=== PATIENT | male | born 1990 | race Caucasian/White ===

== ENCOUNTER 2018-12-29 15:56 | Emergency (ER) | payer SELFPAY ==
[2018-12-29] MEDS ORDERED: ACETAMINOPHEN 500 MG TAB ONE (16:22)
--- NOTE | 2018-12-29 16:44 | RAD REPORT ---
EXAM DESCRIPTION: Jake Amezquita (2 Views)12/29/2018 4:38 pm CLINICAL HISTORY: Cough COMPARISON: 2016 FINDINGS: The lungs appear clear of acute infiltrate. The heart is mildly enlarged. Post surgical c hanges involve the chest IMPRESSION: No acute abnormalities displayed
[2018-12-29 16:48] LABS: Absolute Lymphocytes (CBC) 0.5 K/uL (0.7-4.9); Absolute Monocytes 0.5 K/uL (0.1-1.3); Absolute Neutrophil 2.7 K/uL (1.8-8.0); Basophils % 0.6 % (0-1.3); Eosinophils % 1.4 % (0-4.4); Hematocrit 48.8 % (39.6-49.0); MPV 8.5 fL (7.6-11.3); RBC Red Blood Cell Count 5.39 M/uL (4.33-5.43)
[2018-12-29 17:04] LABS: BUN Blood Urea Nitrogen 9 mg/dL (7-18); Bicarbonate 28 mmol/L (21-32); Glucose Level 104 mg/dL (74-106); Sodium Level 138 mmol/L (136-145)
[2018-12-29] MEDS ORDERED: KETOROLAC 30 MG/ML INJ ONE (17:28)
--- NOTE | 2018-12-29 18:09 | EDPHYS ---
Physician Documentation [facility] Name: Jeremy Hernandez Age: 28 yrs Sex: Male : 1990 Arrival Date: 12/29/2018 Time: 15:58 Bed 13 Private MD: ED Physician Derrick Maddox HPI: 12/29 17:34 This 28 yrs old Male presents to ER via Ambulatory with complaints of Chest kb Pain. Historical: - Allergies: 16:03 No Known Drug Allergies; hj - PMHx: 16:03 heart stenosis; Seizures; hj - PSHx: 16:03 balloon heart procedure; Ross procedure; hj - Immunization history:: Adult Immunizations unknown. - Ebola Screening: : No symptoms or risks identified at this time. - Social history:: Smoking status: Patient/guardian denies using tobacco. ROS: 17:35 Constitutional: Negative for fever, chills, and weight loss, ENT: Negative for injury, kb pain, and discharge, Neck: Negative for injury, pain, and swelling, Abdomen/GI: Negative for abdominal pain, nausea, vomiting, diarrhea, and constipation, Back: Negative for injury and pain, : Negative for injury, bleeding, discharge, and swelling, MS/Extremity: Negative for injury and deformity, Skin: Negative for injury, rash, and discoloration, Neuro: Negative for headache, weakness, numbness, tingling, and seizure. 17:35 Cardiovascular: Positive for chest pain, Negative for edema, orthopnea, palpitations, paroxysmal nocturnal dyspnea. 17:35 Respiratory: Positive for pleurisy, Negative for cough, dyspnea on exertion, hemoptysis, orthopnea, shortness of breath, sputum production, wheezing. Exam: 17:35 Constitutional: This is a well developed, well nourished patient who is awake, alert, kb and in no acute distress. Head/Face: Normocephalic, atraumatic. ENT: Nares patent. No nasal discharge, no septal abnormalities noted. Tympanic membranes are normal and external auditory canals are clear. Oropharynx with no redness, swelling, or masses, exudates, or evidence of obstruction, uvula midline. Mucous membranes moist. Neck: Trachea midline, no thyromegaly or masses palpated, and no cervical lymphadenopathy. Supple, full range of motion without nuchal rigidity, or vertebral point tenderness. No Meningismus. Chest/axilla: Normal chest wall appearance and motion. Nontender with no deformity. No lesions are appreciated. Respiratory: Lungs have equal breath sounds bilaterally, clear to auscultation and percussion. No rales, rhonchi or wheezes noted. No increased work of breathing, no retractions or nasal flaring. Abdomen/GI: Soft, non-tender, with normal bowel sounds. No distension or tympany. No guarding or rebound. No evidence of tenderness throughout. Skin: Warm, dry with normal turgor. Normal color with no rashes, no lesions, and no evidence of cellulitis. MS/ Extremity: Pulses equal, no cyanosis. Neurovascular intact. Full, normal range of motion. Neuro: Awake and alert, GCS 15, oriented to person, place, time, and situation. Cranial nerves II-XII grossly intact. Motor strength 5/5 in all extremities. Sensory grossly intact. Cerebellar exam normal. Normal gait. 17:35 Cardiovascular: Heart sounds: murmur. Vital Signs: 16:03 BP 139 / 82; Pulse 86; Resp 18; Temp 101(O); Pulse Ox 99% on R/A; Weight 61.23 kg; hj Height 5 ft. 8 in. (172.72 cm); Pain 8/10; 17:00 BP 121 / 78; Pulse 67; Resp 18; Pulse Ox 98% on R/A; ph 17:46 BP 110 / 67; Pulse 58; Resp 18; Temp 99.3; Pulse Ox 97% on R/A; ph 18:15 BP 101 / 76 LA (auto/reg); Pulse 64; Pulse Ox 98% on R/A; Pain 4/10; jp3 16:03 Body Mass Index 20.52 (61.23 kg, 172.72 cm) MDM: 16:13 Patient medically screened. kb 17:34 Data reviewed: vital signs, nurses notes. Data interpreted: Pulse oximetry: on room air kb is 99 %. Interpretation: normal. 18:08 The patient's pulmonary embolism risk score was calculated as follows: No Risks (0 kb Pts). Counseling: I had a detailed discussion with the patient and/or guardian regarding: the historical points, exam findings, and any diagnostic results supporting the discharge/admit diagnosis, lab results, radiology results, the need for outpatient follow up, a family practitioner, to return to the emergency department if symptoms worsen or persist or if there are any questions or concerns that arise at home. ED course: Dr Maddox evaluated pt as well. Agrees with outpatient follow up. Pt will return for worsening symptoms or other concerns. 12/29 16:10 Order name: Flu; Complete Time: 17:06 kb 12/29 16:17 Order name: CBC with Diff; Complete Time: 16:52 kb 12/29 16:10 Order name: Chest Pa And Lat (2 Views) XRAY; Complete Time: 16:45 kb 12/29 16:17 Order name: Basic Metabolic Panel; Complete Time: 17:06 kb 12/29 16:17 Order name: Blood Culture Adult (2) kb 12/29 16:22 Order name: Troponin (emerg Dept Use Only); Complete Time: 17:11 kb 12/29 16:05 Order name: EKG - Nurse/Tech; Complete Time: 16:05 hj 12/29 16:17 Order name: IV Start; Complete Time: 16:36 kb 12/29 16:34 Order name: EKG Electrocardiogram; Complete Time: 16:33 EDMS 12/29 17:34 Order name: Vital Signs; Complete Time: 17:48 kb Administered Medications: 16:05 Drug: Tylenol 1000 mg Route: PO; hj 17:35 Follow up: Response: No adverse reaction ph 17:20 Drug: TORadol 30 mg Route: IVP; Site: right antecubital; ph 18:41 Follow up: Response: No adverse reaction ph Disposition: 18:44 Co-signature as Attending Physician, Derrick Maddox MD. rn Disposition: 12/29/18 18:07 Discharged to Home. Impression: Chest pain on breathing, Fever, unspecified. - Condition is Stable. - Discharge Instructions: Costochondritis, [id number], Nonspecific Chest Pain, [id number], Pleurisy, [id number]-[id number]. - Prescriptions for Diclofenac Sodium 75 mg Oral Tablet, Delayed Release (E.C.) - take 1 tablet by ORAL route 2 times per day As needed; 30 tablet. - Medication Reconciliation Form, Thank You Letter, Antibiotic Education, Prescription Opioid Use form. - Follow up: Emergency Department; When: As needed; Reason: Worsening of condition. Follow up: Private Physician; When: 2 - 3 days; Reason: Recheck today's complaints, Continuance of care, Re-evaluation by your physician. Signatures: Dispatcher [employer] EDMS Gilma Sandhu, CONCRETE MIXER-C CONCRETE MIXER-Ckb Derrick Maddox MD MD rn Hall, Patricia, RN RN José Miguel Garcia RN RN Corrections: (The following items were deleted from the chart) 18:43 18:07 12/29/2018 18:07 Discharged to Home. Impression: Chest pain on breathing; Fever, ph unspecified. Condition is Stable. Forms are Medication Reconciliation Form, Thank You Letter, Antibiotic Education, Prescription Opioid Use. Follow up: Emergency Department; When: As needed; Reason: Worsening of condition. Follow up: Private Physician; When: 2 - 3 days; Reason: Recheck today's complaints, Continuance of care, Re-evaluation by your physician. kb
--- NOTE | 2018-12-29 18:09 | ER ---
Nurse's Notes [facility] Name: Jeremy Hernandez Age: 28 yrs Sex: Male : 1990 Arrival Date: 12/29/2018 Time: 15:58 Bed 13 Private MD: Diagnosis: Chest pain on breathing;Fever, unspecified Presentation: 12/29 16:00 Presenting complaint: Patient states: when i deep breath, i am having pain on my chest hj area; my temp is 101.1 at home; denies cough;. Transition of care: patient was not received from another setting of care. Onset of symptoms was December 29, 2018. Risk Assessment: Do you want to hurt yourself or someone else? Patient reports no desire to harm self or others. Initial Sepsis Screen: Does the patient meet any 2 criteria? No. Patient's initial sepsis screen is negative. Does the patient have a suspected source of infection? No. Patient's initial sepsis screen is negative. Care prior to arrival: None. 16:00 Method Of Arrival: Ambulatory 16:00 Acuity: ARACELY 3 hj Historical: - Allergies: 16:03 No Known Drug Allergies; hj - PMHx: 16:03 heart stenosis; Seizures; hj - PSHx: 16:03 balloon heart procedure; Ross procedure; hj - Immunization history:: Adult Immunizations unknown. - Ebola Screening: : No symptoms or risks identified at this time. - Social history:: Smoking status: Patient/guardian denies using tobacco. Screenin:52 Abuse screen: Denies threats or abuse. Denies injuries from another. Nutritional ph screening: No deficits noted. Tuberculosis screening: No symptoms or risk factors identified. Fall Risk None identified. Assessment: 16:51 General: Appears in no apparent distress. comfortable, slender, Behavior is calm, ph cooperative, appropriate for age, Reports chills for fever for 1-2 days. Pain: Complains of pain in chest Pain does not radiate. Pain began 1 day ago. Neuro: Level of Consciousness is awake, alert, obeys commands, Oriented to person, place, time, situation. Cardiovascular: Reports chest pain, Denies nausea, vomiting, Capillary refill < 3 seconds in bilateral fingers Patient's skin is warm and dry. Respiratory: Reports pain with respiration Airway is patent Respiratory effort is even, unlabored, Respiratory pattern is regular, symmetrical, Denies cough. Derm: Skin is healthy with good turgor, Skin is pink, warm \T\ dry. 17:30 Reassessment: Patient appears in no apparent distress at this time. Patient and/or ph family updated on plan of care and expected duration. Pain level reassessed. Patient is alert, oriented x 3, equal unlabored respirations, skin warm/dry/pink. 18:42 Reassessment: Patient appears in no apparent distress at this time. Patient and/or ph family updated on plan of care and expected duration. Pain level reassessed. Patient is alert, oriented x 3, equal unlabored respirations, skin warm/dry/pink. Pt d/c home w/ pain medication. Vital Signs: 16:03 BP 139 / 82; Pulse 86; Resp 18; Temp 101(O); Pulse Ox 99% on R/A; Weight 61.23 kg; hj Height 5 ft. 8 in. (172.72 cm); Pain 8/10; 17:00 BP 121 / 78; Pulse 67; Resp 18; Pulse Ox 98% on R/A; ph 17:46 BP 110 / 67; Pulse 58; Resp 18; Temp 99.3; Pulse Ox 97% on R/A; ph 18:15 BP 101 / 76 LA (auto/reg); Pulse 64; Pulse Ox 98% on R/A; Pain 4/10; jp3 16:03 Body Mass Index 20.52 (61.23 kg, 172.72 cm) ED Course: 15:58 Patient arrived in ED. mr 16:02 Triage completed. hj 16:04 Arm band placed on right wrist. hj 16:10 EKG done, by camera technician. reviewed by Derrick Maddox MD. sm3 16:13 Gilma Sandhu FNP-C [facility]. kb 16:13 Derrick Maddox MD is Attending Physician. kb 16:22 Flu and/or RSV swab sent to lab. jp3 16:30 Initial lab(s) drawn, by mn, sent to lab. First set of blood cultures drawn. Inserted jp3 saline lock: 18 gauge in right forearm, using aseptic technique. Blood collected. 16:36 Troponin (emerg Dept Use Only) Sent. jp3 16:36 Basic Metabolic Panel Sent. jp3 16:36 CBC with Diff Sent. jp3 16:36 Flu Sent. jp3 16:40 Chest Pa And Lat (2 Views) XRAY In Process Unspecified. EDMS 16:50 Mirian Fontana, RN is Primary Nurse. ph 16:52 Patient has correct armband on for positive identification. Placed in gown. Bed in low ph position. Call light in reach. Side rails up X 1. Pulse ox on. NIBP on. 16:53 No provider procedures requiring assistance completed. Patient maintains SpO2 ph saturation greater than 95% on room air. 17:14 Second set of blood cultures drawn via 21-gauge butterfly-syringe in Left A/C. jp3 17:16 Blood Culture Adult (2) Sent. jp3 18:42 IV discontinued, intact, bleeding controlled, No redness/swelling at site. Pressure ph dressing applied. Administered Medications: 16:05 Drug: Tylenol 1000 mg Route: PO; hj 17:35 Follow up: Response: No adverse reaction ph 17:20 Drug: TORadol 30 mg Route: IVP; Site: right antecubital; ph 18:41 Follow up: Response: No adverse reaction ph Outcome: 18:07 Discharge ordered by . kb 18:42 Discharged to home ambulatory. ph 18:42 Condition: good 18:42 Discharge instructions given to patient, Instructed on discharge instructions, follow up and referral plans. medication usage, Demonstrated understanding of instructions, follow-up care, medications, Prescriptions given X 1. 18:43 Patient left the ED. ph Signatures: Dispatcher [employer] EDMN Gilma Sandhu, JUSTICE GARGP-Elías Justina Sousa Mirian Fontana, RN RN José Miguel Mahajan RN RN Batsheva Daniels 3 Hayder Rose jp3 Corrections: (The following items were deleted from the chart) 16:05 16:03 Pulse 86bpm; Resp 18bpm; Pulse Ox 99% RA; Temp 101F Oral; 61.23 kg; Height 5 ft. hj 8 in.; BMI: 20.5; Pain 8/10; hj
[2018-12-29 18:58] VITALS: TEMP 99.3
[2018-12-29 18:59] VITALS: BP 101/76; O2SAT 98
--- NOTE | 2018-12-30 11:12 | EKG ---
Test Date: 2018-12-29 Test Time: 16:09:01 Water Maintenance Supervisor: AMY MEASUREMENT RESULTS: Intervals: Rate: 91 CA: 132 QRSD: 80 QT: 338 QTc: 415 [place]: P: 45 CA: 132 QRS: 87 T: -60 INTERPRETIVE STATEMENTS: Normal sinus rhythm ST & Marked T wave abnormality, consider lateral ischemia Abnormal ECG Compared to ECG 03/20/2016 07:30:22 T-wave abnormality now present Possible ischemia now present Left ventricular hypertrophy no longer present Early repolarization no longer present Myocardial infarct finding no longer present Electronically Signed On 12-30-18 11:09:50 CDT by Douglas Hand
== END 2018-12-29 18:43 | disposition home or self-care (01) ==
LOC: ER 15:56
DX: R50.9 Fever, unspecified (principal)
CPT/HCPCS: 36415; 71046; 80048; 84484; 85025; 87040; 87804; 93005; 96374; 99285

== ENCOUNTER 2023-06-18 11:03 | Emergency (ER) | payer OTHER, SELFPAY ==
[2023-06-18] MEDS ORDERED: EPINEPHrine 1 MG/10 ML SYR IV ONE (11:04)
[2023-06-18] MEDS ORDERED: NALOXONE 0.4 MG/ML VIAL IV ONE (11:04)
--- OUTSIDE RECORDS SUMMARY | 2023-06-18 11:07 | XMS REPORT | Continuity of Care Document ---
:1990 Author Organization Formerly [facility] t Address [address] [place] [address] Care Team Providers Name Role Phone Marie Gomez Attending Clinician Unavailable Keegan Attending Clinician Unavailable SALLY Attending Clinician Unavailable Polo Ledesma Attending Clinician Unavailable Marie Gomez Admitting Clinician Unavailable Keegan Admitting Clinician Unavailable SALLY Admitting Clinician Unavailable Physician, No Primary or Family Admitting Clinician Unavaila ble Payers Payer Name Policy Type Policy Number Effective Date Expiration Date S ource Problems Condition Condition Condition Status Onset Resolution Last Treating Co mments Source Name Details Category Date Date Treatment Clinician Date Arthritis Arthritis Problem Active [place] 7-[facility] 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 7-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 00:00: [facility] Systolic Systolic Problem Active [place] murmur Murmur 7-31 da 00:00: [facility] Bilateral Bilateral Problem Active [place] arthritis Arthritis 7-31 da of knees of Knees 00:00: [facility] Generalize Generalize Problem Active [place] d anxiety d Anxiety 02-23 da disorder Disorder 00:00: [facility] Hypertensi Hypertensi Problem Active [place] ve ve 02-23 da disorder Disorder 00:00: [facility] Allergies, Adverse Reactions, Alerts Allergy Allergy Status Severity Reaction(s) Onset Inactive Treating Comm ents Source Name Type Date Date Clinician No Known DA Active [facility] Allergie 04-19 [facility] 00:[facility]: [facility] Social History Smoking Status Start Date Stop Date Source Never Smoker [place] [facility] Medications Ordered Filled Start Stop Current Ordering Indication Dosage Frequency Signature Comments Components Source Medication Medication Date Date Medication? Clinician (SIG) Name Name gabapentin gabapentin No 1capsul TID gabapentin [place] 300 mg 300 mg e(s) 300 mg da capsule capsule capsule [facility] Take 1 Take 1 Take 1 al capsule 3 capsule 3 capsule 3 Health times a day times a day times a Outreac by oral by oral day by h route. route. oral Program route. lorazepam 1 lorazepam 1 No lorazepam [place] mg tablet mg tablet 1 mg da TAKE 1 TAKE 1 tablet [facility] TABLET BY TABLET BY TAKE 1 al MOUTH THREE MOUTH THREE TABLET BY Health TIMES A DAY TIMES A DAY MOUTH Outreac NEEDED NEEDED THREE h TIMES A Program DAY NEEDED Vital Signs Vital Name Observation Time Observation Value Comments Source BP Diastolic 2023-02-23 00:00:00 97 mm[Hg] [facility] Height 2023-02-23 00:00:00 67 [in_i] [facility] BMI (Body Mass 2023-02-23 00:00:00 23.3 kg/m2 [facility]) Health Outreach Program BP Systolic 2023-02-23 00:00:00 154 mm[Hg] [facility] Body Weight 2023-02-23 00:00:00 2385 [oz_av] [facility] Procedures Procedure Date / Time Performing Clinician Source Performed [id number] 2020-11-13 00:00:00 RIOMA.03 [facility] Appendectomy 2015-07-27 00:00:00 [place] [facility] Replacement of Aortic 2014-07-27 00:00:00 [place]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 [facility] Using Pulmonary Health Outr each Valve Autograft and Program Replacement of Pulmonary Valve Angioplasty 1988-07-27 00:00:00 [place] [facility] Plan of Care Planned Activity Planned Date Details Comments Source Diagnostic Test 2023-02-23 vitamin D, [place] Pending 00:00:00 25-hydroxy, total, [facility] serum [code = Outreach Progr am vitamin D, 25-hydroxy, total, serum] Diagnostic Test 2023-02-23 HbA1c (hemoglobin [place] Pending 00:00:00 A1c), blood [code = [facility] HbA1c (hemoglobin [facility]reach P rogram A1c), blood] Diagnostic Test 2023-02-23 TSH, [place] Pending 00:00:00 ultra-sensitive, [facility] serum [code = TSH, Outreach Program ultra-sensitive, serum] Diagnostic Test 2023-02-23 urinalysis complete, [place] linda Pending 00:00:00 reflex culture [code [facility] = urinalysis Outreach Progra m complete, reflex culture] Diagnostic Test 2023-02-23 lipid panel, serum [place]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 Pending 00:00:00 [code = lipid panel, [facility] serum] [facility]reach [facility] m Diagnostic Test 2023-02-23 CBC w/ auto diff [place] Pending 00:00:00 [code = CBC w/ auto [facility] diff] [facility] Diagnostic Test 2023-02-23 CMP, serum or plasma [place] linda Pending 00:00:00 [code = CMP, serum [facility] or plasma] Outreach Pro[facility] m Future Appointment 2023-07-14 Troy Domínguez 13:30:00 [place] [address] Outreach Program Encounters Start End Encounter Admission Attending Care Care Encounter Source Date/Time Date/Time Type Type Clinicians Facility Department ID 2022-01-08 Outpatient [facility] [id number] Common 13:18:02 [facility] 2021-10-07 Outpatient [facility] [id number] Common 13:06:02 [facility] 2021-09-19 Outpatient [facility] [id number] Common 14:59:03 [facility] 2021-09-10 Outpatient [facility] [id number] Common 14:50:03 [facility] 2020-11-14 Inpatient EM Patricia, HCAKW HCAKW [id number] [facility] 09:14:21 [facility] 2023 2023 Outpatient Ritter_Kath MEHOP MEHOP 125 [id number] [place] 00:00:00 00:00:00 erine [id number] da [facility] 2023 2023 Outpatient Ritter_Kath MEHOP MEHOP 125 [id number] [place] 00:00:00 00:00:00 erine 84531 da [facility] 2023-05-25 2023-05-25 Outpatient Ritter_Kath MEHOP MEHOP 125 [id number] [place] 00:00:00 00:00:00 erine 86584 [facility] 2023-05-25 2023-05-25 Outpatient Ritter_Kath MEHOP MEHOP 125 [id number] [place] 00:00:00 00:00:00 erine [id number] [facility] 2023-03-22 2023-03-22 Outpatient Ritter_Kath MEHOP MEHOP 125 [id number] [place] 00:00:00 00:00:00 erine [id number] [facility] 2023-03-22 2023-03-22 Outpatient Ritter_Kath MEHOP MEHOP 125 [id number] [place] 00:00:00 00:00:00 erine [id number] [facility] 2023-02-23 2023-02-23 Outpatient Ritter_Kath MEHOP MEHOP 125 [id number] [place] 00:00:00 00:00:00 michael [id number] da [facility] 2023-02-23 2023-02-23 Citlaly [facility] [place] - [id number] [place] 00:00:00 00:00:00 Fercho Murali fernandez Earlter, [facility] [employer] LE[employer]ER: [address], [facility] [address] Progr , Ph. 2023-02-12 2023-02-12 Outpatient AMBREEN_FAR MEHOP GAHOP [id number] [place] 00:00:00 00:00:00 HANA 84413 da [facility] 2023-02-12 2023-02-12 Outpatient AMBREEN_FAR GAHOP [facility] [phone] [place] 00:00:00 00:00:00 HANA 75831 da [facility] 2023-02-12 2023-02-12 Outpatient AM[facility]EN[facility] [phone] [place] 00:00:00 00:00:00 HANA [id number] da [facility] 2022-10-25 2022-10-25 Emergency EM MARY Ledesma ER [id number] [facility] 15:07:00 18:45:[address] 2016-11-04 2016-12-09 Outpatient [facility] [id number] [place] 00:00:00 00:00:00 [facility] Office Results Test Description Test Time Test Comments Results Result [facility] e Comments - CT NECK 2022-10-25 W/CONTRAST 18:23:00 [facility] [place] : 1990 Sex: M [place]: [address]: REG Name: JULISA FERNANDEZ [facility] : 1990 Age/S: 32/M [address] Yusuf Henriquez [facility] Unit #: [id number] Loc: [place], [place] [address] Phys: Polo Ledesma MD Acct: [id number] Dis Date: Status: REG ER PHONE #: [phone] Exam Date: 10/25/2022 1755 FAX #: [phone] Reason: throat pain/swallowing;cut throat while brshngtCTDI: DLP: Automated exposure control, iterative reconstruction technique, and/oradjustment of mA and/or kV according to patient's size was utilized fooptimum radiation dose reduction. EXAMS: CPT CODE: [id number] CT NECK W/CONTRAST 89865 EXAM: - CT NECK W/CONTRAST LOCATION: H101 CLINICAL HISTORY/INDICATION: throat pain/swallowing;cut throat while brushing teeth 1wk COMPARISON: None TECHNIQUE: Helical CT acquisition of the neck was acquired with IV contrast administration. Axial, coronal and sagittal images were reconstructed. This examination was performed according to our departmental dose optimization program, which includes automated exposure control, adjustment of the mA and/or kV according to patient size, and/or use of iterative reconstruction technique. FINDINGS: PARTIALLY IMAGED INTRACRANIAL STRUCTURES: No acute abnormality. TEMPORAL BONE/MASTOID: Mastoid air cells are clear. ORBITS: Unremarkable. PARANASAL SINUSES: Clear. AERODIGESTIVE TRACT: The nasal cavity, nasopharynx, oral cavity, oropharynx and hypopharynx are patent without mass or fluid collection or inflammatory changes. LARYNX:Epiglottis is normal. The glottic and subglottic airway are patent. The vocal cords are unremarkable. LYMPH NODES: No pathologic features or enlargement by CT criteria . VESSELS: No occlusion or significant narrowing of the bilateral carotid or vertebral arteries. Jugular veins are patent. SUBMANDIBULAR GLANDS: Symmetric in appearance without mass. PAGE 1 Signed Report (CONTINUED) [place]: [address]: REG Name: JULISA FERNANDEZ [facility] : 1990 Age/S: 32/M [address] Yusuf Henriquez [facility] Unit #: [id number] Loc: [place], [place] [address] Phys: Polo Ledesma MD Acct: [id number] Dis Date: Status: REG ER PHONE #: [phone] Exam Date: 10/25/2022 9878 FAX #: [phone] Reason: throat pain/swallowing;cut throat while brshngtCTDI: DLP: Automated exposure control, iterative reconstruction technique, and/oradjustment of mA and/or kV according to patient's size was utilized fooptimum radiation dose reduction. EXAMS: CPT CODE: [id number] CT NECK W/CONTRAST 49448 (Continued) PAROTID GLANDS: Symmetric in appearance without mass. THYROID GLAND: No abnormalities. UPPER CHEST: Lung apices are clear. BONES: Regional osseous structures are intact. IMPRESSION: 1. Unremarkable contrast-enhanced neck CT. at 1823 Reported and signed by: VANDANA MCKAY M.D. Facility ACR Accreditation for CT - February 2012 CC: Polo Ledesma MD Technologist: LORENE LINDO(R)(CT) Transcribed Date/Time/By: 10/25/2022 (1822) : By: [email or web address] Orig Print D/T: S: 10/25/2022 (1825) PAGE 2 Signed Report BASIC METABOLIC PANEL 2022-10-25 16:28:00 Test Item Value Reference Range Interpretation Comme nts SODIUM (test code = NA) 139 mmol/L 136-145 N POTASSIUM (test code = K) 3.4 mmol/L 3.5-5.1 L CHLORIDE (test code = CL) 106 mmol/L 98-113 N CARBON DIOXIDE (test code = 30 mmol/L 21-32 N CO2) GLUCOSE (test code = GLU) 88 mg/dL 65-99 N BLOOD UREA NITROGEN (test code 9 mg/dL 7-18 N = BUN) GLOMERULAR FILTRATION RATE 120 T he Glomerular Filtration Rate is (test code = GFR) a calculat ed parameterbased on serum Creatinin e, patient age and sex. GFR values less than 60 mL/min/1.73 squ are meters are indicative ofCh ronic Kidney Disease. Values less than 15 mL/min/1.73squa re meters indicate Kidney failure. The calculation forGFR is based on the CKD-EPI (2020) calculat ion. This formulais race indifferent and is the recommended formula for GFRby the National [facility] for Adults.The GFR will not calculate if th e sex is unknown or if thepatien t's age is <18 years. CREATININE (test code = CREAT) 0.8 mg/dL 0.6-1.0 N CALCIUM (test code = CA) 8.8 mg/dL 7.8-10.9 N HEPATIC FUNCTION [id number] 16:28:00 Test Item Value Reference Range Interpretation Comments TOTAL PROTEIN (test 7.5 g/dL 6.4-8.2 N code = PROT) ALBUMIN (test code = 3.3 g/dL 3.4-5.0 L ALB) GLOBULIN (test code = 4.2 gm/dL 2.3-3.5 H GLOB) ALBUMIN/GLOBULIN 0.8 1.5-2.2 L RATIO (test code = A/G) BILIRUBIN TOTAL (test 0.8 mg/dL 0.0-1.1 N code = BILT) BILIRUBIN DIRECT 0.2 mg/dL 0.05-0.3 N (test code = BILD) BILIRUBIN INDIRECT 0.6 mg/dL 0.0-0.6 N (test code = BILIND) SGOT/AST (test code = 18 U/L 15-37 N Report ing units: AST) International U nits/L SGPT/ALT (test code = 29 U/L 10-30 N Report ing units: ALT) International U nits/L ALKALINE PHOSPHATASE 96 U/L 45-117 N TOTAL (test code = ALKP) [id number] 16:28:00 Test Item Value Reference Range Interpretation Comments LIPASE (test code = 96 U/L 73-393 N Reportin g units: LIP) International U nits/L COVID 19 Asymptomatic IH [id number] 16:04:00 Test Item Value Reference Interpretation Comments Range COVID 19 Presumptive Presump.Neg Results are for the Asymptomatic IH Negative identificati on of AG (test code = [id number] cleocapsid COVNONPUIAG) protein antigen . Antigen is generallydetect able in upper respirato ry specimens durin g the acutephase of infection. Posi tive results indicat e the presenceof leodan l antigens, but c linical correlation wit h patienthistory and other diagnosti c information is necessary todet ermine infection statu s. Positive result s do not rule outbacteri al infection or co-infection wi th other viruses. Theage nt detected may no t be the definite cause of disease.Laborat ories within the Unit [facility] and its territoriesare required to report all p ositive results to themerged with [facility] public health authorit ies. Negative result s should be treated as presumptive andconfirmed wi th molecular assay , if necessary for patientmanageme nt. Negative result s do not rule out COVID- 19 andshould not b e used as the sole bas is for treatment orpat ient management deci sions, including infec tion controldecision s. Negative result s should be considered i n thecontext of a patient's recen t exposures, hist ory andpresence of clinical signs and sympt oms consistent withCOVID-19. T he Lauren SARS Antigen FI A is intended for us e by trainedclinical personnel and individuals tra ined in point of carese ttings. The Lauren SARS Antigen ZABRINA is only for use underthe Food a nd Drug Administration' s Emergency UseAuthorizatio n. LOT # [id number].DATE 02/11/23PROCEDURAL CONTROL ACCEPTABLE Y/N YCBC W/AUTO DIFF 2022-10-25 15:49:00 Test Item Value Reference Range Interpretation Comments WHITE BLOOD CELL (test code = 9.9 K/mm3 4.8-10.8 N WBC) RED BLOOD CELL (test code = RBC) 4.66 M/mm3 4.2-5.4 N HEMOGLOBIN (test code = HGB) 12.9 gm/DL 13.5-17.5 L HEMATOCRIT (test code = HCT) 40.5 % 37.1-51.5 N MEAN CELL VOLUME (test code = 86.9 fL 81-99 N MCV) MEAN CELL HGB (test code = MCH) 27.7 pg 27-31 N MEAN CELL HGB CONCETRATION (test 31.9 gm/dL 33-37 L code = MCHC) RED CELL DISTRIBUTION WIDTH (test 12.6 % 11.5-14.5 N code = RDW) PLATELET COUNT (test code = PLT) 367 X10(3) 130-400 N MEAN PLATELET VOLUME (test code = 8.6 fL 9.4-12.4 L MPV) NEUTROPHIL % (test code = NT%) 72.4 % 51.5-79.7 N IMMATURE GRANULOCYTE % (test code 0.300 % 0.108-0.322 N = IG%) LYMPHOCYTE % (test code = LY%) 15.0 % 14-40 N MONOCYTE % (test code = MO%) 7.5 % 4.0-10.2 N EOSINOPHIL % (test code = EO%) 4.4 % 0-4.1 H BASOPHIL % (test code = BA%) 0.4 % 0.1-0.7 N NUCLEATED RBC % (test code = 0.0 % 0-0 N NRBC%) NEUTROPHIL # (test code = NT#) 7.1 K/mm3 2.5-8.6 N IMMATURE GRANULOCYTE # (test code 0.030 K/mm3 0.0052-0.0224 H = IG#) LYMPHOCYTE # (test code = LY#) 1.5 K/mm3 1.1-3.6 N MONOCYTE # (test code = MO#) 0.7 K/mm3 0.3-0.9 N EOSINOPHIL # (test code = EO#) 0.43 # 0.0-0.4 H BASOPHIL # (test code = BA#) 0.04 K/mm3 0.0-0.2 N NUCLEATED RBC # (test code = 0.00 K/mm3 0.00-0.20 N NRBC#) - XR CHEST 1 [id number] 06:28:00 [facility] : 1990 Sex: M FAX: Aletha Toscano PA-C [phone] [place]: St: ADM FAX: Marie Gomez [phone] Name: JEREMY FERNANDEZ [facility] : 1990 Age/S: 30/M [address] Unit #: [id number] Loc: [address] [address] Phys: Aletha Toscano PA-C Acct: [id number] Dis Date: Status: ADM IN PHONE #: [phone] Exam Date: 626 FAX #: [phone] Reason: s/p chest tube removal EXAMS: CPT CODE: [id number] XR CHEST1 V 48295 EXAMINATION: - XR CHEST 1 V LOCATION: 1 INDICATION/CLINICAL HISTORY: s/p chest tube removal COMPARISON: Chest x-ray 11/17/2020. TECHNIQUE: AP view of the chest. FINDINGS: Cardiac silhouetteis normal in size. Pulmonary vasculature are not congested. There is no pneumothorax, consolidation or infiltrates. Trace right pleural effusion appears slightly increased. Regional osseous structures are stable. IMPRESSION: 1. Slight increase in size of a trace right pleural effusion. 2. No pneumothorax. at 0628 Reported and signed by: Vandana Radford MD CC: Aletha Toscano; Marie Gomez MD Technologist: [facility]XX HOW[facility]LL [facility] Date/Time/By: 11/18/2020 (627) : By: [email or web address] PAGE 1 Signed Report FAX: Aletha Toscano PA-C [phone]: St: ADM FAX: Marie Gomez [phone] Name: JEREMY FERNANDEZ [place] [facility] : 1990 Age/S: 30/[address] Unit #: [id number] Loc: [address] [address] Phys: Aletha Toscano PA-C Acct: [id number] Dis Date: Status: ADM IN PHONE #: [phone] Exam Date: 11/18/2020626 FAX #: [phone] Reason: s/p chest tube removal EXAMS: CPT CODE: [id number] XR CHEST 1 V 12323 (Continued) Orig Print D/T: S: 11/18/2020 (630) PAGE 2 Signed ReportBASIC METABOLIC [id number] 03:56:00 Test Item Value Reference Range Interpretation Comments SODIUM (test code = 138 mmol/L 137-145 N NA) POTASSIUM (test code 3.9 mmol/L 3.4-5.0 N = K) CHLORIDE (test code = 102 mmol/L 98-107 N CL) CARBON DIOXIDE (test 28 mmol/L 22-30 N code = CO2) GLUCOSE (test code = 105 mg/dL 74-106 N GLU) BLOOD UREA NITROGEN 17 mg/dL 9-20 N (test code = BUN) GLOMERULAR FILTRATION 167 >60 The es timated RATE (test code = glomerular filtration GFR) rate is compute d usingpatient ra ce, age (>18), sex, and serum creatinine. If anyof the needed data elements are mi ssing the Laboratory cannot compute an cipriano mation of the glomerul ar filtration rate . CREATININE (test code 0.6 mg/dL 0.7-1.3 L = CREAT) CALCIUM (test code = 9.0 mg/dL 8.4-10.2 N CA) [id number] 03:56:00 Test Item Value Reference Range Interpretation Comments PHOSPHOROUS (test code = PHOS) 3.4 mg/dL 2.5-4.5 N [id number] 03:56:00 Test Item Value Reference Range Interpretation Comments MAGNESIUM (test code = MAG) 2.0 mg/dL 1.6-2.3 N CBC W/AUTO [id number] 03:42:00 Test Item Value Reference Range Interpretation Comments WHITE BLOOD CELL (test code = 6.4 x10 3/uL 5.0-12.0 N WBC) RED BLOOD CELL (test code = 4.82 x10 6/uL 4.70-6.10 N RBC) HEMOGLOBIN (test code = HGB) 14.1 g/dL 14.0-18.0 N HEMATOCRIT (test code = HCT) 43.4 % 37.0-49.0 N MEAN CELL VOLUME (test code = 90 fL 80-94 N MCV) MEAN CELL HGB (test code = MCH) 29.3 pg 27-31 N MEAN CELL HGB CONCENTRATION 32.5 g/dL 33-37 L (test code = MCHC) RED CELL DISTRIBUTION WIDTH 13.2 % 11.5-15.5 N (test code = RDW) PLATELET COUNT (test code = 170 x10 3/uL 130-400 N PLT) MEAN PLATELET VOLUME (test code 9.6 fL 9.4-16.4 N = MPV) NEUTROPHIL % (test code = NT%) 92.2 % 43-65 H IMMATURE GRANULOCYTE % (test 0.3 % 0.0-2.0 N code = IG%) LYMPHOCYTE % (test code = LY%) 4.2 % 20.5-45.5 L MONOCYTE % (test code = MO%) 1.6 % 5.5-11.7 L EOSINOPHIL % (test code = EO%) 1.4 % 0.9-2.9 N BASOPHIL % (test code = BA%) 0.3 % 0.2-1.0 N NUCLEATED RBC % (test code = 0.0 % 0-1.0 N NRBC%) NEUTROPHIL # (test code = NT#) 5.90 x10 3/uL 2.2-4.8 H IMMATURE GRANULOCYTE # (test 0.02 x10 3/uL 0-0.03 N code = IG#) LYMPHOCYTE # (test code = LY#) 0.27 x10 3/uL 1.3-2.9 L MONOCYTE # (test code = MO#) 0.10 x10 3/uL 0.3-0.8 L EOSINOPHIL # (test code = EO#) 0.09 x10 3/uL 0.0-0.2 N BASOPHIL # (test code = BA#) 0.02 x10 3/uL 0.0-0.1 N - XR CHEST 1 [id number] 20:28:00 [facility] : 1990 Sex: M FAX: Aletha Toscano PA-C [phone] [place]: St: [facility] FAX: Marie Gomez [phone] Name: FERNANDEZJEREMY GOOD [place] [facility] : 1990 Age/S: 30/M [address] Unit #: [id number] Loc: [address] [address] Phys: Aletha Toscano PA-C Acct: [id number] Dis Date: Status: ADM IN PHONE #: [phone] Exam Date: 0 11/17/20202014 FAX #: [phone] Reason: s/p chest tube removal EXAMS: CPT CODE: [id number] XR CHEST 1 V 97074 HISTORY: Chest tube removal Location: C3 COMPARISON:11/17/2020 FINDINGS: 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 Heart size is mildly prominent. No pneumothorax. The lungs are clear of focal consolidation. No effusion, pneumothorax, or acute osseous abnormality. IMPRESSION: 1. No focal consolidation. No other acute abnormalities. at 2027 Reported and signed by: Polo Herrera MD CC: Aletha Toscano; Marie Gomez MD Tech nologist: Sondra MartinezRT (R) Trnscrd Date/Time/By: 11/17/2020 (2027) : By: [email or web address] PAGE 1 Signed Report FAX: Aletha Toscano PA-C [phone] [place]: St: [facility] FAX: Marie Gomez [phone] Name: JEREMY FERNANDEZ [facility] : 1990 Age/S: 30/M [address] Unit #: [id number] Loc: C[address] [place] [address] Phys: Aletha Toscano PA-C Acct: [id number] Dis Date: Status: ADM IN PHONE #: [phone] Exam Date: 11/17/20202014 FAX #: [phone] Reason: s/p chest tube removal EXAMS: CPT CODE: [id number] XR CHEST 1 V 67712 () Orig Print D/T: S: 11/17/2020 (2030) PAGE 2 Signed Report- XR CHEST 1 [id number] 17:00:00 [facility] : 1990 Sex: M FAX: Aletha Toscano PA-C [phone] [place]: St: ADM FAX: Marie Gomez [phone] Name: JEREMY FERNANDEZ [facility] : 1990 Age/S: 30/M [address] Unit #: [id number] Loc: C[address] [place] [address] Phys: Aletha Toscano PA-C Acct: [id number] Dis Date: Status: ADM IN PHONE #: [phone] Exam Date: 11/17/20201652 FAX #: [phone] Reason: CHEST TUBE REMOVED EXAMS: CPT CODE: [id number] XR CHEST 1 V 45958 Location Code: C3 CHEST AP HISTORY: Chest tube removal COMPARISON: Chest radiograph from earlier same day FINDINGS: Right chest tube has been discontinued. No evidence of pneumothorax. The ca rdiomediastinal silhouette is stable. Sternal wires are redemonstrated. IMPRESSION: Right chest tube has been discontinued. No evidence of pneumothorax. The cardiomediastinal silhouette is stable. Sternal wires are redemonstrated. at 1700 Reported and signed by: Mary Baron MD CC: Aletha Toscano; Marie Gomez MD Technologist: Yeni Londono [facility] Date/Time/By: 11/17/2020 (1700) : By: [email or web address] PAGE1 Signed Report FAX: Aletha Toscano PA-C [phone] [place]: St: [facility] FAX: Marie Gomez Name: REBECCAJEREMY [place] [facility] : 1990 Age/S: 30/M [address] Unit #: [id number] Loc: [address] [address] Phys: Aletha Toscano PA-C Acct: [id number] Dis Date: Status: ADM IN PHONE #: [phone] Exam Date: 11/17/20201652 FAX #: [phone] Reason: CHEST TUBE REMOVED EXAMS: CPT CODE: [id number] XR CHEST 1 V 72414 (Continued) Orig Print D/T: S: 11/17/2020 (1703) PAGE 2 Signed Report- XR CHEST 1 [id number] 07:29:00 [facility] : 1990 Sex: M FAX: Aletha Toscano PA-C [phone] [place]: St: ADM FAX: Marie Gomez [phone] Name: JEREMY FERNANDEZ [facility] : 1990 Age/S: 30/M [address] Unit #: [id number] Loc: C.[address] [place] [place] [address] Phys: Aletha Toscano PA-C Acct: [id number] Dis Date: Status: ADM IN PHONE #: [phone] Exam Date: 11/17/2020715 FAX #: [phone] Reason: R PTX with chest tube EXAMS: CPT CODE: [id number] XR CHEST1 V 48898 EXAM: Portable chest x-ray, one view INDICATION: R PTX with chest tube ADMITTING DIAGNOSIS: Right pneumothorax LOCATION CODE: C3 COMPARISON: 11/16/2020 TECHNIQUE: Single Portable AP upright v iew of the chest DISCUSSION: Large bore chest tube is again seen, unchanged in its position. No pneumothorax seen. Heart and mediastinal contour are unremarkable. Multiple sternotomy wires are seen. Osseous structure demonstrate presence of a right posterior lateral 10th rib fracture seen. IMPRESSION:1. Status post sternotomy. 2. No pneumothorax. 3. Right chest tube, unchanged at 0729 Reported and signed by: Rocael Valdes M.D. CC: Aletha Toscano; Marie Gomez MD Technologist: DELMY ROMAN Trnnmrd Date/Time/By: 11/17/2020 (6430) : By: Freddy PAGE 1 Signed Report FAX: Aletha Toscano PA-C [phone] [place]: St: ADM FAX: Marie Gomez [phone] Name: FERNANDEZJEREMY J [facility] : 1990 Age/S: 30/M [address] Unit #: [id number] Loc: [address] [address] Phys: Aletha Toscano PA-C Acct: [id number] Dis Date: Status: ADM IN PHONE #: [phone] Exam Date: 11/17/2020715 FAX #: [phone] Reason: R PTX with chest tube EXAMS: CPT CODE: [id number] XR CHEST 1 V 45800 (Continued) Orig Print D/T: S: 11/17/2020 (0733) PAGE 2 Signed ReportBASIC METABOLIC [id number] 05:24:00 Test Item Value Reference Range Interpretation Comments SODIUM (test code = 137 mmol/L 137-145 N NA) POTASSIUM (test code 4.8 mmol/L 3.4-5.0 N = K) CHLORIDE (test code = 105 mmol/L 98-107 N CL) CARBON DIOXIDE (test 27 mmol/L 22-30 N code = CO2) GLUCOSE (test code = 103 mg/dL 74-106 N GLU) BLOOD UREA NITROGEN 15 mg/dL 9-20 N (test code = BUN) GLOMERULAR FILTRATION 167 >60 The es timated RATE (test code = glomerular filtration GFR) rate is compute d usingpatient ra ce, age (>18), sex, and serum creatinine. If anyof the needed data elements are mi ssing the Laboratory cannot compute an cipriano mation of the glomerul ar filtration rate . CREATININE (test code 0.6 mg/dL 0.7-1.3 L = CREAT) CALCIUM (test code = 9.0 mg/dL 8.4-10.2 N CA) [id number] 05:24:00 Test Item Value Reference Range Interpretation Comments PHOSPHOROUS (test code = PHOS) 3.5 mg/dL 2.5-4.5 N [id number] 05:24:00 Test Item Value Reference Range Interpretation Comments MAGNESIUM (test code = MAG) 2.1 mg/dL 1.6-2.3 N CBC W/AUTO [id number] 05:07:00 Test Item Value Reference Range Interpretation Comments WHITE BLOOD CELL (test code = 7.2 x10 3/uL 5.0-12.0 N WBC) RED BLOOD CELL (test code = 4.83 x10 6/uL 4.70-6.10 N RBC) HEMOGLOBIN (test code = HGB) 14.2 g/dL 14.0-18.0 N HEMATOCRIT (test code = HCT) 43.6 % 37.0-49.0 N MEAN CELL VOLUME (test code = 90 fL 80-94 N MCV) MEAN CELL HGB (test code = MCH) 29.4 pg 27-31 N MEAN CELL HGB CONCENTRATION 32.6 g/dL 33-37 L (test code = MCHC) RED CELL DISTRIBUTION WIDTH 13.2 % 11.5-15.5 N (test code = RDW) PLATELET COUNT (test code = 213 x10 3/uL 130-400 N PLT) MEAN PLATELET VOLUME (test code 10.0 fL 9.4-16.4 N = MPV) NEUTROPHIL % (test code = NT%) 70.1 % 43-65 H IMMATURE GRANULOCYTE % (test 0.3 % 0.0-2.0 N code = IG%) LYMPHOCYTE % (test code = LY%) 13.1 % 20.5-45.5 L MONOCYTE % (test code = MO%) 9.0 % 5.5-11.7 N EOSINOPHIL % (test code = EO%) 6.8 % 0.9-2.9 H BASOPHIL % (test code = BA%) 0.7 % 0.2-1.0 N NUCLEATED RBC % (test code = 0.0 % 0-1.0 N NRBC%) NEUTROPHIL # (test code = NT#) 5.08 x10 3/uL 2.2-4.8 H IMMATURE GRANULOCYTE # (test 0.02 x10 3/uL 0-0.03 N code = IG#) LYMPHOCYTE # (test code = LY#) 0.95 x10 3/uL 1.3-2.9 L MONOCYTE # (test code = MO#) 0.65 x10 3/uL 0.3-0.8 N EOSINOPHIL # (test code = EO#) 0.49 x10 3/uL 0.0-0.2 H BASOPHIL # (test code = BA#) 0.05 x10 3/uL 0.0-0.1 N - CT CHEST W/O [id number] 16:20:00 [facility] 1990 Sex: M FAX: Aletha Toscano PA-C [phone] [place]: St: [facility] FAX: Marie Gomez [phone] Name: JEREMY FERNANDEZ [facility] : 1990 Age/S: 30/M [address] Unit: [id number] Loc: [address] [place] [address] Phys: Aletha Toscano PA-C Acct: [id number] Dis Date: Status: ADM IN PHONE #: [phone] Exam Date: 1620 FAX #: [phone] Reason: chest tube, recurrent PTX EXAMS: CPT CODE: [id number] CT CHEST W/O CONTRAST 81896 Examination: CT scan chest without contrast. Location code: 60. TECHNIQUE: Multiple axial images of the chest were obtained without intravenous administration of contrast with sagittal and coronal reconstructions. CT examination was performed using automated dose reduction. Discussion: Clinical history significant for shortness of breath. Pneumothorax. A right-sided chest tube is identified and is within the major fissure. A very tiny pneumothorax is noted. It measures less than 5%. Lungs are clear of consolidating infiltrates. No masses, nodules or effusions identified. Given the lack of intravenous contrast and limitations of the study secondary to lack of intravenous contrast no enlarged mediastinal, hilar or axillary lymphadenopathy is noted. Incidental note is made of an enlarged descending thoracic aorta. It measures 5.1 cm x 5.0 cm in greatest dimension. A calcified annulus of the mitral valve is also identified. IMPRESSION: 1. Right-sided chest tube identified within the major fissure. 2. Tiny right-sided pneumothorax. 3. 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 4. Calcified anulus of the mitral valve. 5. Cardiothoracic surgery consultation is recommended for evaluation of the descending thoracic aorta and the mitral valve. at 1620 Reported and signed by: Krzysztof Frausto MD CC: Aletha Toscano; Marie Gomez MD Technologist: DINESH WISEMAN RT (R,CT); BOSTON CALERO Trnscrd Dt/Tm: 11/16/2020 (0860) [email or web address] Orig Print D/T: S: 11/16/2020 (8643 PAGE 1 Signed Report- XR CHEST 2 [id number] 08:59:00 [facility] : 1990 Sex: M FAX: Aletha Toscano PA-C [phone] [place]: [facility]: ADM FAX: Marie Gomez [phone] Name: JEREMY FERNANDEZ [facility] : 1990 Age/S: 30/M [address] Unit #: [id number] Loc: [address] [address] Phys: Aletha Toscano PA-C Acct: [id number] Dis Date: Status: ADM IN PHONE #: [phone] Exam Date: 11/16/2020 0851 FAX #: [phone] Reason: chest tube on water seal EXAMS: CPT CODE: [id number] XR CHEST 2 V 59016 Location of dictation: S17 Portable chest one view. HISTORY: chest tube on water seal COMMENT: Compared to earlier study the prior day a right-sided chest tube remains in place. The lungsare clear. There is trace, less than 2% pneumothorax seen predominantly laterally and basilarly withno significant interval change in minor overlying right lateral chest wall subcutaneous emphysema. The heart and mediastinum are normal and stable. Poststernotomy changes again seen. IMPRESSION: Trace,less than 2%, right pneumothorax seen predominantly laterally and at the right lung base with large-bore chest tube present. Minor right subcutaneous chest wall emphysema at 0859 Reported and signed by: Emelina Chavarria MD CC: Aletha Toscano; Marie Gomez MD Technologist: Lidia Hogue; STUDENT 2ND YEAR Trnnmrd Date/Time/By: 11/16/2020 (0859) : By: [email or web address] PAGE 1 Signed Report FAX: Aletha Toscano PA-C [phone] [place]: [facility]: ADM FAX: Marie Gomez [phone] Name: JEREMY FERNANDEZ [facility] : 1990 Age/S: 30/M [address] Unit #: [id number] Loc: [address] [address] Phys: Aletha Toscano PA-C Acct: [id number] Dis Date: Status: ADM IN PHONE #: [phone] Exam Date: 11/16/2020 0851 FAX #: [phone] Reason: chest tube on water seal EXAMS: CPT CODE: [id number] XR CHEST 2 V 19231 (Continued)Orig Print D/T: S: 11/16/2020 (0902) PAGE 2 Signed ReportBASIC METABOLIC [id number] 05:25:00 Test Item Value Reference Range Interpretation Comments SODIUM (test code = 138 mmol/L 137-145 N NA) POTASSIUM (test code 4.2 mmol/L 3.4-5.0 N = K) CHLORIDE (test code = 104 mmol/L 98-107 N CL) CARBON DIOXIDE (test 23 mmol/L 22-30 N code = CO2) GLUCOSE (test code = 99 mg/dL 74-106 N GLU) BLOOD UREA NITROGEN 15 mg/dL 9-20 N (test code = BUN) GLOMERULAR FILTRATION 167 >60 The es timated RATE (test code = glomerular filtration GFR) rate is compute d usingpatient ra ce, age (>18), sex, and serum creatinine. If anyof the needed data elements are mi ssing the Laboratory cannot compute an cipriano mation of the glomerul ar filtration rate . CREATININE (test code 0.6 mg/dL 0.7-1.3 L = CREAT) CALCIUM (test code = 9.1 mg/dL 8.4-10.2 N CA) CBC W/AUTO [id number] 05:21:00 Test Item Value Reference Range Interpretation Comments WHITE BLOOD CELL (test code = 8.1 x10 3/uL 5.0-12.0 N WBC) RED BLOOD CELL (test code = 5.11 x10 6/uL 4.70-6.10 N RBC) HEMOGLOBIN (test code = HGB) 15.1 g/dL 14.0-18.0 N HEMATOCRIT (test code = HCT) 46.2 % 37.0-49.0 N MEAN CELL VOLUME (test code = 90 fL 80-94 N MCV) MEAN CELL HGB (test code = MCH) 29.5 pg 27-31 N MEAN CELL HGB CONCENTRATION 32.7 g/dL 33-37 L (test code = MCHC) RED CELL DISTRIBUTION WIDTH 13.3 % 11.5-15.5 N (test code = RDW) PLATELET COUNT (test code = 225 x10 3/uL 130-400 N PLT) MEAN PLATELET VOLUME (test code 9.9 fL 9.4-16.4 N = MPV) NEUTROPHIL % (test code = NT%) 73.5 % 43-65 H IMMATURE GRANULOCYTE % (test 0.2 % 0.0-2.0 N code = IG%) LYMPHOCYTE % (test code = LY%) 13.7 % 20.5-45.5 L MONOCYTE % (test code = MO%) 7.8 % 5.5-11.7 N EOSINOPHIL % (test code = EO%) 4.2 % 0.9-2.9 H BASOPHIL % (test code = BA%) 0.6 % 0.2-1.0 N NUCLEATED RBC % (test code = 0.0 % 0-1.0 N NRBC%) NEUTROPHIL # (test code = NT#) 5.94 x10 3/uL 2.2-4.8 H IMMATURE GRANULOCYTE # (test 0.02 x10 3/uL 0-0.03 N code = IG#) LYMPHOCYTE # (test code = LY#) 1.11 x10 3/uL 1.3-2.9 L MONOCYTE # (test code = MO#) 0.63 x10 3/uL 0.3-0.8 N EOSINOPHIL # (test code = EO#) 0.34 x10 3/uL 0.0-0.2 H BASOPHIL # (test code = BA#) 0.05 x10 3/uL 0.0-0.1 N - XR CHEST 1 [id number] 18:06:00 [facility] : 1990 Sex: M FAX: Aletha Toscano PA-C [phone] [place]: St: [facility] FAX: Marie Gomez [phone] Name: FERNANDEZJEREMY ROACH [facility] : 1990 Age/S: 30/M [address] Unit #: [id number] Loc: [address] [address] Phys: Aletha Toscano PA-C Acct: [id number] Dis Date: Status: ADM IN PHONE #: [phone] Exam Date: 0 11/15/2020 1746 FAX #: [phone] Reason: chest tube on water seal EXAMS: CPT CODE: [id number] XR CHEST 1 V 13409 Location of dictation: B2 Portable chest one view. HISTORY: chest tube on water seal COMMENT: Compared to earlier study the same day. A right-sided chest tube remains in place. The lungs are clear. There is no evidence for pneumothorax. The heart and mediastinum are normal and stable. Poststernotomy changes again seen. IMPRESSION: No active disease or changes in the chest. at 1806 Reported and signed by: Aleica Rodriguez MD CC: Aletha Toscano; Marie Gomez MD Technologist: WANDA GIL Trnscrd Date/Time/By: 11/15/2020 (7860) : By: LouPX PAGE 1 Signed Report FAX: Aletha Toscano PA-C [phone] [place]: St: [facility] FAX: Marie Gomez [phone] Name: JEREMY FERNANDEZ [facility] : 1990 Age/S: 30/M [address] Unit#: [id number] Loc: [address] [place] [address] Phys: Aletha Toscano PA-C Acct: [id number] Dis Date: Status: ADM IN PHONE #: [phone] Exam Date: 11/15/2020 1746 FAX #: [phone] Reason: chest tube on water seal EXAMS: CPT CODE: [id number] XR CHEST 1 V 12709 (Continued) Orig Print D/T: S: 11/15/2020 (1809) PAGE 2 Signed Report- XR CHEST 2 [id number] 11:43:00 [facility] : 1990 Sex: M FAX: Aletha Toscano PA-C [phone] [place]: St: ADM FAX: Marie Gomez [phone] Name: JEREMY FERNANDEZ [facility] : 1990 Age/S: 30/M [address] Unit #: [id number] Loc: [address] [place] [address] Phys: Aletha Toscano PA-C Acct: [id number] Dis Date: Status: ADM IN PHONE #: [phone] Exam Date: 11/15/2020 1131 FAX #: [phone] Reason: PTX w/ chest tube EXAMS: CPT CODE: [id number] XR CHEST 2V 34428 - XR CHEST 2 V LOCATION: T18 INDICATION:Pneumothorax, chest tube Comparison 11/14/2020 Rightupper lobe thoracotomy tube in place. The lungs are well expanded and free of infiltrates. No pneumothorax. Heart size normal, status post midline sternotomy. Bony thorax unremarkable. IMPRESSION: No active disease. No pneumothorax. at 1143 Reported and signed by: Romeo Casiano DO CC: Aletha Toscano; Marie Gomez MD Technologist: Mely Farias; LORENE MITCHELL Trnscrd Date/Time/By: 11/15/2020 (0350) : By: Shantell PAGE 1 Signed Report FAX: Aletha Toscano PA-C [phone] [place]: [facility]: ADM FAX: Marie Gomez [phone] Name: JEREMY FERNANDEZ [facility] : 1990 Age/S: 30/M [address] Unit #: [id number] Loc: [address] [address] Phys: Aletha Toscano PA-C Acct: [id number] Dis Date: Status: ADM IN PHONE #: [phone] Exam Date: 11/15/2020 113 FAX #: [phone] Reason: PTX w/ chest tube EXAMS: CPT CODE: [id number] XR CHEST 2 V 24560 (Continued) Orig Print D/T: S: 11/15/2020 (1977) PAGE 2 Signed ReportBASIC METABOLIC [id number] 07:49:00 Test Item Value Reference Range Interpretation Comments SODIUM (test code = 139 mmol/L 137-145 N NA) POTASSIUM (test code 3.8 mmol/L 3.4-5.0 N = K) CHLORIDE (test code = 105 mmol/L 98-107 N CL) CARBON DIOXIDE (test 27 mmol/L 22-30 N code = CO2) GLUCOSE (test code = 103 mg/dL 74-106 N GLU) BLOOD UREA NITROGEN 15 mg/dL 9-20 N (test code = BUN) GLOMERULAR FILTRATION 167 >60 The es timated RATE (test code = glomerular filtration GFR) rate is compute d usingpatient ra ce, age (>18), sex, and serum creatinine. If anyof the needed data elements are mi ssing the Laboratory cannot compute an cipriano mation of the glomerul ar filtration rate . CREATININE (test code 0.6 mg/dL 0.7-1.3 L = CREAT) CALCIUM (test code = 9.1 mg/dL 8.4-10.2 N CA) LIPID PROFILE (CORONARY RISK)2020-11-15 07:49:00 Test Item Value Reference Range Interpretation Comments TRIGLYCERIDES (test 120 mg/dL TRIGLYCE RIDES code = TRIG) REFERENCE RANGE:Normal: < 150 mg/dLBorderline High: 150-199 mg/dLHi gh: 200-499 mg/dLVe ry High: >=500 mg/ dL CHOLESTEROL (test 173 mg/dL CHOLESTERO L REFERENCE code = CHOL) RANGE:DESIRABLE : < 200 mg/dLBORDER LINE: 200-239 mg/dLHI GH: >=240 mg/dL HDL CHOLESTEROL (test 82 mg/dL 40-59 H code = HDL) LIPOPROTEIN LDL (test 61.54 mg/dL 32-99 N code = LDLC) CORONARY RISK FACTOR 2.11 CHOL/H DL RISK MALE: (test code = RISK) 1/2 AVG 3 .43 FEMALE: 1/2 AVG 3.27 AV G 4.97 AVG 4.44 2X AVG 9.55 2X AVG 7.05 3X AVG 23.39 3X AVG 11.04~~~~~~~~~~ ~~~~~~ ~~~~~~~~~~~~~~~ ~~~~~~ ~~~~~~~~~~~~~~~ ~~~~~~ ~~National Cholesterol Edu cation (NCEP) Guidelines:~~~~ ~~~~~~ ~~~~~~~~~~~~~~~ ~~~~~~ ~~~~~~~~~~~~~~~ ~~~~~~ ~~~~~~~~ HDL Cholesterol<4 0mg/dL : HDL Cholester ol (Major risk fac tor for CHD)>60mg/d L: HDL Cholesterol (Ne gative risk factor for CHD)40-59mg/dL: Borderline Risk LDL Cholesterol<1 00mg/d L: Desirable LD L-C [id number] 0-159m g/dL: Borderlin e High Risk LDL-C evpmzkjjobbsx45 0-189m g/dL: High risk LDL-C concentration H DL-LDL Cholesterol is affected by a n umber of factors such as smoking, age an d sex.~~~~~~~~~~~ ~~~~~~ ~~~~~~~~~~~~~~~ ~~~~~~ ~~~~~~~~~~~~~~~ ~~~~~~ ~ LIVER FUNCTION [id number] 07:49:00 Test Item Value Reference Range Interpretation Comments TOTAL PROTEIN (test 8.0 g/dL 6.3-8.2 N code = PROT) "A positive bias may occur for patients taking Eltrombopag(a b one marrow stimulan t used to treat thrombocy topenia andaplastic anemia)." ALBUMIN (test code = 4.6 g/dL 3.5-5.0 N ALB) BILIRUBIN TOTAL 1.3 mg/dL 0.2-1.3 N "A positive bias may (test code = BILT) occur for patients taking Eltrombo pag(a bone marrow sti mulant used to treat thrombocytopeni a andaplastic ane emy)." BILIRUBIN CONJUGATED 0 mg/dL 0-0.3 N "A posi tive bias may (test code = BILCON) occur f or patients taking Eltrombo pag(a bone marrow sti mulant used to treat thrombocytopeni a andaplastic ane emy)." CON JUGATED BILIRUBIN IS TH E REPLACEMENT ASS AY FOR DIRECTBILIRUBIN . BILIRUBIN 1.2 mg/dL 0-1.1 H UNCONJUGATED (test code = BILUNC) SGOT/AST (test code 78 U/L 15-46 H = AST) SGPT/ALT (test code 25 U/L 0-34 N = ALT) ALKALINE PHOSPHATASE 87 U/L 38-126 N (test code = ALKP) [id number] 07:49:00 Test Item Value Reference Range Interpretation Comments PHOSPHOROUS (test code = PHOS) 2.6 mg/dL 2.5-4.5 N [id number] 07:49:00 Test Item Value Reference Range Interpretation Comments MAGNESIUM (test code = MAG) 2.3 mg/dL 1.6-2.3 N CBC W/AUTO [id number] 07:13:00 Test Item Value Reference Range Interpretation Comments WHITE BLOOD CELL (test code = 5.8 x10 3/uL 5.0-12.0 N WBC) RED BLOOD CELL (test code = 5.55 x10 6/uL 4.70-6.10 N RBC) HEMOGLOBIN (test code = HGB) 16.1 g/dL 14.0-18.0 N HEMATOCRIT (test code = HCT) 49.5 % 37.0-49.0 H MEAN CELL VOLUME (test code = 89 fL 80-94 N MCV) MEAN CELL HGB (test code = MCH) 29.0 pg 27-31 N MEAN CELL HGB CONCENTRATION 32.5 g/dL 33-37 L (test code = MCHC) RED CELL DISTRIBUTION WIDTH 13.2 % 11.5-15.5 N (test code = RDW) PLATELET COUNT (test code = 229 x10 3/uL 130-400 N PLT) MEAN PLATELET VOLUME (test code 9.9 fL 9.4-16.4 N = MPV) NEUTROPHIL % (test code = NT%) 73.4 % 43-65 H IMMATURE GRANULOCYTE % (test 0.3 % 0.0-2.0 N code = IG%) LYMPHOCYTE % (test code = LY%) 16.1 % 20.5-45.5 L MONOCYTE % (test code = MO%) 8.5 % 5.5-11.7 N EOSINOPHIL % (test code = EO%) 1.4 % 0.9-2.9 N BASOPHIL % (test code = BA%) 0.3 % 0.2-1.0 N NUCLEATED RBC % (test code = 0.0 % 0-1.0 N NRBC%) NEUTROPHIL # (test code = NT#) 4.24 x10 3/uL 2.2-4.8 N IMMATURE GRANULOCYTE # (test 0.02 x10 3/uL 0-0.03 N code = IG#) LYMPHOCYTE # (test code = LY#) 0.93 x10 3/uL 1.3-2.9 L MONOCYTE # (test code = MO#) 0.49 x10 3/uL 0.3-0.8 N EOSINOPHIL # (test code = EO#) 0.08 x10 3/uL 0.0-0.2 N BASOPHIL # (test code = BA#) 0.02 x10 3/uL 0.0-0.1 N TSH REFLEX TO [id number] 17:22:00 Test Item Value Reference Range Interpretation Comments TSH REFLEX TO FT4 1.050 MIU/L 0.465-4.68 N (test code = TSHREFLEX) *A positive bias m ay occur for patie nts taking BIOTINsupplemen ts. BASIC METABOLIC [id number] 16:57:00 Test Item Value Reference Range Interpretation Comments SODIUM (test code = 139 mmol/L 137-145 N NA) POTASSIUM (test code 3.9 mmol/L 3.4-5.0 N = K) CHLORIDE (test code = 102 mmol/L 98-107 N CL) CARBON DIOXIDE (test 29 mmol/L 22-30 N code = CO2) GLUCOSE (test code = 117 mg/dL 74-106 H GLU) BLOOD UREA NITROGEN 15 mg/dL 9-20 N (test code = BUN) GLOMERULAR FILTRATION 120 >60 The es timated RATE (test code = glomerular filtration GFR) rate is compute d usingpatient ra ce, age (>18), sex, and serum creatinine. If anyof the needed data elements are mi ssing the Laboratory cannot compute an cipriano mation of the glomerul ar filtration rate . CREATININE (test code 0.8 mg/dL 0.7-1.3 N = CREAT) CALCIUM (test code = 9.1 mg/dL 8.4-10.2 N CA) [id number] 16:57:00 Test Item Value Reference Range Interpretation Comments MAGNESIUM (test code = MAG) 2.2 mg/dL 1.6-2.3 N CBC W/AUTO [id number] 16:35:00 Test Item Value Reference Range Interpretation Comments WHITE BLOOD CELL (test code = 8.2 x10 3/uL 5.0-12.0 N WBC) RED BLOOD CELL (test code = 5.06 x10 6/uL 4.70-6.10 N RBC) HEMOGLOBIN (test code = HGB) 14.7 g/dL 14.0-18.0 N HEMATOCRIT (test code = HCT) 45.0 % 37.0-49.0 N MEAN CELL VOLUME (test code = 89 fL 80-94 N MCV) MEAN CELL HGB (test code = MCH) 29.1 pg 27-31 N MEAN CELL HGB CONCENTRATION 32.7 g/dL 33-37 L (test code = MCHC) RED CELL DISTRIBUTION WIDTH 13.5 % 11.5-15.5 N (test code = RDW) PLATELET COUNT (test code = 217 x10 3/uL 130-400 N PLT) MEAN PLATELET VOLUME (test code 9.9 fL 9.4-16.4 N = MPV) NEUTROPHIL % (test code = NT%) 82.1 % 43-65 H IMMATURE GRANULOCYTE % (test 0.1 % 0.0-2.0 N code = IG%) LYMPHOCYTE % (test code = LY%) 9.8 % 20.5-45.5 L MONOCYTE % (test code = MO%) 7.6 % 5.5-11.7 N EOSINOPHIL % (test code = EO%) 0.2 % 0.9-2.9 L BASOPHIL % (test code = BA%) 0.2 % 0.2-1.0 N NUCLEATED RBC % (test code = 0.0 % 0-1.0 N NRBC%) NEUTROPHIL # (test code = NT#) 6.73 x10 3/uL 2.2-4.8 H IMMATURE GRANULOCYTE # (test 0.01 x10 3/uL 0-0.03 N code = IG#) LYMPHOCYTE # (test code = LY#) 0.80 x10 3/uL 1.3-2.9 L MONOCYTE # (test code = MO#) 0.62 x10 3/uL 0.3-0.8 N EOSINOPHIL # (test code = EO#) 0.02 x10 3/uL 0.0-0.2 N BASOPHIL # (test code = BA#) 0.02 x10 3/uL 0.0-0.1 N - XR CHEST 1 [id number] 09:41:00 [facility] : 1990 Sex: M FAX: Aletha Toscano PA-C [phone] [place]: [facility]: [facility] FAX: Marie Gomez [phone] Name: JEREMY FERNANDEZ [facility] : 1990 Age/S: 30/M [address] Unit #: [id number] Loc: [address] [address] Phys: Aletha Toscano PA-C Acct: [id number] Dis Date: Status: ADM IN PHONE #: [phone] Exam Date: 936 FAX #: [phone] Reason: PTX w/ chest tube EXAMS: CPT CODE: [id number] XR CHEST 1 [id number] LOCATION: T18 EXAM: CHEST 1 VIEW INDICATION: , PTX w/ chest tube COMPARISON: Chest x-ray 2020 TECHNIQUE: AP chest radiograph. FINDINGS: Right-sided chest tube is unchanged. No pneumothorax is seen. Left lung is clear. No pleural effusion. The heart is normal in size. Aorta is tortuous.Patient status post median sternotomy. Bones and peripheral soft tissues are unchanged. IMPRESSION: Right-sided chest tube is unchanged. No pneumothorax. Lungs are clear. at 0941 Reported and signed by: De Deleon MD CC: Aletha Toscano; Marie Gomez MD Technologist: MARILYNN CASTILLO Trnscrd Date/Time/By: 11/14/2020 (0941) : By: [email or web address] PAGE 1 Signed Report FAX: Aletha Toscano PA-C [phone] [place]: [facility]: ADM FAX: Marie Gomez [phone] Name: JEREMY FERNANDEZ [facility] [place] : 1990 Age/S: 30/M [address] Unit #: [id number] Loc: [address] [address] Phys: Aletha Toscano PA-C Acct: [id number] Dis Date: Status: ADM IN PHONE #: [phone] Exam Date: 11/14/2020 0937 FAX #: [phone] Reason: PTX w/ chest tube EXAMS:CPT CODE: [id number] XR CHEST 1 V 49057 (Continued) Orig Print D/T: S: 11/14/2020 (0944) PAGE 2 Signed Report- XR CHEST 1 [id number] 04:13:00 [facility] : 1990 Sex: M FAX: Byron Garay [place]: [facility]: [facility] FAX: PatriciaDarlinraghav [phone] Name: JEREMY FERNANDEZ [facility] [place] : 1990 Age/S: 30/M [address] Unit #: [id number] Loc: [address] [address] Phys: Byron Garay MD R1 Acct: [id number] Dis Date: Status: ADM IN PHONE #: [phone] Exam Date: 11/14/2020354 FAX #: [phone] Reason: R ptx EXAMS: CPT CODE: [id number] XR CHEST 1 V [id number] EXAMINATION: - XR CHEST 1 V LOCATION: H61 INDICATION/CLINICAL HISTORY: Right pneumothorax. COMPARISON: Chest x-ray 11/13/2020 TECHNIQUE: AP view of the chest. FINDINGS: Right-sided chest tube is stable. The cardiac silhouette is normal in size. Lungs are clear of consolidation. There is no appreciable pneumothorax or pleural effusion. Postsurgical changes of median sternotomy noted. IMPRESSION: Stable chest radiograph without appreciable pneumothorax. [id number] Reported and signed by: Vandana Radford MD CC: Byron Raulito Alvarenga MD; Marie Gomez MDTechnologist: MAXX HOWELL Trnscrd Date/Time/By: 11/14/2020 (0413) : By: [email or web address] PAGE 1 SignedReport FAX: Byron Garay [place]: [facility]: ADM FAX: Marie Gomez [phone] [facility] 1990 Age[facility]S: 30[facility]M [address] Unit #: [id number] Loc: [address] [address] Phys: Byron Garay MD R1 Acct: [id number] Dis Date: Status: ADM IN PHONE #: [phone] Exam Date: 11/14/20205 FAX #: [phone] Reason: R ptx EXAMS: CPT CODE: [id number] XR CHEST 1 V 68795(Continued) Orig Print D/T: S: 11/14/2020 (0416) PAGE 2 Signed [id number] 03:07:00 Test Item Value Reference Range Interpretation Comments GLUBED (test code = GLUBED) 140 MG/DL 74-106 H - XR CHEST 1 [id number] 20:27:00 [facility] : 1990 Sex: M FAX: Marie Marinelli [phone] [place]: St: ADM Name: JEREMY FERNANDEZ [facility] : 1990 Age/S: 30/M [address] Unit #: [id number] Loc: [place] [address] Phys: Marie Gomez MD Acct: [id number] Dis Date: Status: ADM IN PHONE #: [phone] Exam Date: 11/13/20202004 FAX #: [phone] Reason: s/p right chest tube EXAMS: CPT CODE: [id number] XR CHEST 1 V 86483 Examination: One view chest x-ray Location code: H60 Comparison: 11/13/2020 Discussion: Clinical history is remarkable for chest tube placement. Right-sided chest tube has been placed. The pneumothorax seen on the prior study is no longer seen. Left lung is clear. Heart is prominent. Patient is status post sternotomy. Impression: 1. Placement of right-sided chest tube with resolution of right- sided pneumothorax. at 2026 Reported and signed by: Krzysztof Frausto MD CC: Marie Gomez MD Technologist: DARLYN EWING Trnnmrd Date/Time/By: 11/13/2020 (2026) : By: [email or web address] PAGE 1 Signed Report FAX: Marie Gomez [phone] [place]: St: ADM Name: JEREMY FERNANDEZ [facility] : 1990 Age/S: 30/M [address] Unit #: [id number] Loc: [place] [address] Phys: Marie Gomez MD Acct: [id number] Dis Date: Status: ADM IN PHONE #: [phone] Exam Date: 11/13/20202004 FAX #: [phone] Reason: s/p right chest tube EXAMS: CPT CODE: [id number] XR CHEST 1 V 84878 () Orig Print D/T: S: 11/13/2020 (2029) PAGE 2 Signed Report- XR CHEST 1 [id number] 18:48:00 [facility] : 1990 Sex: M FAX: Marie Marinelli [phone] [place]: St: [facility] FAX: Johana Mcwilliams MD R1 Name: JEREMY FERNANDEZ [facility] : 1990 Age/S: 30/M [address] Unit #: [id number] Loc: [facility] [place] [address] Phys: Dewey Mcwilliams R1 Acct: [id number] Dis Date: Status: ADM IN PHONE #: [phone] Exam Date: 11/13/20201829 FAX #: [phone] Reason: monitor pneumothorax EXAMS: CPT CODE: [id number] XR CHEST 1 V 38523 EXAM: CHEST ONE VIEW INDICATION: MONITOR PNEUMOTHORAX LOCATION: B2 COMPARISON: November 13, 2020 TECHNIQUE: APview of the chest FINDINGS: The heart size is normal. Large right pneumothorax which has significantly increased since the prior examination. There is minimal shift of the mediastinum to the left. The left lung is clear. The osseous structures are normal. IMPRESSION: Large right pneumothorax which issignificantly enlarged compared to the prior examination. There is minimal leftward shift of the medi astinum concerning for tension component. The above findings were discussed with Dr. Landeros with the trauma team at 6:47 PM via telephone. at 1848 Reported and signed by: Jenna Botello MD CC: Marie Goemz MD; Johana Mcwilliams MD Technologist: Allen May; STUDENT 1ST YEAR Trnscrd Date/Time/By: 11/13/2020 (1847) : By: [email or web address] PAGE 1 Signed Report FAX: Marie Gomez [phone] [place]: St: ADM FAX: Johana Mcwilliams MD R1 --------- Name: JEREMY FERNANDEZ [facility] : 1990 Age/S: 30/M [address] Unit #: [id number] Loc: [address] [address] Phys: Johana Mcwilliams MD R1 Acct: [id number] Dis Date: Status: ADM IN PHONE #: [phone] Exam Date: 1830 FAX #: [phone] Reason: monitor pneumothorax EXAMS: CPT CODE: [id number] XR CHEST 1 V 33868 (Continued) Orig Print D/T: S: 11/13/2020 (185) PAGE 2 Signed Report- XR CHEST 1 [id number] 11:51:00 [facility] : 1990 Sex: M FAX: Marie Marinelli [phone] [place]: St: [facility] FAX: Johana Mcwilliams MD R1 Name: FERNANDEZJEREMY ROACH [facility] : 1990 Age/S: 30/M [address] Unit #: [id number] Loc: [address] [address] Phys: Dewey Mcwilliams R1 Acct: [id number] Dis Date: Status: ADM IN PHONE #: [phone] Exam Date: 11/13/2020 1143 FAX #: [phone] Reason: monitor pneumothorax EXAMS: CPT CODE: [id number] XR CHEST 1 V 65490 INDICATION: monitor pneumothorax LOCATION: T18 COMPARISON STUDY: Chest radiograph dated November 13, 2020 at 0635. FINDINGS: Single view of the chest. No focal consolidation. No significant pleural fluid. Stablesmall right apical pneumothorax. The heart size and pulmonary vasculature are unchanged. Postoperative changes of median sternotomy. Osseous structures are stable including 10th right rib fracture.. IMPRESSION: Stable small right apical pneumothorax. at 1151 Reported and signed by: Natan Parrish MD CC: Marie Gomez MD; Johana Mcwilliams MD Technologist: MARILYNN CASTILLO [facility] Date/Time/By: 11/13/2020 (115) : By: [email or web address] PAGE 1 Signed Report FAX: Marie Marinelli [phone] [place]: St: ADM FAX: Johana Mcwilliams MD R1 --- Name: JEREMY FERNANDEZ [facility] : 1990 Age/S: 30/M [address] Unit #: [id number] Loc: [address] [address] Phys: Johana Mcwilliams MD R1 Acct: [id number] Dis Date: Status: ADM IN PHONE #: [phone] Exam Date: 11/13/2020 1143 FAX #: [phone] Reason: monitor pneumothorax EXAMS: CPT CODE: [id number] XR CHEST 1 V 97191 (Continued) Orig Print D/T: S: 11/13/2020 (0942) PAGE 2 Signed ReportURINALYSIS [id number] 06:51:00 Test Item Value Reference Range Interpretation Comments UA COLOR (test code [place] Yellow A = COLU) UA APPEARANCE (test Clear Clear code = APPU) UA GLUCOSE DIPSTICK Negative Negative (test code = DGLUU) UA BILIRUBIN Negative Negative DIPSTICK (test code = BILU) UA KETONE DIPSTICK 40 (2+) mg/dL Negative A (test code = KETU) UA SPECIFIC GRAVITY 1.044 <1.030 A (test code = SGU) UA BLOOD DIPSTICK Negative Negative (test code = MONROE) UA PH DIPSTICK (test 5.0 5.0-8.0 code = DUANE) UA PROTEIN DIPSTICK 100 (2+) mg/dL Negative A (test code = PROU) UA UROBILINOGEN 2.0 mg/dL Negative A DIPSTICK (test code = URO) UA NITRITE DIPSTICK Negative Negative (test code = MARIAJOSE) UA LEUKOCYTE NEGATIVE Negative ESTERASE DIPSTICK (test code = LEUU) UA WBC (test code = 0-3 /HPF See_Comment [Automa eric WBCU) message] The system which generated this result transmit eric reference range : <4-5. The reference range was not used to interpret this result as normal/abnormal . UA RBC (test code = 6-10 /HPF See_Comment A [Automa eric RBCU) message] The system which generated this result transmit eric reference range : <4-5. The reference range was not used to interpret this result as normal/abnormal . UA BACTERIA (test None /HPF None-Rare code = BACU) UA SQUAMOUS CELLS 0-5 (RARE) /HPF See_Comment [Autom ated (test code = SQU) message] T he system which generated this result transmit eric reference range : 0-5 (RARE). The reference range was not used to interpret this result as normal/abnormal . UA MUCUS (test code 4+ /LPF See_Comment A [Automa eric = MUCU) message] The system which generated this result transmit eric reference range : <Rare. The reference range was not used to interpret this result as normal/abnormal . - XR CHEST 2 [id number] 06:50:00 [facility] : 1990 Sex: M FAX: Marie Marinelli [phone] [place]: St: ADM FAX: Johana Mcwilliams MD R1 Name: JEREMY FERNANDEZ [facility] : 1990 Age/S: 30/M [address] Unit #: [id number] Loc: [address] [address] Phys: Johana Mcwilliams MD R1 Acct: [id number] Dis Date: Status: ADM IN PHONE #: [phone] Exam Date: 11/13/2020 0647 FAX #: [phone] Reason: MONITOR PNEUMOTHORAX EXAMS: CPT CODE: [id number] XR CHEST 2 V 73025 EXAM: - XR CHEST 2 V LOCATION: C3 HISTORY: MONITOR PNEUMOTHORAX COMPARISON: 11/12/2020 FINDINGS: 2 views of the chest. No indwelling lines or tubes. Unchanged small right pneumothorax. The lungs are clear without significant effusions. The mediastinal contours are unremarkable/unchanged. The mediastinal contours are unremarkable. Lower right rib fracture again noted. IMPRESSION: Unchanged small right pneumothorax. at 0650 Reported and signed by: Trevor Laguna MD CC: Marie Gomez MD; Johana Mcwilliams MD Technologist: CHRISSY LINDO (R) Trnscrd Date/Time/By: 11/13/2020 (0650) : By: [email or web address] PAGE 1 Signed Report FAX: Marie Gomez [phone] [place]: St: [facility] FAX: Johana Mcwilliams MD R1 Name: FERNANDEZJEREMY Butt [facility] : 1990 Age/S: 30/M [address] Unit #: [id number] Loc: [address] [address] Phys: Johana Mcwilliams MD R1 Acct: [id number] Dis Date: Status: ADM IN PHONE #: [phone] Exam Date: 11/13/2020 0647 FAX #: [phone] Reason:MONITOR PNEUMOTHORAX EXAMS: CPT CODE: [id number] XR CHEST 2 V 10846 (Continued) Orig Print D/T: S: 11/13/2020 (0654) PAGE 2 Signed ReportBASIC METABOLIC [id number] 05:41:00 Test Item Value Reference Range Interpretation Comments SODIUM (test code = 138 mmol/L 137-145 N NA) POTASSIUM (test code 5.1 mmol/L 3.4-5.0 H IS THE SAMPLE = K) HEMOLYZED?:NO HEMOLYSIS GRADE :NO CHLORIDE (test code = 103 mmol/L 98-107 N CL) CARBON DIOXIDE (test 27 mmol/L 22-30 N code = CO2) GLUCOSE (test code = 117 mg/dL 74-106 H GLU) BLOOD UREA NITROGEN 19 mg/dL 9-20 N (test code = BUN) GLOMERULAR FILTRATION 120 >60 The es timated RATE (test code = glomerular filtration GFR) rate is compute d usingpatient ra ce, age (>18), sex, and serum creatinine. If anyof the needed data elements are mi ssing the Laboratory cannot compute an cipriano mation of the glomerul ar filtration rate . CREATININE (test code 0.8 mg/dL 0.7-1.3 N = CREAT) CALCIUM (test code = 8.9 mg/dL 8.4-10.2 N CA) [id number] 05:41:00 Test Item Value Reference Range Interpretation Comments PHOSPHOROUS (test code = PHOS) 2.9 mg/dL 2.5-4.5 N [id number] 05:41:00 Test Item Value Reference Range Interpretation Comments MAGNESIUM (test code = MAG) 2.4 mg/dL 1.6-2.3 H CBC W/AUTO [id number] 05:27:00 Test Item Value Reference Range Interpretation Comments WHITE BLOOD CELL (test code = 6.3 x10 3/uL 5.0-12.0 N WBC) RED BLOOD CELL (test code = 5.18 x10 6/uL 4.70-6.10 N RBC) HEMOGLOBIN (test code = HGB) 15.3 g/dL 14.0-18.0 HEMATOCRIT (test code = HCT) 46.5 % 37.0-49.0 N MEAN CELL VOLUME (test code = 90 fL 80-94 N MCV) MEAN CELL HGB (test code = MCH) 29.5 pg 27-31 N MEAN CELL HGB CONCENTRATION 32.9 g/dL 33-37 L (test code = MCHC) RED CELL DISTRIBUTION WIDTH 13.6 % 11.5-15.5 N (test code = RDW) PLATELET COUNT (test code = 225 x10 3/uL 130-400 N PLT) MEAN PLATELET VOLUME (test code 10.2 fL 9.4-16.4 N = MPV) NEUTROPHIL % (test code = NT%) 79.6 % 43-65 H IMMATURE GRANULOCYTE % (test 0.3 % 0.0-2.0 N code = IG%) LYMPHOCYTE % (test code = LY%) 13.3 % 20.5-45.5 L MONOCYTE % (test code = MO%) 6.3 % 5.5-11.7 N EOSINOPHIL % (test code = EO%) 0.2 % 0.9-2.9 L BASOPHIL % (test code = BA%) 0.3 % 0.2-1.0 N NUCLEATED RBC % (test code = 0.0 % 0-1.0 N NRBC%) NEUTROPHIL # (test code = NT#) 5.02 x10 3/uL 2.2-4.8 H IMMATURE GRANULOCYTE # (test 0.02 x10 3/uL 0-0.03 N code = IG#) LYMPHOCYTE # (test code = LY#) 0.84 x10 3/uL 1.3-2.9 L MONOCYTE # (test code = MO#) 0.40 x10 3/uL 0.3-0.8 N EOSINOPHIL # (test code = EO#) 0.01 x10 3/uL 0.0-0.2 N BASOPHIL # (test code = BA#) 0.02 x10 3/uL 0.0-0.1 N - XR CHEST 2 [id number] 20:28:00 [facility] : 1990 Sex: M FAX: Marie Marinleli [phone] [place]: St: ADM Name: JEREMY FERNANDEZ [facility] : 1990 Age/S: 30/M [address] Unit #: [id number] Loc: [place] [address] Phys: Marie Gomez MD Acct: [id number] Dis Date: Status: ADM IN PHONE #: [phone] Exam Date: 11/12/20202004 FAX #: [phone]: FOLLOW UP PNEUMO EXAMS: CPT CODE: [id number] XR CHEST 2 V 25024 Location code:C3 EXAM: - XR CHEST 2 V 11/12/2020 7:56 PM HISTORY: 30 years-old Male with FOLLOW UP PNEUMO TECHNIQUE: Frontal and lateral chest radiographs COMPARISON: Chest x- ray performed on 11/12/2020 FINDINGS: Lines and tubes: None. Cardiomediastinal: The cardiomediastinal silhouette is unchanged. Lungs and pleura: There is a r ight apical pneumothorax (approximately 15 percent in size) that does not appear significantly changed compared to prior imaging. Musculoskeletal: Right] fracture. Lateral rib fracture, unchanged. IMPRESSION: Right apical pneumothorax, unchanged. Right rib fracture. at 2027 Reported and signed by: Jose Mclain M.D. CC: Marie Gomez MD Technologist: CHRISSY PENA RT (R); BOSTON CONLEY RT (R) Trnscrd Date/Time/By: 11/12/2020 (2027) : By: [email or web address] PAGE 1 Signed Report FAX: Marie Gomez [phone] [place]: St: A DM - Name: JEREMY FERNANDEZ [facility] : 1990 Age/S: 30/M [address] Unit #: [id number] Loc: [place] [address] Phys: Marie Gomez MD Acct: [id number] Dis Date: Status: ADM IN PHONE #: [phone] Exam Date: 11/12/20202004 FAX #: [phone] Reason: FOLLOW UP PNEUMO EXAMS: CPT CODE: [id number] XR CHEST 2 V 47932 (Continued) Orig Print D/T: S: 11/12/2020 (2030) PAGE 2 Signed Report- CT CHEST W/[id number] 16:58:00 [facility] : 1990 Sex: M [place]: St: REG -- Name:JEREMY FERNANDEZ [facility] : 1990 Age/S: 30/M [address] Unit: [id number] Loc: [place] [address] Phys: Maciel Ellis MD Acct: [id number] Dis Date: Status: REG ER PHONE #:[phone] Exam Date: 11/12/2020 1611 FAX #: [phone] Reason: ptx , rib fx, ro splenic injury E XAMS: CPT CODE: [id number] CT CHEST W/CONTRAST 00296 LOCATION: T18 EXAM: CT CHEST WITH CONTRAST INDICATION: ptx , rib fx, ro splenic injury COMPARISON: Chest x-ray performed November 12, 2020 at 1540 hours. Pelvic x-ray November 12, 2020 at 1540 hours. TECHNIQUE: Helically acquired axial CT images of the chest, abdomen, and pelvis were obtained. 100 ml of Isovue 370 was given intravenously. Up-to-date CT equipment and radiation dose reduction techniques were utilized. Automatic exposure control was utilized. FINDINGS: Limited views of the inferior neck soft tissues are normal. Fusiform aneurysmal dilation of the ascending thoracic aorta present measuring 5 cm. No aortic dissection is seen. The heart isnormal in size. No pericardial effusion is identified. No mediastinal or hilar adenopathy is seen. The trachea and main bronchi are patent. Small right pneumothorax present measuring about 5%. Tiny areas of lung contusion along the posterior sulcus of the right lower lobe. Left lung is clear. Liver and spleen are intact. No splenic injury is identified. Kidneys enhance symmetrically. No renal laceration or contusion. Gallbladder is normal. Urinary bladder is intact. Prostate is normal in size. No free air or free fluid is present. Bowel gas pattern is normal. No bowel abnormality seen to suggest injury. Abdominal aorta is normal in caliber. IVC is normal. Right lateral 10th rib fracture present. No additional fracture is identified. Patient status post median sternotomy. IMPRESSION: 1. Right lateral 10th rib fracture with associated right-sided pneumothorax measuring about 5%. 2. No traumatic injury of the abdomen or pelvis. Spleen is intact. PAGE 1 Signed Report (CONTINUED) [place]: St: REG- Name: JEREMY FERNANDEZ [facility] : 1990 Age/S: 30/M [address] Unit: [id number] Loc: [place] [address] Phys: Maciel Ellis MD Acct: [id number] Dis Date: Status: REG ER PHONE #: [phone] Exam Date: 11/12/2020 1611 FAX #: [phone] Reason: ptx , rib fx, ro splenic injury EXAMS: CPT CODE:[id number] CT CHEST W/CONTRAST 58592 (Continued) at 2399 Reported and signed by: De Deleon MD CC: Technologist: Delfina Rosario Trnscrd Dt/Tm: 11/12/2020 (9688) [email or web address] Orig Print D/T: S: 11/12/2020 (4092 PAGE 2 Signed Report- CT ABD PELVIS [id number] 16:58:00 [facility] : 1990 Sex: M [place]: St: REG -- Name: JEREMY FERNANDEZ [facility] [place] : 1990 Age/S: 30/M [address] Unit: [id number] Loc: [place] [address] Phys: Maciel Ellis MD Acct: [id number] Dis Date: Status: REG ER PHONE #: [phone] Exam Date: 11/12/2020 1611 FAX #: [phone] Reason: ptx , rib fx, ro splenic injury EXAM S: CPT CODE: [id number] CT ABD PELVIS W/CONT 92487 LOCATION: T18 EXAM: CT CHEST WITH CONTRAST INDICATION: ptx , rib fx, ro splenic injury COMPARISON: Chest x- ray performed November 12, 2020 at 1540 hours.Pelvic x-ray November 12, 2020 at 1540 hours. TECHNIQUE: Helically acquired axial CT images of the chest, abdomen, and pelvis were obtained. 100 ml of Isovue 370 was given intravenously. Up-to-date CT equipment and radiation dose reduction techniques were utilized. Automatic exposure control was utilized. FINDINGS: Limited views of the inferior neck soft tissues are normal. Fusiform aneurysmal dilation of the ascending thoracic aorta present measuring 5 cm. No aortic dissection is seen. The heart is normal in size. No pericardial effusion is identified. No mediastinal or hilar adenopathy is seen. The trachea and main bronchi are patent. Small right pneumothorax present measuring about 5%. Tiny areasof lung contusion along the posterior sulcus of the right lower lobe. Left lung is clear. Liver and spleen are intact. No splenic injury is identified. Kidneys enhance symmetrically. No renal laceration or contusion. Gallbladder is normal. Urinary bladder is intact. Prostate is normal in size. No freeair or free fluid is present. Bowel gas pattern is normal. No bowel abnormality seen to suggest injury. Abdominal aorta is normal in caliber. IVC is normal. Right lateral 10th rib fracture present. Noadditional fracture is identified. Patient status post median sternotomy. IMPRESSION: 1. Right lateral 10th rib fracture with associated right-sided pneumothorax measuring about 5%. 2. No traumatic injury of the abdomen or pelvis. Spleen is intact. PAGE 1 Signed Report (CONTINUED) [place]: St: REG--- Name: JEREMY FERNANDEZ [facility] : 1990 Age/S: 30/M [address] Unit: [id number] Loc: [place] [address] Phys: Maciel Ellis MD Acct: [id number] Dis Date: Status: REG ER PHONE #: [phone] Exam Date: 11/12/2020 1611 FAX #: [phone] Reason: ptx , rib fx, ro splenic injury EXAMS: CPT CODE: [id number] CT ABD PELVIS W/CONT 16030 (Continued) at 1658 Reported and signed by: De Deleon MD CC: Technologist: Delfina Rosario Trnscrd Dt/Tm: 11/12/2020 (5171) [email or web address] Orig Print D/T: S: 11/12/2020 (9732 PAGE 2 Signed Report- XR PELVIS 07/28 [id number] 16:34:00 [facility] : 1990 Sex: M FAX: Johana Mcwilliams MD R1 [place]: St: REG Name: JEREMY FERNANDEZ [facility] : 1990 Age/S: 30/M [address] Unit #: [id number] Loc: [place] [address] Phys: Johana Mcwilliams MD R1 Acct: [id number] Dis Date: Status: REG ER PHONE #: [phone] Exam Date: 11/12/2020 [facility] FAX #: [phone] Reason: trauma, rightsided pain Report Has Been Amended EXAMS: CPT CODE: [id number] XR PELVIS 1/2 VIEWS 92201 Addendum - 11/12/2020 SIGNED 11/12/2020 ADDENDUM: [id number] RAD/UPMSTV24T There is a fracture of the right 10th posterior rib. The pneumothorax seen on the CT scan performed the same day is not clearly identified on the chest x-ray. at 6174 Reported and signed by: Krzysztof Frausto MD Transcribed: 11/12/2020 (2227) [email or web address] Report Examination: One viewchest x-ray in one view pelvis Location code: H60 Comparison: None Discussion: Clinical history is remarkable for pain. Heart is normal in size. Lungs are clear of consolidating infiltrates. No masses, nodules or effusions are noted. Patient is status post sternotomy. There is no evidence for acute fracture or dislocation. No lytic or blastic lesions identified. Impression: 1. Normal one view chest x-ray. 2. Normal one view pelvis. at 1614 Reported and signed by: Krzysztof Frausto MD CC: Johana Mcwilliams MD Technologist: LYDIA JAMIL; STUDENT 2NDYEAR [facility] Date/Time/By: 11/12/2020 (1024) : By: [email or web address] PAGE 1 Signed Report FAX: Johana Mcwilliams MD R1 [place]: St: REG -- Name: JEREMY FERNANDEZ [facility] : 1990 Age/S: 30/M [address] Unit #: [id number]: [place] [address] Phys: Johana Mcwilliams MD R1 Acct: [id number] Dis Date: Status: REG ER PHONE #: [phone] Exam Date: 11/12/2020 1552 FAX #: [phone] Reason: trauma, right sided pain Report Has Been Amended EXAMS: CPT CODE: [id number] XR PELVIS 1/2 VIEWS 32034 (Continued) Orig Print D/T: S: 11/12/2020 (1617) PAGE 2 Signed Report- XR CHEST 1 [id number] 16:34:00 [facility] : 1990 Sex: M FAX: Parrish Stockton MD [place]: St: REG Name: JEREMY FERNANDEZ [facility] : 1990 Age/S: 30/M [address] Unit #: [id number] Loc: [place] [address] Phys: Parrish Stockton MD Acct: [id number] Dis Date:Status: REG ER PHONE #: [phone] Exam Date: 11/12/2020 1552 FAX #: [phone] Reason: transfer, PTX Report Has Been Amended EXAMS: CPT CODE: [id number] XR CHEST 1 V 00988 Addendum - 11/12/2020 SIGNED 11/12/2020 ADDENDUM: [id number] RAD/CXR1 There is a fracture of the right 10th posterior rib. The pneumothorax seen on the CT scan performed the same day is not clearly identified on the chestx-ray. at 1634 Reported and signed by: Krzysztof Frausto MD Transcribed: 11/12/2020 (2808) [email or web address] Report Examination: One view chest x-ray in oneview pelvis Location code: H60 Comparison: None Discussion: Clinical history is remarkable for pain.Heart is normal in size. Lungs are clear of consolidating infiltrates. No masses, nodules or effusions are noted. Patient is status post sternotomy. There is no evidence for acute fracture or dislocation. No lytic or blastic lesions identified. Impression: 1. Normal one view chest x-ray. 2. Normal oneview pelvis. at 1614 Reported and signed by: Krzysztof Frausto MD CC: Parrish Stockton MD Technologist: LYDIA JAMIL; STUDENT 2ND YEAR Trnnmrd Date/Time/By: 11/12/2020 (6575) : By: [email or web address] PAGE 1 Signed Report FAX: Parrish Stockton MD [place]: MCSt: REG -- Name: JEREMY FERNANDEZ [facility] : 1990 Age/S: 30/M [address] Unit #: [id number] Loc: [place] [address] Phys: Parrish Stockton MD Acct: [id number] Dis Date: Status: REG ER PHONE #: [phone] Exam Date: 11/12/2020 1552 FAX #: [phone] Reason: transfer, PTX Report Has Been Amended EXAMS: CPT CODE: [id number] XR CHEST 1 V 37951 (Continued) Orig Print D/T: S: 11/12/2020 (2510)PAGE 2 Signed Report- CT C-SPINE W/O [id number] 16:32:00[facility] : 1990 Sex: M [place]: St: REG -- Name: JEREMY FERNANDEZ [facility] [place] : 1990 Age/S: 30/M [address] Unit: [id number] Loc: [place] [address] Phys: Maciel Ellis MD Acct: [id number] Dis Date: Status: REG ER PHONE #: [phone] Exam Date: 11/12/2020 1611 FAX #: [phone] Reason: fall ro reaction EXAMS: CPT CODE: [id number] C-SPINE W/O CONT 51398 EXAM: - CT C-SPINE W/O CONT HISTORY: 30 years-old Male with fall ro reaction TECHNIQUE: Contiguous axial/helical images are acquired with a small focused field of view centered over the spine from the skull base through the cervical spine. Sagittal and coronal reconstruction images are generated from the axial data. No contrast is administered. This exam was performed according to our departmental dose-optimization program, which includes automated exposure control, adjustment of the mA and/or kV according to patient size and/or use of iterative reconstruction technique. COMPARISON: None FINDINGS: VERTEBRAL BODIES: No evidence of acute displaced fracture involving the cervical spine. ALIGNMENT: The cervical spine alignment is within normal limits. SPINAL CANAL:No CT evidence of significant spinal canal narrowing. However, the epidural space is not well assessed by CT scan. OTHER: There is a small right pneumothorax.. IMPRESSION: No CT evidence of acute displaced fracture involving the cervical spine. Small right apical pneumothorax. Findings discussed with Dr. Ellis of the emergency room on 11/12/2020 at 4:31 PM at 1632 Reported and signed by: Jose Parghi,M.D. PAGE 1 Signed Report(CONTINUED) [place]: St: REG --------- Name: JEREMY FERNANDEZ [facility] : 1990 Age/S: 30/M [address] Unit: [id number] Loc: [place] [address] Phys: Maciel Ellis MD Acct: [id number] Dis Date: Status:REG ER PHONE #: [phone] Exam Date: 11/12/2020 1611 FAX #: [phone] Reason: fall ro reaction EXAMS: CPT CODE: [id number] CT C-SPINE W/O CONT [id number] (Continued) CC: Technologist: Delfina Rosario Trnyawrd Dt/Tm: 11/12/2020 (1632) t.[email or web address] Orig Print D/T: S: 11/12/2020 (1635 PAGE 2 Signed Report- CT HEAD/BRAIN W/O CONT 2020-11-12 16:30:00 [facility] : 1990 Sex: M FAX: Johana Mcwilliams MD R1 [place]: St: REG Name: [facility] : 1990 Age/S: 30/M [address] Unit:[id number] Loc: [place] [address] Phys: Johana Mcwilliams MD Acct: [id number] Dis Date: Status:REG ER PHONE #: [phone] Exam Date: 11/12/2020 1611 FAX #: [phone] Reason: hit head on cement steps EXAMS: CPT CODE: [id number] CT HEAD/BRAIN W/O CONT 31858 EXAMINATION: Head CT without contrast INDICATION: Head trauma, headache COMPARISON: None LOCATION: C3 TECHNIQUE: Axial noncontrast head CT was performed. Sagittal and coronal reformatted images were created. CT radiation dose optimizationis achieved for this examination by the use of a CT protocol in accordance with ACR practice guidelines and adherence to journal entry audit clerk recommendations. DLP: 867 mGy-cm. FINDINGS: No mass effect, intracranial hemorrhage, or extra-axial fluid collection. No CT evidence of acute cortical infarct. Imaged portions of orbits are unremarkable. Imaged paranasal sinuses and mastoid air cells are clear. No acute osseous abnormality is identified. IMPRESSION: No acute intracranial abnormality identified. at 1630 Reported and signed by: Justino Berger M.D. CC: Johana Mcwilliams MD Technologist: Delfina Rosario Trnscrd Dt/Tm: 11/12/2020 (1630) [email or web address] Orig Print D/T: S: 11/12/2020 (1289 PAGE 1 Signed ReportPROTHROMBIN [id number] 16:24:00 Test Item Value Reference Range Interpretation Comments PROTHROMBIN TIME 12.2 SECONDS 9.2-12.1 H PATIENT (test code = PTP) INTERNATIONAL NORMAL 1.1 The INR is to be used RATIO (test code = only for monitoring INR) ORAL ANTICOAGULANTTH ERAPY. Indication INR Value1. Prophylaxis/pj atment of: Venous Thro mbosis, Pulmonary Embol ism 2.0 - 3.02. Prevent ion of systemic emboli sm from: Tissue he art valves 2.0 - 3. 0 Acute myocardial infa rction (to present sys temic embolism)* 2.0 - 3.0 Valvular heart disease 2.0 - 3.0 Atria l fibrillation 2 .0 - 3.03. Mechanica l prosthetic valv es (high risk) 2.5 - 3.5 * If oral anticoagulant t herapy is elected to preventrecurren t myocardial infa rction, an INR of 2.5-3 .5 isrecommended, consistent with Food and Drug Administrationr ecommen dations. THROMBOPLASTIN TIME [id number] 16:24:00 Test Item Value Reference Range Interpretation Comments THROMBOPLASTIN TIME 25.0 SECONDS 23.4-37.0 N Therape utic Range PARTIAL (test code = for Hep noemí PTT) EFFECTIVE Heparin IU/mL a PTT Seconds0.3 64.3 0.7 88.8 COMPREHENSIVE METABOLIC [id number] 16:23:00 Test Item Value Reference Range Interpretation Comments SODIUM (test code = 141 mmol/L 137-145 N NA) POTASSIUM (test code 3.2 mmol/L 3.4-5.0 L = K) CHLORIDE (test code 114 mmol/L 98-107 H = CL) CARBON DIOXIDE (test 23 mmol/L 22-30 N code = CO2) GLUCOSE (test code = 88 mg/dL 74-106 N GLU) BLOOD UREA NITROGEN 11 mg/dL 9-20 N (test code = BUN) GLOMERULAR 167 >60 The estimated FILTRATION RATE glomerular f iltration (test code = GFR) rate is co mputed usingpatient ra ce, age (>18), sex, and serum creatinine. If anyof the needed data elements are mi ssing the Laboratory cannot compute an cipriano mation of the glomerul ar filtration rate . CREATININE (test 0.6 mg/dL 0.7-1.3 L code = CREAT) TOTAL PROTEIN (test 5.8 g/dL 6.3-8.2 L code = PROT) " A positive bias m ay occur for patients ta miguel Eltrombopag(a b one marrow stimulan t used to treat thrombocytopeni a andaplastic anemia)." ALBUMIN (test code = 3.5 g/dL 3.5-5.0 N ALB) CALCIUM (test code = 6.7 mg/dL 8.4-10.2 L CA) BILIRUBIN TOTAL 0.8 mg/dL 0.2-1.3 N "A positive bias may (test code = BILT) occur for patients taking Eltrombo pag(a bone marrow sti mulant used to treat thrombocytopeni a andaplastic ane emy)." BILIRUBIN CONJUGATED 0 mg/dL 0-0.3 N "A posi tive bias may (test code = BILCON) occur f or patients taking Eltrombo pag(a bone marrow sti mulant used to treat thrombocytopeni a andaplastic ane emy)." C ONJUGATE D BILIRUBIN IS THE REPLACEMENT ASS AY FOR DIRECTBILIRUBIN . BILIRUBIN 0.7 mg/dL 0-1.1 N UNCONJUGATED (test code = BILUNC) SGOT/AST (test code 43 U/L 15-46 N = AST) SGPT/ALT (test code 14 U/L 0-34 N = ALT) ALKALINE PHOSPHATASE 66 U/L 38-126 N (test code = ALKP) COMPREHENSIVE METABOLIC [id number] 16:22:00 Test Item Value Reference Range Interpretation Comments SODIUM (test code = 141 mmol/L 137-145 N NA) POTASSIUM (test code 3.2 mmol/L 3.4-5.0 L = K) CHLORIDE (test code 114 mmol/L 98-107 H = CL) CARBON DIOXIDE (test 23 mmol/L 22-30 N code = CO2) GLUCOSE (test code = 88 mg/dL 74-106 N GLU) BLOOD UREA NITROGEN 11 mg/dL 9-20 N (test code = BUN) GLOMERULAR 167 >60 The estimated FILTRATION RATE glomerular f iltration (test code = GFR) rate is co mputed usingpatient ra ce, age (>18), sex, and serum creatinine. If anyof the needed data elements are mi ssing the Laboratory cannot compute an cipriano mation of the glomerul ar filtration rate . CREATININE (test 0.6 mg/dL 0.7-1.3 L code = CREAT) TOTAL PROTEIN (test 5.8 g/dL 6.3-8.2 L code = PROT) " A positive bias m ay occur for patients ta miguel Eltrombopag(a b one marrow stimulan t used to treat thrombocytopeni a andaplastic anemia)." ALBUMIN (test code = 3.5 g/dL 3.5-5.0 N ALB) CALCIUM (test code = 6.7 mg/dL 8.4-10.2 L CA) BILIRUBIN TOTAL 0.8 mg/dL 0.2-1.3 N "A positive bias may (test code = BILT) occur for patients taking Eltrombo pag(a bone marrow sti mulant used to treat thrombocytopeni a andaplastic ane emy)." BILIRUBIN CONJUGATED 0 mg/dL 0-0.3 N "A posi tive bias may (test code = BILCON) occur f or patients taking Eltrombo pag(a bone marrow sti mulant used to treat thrombocytopeni a andaplastic ane emy)." C ONJUGATE D BILIRUBIN IS THE REPLACEMENT ASS AY FOR DIRECTBILIRUBIN . BILIRUBIN 0.7 mg/dL 0-1.1 N UNCONJUGATED (test code = BILUNC) SGOT/AST (test code 43 U/L 15-46 N = AST) SGPT/ALT (test code U/L 0-34 = ALT) ALKALINE PHOSPHATASE 66 U/L 38-126 N (test code = ALKP) TROPONIN I [id number] 16:19:00 Test Item Value Reference Range Interpretation Comments TROPONIN I RAPID 0.00 ng/mL 0.00-0.079 N ISTAT TROP ONIN I (test code = CRITERIA0.00-0. 08 ng/mL - TROPIRAP) Negative>0.08 n g/mL - Positive The us e of serial sampling and te sting protocol is are commended practice.An alonzo vated troponin level alone is often not suffi cient fordiagnosis of myocardial infarction. Javy oscar results obtaine d by different assay s may vary.Evaluation of the extent of myoca rdial damage based on increase of troponin would be valid only if similar methodology is used. CBC W/AUTO [id number] 16:15:00 Test Item Value Reference Range Interpretation Comments WHITE BLOOD CELL (test code = 7.9 x10 3/uL 5.0-12.0 N WBC) RED BLOOD CELL (test code = 4.46 x10 6/uL 4.70-6.10 L RBC) HEMOGLOBIN (test code = HGB) 12.9 g/dL 14.0-18.0 L HEMATOCRIT (test code = HCT) 41.5 % 37.0-49.0 N MEAN CELL VOLUME (test code = 93 fL 80-94 N MCV) MEAN CELL HGB (test code = MCH) 28.9 pg 27-31 N MEAN CELL HGB CONCENTRATION 31.1 g/dL 33-37 L (test code = MCHC) RED CELL DISTRIBUTION WIDTH 13.6 % 11.5-15.5 N (test code = RDW) PLATELET COUNT (test code = 204 x10 3/uL 130-400 N PLT) MEAN PLATELET VOLUME (test code 10.0 fL 9.4-16.4 N = MPV) NEUTROPHIL % (test code = NT%) 82.0 % 43-65 H IMMATURE GRANULOCYTE % (test 0.3 % 0.0-2.0 N code = IG%) LYMPHOCYTE % (test code = LY%) 9.9 % 20.5-45.5 L MONOCYTE % (test code = MO%) 7.1 % 5.5-11.7 N EOSINOPHIL % (test code = EO%) 0.4 % 0.9-2.9 L BASOPHIL % (test code = BA%) 0.3 % 0.2-1.0 N NUCLEATED RBC % (test code = 0.0 % 0-1.0 N NRBC%) NEUTROPHIL # (test code = NT#) 6.52 x10 3/uL 2.2-4.8 H IMMATURE GRANULOCYTE # (test 0.02 x10 3/uL 0-0.03 N code = IG#) LYMPHOCYTE # (test code = LY#) 0.79 x10 3/uL 1.3-2.9 L MONOCYTE # (test code = MO#) 0.56 x10 3/uL 0.3-0.8 N EOSINOPHIL # (test code = EO#) 0.03 x10 3/uL 0.0-0.2 N BASOPHIL # (test code = BA#) 0.02 x10 3/uL 0.0-0.1 N BEDSIDE [id number] 16:14:00 Test Item Value Reference Range Interpretation Comments BEDSIDE CREATININE (test code = 0.90 mg/dL 0.51-1.19 N CREATBED) - XR PELVIS /2 [id number] 16:14:00 [facility] : 1990 Sex: M FAX: Johana Mcwilliams MD R1 [place]: St: REG Name: JEREMY FERNANDEZ [facility] : 1990 Age/S: 30/M [address] Unit#: [id number] Loc: [place] [address] Phys: Johana Mcwilliams MD R1 Acct: [id number] Dis Date: Status: REG ER PHONE #: [phone] Exam Date: 11/12/2020 1552 FAX #: [phone] Reason: trauma, right sided pain EXAMS: CPT CODE: [id number] XR PELVIS 1/2 VIEWS 31454 Examination: One view chest x-rayin one view pelvis Location code: H60 Comparison: None Discussion: Clinical history is remarkable for pain. Heart is normal in size. Lungs are clear of consolidating infiltrates. No masses, nodules or effusions are noted. Patient is status post sternotomy. There is no evidence for acute fracture or dislocation. No lytic or blastic lesions identified. Impression: 1. Normal one view chest x-ray. 2. Normal one view pelvis. at 1614 Reported andsigned by: Krzysztof Frausto MD CC: Johana Mcwilliams MD Technologist: LYDIA JAMIL; STUDENT 2ND YEAR [facility] Date/Time/By: 11/12/2020 (5104) : By: [email or web address] PAGE 1 Signed Report FAX: Johana Mcwilliams MD R1 [place]: St: REG -- Name: JEREMY FERNANDEZ [facility] : 1990 Age/S: 30/M [address] Unit #: [id number] Loc: [place] [address] Phys: Johana Mcwilliams MD R1 Acct: [id number] Dis Date: Status: REG ER PHONE #: [phone] Exam Date: 11/12/2020 1552 FAX #: [phone] Reason: trauma, right sided pain EXAMS: CPT CODE: [id number] XR PELVIS 1/2 VIEWS 47827 (Continued) Orig Print D/T: S: 11/12/2020 (1617) PAGE 2 Signed Report- XR CHEST 1 [id number] 16:14:00 [facility] : 1990 Sex: M FAX: Parrish Stockton MD [place]: St: REG Name: JEREMY FERNANDEZ [facility] : 1990 Age/S: 30/M [address] Unit #: [id number] Loc: [place] [address] Phys: Parrish Stockton MD Acct: [id number] Dis Date: Status: REG ER PHONE #: [phone] Exam Date: 11/12/2020 1552 FAX #: [phone] Reason: transfer, PTX EXAMS: CPT CODE: [id number] XR CHEST 1 V 13014 Examination: One view chest x- ray in one view pelvis Location code: H60 Comparison: None Discussion: Clinical history is remarkable for pain. Heart is normal in size. Lungs are clear of consolidating infiltrates. No masses, nodules or effusions are noted. Patient is status post sternotomy. There is no evidence for acute fracture or dislocation. No lytic or blastic lesions identified. Impression: 1. Normal one view chest x- ray. 2. Normal one view pelvis. at 1614 Reported and signed by: Krzysztof Frausto MD CC: Parrish Stockton MD Technologist: LYDIA JAMIL; STUDENT 2ND YEAR Trnnmrd Date/Time/By: 11/12/2020 (6527) : By: [email or web address] PAGE 1 Signed Report FAX: Parrish Stockton MD [place]: St: R EG - Name: JEREMY FERNANDEZ [facility] : 1990 Age/S: 30/M [address] Unit #: [id number] Loc: [place] [address] Phys: Parrish Stockton MD Acct: [id number] Dis Date: Status: REG ER PHONE #: [phone] Exam Date: 11/12/2020 1552 FAX #: [phone] Reason: transfer, PTX EXAMS: CPT CODE: [id number] XRCHEST 1 V 61060 (Continued) Orig Print D/T: S: 11/12/2020 (1617) PAGE 2 Signed Report Notes Date/Time Note Provider Source 2022-10-25 15:20:00 [id number]:20:00 [facility] ([facility])EMERGENCY PROVIDER REPORTREPORT#:[id number] REPORT STATUS: SignedDATE:10/25/22 TIME: 1520 PATIENT: JULISA FERNANDEZ JR UNIT #: [id number]#: [id number] ROOM/BED:AGE: 32 SEX: M PCP PHYS: N o Primary or Family PhysicianSERVICE AUTHOR: Polo Ledesma MD * ALL edits or amendments must be made on the electronic/computer document * HPI-Sore Throat GeneralInitial Greet Date/Time 10/25/22 1509 PresentationChief Complaint Sore throat Free David t HPI NotesFree Text HPI [id number] male who presents with sore throat x1 week; worse over th e last 1 to2 days. No fevers or chills. He is having difficulty swallowing. He states that about 1 week ago, he cut the back of his throat on the left side accidentally while brushing his teeth. Review of Systems ROS StatementsAll systems rev neg except as marked. Focused Review of SystemsConstitutionalDenies: Fever. Ears/Nose/ThroatReports: Sore throat. RespiratoryDenies: Cough, productive. GIDenies: Abdominal pain, Nausea, Vomiting. Past Medical History - AdultStated Complaint THROAT HURTSAllergiesCoded Allergies:No Known Allergies (04/19/16) Home MedicationsActive ScriptsACETAMINOPHEN (TYLENOL) 650 MG PO Q6HR OH N pain ACETAMINOPHEN (TYLENOL) 650 MG PO Q6HR PRN pain #60 TAB Prov: 11/18/20GABAPENTIN (NEURONTIN ) 300 MG PO BID PRN pain GABAPENTIN (NEURONTIN) 30 0 MG PO BID PRN pain #60 CAP Prov: 11/18/20traMADo l (ULTRAM) 50 MG PO Q6H PRN PRN MODERATE PAIN (SCORE 4-6) traMADol (ULTRAM) 50 MG PO Q6H PRN PRN MODERATE PAIN (SCORE 4-6) #30 TAB Prov: 11/18/20 Reported MedicationsMETOPROLOL TARTRATE (LOPRESSOR) 25 MG PO DAILY LORazepam (ATIVAN) 1 MG PO BID ASPIRIN 81 MG PO DAILY Past Medical History:Reports: Congenital anomalies. Denies: Alcoholism/subst abuse, Diabetes mellitus. Additional Medical HistoryCongenital aortic stenosisAdditional Surgical HistoryCongenital aortic stenosis s/p balloon valvuloplasty after followed by Ross procedure 14 years oldAdditional Family HistoryNo early onset CAD o r sudden cardiac . 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 Physical Exam Vital SignsVital SignsFirst Documented: Result Date Time Pulse Ox 98 10/25 1512 B/P 140/89 / 1512 B/P Mean 106 / 1512 Temp 37.1 10/25 1512 Pulse 90 04 1512 Resp 18 10/25 1512 Last Documented: Result Date Time Pulse Ox 98 04 1512 B/P 140/89 10/25 1512 B/P Mean 106 / 1512 Temp 37.1 10/25 151 2 Pulse 90 10/25 1512 Resp 18 10/25 1512 Review o f Vital Signs Reviewed Focused PEGeneral/Const General/Const Awake, Alert, No acute distressEars/Nose/Throat Ears/Nose/Throat moderate swelling/erythema oropharynx/tonsils; n o purulence;airway patentMS Neck Neck Atraumatic, Full range of motionResp/Chest Respiratory/Chest Atraumatic, Breath sounds NLCardiovascular Cardiovascular Heart rate NL, Regular rhythmAbdomen/GI Abdomen/GI Atraumatic, Soft, Non-tender, No distentionNeurologic Neurologic Oriented X3, Speech NL, No motor deficits Interpretation Diagnostics Lab Results InterpretationResultsLaboratory Tests 10/25/22 1535:[Embedded Image Not Available]Laboratory Tests: 10/25 1535 Chemistry Sodium (136 - 145 mmol/L) 139 Potassium (3.5 - 5.1 mmol/L) 3.4 L Chloride (98 - 113 mmol/L) 106 Carbon Dioxide (2 1 - 32 mmol/L) 30 BUN (7 - 18 mg/dL) 9 Creatinine (0.6 - 1.0 mg/dL) 0.8 Glomerular Filtr Rate 120 Glucose (65 - 99 mg/dL) 88 Calcium (7.8 - 10.9 mg/dL) 8.8 Total Bilirubin (0.0 - 1.1 mg/dL) 0.8 Direct Bilirubin (0.05 - 0.3 mg/dL) 0.2 Indirect Bilirubin (0.0 - 0.6 mg/dL) 0.6 AST (15 - 37 U/L) 18 ALT (10 - 30 U/L) 29 Total Alk Phosphatase (45 - 117 U/L) 96 Total Protein (6. 4 - 8.2 g/dL) 7.5 Albumin (3.4 - 5.0 g/dL) 3.3 L Globulin (2.3 - 3.5 gm/dL) 4.2 H Albumin/Globulin Ratio (1.5 - 2.2) 0.8 L Lipase (73 - 393 U/L) 96 Hematology WBC (4.8 - 10.8 K/mm3) 9.9 RBC (4.2 - 5.4 M/mm3) 4.66 Hgb (13.5 - 17.5 gm/DL) 12.9 L Hct (37.1 - 51.5 %) 40.5 MCV (81 - 99 fL) 86.9 MCH (27 - 31 pg) 27.7 MCHC (3 3 - 37 gm/dL) 31.9 L RDW (11.5 - 14.5 %) 12.6 Plt Count (130 - 400 X10(3)) 367 MPV (9.4 - 12.4 fL) 8.6 L Neut % (Auto) (51.5 - 79.7 %) 72.4 Lymph % (Auto) (14 - 40 %) 15.0 Otero % (Auto) (4.0 - 10. 2 %) 7.5 Eos % (Auto) (0 - 4.1 %) 4.4 H Baso % (Auto) (0.1 - 0.7 %) 0.4 Neut # (Auto) (2.5 - 8. 6 K/mm3) 7.1 Lymph # (Auto) (1.1 - 3.6 K/mm3) 1.5 Otero # (Auto) (0.3 - 0.9 K/mm3) 0.7 Eos # (Auto) (0.0 - 0.4 #) 0.43 H Baso # (Auto) (0.0 - 0.2 K/mm3) 0.04 Nucleated RBC % (0 - 0 %) 0.0 Nucleated RBCs # (Man) (0.00 - 0.20 K/mm3) 0.00 Serology SARS-CoV-2 Ag (Rapid) (Presump.Neg) Presumptive Negative Microbiology: Date/Time Procedure - Status Source Growth 10/25 1535 Grou p A Streptococcus DNA Detection - COMP THROAT 1 1535 Influenza Virus Type B Antigen - COMP NASOPHARG 10/25 1535 Influenza Virus Type A Antigen - COMP NASOPHARG Recent Impressions:CAT SCAN - CT NECK W/CONTRAST 10/25 1750 Report Impression - Status: SIGNED Entered: 10/25/2022 1826 IMPRESSION: 1. Unremarkable contrast-enhanced neck CT.Impression By: [email or web address] Yossi MCKAY M.D. Re-Evaluation MDM Free Text MDM NotesFree Text MDM NotesWe will obtain labs, EKG, CT neck with contrast; administer prednisone 60 mg p.o., Zofran 4 mg p.o., Motrin 800 mg p.o., Tylenol#3 x2 tabs Re-Evaluation/ProgressRe-Evaluation/Progress Text/Dict NoteGroup A strep positive; penicillin 1000 mg p.o. x1 ordered; labs, CT neck with contrast pending; if labs overall nonconcerning and if CT neck with contrast negative for peritonsillar abscess or other concerning pathology, then plan would be to discharge patient with penicillin 1000 mg p.o. twice daily x10 days,prednisone 50 mg p.o. daily x3 days, Motrin 800 mg p.o. every 8 hours as needed pain/swelling/fever Time of Re-Eval 1620 Re-Eval Status Improved ED CourseMedication(s) OrderedMedication(s) Ordered:Anti-Infective Agents Sig/Nguyễn Start time Last Medication Dose Route Stop Time Status Admin Penicillin V 1,000 MG X1ED STA 10/25 1615 DC 10/25 Potassium PO 10/25 1616 1719 Central Nervous System Agents Sig/Nguyễn Start time Last Medication Dose Route Stop Time Status Admin Acetaminophen/ 2 UDTAB ONCE ONE 10/25 1530 DC 10/25 Codeine Phosphate P O 10/25 1531 1542 Ibuprofen 800 MG X1ED STA 10/25 1520 DC 10/25 PO 10/25 1521 1542 Diagnostic Agents Sig/Nguyễn Start time Last Medication Dose Route Stop Time Status Admin Iopamidol 0 .STK-MED ONE 10/25 1536 DC 10/25 IV 1802 Gastrointestinal Drugs Sig/Nguyễn Start time Last Medication Dose Route Stop Time Status Admin Ondansetron Base 4 MG X1ED STA 10/25 1520 DC 10/25 SL 10/25 1521 1543 Hormones And Synthetic Substit Sig/Nguyễn Start time Last Medication Dose Route Stop Time Status Admin Prednisone 60 MG X1ED STA 10/25 1520 DC 10/25 PO 10/25 1521 1542 Patient Discharge Departure Vital Signs/ConditionVital SignsFirst Documented: Result Date Time Pulse Ox 98 04/ 1512 B/P 140/89 10/25 1512 B/P Mean 106 / 1512 Temp 37.1 10/25 1512 Pulse 90 04/ 1512 Resp 18 10/25 1512 Last Documented: Result Date Time Pulse Ox 98 04/ 1512 B/P 140/89 / 1512 B/ P Mean 106 / 1512 Temp 37.1 10/25 1512 Pulse 9 0 10/25 1512 Resp 18 10/25 1512 All vital signs available at the time of this entry have been reviewed. Clinical ImpressionClinical ImpressionPrimary Impression: Strep throat Disposition DecisionDischarge )( Discharged to Home Yes )( Time 1833 )( Date 10/25/22 Discharge/Care Plan(Auto) PrescriptionsCurrent Visit ScriptsPENICILLIN V-K (PEN V-K) 1,000 MG P O Q12H PENICILLIN V-K (PEN V-K) 1,000 MG PO Q12H #40 TABS IBUPROFEN (MOTRIN) 800 MG PO TID PRN OH N PAIN IBUPROFEN (MOTRIN) 800 MG PO TID PRN PRN PAIN #30 TABS predniSONE 50 MG PO DAILY predniSONE 50 MG PO DAILY #3 TABS Prescriptions Reviewed Risks, Benefits, Alternative treatmentPatient Instructions ED Pharyngitis, Strep (Confirmed)Additional InstructionsTake prescribed medication as directed; follow-up wit h your primary care doctor;return to the ED for an y new or worsening symptoms Discharge NoteI have spoken with the patient and/or caregivers. I hav e explained the patient'scondition, diagnoses and treatment plan based on the information availabl e to meat this time. I have answered the patient's and/or caregiver's questions and addressed any concerns. The patient and/or caregivers have as good an understanding of the patient's diagnosis , condition and treatment plan as can beexpected a t this point. The vital signs have been stable. Th e patient's condition is stable and appropriate fo r discharge from the emergency department. The patient will pursue further outpatient evaluatio n with the primary care physician or other designated or consulting physician as outlined i n the discharge instructions. The patient and/or caregivers are agreeable to this planof care and follow-up instructions have been explained in detail. The patient and/or caregivers have received these instructions in written format an d have expressed an understanding of the discharge instructions. The patient and/or caregivers are aware that any significant change in condition o r worsening of symptoms should prompt an immediate return to this or the closest emergency department or a call to 911. at 1833RPT #:[id number] OF REPORTEDEmernorth arkansas regional [facility] y department macynt1920-60-68V28:20:00VR.[id number] v ailable for patient [id number]:33:49 2020-11-18 11:33:00 [id number]:33:00 [facility] HCAKW [facility] CenterCardiology Progress NoteREPORT#:[id number] REPORT STATUS: SignedDATE:11/18/20 TIME: 1133 PATIENT: JEREMY FERNANDEZ UNIT #: [id number]#: [id number] [address]: [address] AGE: 30 SEX: M ATTEND: Marie Gomez [facility] AUTHOR: Chi Nieves MD * ALL edits o r amendments must be made on the electronic/computer document * SubjectiveChief Complaint:Feels ok, no chets pains or SOB 24-nikky r telemetry -Sinus kerry. HR 50-60s Objective GeneralVS/I O:24 hour I O ending at 0700: 11/18 0700 11/17 1900 Intake Total Output Total Balance Number Voids 2 Vital Signs: Date Time Temp Pulse Resp B/P B/P Pulse O2 O2 Flow FiO2 Mean Ox Delivery Rate 11/18 1119 100.0 85 18 117/70 86.0 97 11/18 0839 98.1 76 20 105/68 80. 6 99 11/18 0444 99.3 88 12 137/76 96.2 98 Room air 11/17 2351 99.0 64 14 112/71 84.4 97 Room air 11/17 2013 99.9 84 13 109/71 83.4 100 Room air 11/17 1720 98.8 86 20 115/76 88.7 98 11/17 1345 99.9 62 127/74 91.6 100 11/17 1212 98.4 53 20 120/76 90.6 99 PATIENT WEIGHT: Weight (lb): Weight (oz): Weight (kg): 75.000 Medications:Active Meds + DC'd Last 24 HrsMetoprolol Tartrate 25 MG Q24H PO Lisinopril 10 MG DAILY PO Amlodipine Besylate 5 MG BEDTIME PO Perflutren Lipid Microsphere DIRECTED ONCE PRN IV Sodium Chloride DIRECTED ONCE PRN IV Sodium Chloride 5 ML ONCE PRN IV Enoxaparin Sodium 30 MG Q12HR SUBQ Lorazepam 1 MG BID PO Ketorolac Tromethamine 30 MG Q6H PRN PRN IV Lidocaine 1 PATCH DAILY@1700 TOPICAL Ibuprofen 600 MG Q8HR PO Aspirin 81 MG DAILY PO Gabapentin 300 MG BID PO Polyethylene Glycol 1 PKT DAILY PO (CKD) Acetaminophen 650 MG Q6HR PO Oxycodone HCl 5 MG Q6H PRN PRN PO (DC) Ondansetron HCl 4 MG Q4 H PRN PRN IV Tramadol HCl 50 MG Q6H PRN PRN PO Physical ExamGeneral appearance: alert, awake, oriented, no acute distressHead/Eyes: atraumatic , EOMI, normocephalic, PERRLENT: moist mucosal membranes, normal noseNeck: supple/no meningismus, no bruit/NL carotids, no JVDCardiovascular: CV assessment: regular rate and rhythm, BP pulses = bilaterally Murmur assessment:III/ SABINA at LUSBRespiratory: clear to auscultation, no distressAbdomen: soft, non-tender, normal bowel sounds, no distentionUpper extremity: UE assessment: no edema, 2+ radial pulseLower extremity: LE assessment: no clubbing, no cyanosis, no edemaMusculoskeletal: normal inspectionNeuro/COSMETOLOGY PROFESSOR : alert, oriented X 3, CN II-XII intactSkin: dry, intactPsychiatry: normal affect, normal mood ResultsFindings/Data:Laboratory Tests 11/18 032 7 Chemistry Sodium (137 - 145 mmol/L) 138 Potassiu m (3.4 - 5.0 mmol/L) 3.9 Chloride (98 - 107 mmol/L) 102 Carbon Dioxide (22 - 30 mmol/L) 28 BUN (9 - 20 mg/dL) 17 Creatinine (0.7 - 1.3 mg/dL) 0.6 L Glomerular Filtr Rate (>60) 167 Glucose (74 - 106 mg/dL) 105 Calcium (8.4 - 10.2 mg/dL) 9.0 Phosphorus (2.5 - 4.5 mg/dL) 3.4 Magnesium (1.6 - 2.3 mg/dL) 2.0 Laboratory Tests 11/18 0327 Hematology WBC (5.0 - 12.0 x10 3/uL) 6.4 RBC (4.70 - 6.10 x10 6/uL) 4.82 Hgb (14.0 - 18.0 g/dL) 14.1 Hct (37.0 - 49.0 %) 43.4 MCV (80 - 94 fL) 90 MCH (27 - 31 pg) 29.3 MCHC (33 - 37 g/dL) 32.5 L RDW (11.5 - 15.5 %) 13.2 Plt Count (130 - 400 x10 3/uL) 170 MPV (9.4 - 16.4 fL) 9.6 Neut % (Auto) (43 - 65 %) 92.2 H Lymph % (Auto) (20.5 - 45.5 %) 4.2 L Otero % (Auto) (5.5 - 11.7 %) 1.6 L Eos % (Auto) (0.9 - 2.9 %) 1.4 Baso % (Auto) (0.2 - 1.0 %) 0.3 Neut # (Auto) (2.2 - 4. 8 x10 3/uL) 5.90 H Lymph # (Auto) (1.3 - 2.9 x10 3/uL) 0.27 L Otero # (Auto) (0.3 - 0.8 x10 3/uL) 0.10 L Eos # (Auto) (0.0 - 0.2 x10 3/uL) 0.09 Baso # (Auto) (0.0 - 0.1 x10 3/uL) 0.02 Immatur e Gran % (0.0 - 2.0 %) 0.3 Nucleated RBC % (0 - 1. 0 %) 0.0 Laboratory Tests 11/18 0327 Chemistry Magnesium (1.6 - 2.3 mg/dL) 2.0 Review of SystemsAll systems rev neg: except as marked Diagnosis, Assessment Plan Free Text DxA P NotesFree Text DxA P Notes:Impression: #S/p fall with right 10th rib fracture and right PTX -s/p right CT placement. CXR shows PTX resolved. CT removal soon per trauma team.#5 cm ascending aortic aneurysm -no dissection on CT. Likely old and related toprevious congenital heart disease. TTE with stable size#Congenital aortic stenosis s/p balloon valvuloplasty at followed by Ross procedure (pulmonic valve placed in the aortic position with pulmonary homograftreplacement) at 14 years old.-Has increased velocities across pulmonary valve likely due to combination of stenosis and smalle r RVOT. Moderate in severity at this time-[facility] d [facility] but not received yet. #Sinus bradycardia -benign . No pauses or high-grade AV block. Normal TSH. No further inpatient cardiac workup required. Can follow with Dr. Spear upon discharge. Chest tube management per primary. Will sign off Vital Hear t and Vein at 1134 RPT #:[id number] OF REPORTPRProgress [id number]:33:00C.[id number] aimee able for patient [id number]:35:12 2020-11-18 10:11:00 [id number]:11:00 [facility] ([facility])Discharge SummaryREPORT#:[id number] REPORT STATUS: SignedDATE:11/18/20 TIME: 1011 PATIENT: JEREMY FERNANDEZ UNIT #: [id number]#: [id number] [place] [id number]: 89 AGE: 30 SEX: M ATTEND: Marie Gomez AUTHOR: Aletha Toscano PA-C * ALL edits or amendments must be made on the electronic/computer document * PCP PCPDischarge to: home General InformationFree Text A P:ASSESSMENT:30 year old man presents with traum a related right sided pneumothorax Injuries/Acute Problems:- R PTX- R Lateral 10th and 11th Rib fx Chronic Medical Problems- Congenital Heart Disease- Aortic Aneurysm- Anxiety Consultants- Cardiology - Dr. Rodríguez LFLZOlmoqynxcsztQ85la/11th Rib fracture- CXR showed no residual or new PTX after removal- [facility] continue IS Aortic AneurysmCongenital Hear t Disease- Pt to f/u with outpatient energy economist Anxiety- continue home ativan and f/u with PCPDischarge date: 11/18/20Hospital course:30 y/ o M with PMHx of congenital heart disease presente d to the ED after GLF w/R sided 10% PTX and R 10th and 11th rib fxs. Pt was admitted for observatio n andPTX worsened, R sided chest tube was placed. After water seal trial CT was removed and CXR an d CT chest showed no new or residual PTX. Pt pain well controlled, PT/OT evaluated and he was able to be discharged home. Pt is advisedto f/u with his energy economist at [facility]'s hospital fo r indicental findings of aortic aneurysm, aortic root dilation and pulmonic stenosis. Pt was seen by cardiology during hostpital stay and was cleared for discharge Med Rec Med RecDischarge meds:Stop taking the following medications:HYDROcodone/APAP (NORCO 10/325) 10 MG-325 MG TAB 1 TABLET ORAL EVERY 12 HR NEEDED. as needed for BACK PAIN Continue taking these medications:METOPROLOL TARTRATE (LOPRESSOR ) 25 MG TAB 25 MILLIGRAM ORAL DAILY. LORazepam (ATIVAN) 1 MG TAB 1 MILLIGRAM ORAL TWICE DAILY. ASPIRIN (ASPIRIN) 81 MG TAB.CHEW 81 MILLIGRAM ORAL DAILY. Start taking the following new medications:ACETAMINOPHEN (TYLENOL) 325 MG TAB 650 MILLIGRAM ORAL EVERY 6 HOURS. as needed for pain Qty = 60 No Refills GABAPENTIN (NEURONTIN) 300 MG CAP 300 MILLIGRAM ORAL TWICE DAILY. as needed for pain Qty = 60 No Refills traMADol (ULTRAM) 50 MG TAB 50 MILLIGRAM ORAL EVERY 6 HOURS NEEDED. as needed for MODERATE PAIN (SCORE 4-6) Qty = 30 No Refills ObjectiveVS/I OLast Documented: Result Date Time Pulse Ox 97 11/18 1119 B/P 117/70 11/18 1119 B/P Mean 86.0 11/18 1119 Temp 100.0 11/18 1119 Pulse 85 11/18 1119 Resp 18 11/18 1119 O2 Delivery Room air 11/18 0444 FiO2 21 11/17 1022 O2 Flow Rate 1 11/14 1453 24 hour I O ending at 0700: 11/18 070 0 11/17 1900 Intake Total Output Total Balance Number Voids 2 PATIENT WEIGHT: Weight (lb): Weight (oz): Weight (kg): 75.000 ResultsFindings/Data:Laboratory Tests: 11/18 0327 Chemistry Sodium (137 - 145 mmol/L) 138 Potassium (3.4 - 5.0 mmol/L) 3.9 Chloride (98 - 107 mmol/L) 102 Carbon Dioxide (22 - 30 mmol/L) 28 BUN (9 - 20 mg/dL) 17 Creatinine (0.7 - 1.3 mg/dL) 0.6 L Glomerular Filtr Rate (>60) 167 Glucose (74 - 106 mg/dL) 105 Calcium (8.4 - 10.2 mg/dL) 9.0 Phosphorus (2.5 - 4.5 mg/dL) 3.4 Magnesium (1.6 - 2.3 mg/dL) 2.0 Hematology WBC (5.0 - 12.0 x10 3/uL) 6.4 RBC (4.70 - 6.10 x10 6/uL) 4.82 Hgb (14.0 - 18.0 g/dL) 14.1 Hct (37.0 - 49.0 %) 43.4 MCV (80 - 94 fL) 90 MCH (27 - 31 pg) 29.3 MCHC (33 - 37 g/dL) 32.5 L RDW (11.5 - 15.5 %) 13.2 Plt Count (130 - 400 x10 3/uL) 170 MPV (9.4 - 16.4 fL) 9.6 Neut % (Auto) (43 - 65 % ) 92.2 H Lymph % (Auto) (20.5 - 45.5 %) 4.2 L Otero % (Auto) (5.5 - 11.7 %) 1.6 L Eos % (Auto) (0.9 - 2.9 %) 1.4 Baso % (Auto) (0.2 - 1.0 %) 0.3 Neut # (Auto) (2.2 - 4.8 x10 3/uL) 5.90 H Lymph # (Auto) (1.3 - 2.9 x10 3/uL) 0.27 L Otero # (Auto) (0.3 - 0.8 x10 3/uL) 0.10 L Eos # (Auto) (0.0 - 0.2 x10 3/uL) 0.09 Baso # (Auto) (0.0 - 0.1 x10 3/uL) 0.02 Immature Gran % (0.0 - 2.0 %) 0.3 Nucleated RBC % (0 - 1.0 %) 0.0 Radiology data:Recent Impressions:RADIOLOGY - XR CHEST 1 V 11/17 1649 Report Impression - Status: SIGNED Entered: 11/17/2020 8596 IMPRESSION: Right chest tube has been discontinued. No evidence of pneumothorax. The cardiomediastinal silhouette i s stable. Sternal wires areredemonstrated.Impression By: LouEFMustapha - Mary Baron MDRADIOLOGY - XR CHEST 1 V 11/17 2009 Report Impression - Status: SIGNED Entered: 11/17/20202030 IMPRESSION: 1. No focal consolidation. No other acute abnormalities.Impression By: [email or web address] - Polo Herrera,MDRADIOLOGY - XR CHEST 1 V 11/18 0626 Report Impression - Status: SIGNED Entered: 11/18/2020 0631 IMPRESSION: 1. Slight increase i n size of a trace right pleural effusion.2. No pneumothorax.Impression By: [email or web address] - Vandana Radford MD Results: labs reviewed, vital signs stable, x-ray personally reviewed, current med profile rev'd Free Text Obj NotesFree Text Obj Notes:Constitutional: Patient appears comfortable, no acute distress, bradycardia has been consistent during stay. asymptomatic and chronicEyes: pupils equal, round, reactive to light, no icterusHENT: normal cephalic, 2 small abrassions to forehead, no facial tenderness or crepitus, normal external inspection of ears/nose, no septalhematomaNeck: trachea midline, no crepitus, thyroid without massCV: sinus bradycardia, bilateral radial pulses 2+, n o cyanosis, no edema, no pulsatile abdominal massRespiratory: R dressing clean and dry, suction on, 10ccs output. decreased breath sound s R lung improved from yesterday,clear brath sounds, ttp on right ribsAbdomen: soft, non-tender, no massesRectal: deferredGU: pelvis stableLymph nodes: no cervical or supraclavicula r masses notedMusculoskeletal:-ttp on right sided ribsSkin: no lacerations, abrasions to forehead, skin warm to palpationPsychiatric: normal mood and affect, memory intact.Neurologic: bilateral upper and lower extremity sensation intact, strength intact, GCS 15 (5M, 6V, 4E) Treatments ProceduresLab:Chemistry last 24 hrs: 11/18 0327 Chemistry Sodium (137 - 145 mmol/L) 138 Potassiu m (3.4 - 5.0 mmol/L) 3.9 Chloride (98 - 107 mmol/L) 102 BUN (9 - 20 mg/dL) 17 Creatinine (0. 7 - 1.3 mg/dL) 0.6 L Glucose (74 - 106 mg/dL) 105 Hematology last 24 hrs: 11/18 0327 Hematology WB C (5.0 - 12.0 x10 3/uL) 6.4 Hgb (14.0 - 18.0 g/dL) 14.1 Hct (37.0 - 49.0 %) 43.4 Plt Count (130 - 400 x10 3/uL) 170 Neut % (Auto) (43 - 65 %) 92.2 H Imaging:Recent Impressions:CAT SCAN - CT CHEST W/O CONTRAST 11/16 1610 Report Impression - Status: SIGNED Entered: 11/16/2020 1623 IMPRESSION:1. Right-sided chest tube identified within the major fissure.2. Tiny right-sided pneumothorax.3. Enlargement of the descending thoracic aorta with aneurysmmeasuring 5.1 x 5.0 cm.4. Calcified anulus of the mitral valve.5. Cardiothoracic surgery consultation is recommended for evaluationof the descending thoracic aorta and the mitral valve.Impression By: [email or web address] Yossi Frausto MDRADIOLOGY - XR CHES T 1 V 11/17 0712 Report Impression - Status: SIGNED Entered: 11/17/2020 0733 IMPRESSION: 1. Status post sternotomy.2. No pneumothorax.3. Right chest tube, unchangedImpression By: Freddy Valdes M.D.RADIOLOGY - XR CHEST 1 V 11/17 1650 Report Impression - Status: SIGNED Entered: 11/17/2020 1703 IMPRESSION: Right chest tube has been discontinued. No evidence of pneumothorax. The cardiomediastinal silhouette i s stable. Sternal wires areredemonstrated.Impression By: [email or web address] - Mary Baron MDRADIOLOGY - XR CHEST 1 V 11/17 2009 Report Impression - Status: SIGNED Entered: 11/17/20202030 IMPRESSION: 1. No focal consolidation. No other acute abnormalities.Impression By: [email or web address] - Polo Herrera,MDRADIOLOGY - XR CHEST 1 V 11/18 0626 Report Impression - Status: SIGNED Entered: 11/18/2020 0631 IMPRESSION: 1. Slight increase i n size of a trace right pleural effusion.2. No pneumothorax.Impression By: [email or web address] - Vandana Radford MD Discharge Instructions PCPPCP:PCP: No Primary or Family Physician )( Discharge to: Home/Self Care Discharge InstructionsAdditional Discharge Routines: Attending Follow-Up)( Diet: Regular)( Activity: As Tolerated Follow-up AppointmentsAttending Physician: Attending Physician: Marie Gomez MD Attending physician follow up timeframe: In 1-2 weeks Free Text DC NotesFree Text DC Notes:TRAUMA DISCHARGE INSTRUCTIONSHavin g surgery, multiple injuries, or severe injuries can take a lot of strengthand energy out of you. At first, you will get tired easily but this irineo l improveslowly and steadily over the next few weeks. For a smooth recovery and to help prevent further illness, follow these tips: ACTIVITIES/LIFESTYLE No heavy lifting (more than 20 pounds), for 4 weeks. No activity more strenuous than a brisk walk for 2 weeks. If anything you're doing feels like it is pullingor tugging at your wounds, please stop. Follow up with your surgeon for clearance to return to work. You should continue your incentive spirometry at home every hour while you are awake. You injuries and/or surgery puts you at a risk for developing pneumonia and exercising you r lungs will lower this risk. You should remain active and out of bed as much as possible, as this reduces risk of developing blood clots in your legs, pneumonia, and other possible complications. If you have any broken bones, you should try to keep them elevated above or at the level of your heart to help decrease swelling an d complications. If you have any wounds, avoid soaking in water (no pools, tubs, lakes, ocean), but showering is okay unless your surgeon tells you not too. Keepall wounds clean and dry and follow any wound care instructions given to you. MEDICATIONS Your new medications and any changes in your old medications are listed above. Take your pain medication as prescribed, do not drive while taking the narcotic medication, and do not take any additional Tylenol if your pain medicin e has Tylenol (acetaminophen) in it. You only need to take the pain medication as longas you have pain - you do not have to take it until it is al l gone. Even when taking the pain medication you will still feel some soreness - it is impossible to remove ALL pain, but you should be comfortabl e enough to walk without problemand to sleep. Narcotic pain medications (such as codeine, oxycodone, or hydrocodone) can causeconstipation , as can the stress of injuries or surgery. Ideally, your bowel movements should be well formed, soft, and easily passed. To facilitate this youshould take the colace and senokot as prescribed (or obtain a stool softener from your local pharmacy), drink plenty of liquids, and limit liquids that contain caffeine to one or tw o drinks per day. You may also add Metamucil or another fiber supplement two times a day, and/or eat high fiber foods such as prunes, prune juice , fiber bars, and high-fiber cereal. Following hospital discharge: - If you have not had a BM after 1 day, take 3-4 tablespoons of mineral oil 3 times a day until the first smooth bowel movement. You may then reduce the mineral oil to 1-2 tablespoons twice daily if still needed. - I f there is no BM after 3 days, add 1 oz. (30ml) of Milk of Magnesia. If thereare no results in six hours, repeat. - If after following these instructions you are still experiencing constipation,contact the [facility] office FOLLOW-UPThe trauma surgeons can be reached through the [facility] surgery clinic. Please call to arrange follow-up in 1-2 weeks. PROBLEMS Some examples o f other issues that may arise after surgery or trauma include: - Increased or continued drainag e from wounds or surgical incisions. - Bleeding that soaks through the dressings. - Pain that is not adequately relieved by your pain medication. - Increased shortness of breath or problems breathing. - Increasing swelling, redness, or warmth of a wound or surgical area. - Fever greater than 101-degrees Fahrenheit (38.3-degree s Celsius). If you experience any of the problems above at a low level, call the clinic. For life-threatening or severe problems (such as major bleeding), consider calling 911 or report to the nearest emergency room. Quality: Gen [facility] Current MedicationsCurrent medication review:I attest that the foregoing medication list in the medical record is true, accurate, an d complete to the best of my knowledge. at 1253 RPT #:[id number] OF REPORTDSDischarge [id number]:11:00C.[id number] v ailable for patient [id number]:53:55 2020-11-18 10:11:00 [id number]:11:00 [facility] ([facility])Discharge SummaryREPORT#:[id number] REPORT STATUS: SignedDATE:11/18/20 TIME: 1011 PATIENT: JEREMY FERNANDEZ UNIT #: [id number]#: [id number] ROOM/BED: [place] [id number]: 89 AGE: 30 SEX: M ATTEND: Marie Gomez [facility] AUTHOR: Aletha Toscano PA-C * ALL edits or amendments must be made on the electronic/computer document * Aletha Toscano 11/18/20 1011:PCP PCPDischarge to: home General InformationFree Text A P:ASSESSMENT:30 year old man presents with trauma related right sided pneumothorax Injuries/Acute Problems:- R PTX- R Lateral 10th and 11th Rib fx Chronic Medical Problems- Congenital Heart Disease- Aortic Aneurysm- Anxiety Consultants- Cardiology - Dr. Rodríguez HRQCAdetorsbbbslU88jn/11th Rib fracture- CX R showed no residual or new PTX after removal- PT/OT cleared for discharge- [facility]- Pt to continu e IS Aortic AneurysmCongenital Heart Disease- Pt t o f/u with outpatient energy economist Anxiety- continue home ativan and f/u with PCPDischarge date: 11/18/20Hospital course:30 y/o M with PMHx of congenital heart disease presented to the ED after GLF w/R sided 10% PTX and R 10th and 11th rib fxs. Pt was admitted for observation andPTX worsened, R sided chest tube was placed. After water seal trial CT was removed and CXR and CT chest showed no new or residual PTX. Pt pain wel l controlled, PT/OT evaluated and he was able to b e discharged home. Pt is advisedto [facility] energy economist [facility] for indic[facility] findings of aortic aneurysm, aortic root dilation and pulmonic stenosis. Pt was seen by cardiology during hostpital stay and was cleared for discharge Med Rec Med RecDischarge meds:Stop taking the following medications:HYDROcodone/APAP (NORCO 10/325) 10 MG-325 MG TAB 1 TABLET ORAL EVERY 12 HR NEEDED. as needed for BACK PAIN Continue taking these medications:METOPROLOL TARTRATE (LOPRESSOR ) 25 MG TAB 25 MILLIGRAM ORAL DAILY. LORazepam (ATIVAN) 1 MG TAB 1 MILLIGRAM ORAL TWICE DAILY. ASPIRIN (ASPIRIN) 81 MG TAB.CHEW 81 MILLIGRAM ORAL DAILY. Start taking the following new medications:ACETAMINOPHEN (TYLENOL) 325 MG TAB 650 MILLIGRAM ORAL EVERY 6 HOURS. as needed for pain Qty = 60 No Refills GABAPENTIN (NEURONTIN) 300 MG CAP 300 MILLIGRAM ORAL TWICE DAILY. as needed for pain Qty = 60 No Refills traMADol (ULTRAM) 50 MG TAB 50 MILLIGRAM ORAL EVERY 6 HOURS NEEDED. as needed for MODERATE PAIN (SCORE 4-6) Qty = 30 No Refills ObjectiveVS/I OLast Documented: Result Date Time Pulse Ox 97 11/18 1119 B/P 117/70 11/18 1119 B/P Mean 86.0 11/18 1119 Temp 100.0 11/18 1119 Pulse 85 11/18 1119 Resp 18 11/18 1119 O2 Delivery Room air 11/18 0444 FiO2 21 11/17 1022 O2 Flow Rate 1 11/14 1453 24 hour I O ending at 0700: 11/18 070 0 11/17 1900 Intake Total Output Total Balance Number Voids 2 PATIENT WEIGHT: Weight (lb): Weight (oz): Weight (kg): 75.000 ResultsFindings/Data:Laboratory Tests: 11/18 0327 Chemistry Sodium (137 - 145 mmol/L) 138 Potassium (3.4 - 5.0 mmol/L) 3.9 Chloride (98 - 107 mmol/L) 102 Carbon Dioxide (22 - 30 mmol/L) 28 BUN (9 - 20 mg/dL) 17 Creatinine (0.7 - 1.3 mg/dL) 0.6 L Glomerular Filtr Rate (>60) 167 Glucose (74 - 106 mg/dL) 105 Calcium (8.4 - 10.2 mg/dL) 9.0 Phosphorus (2.5 - 4.5 mg/dL) 3.4 Magnesium (1.6 - 2.3 mg/dL) 2.0 Hematology WBC (5.0 - 12.0 x10 3/uL) 6.4 RBC (4.70 - 6.10 x10 6/uL) 4.82 Hgb (14.0 - 18.0 g/dL) 14.1 Hct (37. 0 - 49.0 %) 43.4 MCV (80 - 94 fL) 90 MCH (27 - 31 pg) 29.3 MCHC (33 - 37 g/dL) 32.5 L RDW (11.5 - 15.5 %) 13.2 Plt Count (130 - 400 x10 3/uL) 170 MPV (9.4 - 16.4 fL) 9.6 Neut % (Auto) (43 - 65 % ) 92.2 H Lymph % (Auto) (20.5 - 45.5 %) 4.2 L Otero % (Auto) (5.5 - 11.7 %) 1.6 L Eos % (Auto) (0.9 - 2.9 %) 1.4 Baso % (Auto) (0.2 - 1.0 %) 0.3 Neut # (Auto) (2.2 - 4.8 x10 3/uL) 5.90 H Lymph # (Auto ) (1.3 - 2.9 x10 3/uL) 0.27 L Otero # (Auto) (0.3 - 0.8 x10 3/uL) 0.10 L Eos # (Auto) (0.0 - 0.2 x10 3/uL) 0.09 Baso # (Auto) (0.0 - 0.1 x10 3/uL) 0.02 Immature Gran % (0.0 - 2.0 %) 0.3 Nucleate d RBC % (0 - 1.0 %) 0.0 Radiology data:Recent Impressions:RADIOLOGY - XR CHEST 1 V 11/17 6150 Report Impression - Status: SIGNED Entered: 11/17/2020 1703 IMPRESSION: Right chest tube has been discontinued. No evidence of pneumothorax. The cardiomediastinal silhouette i s stable. Sternal wires areredemonstrated.Impression By: [email or web address] - Mary Baron MDRADIOLOGY - XR CHEST 1 V 11/17 2009 Report Impression - Status: SIGNED Entered: 11/17/20202030 IMPRESSION: 1. No focal consolidation. No other acute abnormalities.Impression By: [email or web address] - Polo Herrera,MDRADIOLOGY - XR CHEST 1 V 11/18 0626 Report Impression - Status: SIGNED Entered: 11/18/2020 0631 IMPRESSION: 1. Slight increase i n size of a trace right pleural effusion.2. No pneumothorax.Impression By: [email or web address] - Vandana Radford MD Results: labs reviewed, vital signs stable, x-ray personally reviewed, current med profile rev'd Free Text Obj NotesFree Text Obj Notes:Constitutional: Patient appears comfortable, no acute distress, bradycardia has been consistent during stay. asymptomatic and chronicEyes: pupils equal, round, reactive to light, no icterusHENT: normal cephalic, 2 small abrassions to forehead, no facial tenderness or crepitus, normal external inspection of ears/nose, no septalhematomaNeck: trachea midline, no crepitus, thyroid without massCV: sinus bradycardia, bilateral radial pulses 2+, n o cyanosis, no edema, no pulsatile abdominal massRespiratory: R dressing clean and dry, suction on, 10ccs output. decreased breath sound s R lung improved from yesterday,clear brath sounds, ttp on right ribsAbdomen: soft, non-tender, no massesRectal: deferredGU: pelvis stableLymph nodes: no cervical or supraclavicula r masses notedMusculoskeletal:-ttp on right sided ribsSkin: no lacerations, abrasions to forehead, skin warm to palpationPsychiatric: normal mood and affect, memory intact.Neurologic: bilateral upper and lower extremity sensation intact, strength intact, GCS 15 (5M, 6V, 4E) Treatments ProceduresLab:Chemistry last 24 hrs: 11/18 0327 Chemistry Sodium (137 - 145 mmol/L) 138 Potassiu m (3.4 - 5.0 mmol/L) 3.9 Chloride (98 - 107 mmol/L ) 102 BUN (9 - 20 mg/dL) 17 Creatinine (0.7 - 1.3 mg/dL) 0.6 L Glucose (74 - 106 mg/dL) 105 Hematology last 24 hrs: 11/18 0327 Hematology WB C (5.0 - 12.0 x10 3/uL) 6.4 Hgb (14.0 - 18.0 g/dL) 14.1 Hct (37.0 - 49.0 %) 43.4 Plt Count (130 - 400 x10 3/uL) 170 Neut % (Auto) (43 - 65 %) 92.2 H Imaging:Recent Impressions:CAT SCAN - CT CHEST W/O CONTRAST 11/16 161 Report Impression - Status: SIGNED Entered: 11/16/2020 1623 IMPRESSION:1. Right-sided chest tube identified within the major fissure.2. Tiny right-sided pneumothorax.3. Enlargement of the descending thoracic aorta with aneurysmmeasuring 5.1 x 5.0 cm.4. Calcified anulus of the mitral valve.5. Cardiothoracic surgery consultation is recommended for evaluationof the descending thoracic aorta and the mitral valve.Impression By: [email or web address] Yossi Frausto MDRADIOLOGY - XR CHES T 1 V 11/17 0712 Report Impression - Status: SIGNED Entered: 11/17/2020 0733 IMPRESSION: 1. Status post sternotomy.2. No pneumothorax.3. Right chest tube, unchangedImpression By: Freddy Valdes M.D.RADIOLOGY - XR CHEST 1 V 11/17 1650 Report Impression - Status: SIGNED Entered: 11/17/2020 1703 IMPRESSION: Right chest tube has been discontinued. No evidence of pneumothorax. The cardiomediastinal silhouette i s stable. Sternal wires areredemonstrated.Impression By: [email or web address] - Mary Baron MDRADIOLOGY - XR CHEST 1 V 11/17 2009 Report Impression - Status: SIGNED Entered: 11/17/20202030 IMPRESSION: 1. No focal consolidation. No other acute abnormalities.Impression By: [email or web address] - Polo Case,MDRADIOLOGY - XR CHEST 1 V 11/18 625 Report Impression - Status: SIGNED Entered: 11/18/2020 0631 IMPRESSION: 1. Slight increase i n size of a trace right pleural effusion.2. No pneumothorax.Impression By: [email or web address] - Vandana Radford MD Discharge Instructions PCPPCP:PCP: No Primary or Family Physician )( Discharge to: Home/Self Care Discharge InstructionsAdditional Discharge Routines: Attending Follow-Up)( Diet: Regular)( Activity: As Tolerated Follow-up AppointmentsAttending Physician: Attending Physician: Marie Gomez MD Attending physician follow up timeframe: In 1-2 weeks Free Text DC NotesFree Text DC Notes:TRAUMA DISCHARGE INSTRUCTIONSHavin g surgery, multiple injuries, or severe injuries can take a lot of strengthand energy out of you. At first, you will get tired easily but this irineo l improveslowly and steadily over the next few weeks. For a smooth recovery and to help prevent further illness, follow these tips: ACTIVITIES/LIFESTYLE No heavy lifting (more than 20 pounds), for 4 weeks. No activity more strenuous than a brisk walk for 2 weeks. If anything you're doing feels like it is pullingor tugging at your wounds, please stop. Follow up with your surgeon for clearance to return to work. You should continue your incentive spirometry at home every hour while you are awake. You injuries and/or surgery puts you at a risk for developing pneumonia and exercising you r lungs will lower this risk. You should remain active and out of bed as much as possible, as this reduces risk of developing blood clots in your legs, pneumonia, and other possible complications. If you have any broken bones, you should try to keep them elevated above or at the level of your heart to help decrease swelling an d complications. If you have any wounds, avoid soaking in water (no pools, tubs, lakes, ocean), but showering is okay unless your surgeon tells you not too. Keepall wounds clean and dry and follow any wound care instructions given to you. MEDICATIONS Your new medications and any changes in your old medications are listed above. Take your pain medication as prescribed, do not drive while taking the narcotic medication, and do not take any additional Tylenol if your pain medicin e has Tylenol (acetaminophen) in it. You only need to take the pain medication as longas you have pain - you do not have to take it until it is al l gone. Even when taking the pain medication you will still feel some soreness - it is impossible to remove ALL pain, but you should be comfortabl e enough to walk without problemand to sleep. Narcotic pain medications (such as codeine, oxycodone, or hydrocodone) can causeconstipation , as can the stress of injuries or surgery. Ideally, your bowel movements should be well formed, soft, and easily passed. To facilitate this youshould take the colace and senokot as prescribed (or obtain a stool softener from your local pharmacy), drink plenty of liquids, and limit liquids that contain caffeine to one or tw o drinks per day. You may also add Metamucil or another fiber supplement two times a day, and/or eat high fiber foods such as prunes, prune juice , fiber bars, and high-fiber cereal. Following hospital discharge: - If you have not had a BM after 1 day, take 3-4 tablespoons of mineral oil 3 times a day until the first smooth bowel movement. You may then reduce the mineral oil to 1-2 tablespoons twice daily if still needed. - I f there is no BM after 3 days, add 1 oz. (30ml) of Milk of Magnesia. If thereare no results in six hours, repeat. - If after following these instructions you are still experiencing constipation,contact the [facility] office FOLLOW-UPThe trauma surgeons can be reached through the [facility] surgery clinic. Please call to arrange follow-up in 1-2 weeks. PROBLEMS Some examples o f other issues that may arise after surgery or trauma include: - Increased or continued drainag e from wounds or surgical incisions. - Bleeding that soaks through the dressings. - Pain that is not adequately relieved by your pain medication. - Increased shortness of breath or problems breathing. - Increasing swelling, redness, or warmth of a wound or surgical area. - Fever greater than 101-degrees Fahrenheit (38.3-degree s Celsius). If you experience any of the problems above at a low level, call the clinic. For life-threatening or severe problems (such as major bleeding), consider calling 911 or report to the nearest emergency room. [facility] Current MedicationsCurrent medication review:I attest that the foregoing medication list in the medical record is true, accurate, an d complete to the best of my knowledge. Saqib Richmond 12/07/20 2252:Attestations Physician AttestationAgree w/findings plan:Agree with the findings and plan as documented by TRINO Toscano at 1253 RPT #:[id number] O F REPORTDSDischarge [id number]:11:00C.[id number] v ailable for patient [id number]:53:20 2020-11-18 10:11:00 [id number]:11:00 [facility] CenterDis[facility] SummaryREPORT#:[id number] REPORT STATUS: SignedDATE:11/18/20 TIME: 1011 PATIENT: JEREMY FERNANDEZ UNIT #: [id number]#: [id number] ROOM[place]BED: [place] [id number]: 89 AGE: 30 SEX: M ATTEND: Marie Gomez [facility] AUTHOR: Aletha Toscano PA-C * ALL edits or amendments must be made on the electronic/computer document * Aletha Toscano 11/18/20 1011:PCP PCPDischarge to: home General InformationFree Text A P:ASSESSMENT:30 year old man presents with trauma related right sided pneumothorax Injuries/Acute Problems:- R PTX- R Lateral 10th and 11th Rib fx Chronic Medical Problems- Congenital Heart Disease- Aortic Aneurysm- Anxiety Consultants- Cardiology - Dr. Marcos RODGERSZXBJCnfiovgtmsrbC37za/11th Rib fracture- CX R showed no residual or new PTX after removal- PT/OT cleared for discharge- [facility]- Pt to continu e IS Aortic AneurysmCongenital Heart Disease- Pt t o f/u with outpatient energy economist Anxiety- continue home ativan and f/u with PCPDischarge date: 11/18/20Hospital course:30 y/o M with PMHx of congenital heart disease presented to the ED after GLF w/R sided 10% PTX and R 10th and 11th rib fxs. Pt was admitted for observation andPTX worsened, R sided chest tube was placed. After water seal trial CT was removed and CXR and CT chest showed no new or residual PTX. Pt pain wel l controlled, PT/OT evaluated and he was able to b e discharged home. Pt is advisedto f/u with his energy economist at [facility] for indicental findings of aortic aneurysm, aortic root dilation and pulmonic stenosis. Pt was seen by cardiology during hostpital stay and was cleared for discharge Med Rec Med RecDischarge meds:Stop taking the following medications:HYDROcodone/APAP (NORCO 10/325) 10 MG-325 MG TAB 1 TABLET ORAL EVERY 12 HR NEEDED. as needed for BACK PAIN Continue taking these medications:METOPROLOL TARTRATE (LOPRESSOR ) 25 MG TAB 25 MILLIGRAM ORAL DAILY. LORazepam (ATIVAN) 1 MG TAB 1 MILLIGRAM ORAL TWICE DAILY. ASPIRIN (ASPIRIN) 81 MG TAB.CHEW 81 MILLIGRAM ORAL DAILY. Start taking the following new medications:ACETAMINOPHEN (TYLENOL) 325 MG TAB 650 MILLIGRAM ORAL EVERY 6 HOURS. as needed for pain Qty = 60 No Refills GABAPENTIN (NEURONTIN) 300 MG CAP 300 MILLIGRAM ORAL TWICE DAILY. as needed for pain Qty = 60 No Refills traMADol (ULTRAM) 50 MG TAB 50 MILLIGRAM ORAL EVERY 6 HOURS NEEDED. as needed for MODERATE PAIN (SCORE 4-6) Qty = 30 No Refills ObjectiveVS/I OLast Documented: Result Date Time Pulse Ox 97 11/18 111 B/P 117/70 11/18 1119 B/P Mean 86.0 11/18 1119 Temp 100.0 11/18 1119 Pulse 85 11/18 1119 Resp 18 11/18 1119 O2 Delivery Room air 11/18 0444 FiO2 21 11/17 1022 O2 Flow Rate 1 11/14 1453 24 hour I O ending at 0700: 11/18 070 0 11/17 1900 Intake Total Output Total Balance Number Voids 2 PATIENT WEIGHT: Weight (lb): Weight (oz): Weight (kg): 75.000 ResultsFindings/Data:Laboratory Tests: 11/18 0327 Chemistry Sodium (137 - 145 mmol/L) 138 Potassium (3.4 - 5.0 mmol/L) 3.9 Chloride (98 - 107 mmol/L) 102 Carbon Dioxide (22 - 30 mmol/L) 28 BUN (9 - 20 mg/dL) 17 Creatinine (0.7 - 1.3 mg/dL) 0.6 L Glomerular Filtr Rate (>60) 167 Glucose (74 - 106 mg/dL) 105 Calcium (8.4 - 10.2 mg/dL) 9.0 Phosphorus (2.5 - 4.5 mg/dL) 3.4 Magnesium (1.6 - 2.3 mg/dL) 2.0 Hematology WBC (5.0 - 12.0 x10 3/uL) 6.4 RBC (4.70 - 6.10 x10 6/uL) 4.82 Hgb (14.0 - 18.0 g/dL) 14.1 Hct (37. 0 - 49.0 %) 43.4 MCV (80 - 94 fL) 90 MCH (27 - 31 pg) 29.3 MCHC (33 - 37 g/dL) 32.5 L RDW (11.5 - 15.5 %) 13.2 Plt Count (130 - 400 x10 3/uL) 170 MPV (9.4 - 16.4 fL) 9.6 Neut % (Auto) (43 - 65 % ) 92.2 H Lymph % (Auto) (20.5 - 45.5 %) 4.2 L Otero % (Auto) (5.5 - 11.7 %) 1.6 L Eos % (Auto) (0.9 - 2.9 %) 1.4 Baso % (Auto) (0.2 - 1.0 %) 0.3 Neut # (Auto) (2.2 - 4.8 x10 3/uL) 5.90 H Lymph # (Auto) (1.3 - 2.9 x10 3/uL) 0.27 L Otero # (Auto) (0.3 - 0.8 x10 3/uL) 0.10 L Eos # (Auto) (0.0 - 0.2 x10 3/uL) 0.09 Baso # (Auto) (0.0 - 0.1 x10 3/uL) 0.02 Immature Gran % (0.0 - 2.0 %) 0.3 Nucleated RBC % (0 - 1.0 %) 0.0 Radiology data:Recent Impressions:RADIOLOGY - XR CHEST 1 V 11/17 1650 Report Impression - Status: SIGNED Entered: 11/17/2020 1703 IMPRESSION: Right chest tube has been discontinued. No evidence of pneumothorax. The cardiomediastinal silhouette i s stable. Sternal wires areredemonstrated.Impression By: [email or web address] - Mary Baron MDRADIOLOGY - XR CHEST 1 V 11/17 2009 Report Impression - Status: SIGNED Entered: 11/17/20202030 IMPRESSION: 1. No focal consolidation. No other acute abnormalities.Impression By: [email or web address] - Polo Herrera,MDRADIOLOGY - XR CHEST 1 V 11/18 06 Report Impression - Status: SIGNED Entered: 11/18/2020 0631 IMPRESSION: 1. Slight increase i n size of a trace right pleural effusion.2. No pneumothorax.Impression By: [email or web address] - Vandana Radford MD Results: labs reviewed, vital signs stable, x-ray personally reviewed, current med profile rev'd Free Text Obj NotesFree Text Obj Notes:Constitutional: Patient appears comfortable, no acute distress, bradycardia has been consistent during stay. asymptomatic and chronicEyes: pupils equal, round, reactive to light, no icterusHENT: normal cephalic, 2 small abrassions to forehead, no facial tenderness or crepitus, normal external inspection of ears/nose, no septalhematomaNeck: trachea midline, no crepitus, thyroid without massCV: sinus bradycardia, bilateral radial pulses 2+, n o cyanosis, no edema, no pulsatile abdominal massRespiratory: R dressing clean and dry, suction on, 10ccs output. decreased breath sound s R lung improved from yesterday,clear brath sounds, ttp on right ribsAbdomen: soft, non-tender, no massesRectal: deferredGU: pelvis stableLymph nodes: no cervical or supraclavicula r masses notedMusculoskeletal:-ttp on right sided ribsSkin: no lacerations, abrasions to forehead, skin warm to palpationPsychiatric: normal mood and affect, memory intact.Neurologic: bilateral upper and lower extremity sensation intact, strength intact, GCS 15 (5M, 6V, 4E) Treatments ProceduresLab:Chemistry last 24 hrs: 11/18 326 Chemistry Sodium (137 - 145 mmol/L) 138 Potassiu m (3.4 - 5.0 mmol/L) 3.9 Chloride (98 - 107 mmol/L ) 102 BUN (9 - 20 mg/dL) 17 Creatinine (0.7 - 1.3 mg/dL) 0.6 L Glucose (74 - 106 mg/dL) 105 Hematology last 24 hrs: 11/18 326 Hematology WBC (5.0 - 12.0 x10 3/uL) 6.4 Hgb (14.0 - 18.0 g/dL) 14.1 Hct (37.0 - 49.0 %) 43.4 Plt Count (130 - 400 x10 3/uL) 170 Neut % (Auto) (43 - 65 %) 92.2 H Imaging:Recent Impressions:CAT SCAN - CT CHEST W/O CONTRAST 11/16 1610 Report Impression - Status: SIGNED Entered: 11/16/2020 1623 IMPRESSION:1. Right-sided chest tube identified within the major fissure.2. Tiny right-sided pneumothorax.3. Enlargement of the descending thoracic aorta with aneurysmmeasuring 5.1 x 5.0 cm.4. Calcified anulus of the mitral valve.5. Cardiothoracic surgery consultation is recommended for evaluationof the descending thoracic aorta and the mitral valve.Impression By: [email or web address] - Krzysztof Frausto MDRADIOLOGY - XR CHES T 1 V 11/17 0712 Report Impression - Status: SIGNED Entered: 11/17/2020 0733 IMPRESSION: 1. Status post sternotomy.2. No pneumothorax.3. Right chest tube, unchangedImpression By: Freddy Valdes M.D.RADIOLOGY - XR CHEST 1 V 11/17 1650 Report Impression - Status: SIGNED Entered: 11/17/2020 1703 IMPRESSION: Right chest tube has been discontinued. No evidence of pneumothorax. The cardiomediastinal silhouette i s stable. Sternal wires areredemonstrated.Impression By: [email or web address] - Mary Baron MDRADIOLOGY - XR CHEST 1 V 11/17 2009 Report Impression - Status: SIGNED Entered: 11/17/20202030 IMPRESSION: 1. No focal consolidation. No other acute abnormalities.Impression By: [email or web address] - Polo Herrera,MDRADIOLOGY - XR CHEST 1 V 11/18 625 Report Impression - Status: SIGNED Entered: 11/18/2020 0631 IMPRESSION: 1. Slight increase i n size of a trace right pleural effusion.2. No pneumothorax.Impression By: [email or web address] - Vandana Radford MD Discharge Instructions PCPPCP:PCP: No Primary or Family Physician )( Discharge to: Home/Self Care Discharge InstructionsAdditional Discharge Routines: Attending Follow-Up)( Diet: Regular)( Activity: As Tolerated Follow-up AppointmentsAttending Physician: Attending Physician: Marie Gomez MD Attending physician follow up timeframe: In 1-2 weeks Free Text DC NotesFree Text DC Notes:TRAUMA DISCHARGE INSTRUCTIONSHavin g surgery, multiple injuries, or severe injuries can take a lot of strengthand energy out of you. At first, you will get tired easily but this irineo l improveslowly and steadily over the next few weeks. For a smooth recovery and to help prevent further illness, follow these tips: ACTIVITIES/LIFESTYLE No heavy lifting (more than 20 pounds), for 4 weeks. No activity more strenuous than a brisk walk for 2 weeks. If anything you're doing feels like it is pullingor tugging at your wounds, please stop. Follow up with your surgeon for clearance to return to work. You should continue your incentive spirometry at home every hour while you are awake. You injuries and/or surgery puts you at a risk for developing pneumonia and exercising you r lungs will lower this risk. You should remain active and out of bed as much as possible, as this reduces risk of developing blood clots in your legs, pneumonia, and other possible complications. If you have any broken bones, you should try to keep them elevated above or at the level of your heart to help decrease swelling an d complications. If you have any wounds, avoid soaking in water (no pools, tubs, lakes, ocean), but showering is okay unless your surgeon tells you not too. Keepall wounds clean and dry and follow any wound care instructions given to you. MEDICATIONS Your new medications and any changes in your old medications are listed above. Take your pain medication as prescribed, do not drive while taking the narcotic medication, and do not take any additional Tylenol if your pain medicin e has Tylenol (acetaminophen) in it. You only need to take the pain medication as longas you have pain - you do not have to take it until it is al l gone. Even when taking the pain medication you will still feel some soreness - it is impossible to remove ALL pain, but you should be comfortabl e enough to walk without problemand to sleep. Narcotic pain medications (such as codeine, oxycodone, or hydrocodone) can causeconstipation , as can the stress of injuries or surgery. Ideally, your bowel movements should be well formed, soft, and easily passed. To facilitate this youshould take the colace and senokot as prescribed (or obtain a stool softener from your local pharmacy), drink plenty of liquids, and limit liquids that contain caffeine to one or tw o drinks per day. You may also add Metamucil or another fiber supplement two times a day, and/or eat high fiber foods such as prunes, prune juice , fiber bars, and high-fiber cereal. Following hospital discharge: - If you have not had a BM after 1 day, take 3-4 tablespoons of mineral oil 3 times a day until the first smooth bowel movement. You may then reduce the mineral oil to 1-2 tablespoons twice daily if still needed. - I f there is no BM after 3 days, add 1 oz. (30ml) of Milk of Magnesia. If thereare no results in six hours, repeat. - If after following these instructions you are still experiencing constipation,contact the [facility] office FOLLOW-UPThe trauma surgeons can be reached through the [facility] surgery clinic. Please call to arrange follow-up in 1-2 weeks. PROBLEMS Some examples o f other issues that may arise after surgery or trauma include: - Increased or continued drainag e from wounds or surgical incisions. - Bleeding that soaks through the dressings. - Pain that is not adequately relieved by your pain medication. - Increased shortness of breath or problems breathing. - Increasing swelling, redness, or warmth of a wound or surgical area. - Fever greater than 101-degrees Fahrenheit (38.3-degree s Celsius). If you experience any of the problems above at a low level, call the clinic. For life-threatening or severe problems (such as major bleeding), consider calling 911 or report to the nearest emergency room. Quality: Gen [facility] Current MedicationsCurrent medication review:I attest that the foregoing medication list in the medical record is true, accurate, an d complete to the best of my knowledge. Saqib Richmond 12/07/20 2252:Attestations Physician AttestationAgree w/findings plan:Agree with the findings and plan as documented by TRINO Toscano at 1253 RPT #:[id number] O F REPORTDSDischarge [id number]:11:00C.[id number] v ailable for patient [id number]:53:20 2020-11-18 10:11:00 [id number]:11:00 [facility])Discharge SummaryREPORT#:[id number] REPORT STATUS: SignedDATE:11/18/20 TIME: 1011 PATIENT: JEREMY FERNANDEZ UNIT #: [id number]#: [id number] [id number]: [address] AGE: 30 SEX: M ATTEND: Marie Gomez AUTHOR: Aletha Toscano PA-C * ALL edits or amendments must be made on the electronic/computer document * Aletha Toscano 11/18/20 1011:PCP PCPDischarge to: home General InformationFree Text A P:ASSESSMENT:30 year old man presents with trauma related right sided pneumothorax Injuries/Acute Problems:- R PTX- R Lateral 10th and 11th Rib fx Chronic Medical Problems- Congenital Heart Disease- Aortic Aneurysm- Anxiety Consultants- Cardiology - Dr. Marcos SneedEPGSOxkxlkrlsdkzG61lk/11th Rib fracture- CX R showed no residual or new PTX after removal- PT/OT cleared for discharge- [facility]- Pt to continu e IS Aortic AneurysmCongenital Heart Disease- Pt t o f/u with outpatient energy economist Anxiety- continue home ativan and f/u with PCPDischarge date: 11/18/20Hospital course:30 y/o M with PMHx of congenital heart disease presented to the ED after GLF w/R sided 10% PTX and R 10th and 11th rib fxs. Pt was admitted for observation andPTX worsened, R sided chest tube was placed. After water seal trial CT was removed and CXR and CT chest showed no new or residual PTX. Pt pain wel l controlled, PT/OT evaluated and he was able to b e discharged home. Pt is advisedto f/u with his energy economist at [facility] for indicental findings of aortic aneurysm, aortic root dilation and pulmonic stenosis. Pt was seen by cardiology during hostpital stay and was cleared for discharge Med Rec Med RecDischarge meds:Stop taking the following medications:HYDROcodone/APAP (NORCO 10/325) 10 MG-325 MG TAB 1 TABLET ORAL EVERY 12 HR NEEDED. as needed for BACK PAIN Continue taking these medications:METOPROLOL TARTRATE (LOPRESSOR ) 25 MG TAB 25 MILLIGRAM ORAL DAILY. LORazepam (ATIVAN) 1 MG TAB 1 MILLIGRAM ORAL TWICE DAILY. ASPIRIN (ASPIRIN) 81 MG TAB.CHEW 81 MILLIGRAM ORAL DAILY. Start taking the following new medications:ACETAMINOPHEN (TYLENOL) 325 MG TAB 650 MILLIGRAM ORAL EVERY 6 HOURS. as needed for pain Qty = 60 No Refills GABAPENTIN (NEURONTIN) 300 MG CAP 300 MILLIGRAM ORAL TWICE DAILY. as needed for pain Qty = 60 No Refills traMADol (ULTRAM) 50 MG TAB 50 MILLIGRAM ORAL EVERY 6 HOURS NEEDED. as needed for MODERATE PAIN (SCORE 4-6) Qty = 30 No Refills ObjectiveVS/I OLast Documented: Result Date Time Pulse Ox 97 11/18 1119 B/P 117/70 11/18 1119 B/P Mean 86.0 11/18 1119 Temp 100.0 11/18 1119 Pulse 85 11/18 1119 Resp 18 11/18 1119 O2 Delivery Room air 11/18 0444 FiO2 21 11/17 1022 O2 Flow Rate 1 11/14 1453 24 hour I O ending at 0700: 11/18 070 0 11/17 1900 Intake Total Output Total Balance Number Voids 2 PATIENT WEIGHT: Weight (lb): Weight (oz): Weight (kg): 75.000 ResultsFindings/Data:Laboratory Tests: 11/18 0327 Chemistry Sodium (137 - 145 mmol/L) 138 Potassium (3.4 - 5.0 mmol/L) 3.9 Chloride (98 - 107 mmol/L) 102 Carbon Dioxide (22 - 30 mmol/L) 28 BUN (9 - 20 mg/dL) 17 Creatinine (0.7 - 1.3 mg/dL) 0.6 L Glomerular Filtr Rate (>60) 167 Glucose (74 - 106 mg/dL) 105 Calcium (8.4 - 10.2 mg/dL) 9.0 Phosphorus (2.5 - 4.5 mg/dL) 3.4 Magnesium (1.6 - 2.3 mg/dL) 2.0 Hematology WBC (5.0 - 12.0 x10 3/uL) 6.4 RBC (4.70 - 6.10 x10 6/uL) 4.82 Hgb (14.0 - 18.0 g/dL) 14.1 Hct (37.0 - 49.0 %) 43.4 MCV (80 - 94 fL) 90 MCH (27 - 31 pg) 29.3 MCHC (33 - 37 g/dL) 32.5 L RDW (11.5 - 15.5 %) 13.2 Plt Count (130 - 400 x10 3/uL) 170 MPV (9.4 - 16.4 fL) 9.6 Neut % (Auto) (43 - 65 % ) 92.2 H Lymph % (Auto) (20.5 - 45.5 %) 4.2 L Otero % (Auto) (5.5 - 11.7 %) 1.6 L Eos % (Auto) (0.9 - 2.9 %) 1.4 Baso % (Auto) (0.2 - 1.0 %) 0.3 Neut # (Auto) (2.2 - 4.8 x10 3/uL) 5.90 H Lymph # (Auto) (1.3 - 2.9 x10 3/uL) 0.27 L Otero # (Auto) (0.3 - 0.8 x10 3/uL) 0.10 L Eos # (Auto) (0.0 - 0.2 x10 3/uL) 0.09 Baso # (Auto) (0.0 - 0.1 x10 3/uL) 0.02 Immature Gran % (0.0 - 2.0 %) 0.3 Nucleated RBC % (0 - 1.0 %) 0.0 Radiology data:Recent Impressions:RADIOLOGY - XR CHEST 1 V 11/17 1650 Report Impression - Status: SIGNED Entered: 11/17/2020 1703 IMPRESSION: Right chest tube has been discontinued. No evidence of pneumothorax. The cardiomediastinal silhouette i s stable. Sternal wires areredemonstrated.Impression By: [email or web address] - Mary Baron MDRADIOLOGY - XR CHEST 1 V 11/17 2009 Report Impression - Status: SIGNED Entered: 11/17/20202030 IMPRESSION: 1. No focal consolidation. No other acute abnormalities.Impression By: [email or web address] - Polo Herrera,MDRADIOLOGY - XR CHEST 1 V 11/18 0626 Report Impression - Status: SIGNED Entered: 11/18/2020 0631 IMPRESSION: 1. Slight increase i n size of a trace right pleural effusion.2. No pneumothorax.Impression By: [email or web address] - Vandana Radford MD Results: labs reviewed, vital signs stable, x-ray personally reviewed, current med profile rev'd Free Text Obj NotesFree Text Obj Notes:Constitutional: Patient appears comfortable, no acute distress, bradycardia has been consistent during stay. asymptomatic and chronicEyes: pupils equal, round, reactive to light, no icterusHENT: normal cephalic, 2 small abrassions to forehead, no facial tenderness or crepitus, normal external inspection of ears/nose, no septalhematomaNeck: trachea midline, no crepitus, thyroid without massCV: sinus bradycardia, bilateral radial pulses 2+, n o cyanosis, no edema, no pulsatile abdominal massRespiratory: R dressing clean and dry, suction on, 10ccs output. decreased breath sound s R lung improved from yesterday,clear brath sounds, ttp on right ribsAbdomen: soft, non-tender, no massesRectal: deferredGU: pelvis stableLymph nodes: no cervical or supraclavicula r masses notedMusculoskeletal:-ttp on right sided ribsSkin: no lacerations, abrasions to forehead, skin warm to palpationPsychiatric: normal mood and affect, memory intact.Neurologic: bilateral upper and lower extremity sensation intact, strength intact, GCS 15 (5M, 6V, 4E) Treatments ProceduresLab:Chemistry last 24 hrs: 11/18 326 Chemistry Sodium (137 - 145 mmol/L) 138 Potassiu m (3.4 - 5.0 mmol/L) 3.9 Chloride (98 - 107 mmol/L) 102 BUN (9 - 20 mg/dL) 17 Creatinine (0. 7 - 1.3 mg/dL) 0.6 L Glucose (74 - 106 mg/dL) 105 Hematology last 24 hrs: 11/18 326 Hematology WB C (5.0 - 12.0 x10 3/uL) 6.4 Hgb (14.0 - 18.0 g/dL) 14.1 Hct (37.0 - 49.0 %) 43.4 Plt Count (130 - 400 x10 3/uL) 170 Neut % (Auto) (43 - 65 %) 92.2 H Imaging:Recent Impressions:CAT SCAN - CT CHEST W/O CONTRAST 11/16 1610 Report Impression - Status: SIGNED Entered: 11/16/2020 1623 IMPRESSION:1. Right-sided chest tube identified within the major fissure.2. Tiny right-sided pneumothorax.3. Enlargement of the descending thoracic aorta with aneurysmmeasuring 5.1 x 5.0 cm.4. Calcified anulus of the mitral valve.5. Cardiothoracic surgery consultation is recommended for evaluationof the descending thoracic aorta and the mitral valve.Impression By: [email or web address] - Krzysztof Frausto MDRADIOLOGY - XR CHES T 1 V 11/17 0712 Report Impression - Status: SIGNED Entered: 11/17/2020 0784 IMPRESSION: 1. Status post sternotomy.2. No pneumothorax.3. Right chest tube, unchangedImpression By: Freddy Valdes M.D.RADIOLOGY - XR CHEST 1 V 11/17 1650 Report Impression - Status: SIGNED Entered: 11/17/2020 1703 IMPRESSION: Right chest tube has been discontinued. No evidence of pneumothorax. The cardiomediastinal silhouette i s stable. Sternal wires areredemonstrated.Impression By: [email or web address] - Mary VasquezmahsaShari MDRADIOLOGY - XR CHEST 1 V 11/17 2009 Report Impression - Status: SIGNED Entered: 11/17/20202030 IMPRESSION: 1. No focal consolidation. No other acute abnormalities.Impression By: [email or web address] - Polo Herrera,MDRADIOLOGY - XR CHEST 1 V 11/18 0626 Report Impression - Status: SIGNED Entered: 11/18/2020 0631 IMPRESSION: 1. Slight increase i n size of a trace right pleural effusion.2. No pneumothorax.Impression By: [email or web address] - Vandana Radford MD Discharge Instructions PCPPCP:PCP: No Primary or Family Physician )( Discharge to: Home/Self Care Discharge InstructionsAdditional Discharge Routines: Attending Follow-Up)( Diet: Regular)( Activity: As Tolerated Follow-up AppointmentsAttending Physician: Attending Physician: Marie Gomez MD Attending physician follow up timeframe: In 1-2 weeks Free Text DC NotesFree Text DC Notes:TRAUMA DISCHARGE INSTRUCTIONSHavin g surgery, multiple injuries, or severe injuries can take a lot of strengthand energy out of you. At first, you will get tired easily but this irineo l improveslowly and steadily over the next few weeks. For a smooth recovery and to help prevent further illness, follow these tips: ACTIVITIES/LIFESTYLE No heavy lifting (more than 20 pounds), for 4 weeks. No activity more strenuous than a brisk walk for 2 weeks. If anything you're doing feels like it is pullingor tugging at your wounds, please stop. Follow up with your surgeon for clearance to return to work. You should continue your incentive spirometry at home every hour while you are awake. You injuries and/or surgery puts you at a risk for developing pneumonia and exercising you r lungs will lower this risk. You should remain active and out of bed as much as possible, as this reduces risk of developing blood clots in your legs, pneumonia, and other possible complications. If you have any broken bones, you should try to keep them elevated above or at the level of your heart to help decrease swelling an d complications. If you have any wounds, avoid soaking in water (no pools, tubs, lakes, ocean), but showering is okay unless your surgeon tells you not too. Keepall wounds clean and dry and follow any wound care instructions given to you. MEDICATIONS Your new medications and any changes in your old medications are listed above. Take your pain medication as prescribed, do not drive while taking the narcotic medication, and do not take any additional Tylenol if your pain medicin e has Tylenol (acetaminophen) in it. You only need to take the pain medication as longas you have pain - you do not have to take it until it is al l gone. Even when taking the pain medication you will still feel some soreness - it is impossible to remove ALL pain, but you should be comfortabl e enough to walk without problemand to sleep. Narcotic pain medications (such as codeine, oxycodone, or hydrocodone) can causeconstipation , as can the stress of injuries or surgery. Ideally, your bowel movements should be well formed, soft, and easily passed. To facilitate this youshould take the colace and senokot as prescribed (or obtain a stool softener from your local pharmacy), drink plenty of liquids, and limit liquids that contain caffeine to one or tw o drinks per day. You may also add Metamucil or another fiber supplement two times a day, and/or eat high fiber foods such as prunes, prune juice , fiber bars, and high-fiber cereal. Following hospital discharge: - If you have not had a BM after 1 day, take 3-4 tablespoons of mineral oil 3 times a day until the first smooth bowel movement. You may then reduce the mineral oil to 1-2 tablespoons twice daily if still needed. - I f there is no BM after 3 days, add 1 oz. (30ml) of Milk of Magnesia. If thereare no results in six hours, repeat. - If after following these instructions you are still experiencing constipation,contact the [facility] office FOLLOW-UPThe trauma surgeons can be reached through the [facility] surgery clinic. Please call to arrange follow-up in 1-2 weeks. PROBLEMS Some examples o f other issues that may arise after surgery or trauma include: - Increased or continued drainag e from wounds or surgical incisions. - Bleeding that soaks through the dressings. - Pain that is not adequately relieved by your pain medication. - Increased shortness of breath or problems breathing. - Increasing swelling, redness, or warmth of a wound or surgical area. - Fever greater than 101-degrees Fahrenheit (38.3-degree s Celsius). If you experience any of the problems above at a low level, call the clinic. For life-threatening or severe problems (such as major bleeding), consider calling 911 or report to the nearest emergency room. Quality: Gen [facility] Current MedicationsCurrent medication review:I attest that the foregoing medication list in the medical record is true, accurate, an d complete to the best of my knowledge. Saqib Richmond 12/07/20 2252:Attestations Physician AttestationAgree w/findings plan:Agree with the findings and plan as documented by TRINO Toscano at 1253 at 2988 RPT #:[id number] OF REPORTDSDischarge [id number]:11:00C.[id number] v ailable for patient [id number]:54:31 2020-11-17 20:07:00 [id number]:07:00 [facility])Trauma Progress NoteREPORT#:[id number] REPORT STATUS: SignedDATE:11/17/20 TIME: 2006 PATIENT: JEREMY FERNANDEZ UNIT #: [id number]#: [id number] [address]UV[address] AGE: 30 SEX: M ATTEND: Landeros-Marie Loja [facility] AUTHOR: Aletha Toscano PA-C * ALL edits or amendments must be made on the electronic/computer document * SubjectiveChief Complaint:right side rib painHPI:PT doing well, no complaints. Discussed with pt plan to remove chest, tube repeat xrays and possibly discharge home if PTX does not develop. Pt has no complaints at thist time Objective Physical ExamVS/I O:Vital Signs: Date Time Temp Pulse Res p B/P B/P Pulse O2 O2 Flow FiO2 Mean Ox Delivery Rate 11/17 1720 98.8 86 20 115/76 88.7 98 11/17 1345 99.9 62 127/74 91.6 100 11/17 1212 98.4 53 20 120/76 90.6 99 11/17 1022 100 Room air 21 11/17 0800 98.6 48 20 121/72 88.5 100 11/17 0431 99.0 59 18 123/70 87.5 97 Room air 11/17 0032 98.8 55 18 132/85 100.6 99 Room air 11/16 2045 98.8 56 133/86 102.0 98 24 hour I O ending at 0700: 11/17 0700 11/16 1900 Intake Total Output Total 10 400 Balance -10 -400 Number 1 Bowel Movements Number Voids 4 Output, Chest 10 Tube Drainage Output, Urine 400 PATIENT WEIGHT: Weigh t (lb): Weight (oz): Weight (kg): 75.000 Medications:Active Meds + DC'd Last 24 HrsMetoprolol Tartrate 25 MG Q24H PO Lisinopril 10 MG DAILY PO Amlodipine Besylate 5 MG BEDTIME PO Perflutren Lipid Microsphere DIRECTED ONCE PRN IV Sodium Chloride DIRECTED ONCE PRN IV Sodium Chloride 5 ML ONCE PRN IV Enoxaparin Sodium 30 MG Q12HR SUBQ Lorazepam 1 MG BID PO Ketorolac Tromethamine 30 MG Q6H PRN PRN IV Lidocaine 1 PATCH DAILY@1700 TOPICAL Ibuprofen 600 MG Q8HR PO Aspirin 81 MG DAILY PO Gabapentin 300 MG BID PO Polyethylene Glycol 1 PKT DAILY PO (CKD) Acetaminophen 650 MG Q6HR PO Oxycodone HCl 5 MG Q6H PRN PRN PO (DC) Ondansetron HCl 4 MG Q4 H PRN PRN IV Tramadol HCl 50 MG Q6H PRN PRN PO Head/Eyes: PERRL, EOMIL pupil: reactivityR pupil : reactivityNeck: C-Spine precautions, full range of motion, non-tenderCardiovascular: (normal cap refill), pulses all extremities ResultsFindings/Data:Laboratory Test s 11/17 234 Chemistry Sodium (137 - 145 mmol/L) 137 Potassium (3.4 - 5.0 mmol/L) 4.8 Chloride (98 - 107 mmol/L) 105 Carbon Dioxide (22 - 30 mmol/L) 27 BUN (9 - 20 mg/dL) 15 Creatinine (0.7 - 1.3 mg/dL) 0.6 L Glomerular Filtr Rate (>60) 167 Glucose (74 - 106 mg/dL) 103 Calcium (8.4 - 10.2 mg/dL) 9.0 Phosphorus (2.5 - 4.5 mg/dL) 3.5 Magnesium (1.6 - 2.3 mg/dL) 2.1 Laboratory Test s 11/17 234 Hematology WBC (5.0 - 12.0 x10 3/uL) 7.2 RBC (4.70 - 6.10 x10 6/uL) 4.83 Hgb (14.0 - 18.0 g/dL) 14.2 Hct (37.0 - 49.0 %) 43.6 MCV (80 - 94 fL) 90 MCH (27 - 31 pg) 29.4 MCHC (33 - 37 g/dL) 32.6 L RDW (11.5 - 15.5 %) 13.2 Plt Count (130 - 400 x10 3/uL) 213 MPV (9.4 - 16.4 fL) 10.0 Neut % (Auto) (43 - 65 %) 70.1 H Lymph % (Auto) (20.5 - 45.5 %) 13.1 L Otero % (Auto) (5.5 - 11.7 %) 9.0 Eos % (Auto) (0.9 - 2.9 %) 6.8 H Baso % (Auto) (0.2 - 1.0 %) 0.7 Neut # (Auto) (2.2 - 4.8 x10 3/uL) 5.08 H Lymph # (Auto) (1.3 - 2.9 x10 3/uL) 0.95 L Otero # (Auto) (0.3 - 0.8 x1 0 3/uL) 0.65 Eos # (Auto) (0.0 - 0.2 x10 3/uL) 0.4 9 H Baso # (Auto) (0.0 - 0.1 x10 3/uL) 0.05 Immature Gran % (0.0 - 2.0 %) 0.3 Nucleated RBC % (0 - 1.0 %) 0.0 Radiology data:Recent Impressions:RADIOLOGY - XR CHEST 1 V 11/17 0712 Report Impression - Status: SIGNED Entered: 11/17/2020 0733 IMPRESSION: 1. Status post sternotomy.2. No pneumothorax.3. Right ches t tube, unchangedImpression By: Freddy Valdes M.D.RADIOLOGY - XR CHEST 1 V 11/17 1650 Report Impression - Status: SIGNED Entered: 11/17/2020 1703 IMPRESSION: Right chest tube has been discontinued. No evidence of pneumothorax. The cardiomediastinal silhouette is stable. Sternal wires areredemonstrated.Impression By: Lindy Baron MD Results: labs reviewed, vital signs stable, x-ray personally reviewed, current med profile rev'd Free Text Obj NotesFree Text Obj Notes:Constitutional: Patient appears comfortable, no acute distress, bradycardia has been consistent during stay. asymptomatic and chronicEyes: pupils equal, round, reactive to light, no icterusHENT: normal cephalic, 2 small abrassions to forehead, no facial tenderness or crepitus, normal external inspection of ears/nose, no septal hematomaNeck: trachea midline, no crepitus, thyroid without massCV: sinus bradycardia, bilateral radial pulses 2+, n o cyanosis, no edema, no pulsatile abdominal massRespiratory: R chest tube in place, dressing clean and dry, suction on, 10ccs output. decreased breath sounds R lung improved from yesterday, clear brath sounds L heart ttp on right ribsAbdomen: soft, non-tender, no massesRectal: deferredGU: pelvis stableLymph nodes: no cervical or supraclavicular masses notedMusculoskeletal:-ttp on right sided ribsSkin: no lacerations, abrasions to forehead, skin warm to palpationPsychiatric: normal mood and affect, memory intact.Neurologic: bilateral upper and lower extremity sensation intact, strength intact, GCS 15 (5M, 6V, 4E) Diagnosis, Assessment PlanFree Text A P:ASSESSMENT:30 year old man presents with trauma related right sided pneumothorax Injuries/Acute Problems:- R PTX - R Lateral 10th and 11th Rib fx Chronic Medical Problems- Congenital Heart Disease- Aortic Aneurysm- Anxiety Consultants- Cardiology - Dr. Rodríguez PLAN Pneumothorax:- Chest tube removed today- CXR showed no residual or new PTX after removal- CXR in AM and plan to discharge home R10th/11th Rib fracture- MMPC- RT orders: IS and flutter Aortic AneurysmCongenital Heart Disease- Pt to f/u with outpatient energy economist - Cardiology consulted - appreciate recs, Anxiety- Home dose of Ativan 1mg started L/D/A: periphera l IV x2 DVT prophylaxis: SCDs, LovenoxGI prophylaxis: not indicatedDiet: regularActivity: PT/OT - ambulate pt Dispo: admit to surgical floorCode Status: FULL Quality: Trauma Gen Surg Current MedicationsCurrent medication review:I attest that the foregoing medication list in the medical record is true, accurate, and complete t o the best of my knowledge. VTE Prophylaxis - GeneralVTE prophylaxis initiated: yes at [facility] RPT #:[id number] OF REPORTPRProgress [id number]:07:00C.[id number] l able for patient [id number]:12:42 2020-11-17 20:07:00 [id number]:07:00 [facility] ([facility])Trauma Progress NoteREPORT#:[id number] REPORT STATUS: SignedDATE:11/17/20 TIME: 2006 PATIENT: JEREMY FERNANDEZ UNIT #: [id number]#: [id number] [place]BED: [place] [address]-BHBK: 89 AGE: 30 SEX: M ATTEND: Marie Gomez MDADM AUTHOR: Aletha Toscano PA-C * ALL edits or amendments must be made on the electronic/computer document * Aletha Toscano 11/17/20 2007:SubjectiveChief Complaint:right side rib painHPI:PT doing well, no complaints. Discussed with pt plan to remove chest, tube repeat xrays and possibly discharge home if PTX does not develop. Pt has no complaints at thist time Objective Physical ExamVS/I O:Vital Signs: Date Time Temp Pulse Resp B/P B/P Pulse O2 O2 Flow FiO2 Mean Ox Delivery Rate 11/17 1720 98.8 86 20 115/76 88.7 98 11/17 1345 99.9 62 127/74 91.6 100 11/17 1212 98.4 53 20 120/76 90.6 99 11/17 1022 100 Room air 21 11/17 0800 98.6 48 20 121/72 88.5 100 11/17 0431 99.0 59 18 123/70 87.5 97 Room air 11/17 0032 98.8 55 18 132/85 100.6 99 Room air 11/16 2045 98.8 56 133/86 102. 0 98 24 hour I O ending at 0700: 11/17 0700 11/16 1900 Intake Total Output Total 10 400 Balance -1 0 -400 Number 1 Bowel Movements Number Voids 4 Output, Chest 10 Tube Drainage Output, Urine 40 0 PATIENT WEIGHT: Weight (lb): Weight (oz): Weight (kg): 75.000 Medications:Active Meds + DC'd Last 24 HrsMetoprolol Tartrate 25 MG Q24H PO Lisinopril 10 MG DAILY PO Amlodipine Besylate 5 MG BEDTIME PO Perflutren Lipid Microsphere DIRECTED ONCE PRN IV Sodium Chloride DIRECTED ONCE PRN IV Sodium Chloride 5 ML ONCE PRN IV Enoxaparin Sodium 30 MG Q12HR SUBQ Lorazepam 1 M G BID PO Ketorolac Tromethamine 30 MG Q6H PRN PRN IV Lidocaine 1 PATCH DAILY@1700 TOPICAL Ibuprofe n 600 MG Q8HR PO Aspirin 81 MG DAILY PO Gabapenti n 300 MG BID PO Polyethylene Glycol 1 PKT DAILY PO (CKD) Acetaminophen 650 MG Q6HR PO Oxycodone HCl 5 MG Q6H PRN PRN PO (DC) Ondansetron HCl 4 MG Q4H PRN PRN IV Tramadol HCl 50 MG Q6H PRN PRN PO Head/Eyes: PERRL, EOMIL pupil: reactivityR pupil : reactivityNeck: C-Spine precautions, full range of motion, non-tenderCardiovascular: (normal cap refill), pulses all extremities ResultsFindings/Data:Laboratory Test s 11/17 234 Chemistry Sodium (137 - 145 mmol/L) 137 Potassium (3.4 - 5.0 mmol/L) 4.8 Chloride (98 - 107 mmol/L) 105 Carbon Dioxide (22 - 30 mmol/L) 27 BUN (9 - 20 mg/dL) 15 Creatinine (0.7 - 1.3 mg/dL) 0.6 L Glomerular Filtr Rate (>60) 167 Glucose (74 - 106 mg/dL) 103 Calcium (8.4 - 10.2 mg/dL) 9.0 Phosphorus (2.5 - 4.5 mg/dL) 3.5 Magnesium (1.6 - 2.3 mg/dL) 2.1 Laboratory Tests 11/17 0235 Hematology WBC (5.0 - 12.0 x10 3/uL) 7.2 RBC (4.70 - 6.10 x10 6/uL) 4.83 Hgb (14.0 - 18.0 g/dL) 14.2 Hct (37.0 - 49.0 %) 43.6 MCV (80 - 94 fL) 90 MCH (27 - 31 pg) 29.4 MCHC (33 - 37 g/dL) 32.6 L RDW (11.5 - 15.5 %) 13.2 Plt Count (130 - 400 x10 3/uL) 213 MPV (9.4 - 16.4 fL) 10. 0 Neut % (Auto) (43 - 65 %) 70.1 H Lymph % (Auto) (20.5 - 45.5 %) 13.1 L Otero % (Auto) (5.5 - 11.7 %) 9.0 Eos % (Auto) (0.9 - 2.9 %) 6.8 H Baso % (Auto) (0.2 - 1.0 %) 0.7 Neut # (Auto) (2.2 - 4. 8 x10 3/uL) 5.08 H Lymph # (Auto) (1.3 - 2.9 x10 3/uL) 0.95 L Otero # (Auto) (0.3 - 0.8 x10 3/uL) 0.65 Eos # (Auto) (0.0 - 0.2 x10 3/uL) 0.49 H Baso # (Auto) (0.0 - 0.1 x10 3/uL) 0.05 Immature Gran % (0.0 - 2.0 %) 0.3 Nucleated RBC % (0 - 1. 0 %) 0.0 Radiology data:Recent Impressions:RADIOLOGY - XR CHEST 1 V 11/17 0712 Report Impression - Status: SIGNED Entered: 11/17/2020 0733 IMPRESSION: 1. Status post sternotomy.2. No pneumothorax.3. Right ches t tube, unchangedImpression By: Freddy Valdes M.D.RADIOLOGY - XR CHEST 1 V 11/17 1650 Report Impression - Status: SIGNED Entered: 11/17/2020 1703 IMPRESSION: Right chest tube has been discontinued. No evidence of pneumothorax. The cardiomediastinal silhouette is stable. Sternal wires areredemonstrated.Impression By: LouEFMustapha Baron MD Results: labs reviewed, vital signs stable, x-ray personally reviewed, current med profile rev'd Free Text Obj NotesFree Text Obj Notes:Constitutional: Patient appears comfortable, no acute distress, bradycardia has been consistent during stay. asymptomatic and chronicEyes: pupils equal, round, reactive to light, no icterusHENT: normal cephalic, 2 small abrassions to forehead, no facial tenderness or crepitus, normal external inspection of ears/nose, no septal hematomaNeck: trachea midline, no crepitus, thyroid without massCV: sinus bradycardia, bilateral radial pulses 2+, n o cyanosis, no edema, no pulsatile abdominal massRespiratory: R chest tube in place, dressing clean and dry, suction on, 10ccs output. decreased breath sounds R lung improved from yesterday, clear brath sounds L heart ttp on right ribsAbdomen: soft, non-tender, no massesRectal: deferredGU: pelvis stableLymph nodes: no cervical or supraclavicular masses notedMusculoskeletal:-ttp on right sided ribsSkin: no lacerations, abrasions to forehead, skin warm to palpationPsychiatric: normal mood and affect, memory intact.Neurologic: bilateral upper and lower extremity sensation intact, strength intact, GCS 15 (5M, 6V, 4E) Diagnosis, Assessment PlanFree Text A P:ASSESSMENT:30 year old man presents with trauma related right sided pneumothorax Injuries/Acute Problems:- R PTX - R Lateral 10th and 11th Rib fx Chronic Medical Problems- Congenital Heart Disease- Aortic Aneurysm- Anxiety Consultants- Cardiology - Dr. Rodríguez PLAN Pneumothorax:- Chest tube removed today- CXR showed no residual or new PTX after removal- CXR in AM and plan to discharge home R10th/11th Rib fracture- MMPC- RT orders: IS and flutter Aortic AneurysmCongenital Heart Disease- Pt to f/u with outpatient energy economist - Cardiology consulted - appreciate recs, Anxiety- Home dose of Ativan 1mg started L/D/A: periphera l IV x2 DVT prophylaxis: SCDs, LovenoxGI prophylaxis: not indicatedDiet: regularActivity: PT/OT - ambulate pt Dispo: admit to surgical floorCode Status: FULL Quality: Trauma Gen Surg Current MedicationsCurrent medication review:I attest that the foregoing medication list in the medical record is true, accurate, and complete t o the best of my knowledge. VTE Prophylaxis - GeneralVTE prophylaxis initiated: yes Saqib Richmond 12/07/20 2252:Attestations Physician AttestationAgree w/findings plan:Agree with the findings and plan as documented by TRINO Toscano[ ] at 2011 RPT #:[id number] O F REPORTPRProgress [id number]:07:00C.[id number] l able for patient [id number]:52:40 2020-11-17 20:07:00 [id number]:07:00 [facility] ([facility])Trauma Progress NoteREPORT#:[id number] REPORT STATUS: SignedDATE:11/17/20 TIME: 2006 PATIENT: JEREMY FERNANDEZ UNIT #: [id number]#: [id number] [address]TJKG: [address] AGE: 30 SEX: M ATTEND: Marie Gomez [facility] AUTHOR: Aletha Toscano PA-C * ALL edits or amendments must be made on the electronic/computer document * Aletha Toscano 11/17/20 2007:SubjectiveChief Complaint:right side rib painHPI:PT doing well, no complaints. Discussed with pt plan to remove chest, tube repeat xrays and possibly discharge home if PTX does not develop. Pt has no complaints at thist time Objective Physical ExamVS/I O:Vital Signs: Date Time Temp Pulse Resp B/P B/P Pulse O2 O2 Flow FiO2 Mean Ox Delivery Rate 11/17 1720 98.8 86 20 115/76 88.7 98 11/17 1345 99.9 62 127/74 91.6 100 11/17 1212 98.4 53 20 120/76 90.6 99 11/17 1022 100 Room air 21 11/17 0800 98.6 48 2 0 121/72 88.5 100 11/17 0431 99.0 59 18 123/70 87. 5 97 Room air 11/17 0032 98.8 55 18 132/85 100.6 9 9 Room air 11/16 2045 98.8 56 133/86 102.0 98 24 hour I O ending at 0700: 11/17 0700 11/16 1900 Intake Total Output Total 10 400 Balance -10 -40 0 Number 1 Bowel Movements Number Voids 4 Output, Chest 10 Tube Drainage Output, Urine 400 PATIENT WEIGHT: Weight (lb): Weight (oz): Weight (kg): 75.000 Medications:Active Meds + DC'd Last 24 HrsMetoprolol Tartrate 25 MG Q24H PO Lisinopril 10 MG DAILY PO Amlodipine Besylate 5 MG BEDTIME PO Perflutren Lipid Microsphere DIRECTED ONCE PRN IV Sodium Chloride DIRECTED ONCE PRN IV Sodium Chloride 5 ML ONCE PRN IV Enoxaparin Sodium 30 MG Q12HR SUBQ Lorazepam 1 MG BID PO Ketorolac Tromethamine 30 MG Q6H PRN PRN IV Lidocaine 1 PATCH DAILY@1700 TOPICAL Ibuprofen 600 MG Q8HR PO Aspirin 81 MG DAILY PO Gabapentin 300 MG BID PO Polyethylene Glycol 1 PKT DAILY PO (CKD) Acetaminophen 650 MG Q6HR PO Oxycodone HC l 5 MG Q6H PRN PRN PO (DC) Ondansetron HCl 4 MG Q4 H PRN PRN IV Tramadol HCl 50 MG Q6H PRN PRN PO Head/Eyes: PERRL, EOMIL pupil: reactivityR pupil : reactivityNeck: C-Spine precautions, full range of motion, non-tenderCardiovascular: (normal cap refill), pulses all extremities ResultsFindings/Data:Laboratory Test s 11/17 234 Chemistry Sodium (137 - 145 mmol/L) 137 Potassium (3.4 - 5.0 mmol/L) 4.8 Chloride (9 8 - 107 mmol/L) 105 Carbon Dioxide (22 - 30 mmol/L ) 27 BUN (9 - 20 mg/dL) 15 Creatinine (0.7 - 1.3 mg/dL) 0.6 L Glomerular Filtr Rate (>60) 167 Glucose (74 - 106 mg/dL) 103 Calcium (8.4 - 10.2 mg/dL) 9.0 Phosphorus (2.5 - 4.5 mg/dL) 3.5 Magnesium (1.6 - 2.3 mg/dL) 2.1 Laboratory Tests 11/17 234 Hematology WBC (5.0 - 12.0 x10 3/uL) 7.2 RBC (4.70 - 6.10 x10 6/uL) 4.83 Hgb (14.0 - 18.0 g/dL) 14.2 Hct (37.0 - 49.0 %) 43.6 MCV (80 - 94 fL) 90 MCH (27 - 31 pg) 29.4 MCHC (33 - 37 g/dL) 32.6 L RDW (11.5 - 15.5 %) 13.2 Plt Count (130 - 400 x10 3/uL) 213 MPV (9.4 - 16.4 fL) 10.0 Neut % (Auto) (43 - 65 %) 70.1 H Lymph % (Auto) (20.5 - 45.5 %) 13.1 L Otero % (Auto) (5.5 - 11.7 %) 9.0 Eos % (Auto) (0.9 - 2.9 %) 6.8 H Baso % (Auto) (0.2 - 1.0 %) 0.7 Neut # (Auto) (2.2 - 4.8 x10 3/uL) 5.08 H Lymph # (Auto) (1.3 - 2.9 x10 3/uL) 0.95 L Otero # (Auto) (0.3 - 0.8 x1 0 3/uL) 0.65 Eos # (Auto) (0.0 - 0.2 x10 3/uL) 0.49 H Baso # (Auto) (0.0 - 0.1 x10 3/uL) 0.05 Immature Gran % (0.0 - 2.0 %) 0.3 Nucleated RBC % (0 - 1.0 %) 0.0 Radiology data:Recent Impressions:RADIOLOGY - XR CHEST 1 V 11/17 0712 Report Impression - Status: SIGNED Entered: 11/17/2020 0727 IMPRESSION: 1. Status post sternotomy.2. No pneumothorax.3. Right ches t tube, unchangedImpression By: Freddy Valdes M.D.RADIOLOGY - XR CHEST 1 V 11/17 1650 Report Impression - Status: SIGNED Entered: 11/17/2020 1703 IMPRESSION: Right chest tube has been discontinued. No evidence of pneumothorax. The cardiomediastinal silhouette is stable. Sternal wires areredemonstrated.Impression By: Lindy Baron MD Results: labs reviewed, vital signs stable, x-ray personally reviewed, current med profile rev'd Free Text Obj NotesFree Text Obj Notes:Constitutional: Patient appears comfortable, no acute distress, bradycardia has been consistent during stay. asymptomatic and chronicEyes: pupils equal, round, reactive to light, no icterusHENT: normal cephalic, 2 small abrassions to forehead, no facial tenderness or crepitus, normal external inspection of ears/nose, no septal hematomaNeck: trachea midline, no crepitus, thyroid without massCV: sinus bradycardia, bilateral radial pulses 2+, n o cyanosis, no edema, no pulsatile abdominal massRespiratory: R chest tube in place, dressing clean and dry, suction on, 10ccs output. decreased breath sounds R lung improved from yesterday, clear brath sounds L heart ttp on right ribsAbdomen: soft, non-tender, no massesRectal: deferredGU: pelvis stableLymph nodes: no cervical or supraclavicular masses notedMusculoskeletal:-ttp on right sided ribsSkin: no lacerations, abrasions to forehead, skin warm to palpationPsychiatric: normal mood and affect, memory intact.Neurologic: bilateral upper and lower extremity sensation intact, strength intact, GCS 15 (5M, 6V, 4E) Diagnosis, Assessment PlanFree Text A P:ASSESSMENT:30 year old man presents with trauma related right sided pneumothorax Injuries/Acute Problems:- R PTX - R Lateral 10th and 11th Rib fx Chronic Medical Problems- Congenital Heart Disease- Aortic Aneurysm- [facility]- Cardiology - Dr. Rodríguez PLAN Pneumothorax:- Chest tube removed today- CXR showed no residual or new PTX after removal- CXR in AM and plan to discharge home R10th/11[facility]: IS and flutter Aortic AneurysmCongenital Heart Disease- Pt to f/u with outpatient energy economist - Cardiology consulted - appreciate recs, Anxiety- Home dose of Ativan 1mg started L/D/A: periphera l IV x2 DVT prophylaxis: SCDs, LovenoxGI prophylaxis: not indicatedDiet: regularActivity: PT/OT - ambulate pt Dispo: admit to surgical floorCode Status: FULL Quality: Trauma Gen Surg Current MedicationsCurrent medication review:I attest that the foregoing medication list in the medical record is true, accurate, and complete t o the best of my knowledge. VTE Prophylaxis - GeneralVTE prophylaxis initiated: yes Saqib Richmond 12/07/20 2252:Attestations Physician AttestationAgree w/findings plan:Agree with the findings and plan as documented by TRINO Toscano[ ] at 2012 RPT #:[id number] O F REPORTPRProgress [id number]:07:00C.[id number] l able for patient [id number]:52:49 2020-11-17 20:07:00 [id number]:07:00 [facility])Trauma Progress NoteREPORT#:[id number] REPORT STATUS: SignedDATE:11/17/20 TIME: 2006 PATIENT: JEREMY FERNANDEZ UNIT #: [id number]#: [id number] [address]: [address] AGE: 30 SEX: M ATTEND: Marie Gomez [facility] AUTHOR: Aletha Toscano PA-C * ALL edits or amendments must be made on the electronic/computer document * Aletha Toscano 11/17/202006:SubjectiveChief Complaint:right side rib painHPI:PT doing well, no complaints. Discussed with pt plan to remove chest, tube repeat xrays and possibly discharge home if PTX does not develop. Pt has no complaints at thist time Objective Physical ExamVS/I O:Vital Signs: Date Time Temp Pulse Resp B/P B/P Pulse O2 O2 Flow FiO2 Mean Ox Delivery Rate 11/17 1720 98.8 86 20 115/76 88.7 98 11/17 1345 99.9 62 127/74 91.6 100 11/17 1212 98.4 53 20 120/76 90.6 99 11/17 1022 100 Room air 21 11/17 0800 98.6 48 20 121/72 88.5 100 11/17 0431 99.0 59 18 123/70 87. 5 97 Room air 11/17 0032 98.8 55 18 132/85 100.6 9 9 Room air 11/16 2045 98.8 56 133/86 102.0 98 24 hour I O ending at 0700: 11/17 0700 11/16 1900 Intake Total Output Total 10 400 Balance -10 -40 0 Number 1 Bowel Movements Number Voids 4 Output, Chest 10 Tube Drainage Output, Urine 400 PATIENT WEIGHT: Weight (lb): Weight (oz): Weight (kg): 75.000 Medications:Active Meds + DC'd Last 24 HrsMetoprolol Tartrate 25 MG Q24H PO Lisinopril 10 MG DAILY PO Amlodipine Besylate 5 MG BEDTIME PO Perflutren Lipid Microsphere DIRECTED ONCE PRN IV Sodium Chloride DIRECTED ONCE PRN IV Sodium Chloride 5 ML ONCE PRN IV Enoxaparin Sodium 30 MG Q12HR SUBQ Lorazepam 1 MG BID PO Ketorolac Tromethamine 30 MG Q6H PRN PRN IV Lidocaine 1 PATCH DAILY@1700 TOPICAL Ibuprofen 600 MG Q8HR PO Aspirin 81 MG DAILY PO Gabapentin 300 MG BID PO Polyethylene Glycol 1 PKT DAILY PO (CKD) Acetaminophen 650 MG Q6HR PO Oxycodone HCl 5 MG Q6H PRN PRN PO (DC) Ondansetron HCl 4 MG Q4H PRN PRN IV Tramadol HCl 50 MG Q6H PRN PRN PO Head/Eyes: PERRL, EOMIL pupil: reactivityR pupil : reactivityNeck: C-Spine precautions, full range of motion, non-tenderCardiovascular: (normal cap refill), pulses all extremities ResultsFindings/Data:Laboratory Test s 11/17 234 Chemistry Sodium (137 - 145 mmol/L) 137 Potassium (3.4 - 5.0 mmol/L) 4.8 Chloride (9 8 - 107 mmol/L) 105 Carbon Dioxide (22 - 30 mmol/L ) 27 BUN (9 - 20 mg/dL) 15 Creatinine (0.7 - 1.3 mg/dL) 0.6 L Glomerular Filtr Rate (>60) 167 Glucose (74 - 106 mg/dL) 103 Calcium (8.4 - 10. 2 mg/dL) 9.0 Phosphorus (2.5 - 4.5 mg/dL) 3.5 Magnesium (1.6 - 2.3 mg/dL) 2.1 Laboratory Tests 04/24 0235 Hematology WBC (5.0 - 12.0 x10 3/uL) 7.2 RBC (4.70 - 6.10 x10 6/uL) 4.83 Hgb (14.0 - 18.0 g/dL) 14.2 Hct (37.0 - 49.0 %) 43.6 MCV (8 0 - 94 fL) 90 MCH (27 - 31 pg) 29.4 MCHC (33 - 37 g/dL) 32.6 L RDW (11.5 - 15.5 %) 13.2 Plt Count (130 - 400 x10 3/uL) 213 MPV (9.4 - 16.4 fL) 10. 0 Neut % (Auto) (43 - 65 %) 70.1 H Lymph % (Auto) (20.5 - 45.5 %) 13.1 L Otero % (Auto) (5.5 - 11.7 %) 9.0 Eos % (Auto) (0.9 - 2.9 %) 6.8 H Baso % (Auto) (0.2 - 1.0 %) 0.7 Neut # (Auto) (2.2 - 4. 8 x10 3/uL) 5.08 H Lymph # (Auto) (1.3 - 2.9 x10 3/uL) 0.95 L Otero # (Auto) (0.3 - 0.8 x10 3/uL) 0.65 Eos # (Auto) (0.0 - 0.2 x10 3/uL) 0.49 H Baso # (Auto) (0.0 - 0.1 x10 3/uL) 0.05 Immature Gran % (0.0 - 2.0 %) 0.3 Nucleated RBC % (0 - 1. 0 %) 0.0 Radiology data:Recent Impressions:RADIOLOGY - XR CHEST 1 V 11/17 0712 Report Impression - Status: SIGNED Entered: 11/17/2020 0744 IMPRESSION: 1. Status post sternotomy.2. No pneumothorax.3. Right ches t tube, unchangedImpression By: Freddy Valdes M.D.RADIOLOGY - XR CHEST 1 V 11/17 1650 Report Impression - Status: SIGNED Entered: 11/17/2020 1703 IMPRESSION: Right chest tube has been discontinued. No evidence of pneumothorax. The cardiomediastinal silhouette is stable. Sternal wires areredemonstrated.Impression By: [email or web address] - Mary Baron MD Results: labs reviewed, vital signs stable, x-ray personally reviewed, current med profile rev'd Free Text Obj NotesFree Text Obj Notes:Constitutional: Patient appears comfortable, no acute distress, bradycardia has been consistent during stay. asymptomatic and chronicEyes: pupils equal, round, reactive to light, no icterusHENT: normal cephalic, 2 small abrassions to forehead, no facial tenderness or crepitus, normal external inspection of ears/nose, no septal hematomaNeck: trachea midline, no crepitus, thyroid without massCV: sinus bradycardia, bilateral radial pulses 2+, n o cyanosis, no edema, no pulsatile abdominal massRespiratory: R chest tube in place, dressing clean and dry, suction on, 10ccs output. decreased breath sounds R lung improved from yesterday, clear brath sounds L heart ttp on right ribsAbdomen: soft, non-tender, no massesRectal: deferredGU: pelvis stableLymph nodes: no cervical or supraclavicular masses notedMusculoskeletal:-ttp on right sided ribsSkin: no lacerations, abrasions to forehead, skin warm to palpationPsychiatric: normal mood and affect, memory intact.Neurologic: bilateral upper and lower extremity sensation intact, strength intact, GCS 15 (5M, 6V, 4E) Diagnosis, Assessment PlanFree Text A P:ASSESSMENT:30 year old man presents with trauma related right sided pneumothorax Injuries/Acute Problems:- R PTX - R Lateral 10th and 11th Rib fx Chronic Medical Problems- Congenital Heart Disease- Aortic Aneurysm- [facility]- Cardiology - Dr. Rodríguez PLAN Pneumothorax:- Chest tube removed today- CXR showed no residual or new PTX after removal- CXR in AM and plan to discharge home R10th/11th Rib fracture- [facility]- RT orders: IS and flutter Aortic AneurysmCongenital Heart Disease- Pt to f/u with outpatient energy economist - Cardiology consulted - appreciate recs, Anxiety- Home dose of Ativan 1mg started L/D/A: periphera l IV x2 DVT prophylaxis: SCDs, LovenoxGI prophylaxis: not indicatedDiet: regularActivity: PT/OT - ambulate pt Dispo: admit to surgical floorCode Status: FULL Quality: Trauma Gen Surg Current MedicationsCurrent medication review:I attest that the foregoing medication list in the medical record is true, accurate, and complete t o the best of my knowledge. VTE Prophylaxis - GeneralVTE prophylaxis initiated: yes Saqib Richmond 12/07/20 2252:Attestations Physician AttestationAgree w/findings plan:Agree with the findings and plan as documented by TRINO Toscano[ ] at 2012 at 2254 RPT #:[id number] OF REPORTPRProgress [id number]:07:00C.[id number] l able for patient [id number]:54:22 2020-11-17 10:28:00 YEneoydolbr355619871332-71-14Y06:28:00 [facility] Progress NoteREPORT#:[id number] REPORT STATUS: SignedDATE:11/17/20 TIME: 1028 PATIENT: JEREMY FERNANDEZ UNIT #: [id number]#: [id number] [address]: [address] AGE: 30 SEX: M ATTEND: Marie Gomez [facility] AUTHOR: Eros Cerrato MD * ALL edits or amendments must be made on the electronic/computer document * SubjectiveChief Complaint:No acute events overnight. Chest tube to water seal. Still in place. No new complaints today. 24-hour telemetry -Sinus kerry. HR 50-60s Objective GeneralVS/I O:24 hour I O ending at 0700: 11/17 0700 11/16 1900 Intake Total Output Total 10 400 Balance -10 -400 Number 1 Bowel Movements Number Voids 4 Output, Chest 10 Tube Drainage Output, Urine 400 Vital Signs: Date Adolfo e Temp Pulse Resp B/P B/P Pulse O2 O2 Flow FiO2 Mean Ox Delivery Rate 11/17 1022 100 Room air 21 11/17 0800 37.0 48 20 121/72 88.5 100 11/17 0431 37.2 59 18 123/70 87.5 97 Room air 11/17 0032 37.1 55 18 132/85 100.6 99 Room air 11/16 2045 37.1 56 133/86 102.0 98 11/16 1658 36.4 75 18 129/80 96.7 97 11/16 1145 37.1 63 20 174/74 107. 0 98 PATIENT WEIGHT: Weight (lb): Weight (oz): Weight (kg): 75.000 Medications:Active Meds + DC'd Last 24 HrsMetoprolol Tartrate 25 MG Q24H P O Lisinopril 10 MG DAILY PO Amlodipine Besylate 5 MG BEDTIME PO Perflutren Lipid Microsphere DIRECTED ONCE PRN IV Sodium Chloride DIRECTED ONCE PRN IV Sodium Chloride 5 ML ONCE PRN IV Enoxaparin Sodium 30 MG Q12HR SUBQ Lorazepam 1 M G BID PO Ketorolac Tromethamine 30 MG Q6H PRN PRN IV Lidocaine 1 PATCH DAILY@1700 TOPICAL Ibuprofe n 600 MG Q8HR PO Aspirin 81 MG DAILY PO Gabapentin 300 MG BID PO Polyethylene Glycol 1 PKT DAILY PO (CKD) Acetaminophen 650 MG Q6HR PO Oxycodone HCl 5 MG Q6H PRN PRN PO Ondansetron HCl 4 MG Q4H PRN PRN IV Tramadol HCl 50 MG Q6H PRN PRN PO Physica l ExamHead/Eyes: atraumatic, EOMI, normocephalic, PERRLENT: moist mucosal membranes, normal noseNeck: supple/no meningismus, no bruit/NL carotids, no JVDCardiovascular: CV assessment: regular rate and rhythm, BP pulses = bilaterally Murmur assessment:III/ SABINA at LUSBRespiratory: clear to auscultation, no distressAbdomen: soft, non-tender, normal bowel sounds, no distentionUpper extremity: UE assessment: no edema, 2+ radial pulseLower extremity: LE assessment: no clubbing, no cyanosis, no edemaMusculoskeletal: normal inspectionNeuro/COSMETOLOGY PROFESSOR : alert, oriented X 3, CN II-XII intactSkin: dry, intactPsychiatry: normal affect, normal mood Diagnosis, Assessment Plan Free Text DxA P NotesFree Text DxA P Notes:Impression: #S/p fall with right 10th rib fracture and right PTX -s/p right CT placement. CXR shows PTX resolved. CT removal soon per trauma team.#5 cm ascending aortic aneurysm -no dissection on CT. Likely old and related toprevious congenital heart disease. TTE with stable size#Congenital aortic stenosis s/p balloon valvuloplasty at followed by Ross procedure (pulmonic valve placed in the aortic position with pulmonary homograftreplacement) at 14 years old.-Has increased velocities across pulmonary valve likely due to combination of stenosis and smalle r RVOT. Moderate in severity at this time-Requeste d records from Dr. Spear at [facility] but not received yet. #Sinus bradycardia -benign . No pauses or high-grade AV block. Normal TSH. No further inpatient cardiac workup required. Can follow with Dr. Spear upon discharge. Chest tube management per primary. [facility] at 1029 RPT #:[id number] OF REPORTPRProgress [id number]:28:00C.[id number] l able for patient [id number]:29:31 2020-11-16 09:16:00 [id number]:16:00 [facility] ([facility])Cardiology Progress NoteREPORT#:[id number] REPORT STATUS: SignedDATE:11/16/20 TIME: 915 PATIENT: JEREMY FERNANDEZ UNIT #: [id number]#: [id number] ROOM[place]BED: [place] [id number]-HYDT: 89 AGE: 30 SEX: M ATTEND: Marie Gomez [facility] AUTHOR: Eros Cerrato MD * ALL edits or amendments must be made on the electronic/computer document * SubjectiveChief Complaint:No acute events overnight. Chest tube to water seal. Possible plan to remove today. Pain only from chest tube. 24-hour telemetry -Sinus kerry. Rare PVC. HR 50s Objective GeneralVS/I O:24 hour I O ending at 0700: 11/16 0700 11/15 1900 Intake Total Output Total 10 20 0 Balance -10 -200 Output, Chest 10 Tube Drainage Output, Urine 200 Vital Signs: Date Time Temp Pulse Resp B/P B/P Pulse O2 O2 Flow FiO2 Mean O x Delivery Rate 11/16 0806 37.3 57 17 119/73 88.5 94 11/16 0509 37.0 53 16 154/65 94.3 99 Room air 11/16 0058 37.0 58 17 127/58 81.0 98 Room air 11/15 1931 37.0 63 17 173/71 104.8 97 Room air 11/15 1631 37.3 57 16 164/66 99.0 98 Room air 11/15 1304 37.0 53 16 154/93 113.2 99 Room air 11/15 0921 36.7 57 16 119/72 88.0 98 Room air 11/15 0921 36.8 50 16 100 Room air PATIENT WEIGHT: Weight (lb): Weight (oz): Weight (kg): 75.000 Medications:Active Meds + DC'd Last 24 HrsMetoprolol Tartrate 25 MG Q24H PO Lisinopril 10 MG DAILY PO Amlodipine Besylate 5 MG BEDTIME PO Metoprolol Tartrate 25 MG Q24H PO (DC) Perflutren Lipid Microsphere DIRECTED ONCE OH N IV Sodium Chloride DIRECTED ONCE PRN IV Sodiu m Chloride 5 ML ONCE PRN IV Enoxaparin Sodium 30 M G Q12HR SUBQ Lorazepam 1 MG BID PO Ketorolac Tromethamine 30 MG Q6H PRN PRN IV Lidocaine 1 PATCH DAILY@1700 TOPICAL Ibuprofen 600 MG Q8HR P O Aspirin 81 MG DAILY PO Gabapentin 300 MG BID PO Polyethylene Glycol 1 PKT DAILY PO (CKD) Acetaminophen 650 MG Q6HR PO Oxycodone HCl 5 MG Q6H PRN PRN PO Ondansetron HCl 4 MG Q4H PRN PRN IV Tramadol HCl 50 MG Q6H PRN PRN PO Physical ExamHead/Eyes: atraumatic, EOMI, normocephalic, PERRLENT: moist mucosal membranes, normal noseNeck: supple/no meningismus, no bruit/NL carotids, no JVDCardiovascular: CV assessment: regular rate and rhythm, BP pulses = bilaterally Murmur assessment:III/ SABINA at LUSBRespiratory: clear to auscultation, no distressAbdomen: soft, non-tender, normal bowel sounds, no distentionUpper extremity: UE assessment: no edema, 2+ radial pulseLower extremity: LE assessment: no clubbing, no cyanosis, no edemaMusculoskeletal: normal inspectionNeuro/COSMETOLOGY PROFESSOR : alert, oriented X 3, CN II-XII intactSkin: dry, intactPsychiatry: normal affect, normal mood ResultsFindings/Data:Laboratory Tests 11/16 446 Chemistry Sodium (137 - 145 mmol/L) 138 Potassiu m (3.4 - 5.0 mmol/L) 4.2 Chloride (98 - 107 mmol/L ) 104 Carbon Dioxide (22 - 30 mmol/L) 23 BUN (9 - 20 mg/dL) 15 Creatinine (0.7 - 1.3 mg/dL) 0.6 L Glomerular Filtr Rate (>60) 167 Glucose (74 - 10 6 mg/dL) 99 Calcium (8.4 - 10.2 mg/dL) 9.1 Laboratory Tests 11/16 446 Hematology WBC (5.0 - 12.0 x10 3/uL) 8.1 RBC (4.70 - 6.10 x10 6/uL) 5.11 Hgb (14.0 - 18.0 g/dL) 15.1 Hct (37.0 - 49. 0 %) 46.2 MCV (80 - 94 fL) 90 MCH (27 - 31 pg) 29.5 MCHC (33 - 37 g/dL) 32.7 L RDW (11.5 - 15. 5 %) 13.3 Plt Count (130 - 400 x10 3/uL) 225 MPV (9.4 - 16.4 fL) 9.9 Neut % (Auto) (43 - 65 %) 73.5 H Lymph % (Auto) (20.5 - 45.5 %) 13.7 L Mon o % (Auto) (5.5 - 11.7 %) 7.8 Eos % (Auto) (0.9 - 2.9 %) 4.2 H Baso % (Auto) (0.2 - 1.0 %) 0.6 Jey t # (Auto) (2.2 - 4.8 x10 3/uL) 5.94 H Lymph # (Auto) (1.3 - 2.9 x10 3/uL) 1.11 L Otero # (Auto) (0.3 - 0.8 x10 3/uL) 0.63 Eos # (Auto) (0.0 - 0. 2 x10 3/uL) 0.34 H Baso # (Auto) (0.0 - 0.1 x10 3/uL) 0.05 Immature Gran % (0.0 - 2.0 %) 0.2 Nucleated RBC % (0 - 1.0 %) 0.0 Radiology data:Recent Impressions:RADIOLOGY - XR CHEST 2 V 11/15 1122 Report Impression - Status: SIGNED Entered: 11/15/2020 1147 IMPRESSION: No active disease. No pneumothorax.Impression By: Stephanie Casiano DORADIOLOGY - XR CHEST 1 V 11/15 1741 Report Impression - Status: SIGNED Entered: 11/15/2020 1809 IMPRESSION: No active disease or changes in the chest. Impression By: Sakina Rodriguez MDRADIOLOGY - XR CHEST 2 V 11/16 0845 Report Impression - Status: SIGNED Entered: 11/16/2020 0902 IMPRESSION: Trace, less than 2%, right pneumothorax seen predominantly laterallyand at the right lung base with large-bore chest tube present. Minor right subcutaneous chest wall emphysema Impression By: [email or web address] Yossi Chavarria MD Diagnosis, Assessment Plan Free Text DxA P NotesFree Text DxA P Notes:Impression: #S/p fall with right 10t h rib fracture and right PTX -s/p right CT placement. CXR shows PTX resolved. CT removal soon per trauma team.#5 cm ascending aortic aneurysm -no dissection on CT. Likely old and related toprevious congenital heart disease. TTE with stable size#Congenital aortic stenosis s/p balloon valvuloplasty at followed by Ross procedure (pulmonic valve placed in the aortic position with pulmonary homograftreplacement) at 14 years old.-Has increased velocities across pulmonary valve likely due to combination of stenosis and smaller RVOT. Moderate in severity at this time-Requested records from Dr. Spear at [facility] but not received yet. #Sinus bradycardia -benign. No pauses or high-grade AV block. Normal TSH. No further inpatient cardiac workup required. Can follow with Dr. Spear upon discharge. Possibly home tomorrow if chest tube is removed today [facility] at 0918 RPT #:[id number] OF REPORTPRProgress [id number]:16:00C.[id number] l able for patient [id number]:19:05 2020-11-16 08:56:00 [id number]:56:00 [facility])Trauma Progress NoteREPORT#:[id number] REPORT STATUS: SignedDATE:11/16/20 TIME: 0856 PATIENT: JEREMY FERNANDEZ UNIT #: [id number]#: [id number] ROOM/BED: [place] [id number]: 89 AGE: 30 SEX: M ATTEND: Marie Gomez [facility] AUTHOR: Aletha Toscano PA-C * ALL edits or amendments must be made on the electronic/computer document * SubjectiveChief Complaint:right side rib painHPI:Pt doing well, no events overnight. Pain from chest tube site. Objective Physical ExamVS/I O:Vital Signs: Date Time Temp Pulse Resp B/P B/P Pulse O2 O2 Flow FiO2 Mean Ox Delivery Rate 11/16 1145 98.8 63 20 174/74 107.0 98 11/16 0806 99.1 57 17 119/73 88. 5 94 11/16 0509 98.6 53 16 154/65 94.3 99 Room air 11/16 0058 98.6 58 17 127/58 81.0 98 Room air 11/15 1931 98.6 63 17 173/71 104.8 97 Room air 11/15 1631 99.1 57 16 164/66 99.0 98 Room air 24 hour I O ending at 0700: 11/16 0700 11/15 1900 Intake Total Output Total 10 200 Balance -10 -200 Output, Chest 10 Tube Drainage Output, Urine 200 PATIENT WEIGHT: Weight (lb): Weight (oz): Weight (kg): 75.000 Medications:Active Med s + DC'd Last 24 HrsMetoprolol Tartrate 25 MG Q24H PO Lisinopril 10 MG DAILY PO Amlodipine Besylate 5 MG BEDTIME PO Perflutren Lipid Microsphere DIRECTED ONCE PRN IV Sodium Chloride DIRECTED ONCE PRN IV Sodium Chloride 5 ML ONCE PRN IV Enoxaparin Sodium 30 MG Q12HR SUBQ Lorazepam 1 M G BID PO Ketorolac Tromethamine 30 MG Q6H PRN PRN IV Lidocaine 1 PATCH DAILY@1700 TOPICAL Ibuprofe n 600 MG Q8HR PO Aspirin 81 MG DAILY PO Gabapentin 300 MG BID PO Polyethylene Glycol 1 PKT DAILY PO (CKD) Acetaminophen 650 MG Q6HR PO Oxycodone HCl 5 MG Q6H PRN PRN PO Ondansetron HCl 4 MG Q4H PRN PRN IV Tramadol HCl 50 MG Q6H PRN PRN PO ResultsFindings/Data:Laboratory Tests 11/16 446 Chemistry Sodium (137 - 145 mmol/L) 138 Potassiu m (3.4 - 5.0 mmol/L) 4.2 Chloride (98 - 107 mmol/L ) 104 Carbon Dioxide (22 - 30 mmol/L) 23 BUN (9 - 20 mg/dL) 15 Creatinine (0.7 - 1.3 mg/dL) 0.6 L Glomerular Filtr Rate (>60) 167 Glucose (74 - 10 6 mg/dL) 99 Calcium (8.4 - 10.2 mg/dL) 9.1 Laboratory Tests 11/16 446 Hematology WBC (5.0 - 12.0 x10 3/uL) 8.1 RBC (4.70 - 6.10 x10 6/uL) 5.11 Hgb (14.0 - 18.0 g/dL) 15.1 Hct (37.0 - 49. 0 %) 46.2 MCV (80 - 94 fL) 90 MCH (27 - 31 pg) 29.5 MCHC (33 - 37 g/dL) 32.7 L RDW (11.5 - 15.5 %) 13.3 Plt Count (130 - 400 x10 3/uL) 225 MPV (9.4 - 16.4 fL) 9.9 Neut % (Auto) (43 - 65 %) 73.5 H Lymph % (Auto) (20.5 - 45.5 %) 13.7 L Mon o % (Auto) (5.5 - 11.7 %) 7.8 Eos % (Auto) (0.9 - 2.9 %) 4.2 H Baso % (Auto) (0.2 - 1.0 %) 0.6 Jey t # (Auto) (2.2 - 4.8 x10 3/uL) 5.94 H Lymph # (Auto) (1.3 - 2.9 x10 3/uL) 1.11 L Otero # (Auto) (0.3 - 0.8 x10 3/uL) 0.63 Eos # (Auto) (0.0 - 0. 2 x10 3/uL) 0.34 H Baso # (Auto) (0.0 - 0.1 x10 3/uL) 0.05 Immature Gran % (0.0 - 2.0 %) 0.2 Nucleated RBC % (0 - 1.0 %) 0.0 Radiology data:Recent Impressions:RADIOLOGY - XR CHEST 1 V 11/15 1741 Report Impression - Status: SIGNED Entered: 11/15/2020 1809 IMPRESSION: No active disease or changes in the chest. Impression By: Sakina Rodriguez MDRADIOLOGY - XR CHEST 2 V 11/16 0845 Report Impression - Status: SIGNED Entered: 11/16/2020 0902 IMPRESSION: Trace, less than 2%, right pneumothorax seen predominantly laterallyand at the right lung base with large-bore chest tube present. Minor right subcutaneous chest wall emphysema Impression By: LouKWTiago Chavarria MD Free Text Obj NotesFree Text Obj Notes:Constitutional: Patient appears comfortable, no acute distress, bradycardia has been consistent during stay. asymptomatic and chronicEyes: pupils equal, round, reactive to light, no icterusHENT: normal cephalic, 2 small abrassions to forehead, no facial tenderness or crepitus, normal external inspection of ears/nose, no septal hematomaNeck: trachea midline, no crepitus, thyroid without massCV: sinus bradycardia, bilateral radial pulses 2+, no cyanosis, no edema, no pulsatile abdominal massRespiratory: R chest tube in place , dressing clean and dry, suction on, 10ccs output . decreased breath sounds R lung improved from yesterday, clear brath sounds L heart ttp on right ribsAbdomen: soft, non-tender, no massesRectal: deferredGU: pelvis stableLymph nodes: no cervical or supraclavicular masses notedMusculoskeletal:-ttp on right sided ribsSkin: no lacerations, abrasions to forehead, skin warm to palpationPsychiatric: normal mood and affect, memory intact.Neurologic: bilateral upper and lower extremity sensation intact, strength intact, GCS 15 (5M, 6V, 4E) Diagnosis, Assessment PlanFree Text A P:ASSESSMENT:30 year old man presents with trauma related right sided pneumothorax Injuries/Acute Problems:- R PTX - R Lateral 10th and 11th Rib fx Chronic Medical Problems- Congenital Heart Disease- Aortic Aneurysm- An[facility]- Cardiology - Dr. Rodríguez PLAN Pneumothorax:R chest tube on water seal- CXR today showed 2% PTX- CT chest pending- Encouraged IS - PT/OT evaluated pt - they recommend pt is stable and is okay for dispo baltazar e when ready for discharge R10th/11th Rib fracture - Started Tordol - RT orders: IS and flutter- Radha y 2 CXR Aortic AneurysmCongenital Heart Disease- Plan to restart Metoprolol Tartrate 25mg PO q daily- Pt has bradycardia at baseline with HR in 50s documented this hospital stay. Had a thoroug h discussion with patient about alerting nursing staff if he begins to feel light-headed, dizzy, drowsy, SOB or having chest pain - Cardiology consulted - appreciate recs,- ECHO pending Anxiety- Home dose of Ativan 1mg started L/D/A: peripheral IV x2 DVT prophylaxis: SCDs, LovenoxG I prophylaxis: not indicatedDiet: regularActivity: PT/OT - ambulate pt Dispo: admit to surgical floorCode Status: FULL at 1552 RPT #:[id number] OF REPORTPRProgress [id number]:56:00C.[id number] aimee able for patient bkvhBDNBHVPSZXAFZS5290-56-91V69:52:22 2020-11-16 08:56:00 [id number]:56:00 [facility] ([facility])Trauma Progress NoteREPORT#:[id number] REPORT STATUS: SignedDATE:11/16/20 TIME: 0856 PATIENT: JEREMY FERNANDEZ UNIT #: [id number]#: [id number] [address]-ZYHI: 89 AGE: 30 SEX: M ATTEND: Marie Gomez [facility] AUTHOR: Aletha Toscano PA-C * ALL edits or amendments must be made on the electronic/computer document * Aletha Toscano 11/16/20 0856:SubjectiveChief Complaint:right side rib painHPI:Pt doing well, no events overnight. Pain from chest tube site. Objective Physical ExamVS/I O:Vital Signs: Date Time Temp Pulse Resp B/P B/P Pulse O2 O2 Flow FiO2 Mean O x Delivery Rate 11/16 1145 98.8 63 20 174/74 107.0 98 11/16 0806 99.1 57 17 119/73 88.5 94 11/16 0509 98.6 53 16 154/65 94.3 99 Room air 11/16 0058 98.6 58 17 127/58 81.0 98 Room air 11/15 1931 98.6 63 17 173/71 104.8 97 Room air 11/15 1631 99.1 57 16 164/66 99.0 98 Room air 24 hour I O ending at 0700: 11/16 0700 11/15 1900 Intake Total Output Total 10 200 Balance -10 -200 Output, Chest 10 Tube Drainage Output, Urine 20 0 PATIENT WEIGHT: Weight (lb): Weight (oz): Weight (kg): 75.000 Medications:Active Meds + DC'd Last 24 HrsMetoprolol Tartrate 25 MG Q24H PO Lisinopril 10 MG DAILY PO Amlodipine Besylate 5 MG BEDTIME PO Perflutren Lipid Microsphere DIRECTED ONCE PRN IV Sodium Chloride DIRECTED ONCE PRN IV Sodium Chloride 5 ML ONCE PRN IV Enoxaparin Sodium 30 MG Q12HR SUBQ Lorazepam 1 M G BID PO Ketorolac Tromethamine 30 MG Q6H PRN PRN IV Lidocaine 1 PATCH DAILY@1700 TOPICAL Ibuprofe n 600 MG Q8HR PO Aspirin 81 MG DAILY PO Gabapentin 300 MG BID PO Polyethylene Glycol 1 PKT DAILY PO (CKD) Acetaminophen 650 MG Q6HR PO Oxycodone HCl 5 MG Q6H PRN PRN PO Ondansetron HCl 4 MG Q4H PRN PRN IV Tramadol HCl 50 MG Q6H PRN PRN PO ResultsFindings/Data:Laboratory Tests 11/16 0447 Chemistry Sodium (137 - 145 mmol/L) 138 Potassiu m (3.4 - 5.0 mmol/L) 4.2 Chloride (98 - 107 mmol/L ) 104 Carbon Dioxide (22 - 30 mmol/L) 23 BUN (9 - 20 mg/dL) 15 Creatinine (0.7 - 1.3 mg/dL) 0.6 L Glomerular Filtr Rate (>60) 167 Glucose (74 - 10 6 mg/dL) 99 Calcium (8.4 - 10.2 mg/dL) 9.1 Laboratory Tests 11/16 0447 Hematology WBC (5.0 - 12.0 x10 3/uL) 8.1 RBC (4.70 - 6.10 x10 6/uL) 5.11 Hgb (14.0 - 18.0 g/dL) 15.1 Hct (37.0 - 49. 0 %) 46.2 MCV (80 - 94 fL) 90 MCH (27 - 31 pg) 29. 5 MCHC (33 - 37 g/dL) 32.7 L RDW (11.5 - 15.5 %) 13.3 Plt Count (130 - 400 x10 3/uL) 225 MPV (9.4 - 16.4 fL) 9.9 Neut % (Auto) (43 - 65 %) 73.5 H Lymph % (Auto) (20.5 - 45.5 %) 13.7 L Otero % (Auto) (5.5 - 11.7 %) 7.8 Eos % (Auto) (0.9 - 2. 9 %) 4.2 H Baso % (Auto) (0.2 - 1.0 %) 0.6 Neut # (Auto) (2.2 - 4.8 x10 3/uL) 5.94 H Lymph # (Auto ) (1.3 - 2.9 x10 3/uL) 1.11 L Otero # (Auto) (0.3 - 0.8 x10 3/uL) 0.63 Eos # (Auto) (0.0 - 0.2 x10 3/uL) 0.34 H Baso # (Auto) (0.0 - 0.1 x10 3/uL) 0.05 Immature Gran % (0.0 - 2.0 %) 0.2 Nucleated RBC % (0 - 1.0 %) 0.0 Radiology data:Recent Impressions:RADIOLOGY - XR CHEST 1 V 11/15 1741 Report Impression - Status: SIGNED Entered: 11/15/2020 1809 IMPRESSION: No active disease or changes in the chest. Impression By: Sakina Rodriguez MDRADIOLOGY - XR CHEST 2 V 11/16 0845 Report Impression - Status: SIGNED Entered: 11/16/2020 0902 IMPRESSION: Trace, less than 2%, right pneumothorax seen predominantly laterallyand at the right lung base with large-bore chest tube present. Minor right subcutaneous chest wall emphysema Impression By: [email or web address] - Emelina Chavarria MD Free Text Obj NotesFree Text Obj Notes:Constitutional: Patient appears comfortable, no acute distress, bradycardia has been consistent during stay. asymptomatic and chronicEyes: pupils equal, round, reactive to light, no icterusHENT: normal cephalic, 2 small abrassions to forehead, no facial tenderness or crepitus, normal external inspection of ears/nose, no septal hematomaNeck: trachea midline, no crepitus, thyroid without massCV: sinus bradycardia, bilateral radial pulses 2+, no cyanosis, no edema, no pulsatile abdominal massRespiratory: R chest tube in place , dressing clean and dry, suction on, 10ccs output . decreased breath sounds R lung improved from yesterday, clear brath sounds L heart ttp on right ribsAbdomen: soft, non-tender, no massesRectal: deferredGU: pelvis stableLymph nodes: no cervical or supraclavicular masses notedMusculoskeletal:-ttp on right sided ribsSkin: no lacerations, abrasions to forehead, skin warm to palpationPsychiatric: normal mood and affect, memory intact.Neurologic: bilateral upper and lower extremity sensation intact, strength intact, GCS 15 (5M, 6V, 4E) Diagnosis, Assessment PlanFree Text A P:ASSESSMENT:30 year old man presents with trauma related right sided pneumothorax Injuries/Acute Problems:- R PTX - R Lateral 10th and 11th Rib fx Chronic Medical Problems- Congenital Heart Disease- Aortic Aneurysm- [facility]- Cardiology - Dr. Rodrgíuez PLAN Pneumothorax:R chest tube on water seal- CXR today showed 2% PTX- CT chest pending- Encouraged IS - PT/OT evaluated pt - they recommend pt is stable and is okay for dispo baltazar e when ready for discharge R10th/11th Rib fracture - Started Tordol - RT orders: IS and flutter- Radha y 2 CXR Aortic AneurysmCongenital Heart Disease- Plan to restart Metoprolol Tartrate 25mg PO q daily- Pt has bradycardia at baseline with HR in 50s documented this hospital stay. Had a thoroug h discussion with patient about alerting nursing staff if he begins to feel light-headed, dizzy, drowsy, SOB or having chest pain - Cardiology consulted - appreciate recs,- ECHO pending Anxiety- Home dose of Ativan 1mg started L/D/A: peripheral IV x2 DVT prophylaxis: SCDs, LovenoxG I prophylaxis: not indicatedDiet: regularActivity: PT/OT - ambulate pt Dispo: admit to surgical floorCode Status: FULL Saqib Richmond 1 7091:Attestations Physician AttestationAgree w/findings plan:Agree with the findings and plan as documented by TRINO Toscano at 1552 RPT #:[id number] OF REPORTPRProgress [id number]:56:00C.[id number] l able for patient [id number]:52:09 2020-11-16 08:56:00 [id number]:56:00 [facility] ([facility])Trauma Progress NoteREPORT#:[id number] REPORT STATUS: SignedDATE:11/16/20 TIME: 08 PATIENT: JEREMY FERNANDEZ UNIT #: [id number]#: [id number] [address]: [address] AGE: 30 SEX: M ATTEND: Marie Gomez MDA AUTHOR: Aletha Toscano PA-C * ALL edits or amendments must be made on the electronic/computer document * Aletha Toscano 11/16/20 0856:SubjectiveChief Complaint:right side rib painHPI:Pt doing well, no events overnight. Pain from chest tube site. Objective Physical ExamVS/I O:Vital Signs: Date Time Temp Pulse Resp B/P B/P Pulse O2 O2 Flow FiO2 Mean O x Delivery Rate 11/16 1145 98.8 63 20 174/74 107.0 98 11/16 0806 99.1 57 17 119/73 88.5 94 11/16 0509 98.6 53 16 154/65 94.3 99 Room air 11/16 0058 98.6 58 17 127/58 81.0 98 Room air 11/15 1931 98.6 63 17 173/71 104.8 97 Room air 11/15 1631 99.1 57 16 164/66 99.0 98 Room air 24 hour I O ending at 0700: 11/16 0700 11/15 1900 Intake Total Output Total 10 200 Balance -10 -200 Output, Chest 10 Tube Drainage Output, Urine 200 PATIENT WEIGHT: Weight (lb): Weight (oz): Weight (kg): 75.000 Medications:Active Meds + DC'd Last 24 HrsMetoprolol Tartrate 25 MG Q24H PO Lisinopril 10 MG DAILY PO Amlodipine Besylate 5 MG BEDTIME PO Perflutren Lipid Microsphere DIRECTED ONCE PRN IV Sodium Chloride DIRECTED ONCE PRN IV Sodium Chloride 5 ML ONCE PRN IV Enoxaparin Sodium 30 MG Q12HR SUBQ Lorazepam 1 M G BID PO Ketorolac Tromethamine 30 MG Q6H PRN PRN IV Lidocaine 1 PATCH DAILY@1700 TOPICAL Ibuprofe n 600 MG Q8HR PO Aspirin 81 MG DAILY PO Gabapentin 300 MG BID PO Polyethylene Glycol 1 PKT DAILY PO (CKD) Acetaminophen 650 MG Q6HR PO Oxycodone HCl 5 MG Q6H PRN PRN PO Ondansetron HCl 4 MG Q4H PRN PRN IV Tramadol HCl 50 MG Q6H PRN PRN PO ResultsFindings/Data:Laboratory Tests 11/16 446 Chemistry Sodium (137 - 145 mmol/L) 138 Potassiu m (3.4 - 5.0 mmol/L) 4.2 Chloride (98 - 107 mmol/L ) 104 Carbon Dioxide (22 - 30 mmol/L) 23 BUN (9 - 20 mg/dL) 15 Creatinine (0.7 - 1.3 mg/dL) 0.6 L Glomerular Filtr Rate (>60) 167 Glucose (74 - 106 mg/dL) 99 Calcium (8.4 - 10.2 mg/dL) 9.1 Laboratory Tests 11/16 446 Hematology WBC (5.0 - 12.0 x10 3/uL) 8.1 RBC (4.70 - 6.10 x10 6/uL) 5.11 Hgb (14.0 - 18.0 g/dL) 15.1 Hct (37.0 - 49. 0 %) 46.2 MCV (80 - 94 fL) 90 MCH (27 - 31 pg) 29.5 MCHC (33 - 37 g/dL) 32.7 L RDW (11.5 - 15.5 %) 13.3 Plt Count (130 - 400 x10 3/uL) 225 MPV (9.4 - 16.4 fL) 9.9 Neut % (Auto) (43 - 65 %) 73.5 H Lymph % (Auto) (20.5 - 45.5 %) 13.7 L Mon o % (Auto) (5.5 - 11.7 %) 7.8 Eos % (Auto) (0.9 - 2.9 %) 4.2 H Baso % (Auto) (0.2 - 1.0 %) 0.6 Neut # (Auto) (2.2 - 4.8 x10 3/uL) 5.94 H Lymph # (Auto) (1.3 - 2.9 x10 3/uL) 1.11 L Otero # (Auto ) (0.3 - 0.8 x10 3/uL) 0.63 Eos # (Auto) (0.0 - 0. 2 x10 3/uL) 0.34 H Baso # (Auto) (0.0 - 0.1 x10 3/uL) 0.05 Immature Gran % (0.0 - 2.0 %) 0.2 Nucleated RBC % (0 - 1.0 %) 0.0 Radiology data:Recent Impressions:RADIOLOGY - XR CHEST 1 V 11/15 1741 Report Impression - Status: SIGNED Entered: 11/15/2020 1809 IMPRESSION: No active disease or changes in the chest. Impression By: Sakina Rodriguez MDRADIOLOGY - XR CHEST 2 V 11/16 0845 Report Impression - Status: SIGNED Entered: 11/16/2020 0902 IMPRESSION: Trace, less than 2%, right pneumothorax seen predominantly laterallyand at the right lung base with large-bore chest tube present. Minor right subcutaneous chest wall emphysema Impression By: [email or web address] - Emelina Chavarria MD Free Text Obj NotesFree Text Obj Notes:Constitutional: Patient appears comfortable, no acute distress, bradycardia has been consistent during stay. asymptomatic and chronicEyes: pupils equal, round, reactive to light, no icterusHENT: normal cephalic, 2 small abrassions to forehead, no facial tenderness or crepitus, normal external inspection of ears/nose, no septal hematomaNeck: trachea midline, no crepitus, thyroid without massCV: sinus bradycardia, bilateral radial pulses 2+, no cyanosis, no edema, no pulsatile abdominal massRespiratory: R chest tube in place , dressing clean and dry, suction on, 10ccs output . decreased breath sounds R lung improved from yesterday, clear brath sounds L heart ttp on right ribsAbdomen: soft, non-tender, no massesRectal: deferredGU: pelvis stableLymph nodes: no cervical or supraclavicular masses notedMusculoskeletal:-ttp on right sided ribsSkin: no lacerations, abrasions to forehead, skin warm to palpationPsychiatric: normal mood and affect, memory intact.Neurologic: bilateral upper and lower extremity sensation intact, strength intact, GCS 15 (5M, 6V, 4E) Diagnosis, Assessment PlanFree Text A P:ASSESSMENT:30 year old man presents with trauma related right sided pneumothorax Injuries/Acute Problems:- R PTX - R Lateral 10th and 11th Rib fx Chronic Medical Problems- Congenital Heart Disease- Aortic Aneurysm- [facility]- Cardiology - Dr. Rodríguez PLAN Pneumothorax:R chest tube on water seal- CXR today showed 2% PTX- CT chest pending- Encouraged IS - PT/OT evaluated pt - they recommend pt is stable and is okay for dispo baltazar e when ready for discharge R10th/11th Rib fracture - Started Tordol - RT orders: IS and flutter- Radha y 2 CXR Aortic AneurysmCongenital Heart Disease- Plan to restart Metoprolol Tartrate 25mg PO q daily- Pt has bradycardia at baseline with HR in 50s documented this hospital stay. Had a thoroug h discussion with patient about alerting nursing staff if he begins to feel light-headed, dizzy, drowsy, SOB or having chest pain - Cardiology consulted - appreciate recs,- ECHO pending Anxiety- Home dose of Ativan 1mg started L/D/A: peripheral IV x2 DVT prophylaxis: SCDs, LovenoxG I prophylaxis: not indicatedDiet: regularActivity: PT/OT - ambulate pt Dispo: admit to surgical floorCode Status: FULL Saqib Richmond 1 0601:Attestations Physician AttestationAgree w/findings plan:Agree with the findings and plan as documented by TRINO Toscano at 1552 at 7402 RPT #:[id number] OF REPORTPRProgress [id number]:56:00C.[id number] l able for patient [id number]:54:11 2020-11-15 15:43:00 [id number]:43:[id number] 012 [facility] [address] [address] [place] [address] PATIENT NAME: JEREMY FERNANDEZ ADMIT DATE: 11/13/20ACCOUNT NO: [id number] WALESKA Capps NO: C.ST375 AGE: 30 REPORT TYPE: eECHOCARDIOGRAM REPORT. SEX: M ADMITTING PHYSICIAN:Marie Gomez MD ATTENDING PHYSICIAN:Marie Gomez MD *[facility]*[address], [place] [address]Ggzir Transthoracic Echocardiogram Patient: Jeremy Fernandez JStudy Date: 11/15/2020 BP: 119 / 78 Location: [facility]: [id number] : 1990 Age: 30 Height: 70 in / 177.8 cmAccession#: [id number] Gender: M Weight: 164.7 lb / 74.8 kgBMI/BSA: 23.7 kg/m 2 / 1.93 m 2 *Ordering Physician: * Aletha Toscano Pa-C *Interpreting Physician: * Sim Nieves MD*Consulting It Architect: * Ruby Cast RDCS (AE) - Indications: CONGENITAL HEART DISEASE s/p repair with Ross procedure - Study data: Transthoracic echocardiogram. Procedure: Transthoracicechocardiography was performed. Images were obtained using a [employer] E95 1cardiac ultrasound machine. Complete 2D, complete spectral Doppler, andcolor Doppler. Patient status: Inpatient. Patient room number: ST375.Study status: Routine. - Findings Left ventricle: The cavity size is normal. Wall thickness is normal.Systolic function is normal. The estimate d ejection fraction is 65-69%.Wall motion is normal; there are no regional wall motion abnormalities.Left ventricular diastolic functio n parameters are indeterminate.Right ventricle: Th e cavity size is normal. Systolic function isnormal. PATIENT NAME: JEREMY FERNANDEZ Left atrium: The atrium is carmen l in size.Right atrium: The atrium is normal in size.Aorta: Aortic root (pulmonary autograft) is dilated with a diameter of4.3 cm. Ascending aort a (pulmonary autograft) is also dilated with adiameter of 4.7 cm/Aortic valve: The valve is trileaflet. The leaflets are normalthickness. There is mild regurgitation. No stenosis seen.Mitral valve: The leaflets are normal thickness. There is trivialregurgitation.Tricuspid valve: The leaflets are normal thickness. There is mildregurgitation.Pulmonic valve: Pulmonary homograft is not well visualized. Leafletsappear normal in thickeness with good leaflet excrusion . Traceregurgitation. Right ventricular outflow tract diameter is small with adiameter of 1.3 cm . Mean gradient across the homograft is 31 mm Hgconsistent with moderate stenosis, however calculated valve area is 0.9cm2 consistent with severe stenosis.Pericardium: There is no pericardial effusion. - Measurements Left ventricle Value Ref ROSA M, LAX 4.8 cm 4.2 - 5.8 ESD, LAX 3.2 cm 2.5 - 4.0 ESD/bsa, LAX 1.7 cm/m 2 1.3 - 2.1 FS, LAX 33 % 25 - 43 PW, ED 0.9 cm 0.6 - 1.0 PW, ES 1.3 cm IVS/PW, ED 1.14 EF 62 % 52 - 72 LVOT Value Ref Diam, S 2.33 cm Area 4.3 cm 2 Peak lucien, S 1.06 m/sec Mean lucien, S 0.71 m/sec VTI, S 21.7 cm - Peak grad, S 5 mm Hg Mean grad, S 2 mm Hg SV 92 ml SV/bsa 4 8 ml/m 2 Ventricular septum Value Ref IVS, ED 1.1 cm 0.6 - 1.0 IVS, ES 1.3 cm Right ventricle Value Ref ROSA M, LAX 3.0 cm Pressure, S 36 mm Hg RVOT Value Ref Diam, S 1.3 cm Diam 1.3 cm PATIENT NAME : JEREMY FERNANDEZ [place] Peak v, S 2.7 m/sec Peak grad, S 29 mm Hg Left atrium Value Ref AP dim, ES 1.94 cm 3.00 - 4.00 Aortic valve Value Ref Peak v, S 1.29 m/sec Mean v, S 0.91 m/sec VTI, S 27.0 cm Mean grad , S 3.8 mm Hg Peak grad, S 6.7 mm Hg LVOT/AV, VTI ratio 0.8 STUART, VTI 3.62 cm 2 LVOT/AV, Vpeak ratio 0.82 STUART, Vmax 3.55 cm 2 AR peak v 3.3 m/sec AR decel 137 cm/s 2 AR decel time 2955 ms AR PHT 857 ms AR peak grad 44 mm Hg Mitral valve Value Ref Peak E 0.99 m/sec Peak A 0.56 m/sec Decel time 320 ms Peak grad, D 3.9 mm Hg Peak E/A ratio 1.7 7 Pulmonic valve Value Ref OH peak v 0.94 m/sec OH peak grad 4 mm Hg PVA 0.87 cm 2 Tricuspid valve Value Ref TR peak v 2.76 m/sec <=2.8 Peak RV-RA grad, S 31 mm Hg Aortic root Value Ref Root diam 4.3 cm <3.6 Ascending aorta Value Ref AAo AP diam, S 4.7 cm AAo AP diam/bsa, S 2.4 cm/m 2 Pulmonary artery Value Ref Pressure, S -21.0 mm Hg Systemic veins Value Ref Estimated CVP 5 mm Hg - Conclusions PATIENT NAME: JEREMY EFRNANDEZ Summary : 1. Left ventricle: The cavity size is normal. Wall thickness is normal. Systolic function is normal. The estimated ejection fraction is 65-69%. Wall motion is normal; there are no regional wall motion abnormalities. Left ventricular diastolic function parameters are indeterminate.2. Right ventricle: Systolic function is normal. The RV pressure during systole by Doppler is 36 mm Hg.3. Aorta: Aortic root (pulmonary autograft) is dilated with a diameter of 4.3 cm. Ascending aorta (pulmonary autograft) is also dilated with a diameter of 4. 7 cm/4. Aortic valve: The valve is trileaflet (pulmonary autograft). The leaflets are normal thickness. There is mild regurgitation.5. Pulmonic valve: Pulmonary homograft is not well visualized. Leaflets appear normal in thickeness with good leaflet excrusion. Trace regurgitation . Right ventricular outflow tract diameter is smal l with a diameter of 1.3 cm. Mean gradient across the homograft is 31 mm Hg consistent with moderate stenosis, however calculated valve area is 0.9 cm2 consistent with severe stenosis. Critical result and emergency study reporting: . Correct read-back wasverified. Prepared and electronically signed by Sim Nieves MD11/15/2020 15:43 at 1544 PATIENT NAME: JEREMY FERNANDEZ :43: 0 0C.[id number] for patient [id number]:44:14 2020-11-15 14:21:00 [id number]:21:00 [facility])Trauma Progress NoteREPORT#:[id number] REPORT STATUS: SignedDATE:11/15/20 TIME: 1421 PATIENT: JEREMY FERNANDEZ UNIT #: [id number]#: [id number] [address]NPQB: [address] AGE: 30 SEX: M ATTEND: Marie Gomez [facility] AUTHOR: Aletha Toscano PA-C * ALL edits or amendments must be made on the electronic/computer document * SubjectiveChief Complaint:right side rib painHPI:Pt doing well, no complaints overnight. Objective Physical ExamVS/I O:Vital Signs: Date Time Temp Pulse Res p B/P B/P Pulse O2 O2 Flow FiO2 Mean Ox Delivery Rate 11/15 1304 98.6 53 16 154/93 113.2 99 Room air 11/15 09 98.1 57 16 119/72 88.0 98 Room ai r 11/15 920 98.2 50 16 100 Room air 11/15 0425 98.6 70 17 145/93 110.4 98 Room air 11/15 0020 99.0 51 17 152/75 100.8 99 Room air 11/14 2026 99.3 52 17 158/81 106.7 99 Room air 11/14 1701 98.2 54 18 144/76 98.7 98 Room air 11/14 1453 90 High flow 1 28 nasal cannula 24 hour I O ending at 0700: 11/15 0700 11/14 1900 Intake Total Output Total 400 Balance -400 Number Voids 5 Output, Chest 0 Tube Drainage Output, Urine 400 PATIENT WEIGHT: Weight (lb): Weight (oz): Weight (kg): 75.000 Medications:Active Meds + DC'd Last 24 HrsMetoprolol Tartrate 25 MG Q24H PO Lisinopril 10 MG DAILY PO Amlodipine Besylate 5 MG BEDTIME PO Metoprolol Tartrate 25 MG Q24H PO (DC) Perflutren Lipid Microsphere DIRECTED ONCE PRN IV Sodium Chloride DIRECTED ONCE PRN IV Sodium Chloride 5 ML ONCE PRN IV Enoxaparin Sodium 30 MG Q12HR SUBQ Lorazepam 1 MG BID PO Ketorolac Tromethamine 30 MG Q6H PRN PRN IV Lidocaine 1 PATCH DAILY@1700 TOPICAL Ibuprofen 600 MG Q8HR PO Aspirin 81 MG DAILY PO Gabapentin 300 MG BID PO Polyethylene Glycol 1 PKT DAILY PO (CKD) Acetaminophen 650 MG Q6HR PO Oxycodone HCl 5 MG Q6H PRN PRN PO Ondansetron HCl 4 MG Q4H PRN PRN IV Tramadol HCl 50 MG Q6H PRN PRN PO ResultsFindings/Data:Laboratory Tests 11/15 11/14 11/14 0700 1621 1621 Chemistry Sodium (137 - 145 mmol/L) 139 139 Potassium (3.4 - 5.0 mmol/L) 3.8 3.9 Chloride (98 - 107 mmol/L) 105 102 Carbon Dioxide (22 - 30 mmol/L) 27 29 BUN ( 9 - 20 mg/dL) 15 15 Creatinine (0.7 - 1.3 mg/dL) 0.6 L 0.8 Glomerular Filtr Rate (>60) 167 120 Glucose (74 - 106 mg/dL) 103 117 H Calcium (8.4 - 10.2 mg/dL) 9.1 9.1 Phosphorus (2.5 - 4.5 mg/dL ) 2.6 Magnesium (1.6 - 2.3 mg/dL) 2.3 2.2 Total Bilirubin (0.2 - 1.3 mg/dL) 1.3 Conjugated Bilirubin (0 - 0.3 mg/dL) 0 Unconjugated Bilirubin (0 - 1.1 mg/dL) 1.2 H AST (15 - 46 U/L ) 78 H ALT (0 - 34 U/L) 25 Total Alk Phosphatase (38 - 126 U/L) 87 Total Protein (6.3 - 8.2 g/dL) 8.0 Albumin (3.5 - 5.0 g/dL) 4.6 Triglycerides (mg/dL) 120 Cholesterol (mg/dL) 173 LDL Cholesterol Measurd (32 - 99 mg/dL) 61.54 HDL Cholesterol (40 - 59 mg/dL) 82 H Coronary Risk Interp 2.11 TSH (0.465 - 4.68 MIU/L) 1.050 Laboratory Tests 11/15 11/14 0700 1621 Hematology WBC (5.0 - 12.0 x10 3/uL) 5.8 8.2 RBC (4.70 - 6.10 x10 6/uL) 5.55 5.06 Hgb (14.0 - 18. 0 g/dL) 16.1 14.7 Hct (37.0 - 49.0 %) 49.5 H 45.0 MCV (80 - 94 fL) 89 89 MCH (27 - 31 pg) 29.0 29. 1 MCHC (33 - 37 g/dL) 32.5 L 32.7 L RDW (11.5 - 15.5 %) 13.2 13.5 Plt Count (130 - 400 x10 3/uL) 229 217 MPV (9.4 - 16.4 fL) 9.9 9.9 Neut % (Auto) (43 - 65 %) 73.4 H 82.1 H Lymph % (Auto) (20.5 - 45.5 %) 16.1 L 9.8 L Otero % (Auto) (5.5 - 11.7 %) 8.5 7.6 Eos % (Auto) (0.9 - 2.9 %) 1.4 0.2 L Baso % (Auto) (0.2 - 1.0 %) 0.3 0.2 Neut # (Auto) (2.2 - 4.8 x10 3/uL) 4.24 6.73 H Lymph # (Auto) (1.3 - 2.9 x10 3/uL) 0.93 L 0.80 L Otero # (Auto) (0.3 - 0.8 x10 3/uL) 0.49 0.62 Eos # (Auto) (0.0 - 0.2 x10 3/uL) 0.08 0.02 Baso # (Auto) (0.0 - 0.1 x10 3/uL) 0.02 0.02 Immature Gran % (0.0 - 2.0 %) 0.3 0.1 Nucleated RBC % (0 - 1.0 %) 0.0 0.0 Radiology data: Recent Impressions:RADIOLOGY - XR CHEST 2 V 11/15 1122 Report Impression - Status: SIGNED Entered: 11/15/2020 1147 IMPRESSION: No active disease. No pneumothorax.Impression By: t.SDR.JT M - Romeo Stephenie DO ECHO Summary: 1. Left ventricle: The cavity size is normal. Wall thickness is normal. Systolic function is normal . The estimated ejection fraction is 65-69%. Wall motion is normal; there are no regional wall motion abnormalities. Left ventricular diastolic function parameters are indeterminate.2. Right ventricle: Systolic function is normal. The RV pressure during systole by Doppler is 36 mm Hg.3 . Aorta: Aortic root (pulmonary autograft) is dilated with a diameter of 4.3 cm. Ascending aorta (pulmonary autograft) is also dilated with a diameter of 4.7 cm/4. Aortic valve: The valve is trileaflet (pulmonary autograft). The leaflet s are normal thickness. There is mild regurgitation.5. Pulmonic valve: Pulmonary homograft is not well visualized. Leaflets appea r normal in thickeness with good leaflet excrusion . Trace regurgitation. Right ventricular outflow tract diameter is small with a diameter of 1.3 cm. Mean gradient across the homograft is 31 mm Hg consistent with moderate stenosis, however calculated valve area is 0.9 cm2 consistent with severe stenosis. Critical result and emergency study reporting: . Correct read-back wasverified . Prepared and electronically signed by Sim Nieves MD11/15/2020 15:43Results: labs reviewed, vital signs stable, x-ray personally reviewed, current med profile rev'd Free Text Ob j NotesFree Text Obj Notes:Constitutional: Patient appears comfortable, no acute distress, bradycardia has been consistent during stay. asymptomatic and chronicEyes: pupils equal, round, reactive to light, no icterusHENT: normal cephalic, 2 small abrassions to forehead, no facial tenderness or crepitus, normal external inspection of ears/nose, no septal hematomaNeck: trachea midline, no crepitus, thyroid without massCV: sinus bradycardia, bilateral radial pulses 2+, no cyanosis, no edema, no pulsatile abdominal massRespiratory: R chest tube in place , dressing clean and dry, suction on, 10ccs output . decreased breath sounds R lung improved from yesterday, clear brath sounds L heart ttp on right ribsAbdomen: soft, non-tender, no massesRectal: deferredGU: pelvis stableLymph nodes: no cervical or supraclavicular masses notedMusculoskeletal:-ttp on right sided ribsSkin: no lacerations, abrasions to forehead, skin warm to palpationPsychiatric: normal mood and affect, memory intact.Neurologic: bilateral upper and lower extremity sensation intact, strength intact, GCS 15 (5M, 6V, 4E) Diagnosis, Assessment PlanFree Text A P:ASSESSMENT:30 year old man presents with trauma related right sided pneumothorax Injuries/Acute Problems:- R PTX - R Lateral 10th and 11th Rib fx Chronic Medical Problems- Congenital Heart Disease- Aortic Aneurysm- Anxiety Consultants- Cardiology - Dr. Rodríguez PLAN Pneumothorax:- R chest tube put to water seal post CXR pending- CXR in AM tomorrow and possible CT removal - Pt to ambulate with PT/OT - Encouraged IS - PT/OT evaluated pt - the y recommend pt is stable and is okay for dispo baltazar e when ready for discharge R10th/11th Rib fracture - Started Tordol - RT orders: IS and flutter- Radha y 2 CXR Aortic AneurysmCongenital Heart Disease- Continue metoprolol 25mg PO daily- Pt has bradycardia at baseline with HR in 50s documente d this hospital stay. Had a thorough discussion with patient about alerting nursing staff if he begins to feel light-headed, dizzy, drowsy, SOB or having chest pain - ECHO resulted, EF 65-69%, Aortic root and ascendign aorta dilation, mild Aortic Regurgitation, moderate to severe Pulmonary stenosis-Cardiology consulted - appreciate recs Anxiety- Home dose of Ativan 1mg started L/D/A: peripheral IV x2 DVT prophylaxis: SCDs, LovenoxGI prophylaxis: not indicatedDiet: regularActivity: PT/OT - ambulate pt Dispo: admi t to surgical floorCode Status: FULL Electronicall y Signed by Aletha Toscano PA-C on 11/15/20 at 1726 RPT #:[id number] OF REPORTPRProgress [id number]:21:00C.[id number] aimee able for patient [id number]:26:35 2020-11-15 14:21:00 [id number]:21:00 [facility] ([facility])Trauma Progress NoteREPORT#:[id number] REPORT STATUS: SignedDATE:11/15/20 TIME: 1420 PATIENT: JEREMY FERNANDEZ UNIT #: [id number]#: [id number] [address] AGE: 30 SEX: M ATTEND: Marie Gomez MDADM AUTHOR: Aletha Toscano PA-C * ALL edits or amendments must be made on the electronic/computer document * Aletha Toscano 11/15/20 1421:SubjectiveChief Complaint:right side rib painHPI:Pt doing well, no complaints overnight. Objective Physical ExamVS/I O:Vital Signs: Date Time Temp Pulse Resp B/P B/P Pulse O 2 O2 Flow FiO2 Mean Ox Delivery Rate 11/15 1304 98.6 53 16 154/93 113.2 99 Room air 11/15 0921 98.1 57 16 119/72 88.0 98 Room air 11/15 0921 98.2 50 16 100 Room air 11/15 0425 98.6 70 17 145/93 110.4 98 Room air 11/15 0020 99.0 51 17 152/75 100.8 99 Room air 11/14 2027 99.3 52 17 158/81 106.7 99 Room air 11/14 1701 98.2 54 18 144/76 98.7 98 Room air 11/14 1453 90 High flow 1 28 nasal cannula 24 hour I O ending at 0700: 11/15 0700 11/14 1900 Intake Total Output Total 400 Balance -400 Number Voids 5 Output, Chest 0 Tube Drainage Output, Urine 400 PATIENT WEIGHT: Weight (lb): Weight (oz): Weight (kg): 75.000 Medications:Active Meds + DC'd Last 24 HrsMetoprolol Tartrate 25 MG Q24H PO Lisinopril 10 MG DAILY PO Amlodipine Besylate 5 MG BEDTIME PO Metoprolol Tartrate 25 MG Q24H PO (DC) Perflutren Lipid Microsphere DIRECTED ONCE OH N IV Sodium Chloride DIRECTED ONCE PRN IV Sodiu m Chloride 5 ML ONCE PRN IV Enoxaparin Sodium 30 M G Q12HR SUBQ Lorazepam 1 MG BID PO Ketorolac Tromethamine 30 MG Q6H PRN PRN IV Lidocaine 1 PATCH DAILY@1700 TOPICAL Ibuprofen 600 MG Q8HR PO Aspirin 81 MG DAILY PO Gabapentin 300 MG BID PO Polyethylene Glycol 1 PKT DAILY PO (CKD) Acetaminophen 650 MG Q6HR PO Oxycodone HCl 5 MG Q6H PRN PRN PO Ondansetron HCl 4 MG Q4H PRN PRN IV Tramadol HCl 50 MG Q6H PRN PRN PO ResultsFindings/Data:Laboratory Tests 11/15 11/14 11/14 0700 1621 1621 Chemistry Sodium (137 - 145 mmol/L) 139 139 Potassium (3.4 - 5.0 mmol/L) 3.8 3.9 Chloride (98 - 107 mmol/L) 105 102 Carbon Dioxide (22 - 30 mmol/L) 27 29 BUN (9 - 20 mg/dL) 15 15 Creatinine (0.7 - 1.3 mg/dL) 0.6 L 0.8 Glomerular Filtr Rate (>60) 167 120 Glucose (74 - 106 mg/dL) 103 117 H Calcium (8.4 - 10.2 mg/dL) 9.1 9.1 Phosphorus (2.5 - 4.5 mg/dL) 2.6 Magnesium (1.6 - 2.3 mg/dL) 2.3 2.2 Total Bilirubin (0.2 - 1.3 mg/dL) 1.3 Conjugated Bilirubin (0 - 0.3 mg/dL) 0 Unconjugated Bilirubin (0 - 1.1 mg/dL) 1.2 H AST (15 - 46 U/L ) 78 H ALT (0 - 34 U/L) 25 Total Alk Phosphatase (38 - 126 U/L) 87 Total Protein (6.3 - 8.2 g/dL) 8.0 Albumin (3.5 - 5.0 g/dL) 4.6 Triglycerides (mg/dL) 120 Cholesterol (mg/dL) 173 LDL Cholesterol Measurd (32 - 99 mg/dL) 61.54 HDL Cholesterol (40 - 59 mg/dL) 82 H Coronary Risk Interp 2.11 TSH (0.465 - 4.68 MIU/L) 1.050 Laboratory Tests 11/15 11/14 0700 1621 Hematology WBC (5.0 - 12.0 x10 3/uL) 5.8 8.2 RB C (4.70 - 6.10 x10 6/uL) 5.55 5.06 Hgb (14.0 - 18. 0 g/dL) 16.1 14.7 Hct (37.0 - 49.0 %) 49.5 H 45.0 MCV (80 - 94 fL) 89 89 MCH (27 - 31 pg) 29.0 29. 1 MCHC (33 - 37 g/dL) 32.5 L 32.7 L RDW (11.5 - 15.5 %) 13.2 13.5 Plt Count (130 - 400 x10 3/uL) 229 217 MPV (9.4 - 16.4 fL) 9.9 9.9 Neut % (Auto ) (43 - 65 %) 73.4 H 82.1 H Lymph % (Auto) (20.5 - 45.5 %) 16.1 L 9.8 L Otero % (Auto) (5.5 - 11.7 % ) 8.5 7.6 Eos % (Auto) (0.9 - 2.9 %) 1.4 0.2 L Bas o % (Auto) (0.2 - 1.0 %) 0.3 0.2 Neut # (Auto) (2. 2 - 4.8 x10 3/uL) 4.24 6.73 H Lymph # (Auto) (1.3 - 2.9 x10 3/uL) 0.93 L 0.80 L Otero # (Auto) (0.3 - 0.8 x10 3/uL) 0.49 0.62 Eos # (Auto) (0.0 - 0.2 x10 3/uL) 0.08 0.02 Baso # (Auto) (0.0 - 0.1 x10 3/uL) 0.02 0.02 Immature Gran % (0.0 - 2.0 %) 0. 3 0.1 Nucleated RBC % (0 - 1.0 %) 0.0 0.0 Radiolog y data: Recent Impressions:RADIOLOGY - XR CHEST 2 V 11/15 1122 Report Impression - Status: SIGNED Entered: 11/15/2020 1147 IMPRESSION: No active disease. No pneumothorax.Impression By: Stephanie Casiano DO ECHO Summary: 1. Left ventricle: The cavity size is normal. Wall thickness is normal. Systolic function is normal . The estimated ejection fraction is 65-69%. Wall motion is normal; there are no regional wall motion abnormalities. Left ventricular diastolic function parameters are indeterminate.2. Right ventricle: Systolic function is normal. The RV pressure during systole by Doppler is 36 mm Hg.3 . Aorta: Aortic root (pulmonary autograft) is dilated with a diameter of 4.3 cm. Ascending aorta (pulmonary autograft) is also dilated with a diameter of 4.7 cm/4. Aortic valve: The valve is trileaflet (pulmonary autograft). The leaflet s are normal thickness. There is mild regurgitation.5. Pulmonic valve: Pulmonary homograft is not well visualized. Leaflets appea r normal in thickeness with good leaflet excrusion . Trace regurgitation. Right ventricular outflow tract diameter is small with a diameter of 1.3 cm. Mean gradient across the homograft is 31 mm Hg consistent with moderate stenosis, however calculated valve area is 0.9 cm2 consistent with severe stenosis. Critical result and emergency study reporting: . Correct read-back wasverified . Prepared and electronically signed by Sim Nieves MD11/15/2020 15:43Results: labs reviewed, vital signs stable, x-ray personally reviewed, current med profile rev'd Free Text Ob j NotesFree Text Obj Notes:Constitutional: Patient appears comfortable, no acute distress, bradycardia has been consistent during stay. asymptomatic and chronicEyes: pupils equal, round, reactive to light, no icterusHENT: normal cephalic, 2 small abrassions to forehead, no facial tenderness or crepitus, normal external inspection of ears/nose, no septal hematomaNeck: trachea midline, no crepitus, thyroid without massCV: sinus bradycardia, bilateral radial pulses 2+, no cyanosis, no edema, no pulsatile abdominal massRespiratory: R chest tube in place , dressing clean and dry, suction on, 10ccs output . decreased breath sounds R lung improved from yesterday, clear brath sounds L heart ttp on right ribsAbdomen: soft, non-tender, no massesRectal: deferredGU: pelvis stableLymph nodes: no cervical or supraclavicular masses notedMusculoskeletal:-ttp on right sided ribsSkin: no lacerations, abrasions to forehead, skin warm to palpationPsychiatric: normal mood and affect, memory intact.Neurologic: bilateral upper and lower extremity sensation intact, strength intact, GCS 15 (5M, 6V, 4E) Diagnosis, Assessment PlanFree Text A P:ASSESSMENT:30 year old man presents with trauma related right sided pneumothorax Injuries/Acute Problems:- R PTX - R Lateral 10th and 11th Rib fx Chronic Medical Problems- Congenital Heart Disease- Aortic Aneurysm- Anxiety Consultants- Cardiology - Dr. Rodríguez PLAN Pneumothorax:- R chest tube put to water seal post CXR pending- CXR in AM tomorrow and possible CT removal - Pt to ambulate with PT/OT - Encouraged IS - PT/OT evaluated pt - the y recommend pt is stable and is okay for dispo baltazar e when ready for discharge R10th/11th Rib fracture - Started Tordol - RT orders: IS and flutter- Radha y 2 CXR Aortic AneurysmCongenital Heart Disease- Continue metoprolol 25mg PO daily- Pt has bradycardia at baseline with HR in 50s documente d this hospital stay. Had a thorough discussion with patient about alerting nursing staff if he begins to feel light-headed, dizzy, drowsy, SOB or having chest pain - ECHO resulted, EF 65-69%, Aortic root and ascendign aorta dilation, mild Aortic Regurgitation, moderate to severe Pulmonary stenosis-Cardiology consulted - appreciate recs Anxiety- Home dose of Ativan 1mg started L/D/A: peripheral IV x2 DVT prophylaxis: SCDs, LovenoxGI prophylaxis: not indicatedDiet: regularActivity: PT/OT - ambulate pt Dispo: admi t to surgical floorCode Status: FULL Marie Gomez 11/15/20 2210:Attestations Physician AttestationAgree w/findings plan:Agree with the findings and plan as documented by Aletha (TRINO). Will WS chest tube x 24 hrs. 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 Patient will underg o Echo and cardiology will be notified for recommendations. at 1726 RPT #:[id number] OF REPORTPRProgress [id number]:21:00C.[id number] aimee able for patient [id number]:12:21 2020-11-15 14:21:00 [id number]:21:00 [facility] ([facility])Trauma Progress NoteREPORT#:[id number] REPORT STATUS: SignedDATE:11/15/20 TIME: 142 PATIENT: JEREMY FERNANDEZ UNIT #: [id number]#: [id number] [address]: [address] AGE: 30 SEX: M ATTEND: Marie Gomez [facility] AUTHOR: Aletha Toscano PA-C * ALL edits or amendments must be made on the electronic/computer document * Aletha Toscano 11/15/20 1421:SubjectiveChief Complaint:right side rib painHPI:Pt doing well, no complaints overnight. Objective Physical ExamVS/I O:Vital Signs: Date Time Temp Pulse Resp B/P B/P Pulse O 2 O2 Flow FiO2 Mean Ox Delivery Rate 11/15 1304 98.6 53 16 154/93 113.2 99 Room air 11/15 0921 98.1 57 16 119/72 88.0 98 Room air 11/15 09 98.2 50 16 100 Room air 11/15 0425 98.6 70 17 145/93 110.4 98 Room air 11/15 0020 99.0 51 17 152/75 100.8 99 Room air 11/14 2026 99.3 52 17 158/81 106.7 99 Room air 11/14 1701 98.2 54 18 144/76 98.7 98 Room air 11/14 1453 90 High flow 1 28 nasal cannula 24 hour I O ending at 0700: 11/15 0700 11/14 1900 Intake Total Output Total 400 Balance -400 Number Voids 5 Output, Chest 0 Tube Drainage Output, Urine 400 PATIENT WEIGHT: Weight (lb): Weight (oz): Weight (kg): 75.000 Medications:Active Meds + DC'd Last 24 HrsMetoprolol Tartrate 25 MG Q24H PO Lisinopril 10 MG DAILY PO Amlodipine Besylate 5 MG BEDTIME PO Metoprolol Tartrate 25 MG Q24H PO (DC) Perflutren Lipid Microsphere DIRECTED ONCE OH N IV Sodium Chloride DIRECTED ONCE PRN IV Sodiu m Chloride 5 ML ONCE PRN IV Enoxaparin Sodium 30 MG Q12HR SUBQ Lorazepam 1 MG BID PO Ketorolac Tromethamine 30 MG Q6H PRN PRN IV Lidocaine 1 PATCH DAILY@1700 TOPICAL Ibuprofen 600 MG Q8HR PO Aspirin 81 MG DAILY PO Gabapentin 300 MG BID PO Polyethylene Glycol 1 PKT DAILY PO (CKD) Acetaminophen 650 MG Q6HR PO Oxycodone HCl 5 MG Q6H PRN PRN PO Ondansetron HCl 4 MG Q4H PRN PRN IV Tramadol HCl 50 MG Q6H PRN PRN PO ResultsFindings/Data:Laboratory Tests 11/15 10/26 1 11/14 0700 1621 1621 Chemistry Sodium (137 - 145 mmol/L) 139 139 Potassium (3.4 - 5.0 mmol/L) 3.8 3.9 Chloride (98 - 107 mmol/L) 105 102 Carbon Dioxide (22 - 30 mmol/L) 27 29 BUN (9 - 20 mg/dL ) 15 15 Creatinine (0.7 - 1.3 mg/dL) 0.6 L 0.8 Glomerular Filtr Rate (>60) 167 120 Glucose (74 - 106 mg/dL) 103 117 H Calcium (8.4 - 10.2 mg/dL) 9.1 9.1 Phosphorus (2.5 - 4.5 mg/dL) 2.6 Magnesium (1.6 - 2.3 mg/dL) 2.3 2.2 Total Bilirubin (0.2 - 1.3 mg/dL) 1.3 Conjugated Bilirubin (0 - 0.3 mg/dL) 0 Unconjugated Bilirubin (0 - 1.1 mg/dL) 1.2 H AST (15 - 46 U/L ) 78 H ALT (0 - 34 U/L) 25 Total Alk Phosphatase (38 - 126 U/L) 87 Total Protein (6.3 - 8.2 g/dL) 8.0 Albumin (3.5 - 5.0 g/dL) 4.6 Triglycerides (mg/dL) 120 Cholesterol (mg/dL) 173 LDL Cholesterol Measurd (32 - 99 mg/dL) 61.54 HDL Cholesterol (40 - 59 mg/dL) 82 H Coronary Risk Interp 2.11 TSH (0.465 - 4.68 MIU/L) 1.050 Laboratory Tests 11/15 11/14 0700 1621 Hematology WBC (5.0 - 12.0 x10 3/uL) 5.8 8.2 RBC (4.70 - 6.10 x10 6/uL) 5.55 5.06 Hgb (14.0 - 18. 0 g/dL) 16.1 14.7 Hct (37.0 - 49.0 %) 49.5 H 45.0 MCV (80 - 94 fL) 89 89 MCH (27 - 31 pg) 29.0 29. 1 MCHC (33 - 37 g/dL) 32.5 L 32.7 L RDW (11.5 - 15.5 %) 13.2 13.5 Plt Count (130 - 400 x10 3/uL) 229 217 MPV (9.4 - 16.4 fL) 9.9 9.9 Neut % (Auto) (43 - 65 %) 73.4 H 82.1 H Lymph % (Auto) (20.5 - 45.5 %) 16.1 L 9.8 L Otero % (Auto) (5.5 - 11.7 %) 8.5 7.6 Eos % (Auto) (0.9 - 2.9 %) 1.4 0.2 L Baso % (Auto) (0.2 - 1.0 %) 0.3 0.2 Neut # (Auto) (2.2 - 4.8 x10 3/uL) 4.24 6.73 H Lymph # (Auto) (1.3 - 2.9 x10 3/uL) 0.93 L 0.80 L Otero # (Auto) (0.3 - 0.8 x10 3/uL) 0.49 0.62 Eos # (Auto) (0.0 - 0.2 x10 3/uL) 0.08 0.02 Baso # (Auto) (0.0 - 0.1 x10 3/uL) 0.02 0.02 Immature Gran % (0.0 - 2.0 %) 0.3 0.1 Nucleated RBC % (0 - 1.0 %) 0.0 0.0 Radiology data: Recent Impressions:RADIOLOGY - XR CHEST 2 V 11/15 1122 Report Impression - Status: SIGNED Entered: 11/15/2020 1147 IMPRESSION: No active disease. No pneumothorax.Impression By: Stephanie Casiano DO ECHO Summary: 1. Left ventricle: The cavity size is normal. Wall thickness is normal. Systolic function is normal . The estimated ejection fraction is 65-69%. Wall motion is normal; there are no regional wall motion abnormalities. Left ventricular diastolic function parameters are indeterminate.2. Right ventricle: Systolic function is normal. The RV pressure during systole by Doppler is 36 mm Hg.3 . Aorta: Aortic root (pulmonary autograft) is dilated with a diameter of 4.3 cm. Ascending aorta (pulmonary autograft) is also dilated with a diameter of 4.7 cm/4. Aortic valve: The valve is trileaflet (pulmonary autograft). The leaflet s are normal thickness. There is mild regurgitation.5. Pulmonic valve: Pulmonary homograft is not well visualized. Leaflets appea r normal in thickeness with good leaflet excrusion . Trace regurgitation. Right ventricular outflow tract diameter is small with a diameter of 1.3 cm. Mean gradient across the homograft is 31 mm Hg consistent with moderate stenosis, however calculated valve area is 0.9 cm2 consistent with severe stenosis. Critical result and emergency study reporting: . Correct read-back wasverified . Prepared and electronically signed by Sim Nieves MD11/15/2020 15:43Results: labs reviewed, vital signs stable, x-ray personally reviewed, current med profile rev'd Free Text Ob j NotesFree Text Obj Notes:Constitutional: Patient appears comfortable, no acute distress, bradycardia has been consistent during stay. asymptomatic and chronicEyes: pupils equal, round, reactive to light, no icterusHENT: normal cephalic, 2 small abrassions to forehead, no facial tenderness or crepitus, normal external inspection of ears/nose, no septal hematomaNeck: trachea midline, no crepitus, thyroid without massCV: sinus bradycardia, bilateral radial pulses 2+, no cyanosis, no edema, no pulsatile abdominal massRespiratory: R chest tube in place , dressing clean and dry, suction on, 10ccs output . decreased breath sounds R lung improved from yesterday, clear brath sounds L heart ttp on right ribsAbdomen: soft, non-tender, no massesRectal: deferredGU: pelvis stableLymph nodes: no cervical or supraclavicular masses notedMusculoskeletal:-ttp on right sided ribsSkin: no lacerations, abrasions to forehead, skin warm to palpationPsychiatric: normal mood and affect, memory intact.Neurologic: bilateral upper and lower extremity sensation intact, strength intact, GCS 15 (5M, 6V, 4E) Diagnosis, Assessment PlanFree Text A P:ASSESSMENT:30 year old man presents with trauma related right sided pneumothorax Injuries/Acute Problems:- R PTX - R Lateral 10th and 11th Rib fx Chronic Medical Problems- Congenital Heart Disease- Aortic Aneurysm- Anxiety Consultants- Cardiology - Dr. Rodríguez PLAN Pneumothorax:- R chest tube put to water seal post CXR pending- CXR in AM tomorrow and possible CT removal - Pt to ambulate with PT/OT - Encouraged IS - PT/OT evaluated pt - the y recommend pt is stable and is okay for dispo baltazar e when ready for discharge R10th/11th Rib fracture - Started Tordol - RT orders: IS and flutter- Radha y 2 CXR Aortic AneurysmCongenital Heart Disease- Continue metoprolol 25mg PO daily- Pt has bradycardia at baseline with HR in 50s documente d this hospital stay. Had a thorough discussion with patient about alerting nursing staff if he begins to feel light-headed, dizzy, drowsy, SOB or having chest pain - ECHO resulted, EF 65-69%, Aortic root and ascendign aorta dilation, mild Aortic Regurgitation, moderate to severe Pulmonary stenosis-Cardiology consulted - appreciate recs Anxiety- Home dose of Ativan 1mg started L/D/A: peripheral IV x2 DVT prophylaxis: SCDs, LovenoxGI prophylaxis: not indicatedDiet: regularActivity: PT/OT - ambulate pt Dispo: admi t to surgical floorCode Status: FULL Marie Gomez 11/15/20 2210:Attestations Physician AttestationAgree w/findings plan:Agree with the findings and plan as documented by Aletha HILLS). Will WS chest tube x 24 hrs. 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 Patient will underg o Echo and cardiology will be notified for recommendations. at 1726 RPT #:[id number] OF REPORTPRProgress [id number]:21:00C.[id number] l able for patient [id number]:12:21 2020-11-15 14:21:00 [id number]:21:00 [facility])Trauma Progress NoteREPORT#:[id number] REPORT STATUS: SignedDATE:11/15/20 TIME: 1421 PATIENT: JEREMY FERNANDEZ UNIT #: [id number]#: [id number] [address] AGE: 30 SEX: M ATTEND: Marie Gomez [facility] AUTHOR: Aletha Toscano PA-C * ALL edits or amendments must be made on the electronic/computer document * Aletha Toscano 11/15/20 1421:SubjectiveChief Complaint:right side rib painHPI:Pt doing well, no complaints overnight. Objective Physical ExamVS/I O:Vital Signs: Date Time Temp Pulse Resp B/P B/P Pulse O2 O2 Flow FiO2 Mean Ox Delivery Rate 11/15 1304 98.6 53 16 154/93 113.2 99 Room air 11/15 920 98.1 57 16 119/72 88.0 98 Room air 11/15 920 98.2 50 16 100 Room air 11/155 98.6 70 17 145/93 110.4 98 Room air 11/15 0020 99.0 51 17 152/75 100.8 99 Room air 11/14 2026 99.3 52 17 158/81 106.7 99 Room air 11/14 1701 98.2 54 18 144/76 98.7 98 Room air 11/14 1453 90 High flow 1 28 nasal cannula 24 hour I O ending at 0700: 11/15 0700 11/14 1900 Intake Total Output Total 400 Balance -400 Number Voids 5 Output, Chest 0 Tube Drainage Output, Urine 400 PATIENT WEIGHT: Weight (lb): Weight (oz): Weight (kg): 75.000 Medications:Active Meds + DC'd Last 24 HrsMetoprolol Tartrate 25 MG Q24H PO Lisinopril 10 MG DAILY PO Amlodipine Besylate 5 MG BEDTIME PO Metoprolol Tartrate 25 MG Q24H PO (DC) Perflutren Lipid Microsphere DIRECTED ONCE OH N IV Sodium Chloride DIRECTED ONCE PRN IV Sodiu m Chloride 5 ML ONCE PRN IV Enoxaparin Sodium 30 M G Q12HR SUBQ Lorazepam 1 MG BID PO Ketorolac Tromethamine 30 MG Q6H PRN PRN IV Lidocaine 1 PATCH DAILY@1700 TOPICAL Ibuprofen 600 MG Q8HR PO Aspirin 81 MG DAILY PO Gabapentin 300 MG BID PO Polyethylene Glycol 1 PKT DAILY PO (CKD) Acetaminophen 650 MG Q6HR PO Oxycodone HCl 5 MG Q6H PRN PRN PO Ondansetron HCl 4 MG Q4H PRN PRN IV Tramadol HCl 50 MG Q6H PRN PRN PO ResultsFindings/Data:Laboratory Tests 11/15 10/26 1 11/14 0700 1621 1621 Chemistry Sodium (137 - 145 mmol/L) 139 139 Potassium (3.4 - 5.0 mmol/L) 3.8 3.9 Chloride (98 - 107 mmol/L) 105 102 Carbon Dioxide (22 - 30 mmol/L) 27 29 BUN (9 - 20 mg/dL ) 15 15 Creatinine (0.7 - 1.3 mg/dL) 0.6 L 0.8 Glomerular Filtr Rate (>60) 167 120 Glucose (74 - 106 mg/dL) 103 117 H Calcium (8.4 - 10.2 mg/dL) 9.1 9.1 Phosphorus (2.5 - 4.5 mg/dL) 2.6 Magnesium (1.6 - 2.3 mg/dL) 2.3 2.2 Total Bilirubin (0.2 - 1.3 mg/dL) 1.3 Conjugated Bilirubin (0 - 0.3 mg/dL) 0 Unconjugated Bilirubin (0 - 1.1 mg/dL) 1.2 H AST (15 - 46 U/L ) 78 H ALT (0 - 34 U/L) 25 Total Alk Phosphatase (38 - 126 U/L) 87 Total Protein (6.3 - 8.2 g/dL) 8.0 Albumin (3.5 - 5.0 g/dL) 4.6 Triglycerides (mg/dL) 120 Cholesterol (mg/dL) 173 LDL Cholesterol Measurd (32 - 99 mg/dL) 61.54 HDL Cholesterol (40 - 59 mg/dL) 82 H Coronary Risk Interp 2.11 TSH (0.465 - 4.68 MIU/L) 1.050 Laboratory Tests 11/15 11/14 0700 1621 Hematology WBC (5.0 - 12.0 x10 3/uL) 5.8 8.2 RB C (4.70 - 6.10 x10 6/uL) 5.55 5.06 Hgb (14.0 - 18. 0 g/dL) 16.1 14.7 Hct (37.0 - 49.0 %) 49.5 H 45.0 MCV (80 - 94 fL) 89 89 MCH (27 - 31 pg) 29.0 29. 1 MCHC (33 - 37 g/dL) 32.5 L 32.7 L RDW (11.5 - 15.5 %) 13.2 13.5 Plt Count (130 - 400 x10 3/uL) 229 217 MPV (9.4 - 16.4 fL) 9.9 9.9 Neut % (Auto) (43 - 65 %) 73.4 H 82.1 H Lymph % (Auto) (20.5 - 45.5 %) 16.1 L 9.8 L Otero % (Auto) (5.5 - 11.7 %) 8.5 7.6 Eos % (Auto) (0.9 - 2.9 %) 1.4 0.2 L Baso % (Auto) (0.2 - 1.0 %) 0.3 0.2 Neut # (Auto) (2.2 - 4.8 x10 3/uL) 4.24 6.73 H Lymph # (Auto) (1.3 - 2.9 x10 3/uL) 0.93 L 0.80 L Otero # (Auto) (0.3 - 0.8 x10 3/uL) 0.49 0.62 Eos # (Auto) (0.0 - 0.2 x10 3/uL) 0.08 0.02 Baso # (Auto) (0.0 - 0.1 x10 3/uL) 0.02 0.02 Immature Gran % (0.0 - 2.0 %) 0.3 0.1 Nucleated RBC % (0 - 1.0 %) 0.0 0.0 Radiology data: Recent Impressions:RADIOLOGY - XR CHEST 2 V 11/15 1122 Report Impression - Status: SIGNED Entered: 11/15/2020 1147 IMPRESSION: No active disease. No pneumothorax.Impression By: Stephanie Casiano DO ECHO Summary: 1. Left ventricle: The cavity size is normal. Wall thickness is normal. Systolic function is normal . The estimated ejection fraction is 65-69%. Wall motion is normal; there are no regional wall motion abnormalities. Left ventricular diastolic function parameters are indeterminate.2. Right ventricle: Systolic function is normal. The RV pressure during systole by Doppler is 36 mm Hg.3 . Aorta: Aortic root (pulmonary autograft) is dilated with a diameter of 4.3 cm. Ascending aorta (pulmonary autograft) is also dilated with a diameter of 4.7 cm/4. Aortic valve: The valve is trileaflet (pulmonary autograft). The leaflet s are normal thickness. There is mild regurgitation.5. Pulmonic valve: Pulmonary homograft is not well visualized. Leaflets appea r normal in thickeness with good leaflet excrusion . Trace regurgitation. Right ventricular outflow tract diameter is small with a diameter of 1.3 cm. Mean gradient across the homograft is 31 mm Hg consistent with moderate stenosis, however calculated valve area is 0.9 cm2 consistent with severe stenosis. Critical result and emergency study reporting: . Correct read-back wasverified . Prepared and electronically signed by Sim Nieves MD11/15/2020 15:43Results: labs reviewed, vital signs stable, x-ray personally reviewed, current med profile rev'd Free Text Ob j NotesFree Text Obj Notes:Constitutional: Patient appears comfortable, no acute distress, bradycardia has been consistent during stay. asymptomatic and chronicEyes: pupils equal, round, reactive to light, no icterusHENT: normal cephalic, 2 small abrassions to forehead, no facial tenderness or crepitus, normal external inspection of ears/nose, no septal hematomaNeck: trachea midline, no crepitus, thyroid without massCV: sinus bradycardia, bilateral radial pulses 2+, no cyanosis, no edema, no pulsatile abdominal massRespiratory: R chest tube in place , dressing clean and dry, suction on, 10ccs output . decreased breath sounds R lung improved from yesterday, clear brath sounds L heart ttp on right ribsAbdomen: soft, non-tender, no massesRectal: deferredGU: pelvis stableLymph nodes: no cervical or supraclavicular masses notedMusculoskeletal:-ttp on right sided ribsSkin: no lacerations, abrasions to forehead, skin warm to palpationPsychiatric: normal mood and affect, memory intact.Neurologic: bilateral upper and lower extremity sensation intact, strength intact, GCS 15 (5M, 6V, 4E) Diagnosis, Assessment PlanFree Text A P:ASSESSMENT:30 year old man presents with trauma related right sided pneumothorax Injuries/Acute Problems:- R PTX - R Lateral 10th and 11th Rib fx Chronic Medical Problems- Congenital Heart Disease- Aortic Aneurysm- Anxiety Consultants- Cardiology - Dr. Rodríguez PLAN Pneumothorax:- R chest tube put to water seal post CXR pending- CXR in AM tomorrow and possible CT removal - Pt to ambulate with PT/OT - Encouraged IS - PT/OT evaluated pt - the y recommend pt is stable and is okay for dispo baltazar e when ready for discharge R10th/11th Rib fracture - Started Tordol - RT orders: IS and flutter- Radha y 2 CXR Aortic AneurysmCongenital Heart Disease- Continue metoprolol 25mg PO daily- Pt has bradycardia at baseline with HR in 50s documente d this hospital stay. Had a thorough discussion with patient about alerting nursing staff if he begins to feel light-headed, dizzy, drowsy, SOB or having chest pain - ECHO resulted, EF 65-69%, Aortic root and ascendign aorta dilation, mild Aortic Regurgitation, moderate to severe Pulmonary stenosis-Cardiology consulted - appreciate recs Anxiety- Home dose of Ativan 1mg started L/D/A: peripheral IV x2 DVT prophylaxis: SCDs, LovenoxGI prophylaxis: not indicatedDiet: regularActivity: PT/OT - ambulate pt Dispo: admi t to surgical floorCode Status: FULL Marie Gomez 11/15/20 2210:Attestations Physician AttestationAgree w/findings plan:Agree with the findings and plan as documented by Aletha (TRINO). Will WS chest tube x 24 hrs. 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 Patient will underg o Echo and cardiology will be notified for recommendations. at 1726 at 2212 RPT #:[id number] OF REPORTPRProgress [id number]:21:00C.[id number] aimee able for patient rryhIVWNCIFPNBTUME2938-65-83A85:12:31 2020-11-15 09:08:00 [id number]:08:00 [facility])Cardiology Progress NoteREPORT#:[id number] REPORT STATUS: SignedDATE:11/15/20 TIME: 0908 PATIENT: JEREMY FERNANDEZ UNIT #: [id number]#: [id number] [address]NJMD: [address] AGE: 30 SEX: M ATTEND: Marie Gomez [facility] AUTHOR: Kenroy Rodríguez MD * ALL edits or amendments must be made on the electronic/computer document * SubjectiveChief Complaint:Seen and examined.Feeling better.Right-sided chest tube remains in place.N o dyspnea. 24-hour telemetry -SR/sinus bradycardia , occasional PVCs Objective GeneralVS/I O:24 hour I O ending at 0700: 11/15 0700 11/14 1900 Intake Total Output Total 400 Balance -400 Number Void s 5 Output, Chest 0 Tube Drainage Output, Urine 400 Vital Signs: Date Time Temp Pulse Resp B/P B/P Pulse O2 O2 Flow FiO2 Mean Ox Delivery Rate 11/15 0425 98.6 70 17 145/93 110.4 98 Room air 11/15 0020 99.0 51 17 152/75 100.8 99 Room air 11/14 2026 99.3 52 17 158/81 106.7 99 Room air 11/14 1701 98.2 54 18 144/76 98.7 98 Room air 11/14 1453 90 High flow 1 28 nasal cannula PATIENT WEIGHT: Weight (lb): Weight (oz): Weight (kg): 75.000 Medications:Active Meds + DC'd Last 24 HrsLisinopril 10 MG DAILY PO Amlodipine Besylate 5 MG BEDTIME PO Lisinopril 10 MG Q12H P O (DC) Metoprolol Tartrate 25 MG Q24H PO Perflutre n Lipid Microsphere DIRECTED ONCE PRN IV Sodium Chloride DIRECTED ONCE PRN IV Sodium Chloride 5 ML ONCE PRN IV Enoxaparin Sodium 30 MG Q12HR SUBQ Lorazepam 1 MG BID PO Lisinopril 10 MG RADHA Y PO (DC) Ketorolac Tromethamine 30 MG Q6H PRN PRN IV Lidocaine 1 PATCH DAILY@1700 TOPICAL Ibuprofe n 600 MG Q8HR PO Aspirin 81 MG DAILY PO Gabapentin 300 MG BID PO Polyethylene Glycol 1 PKT DAILY PO (CKD) Acetaminophen 650 MG Q6HR PO Oxycodone HC l 5 MG Q6H PRN PRN PO Ondansetron HCl 4 MG Q4H PRN PRN IV Tramadol HCl 50 MG Q6H PRN PRN PO Physica l ExamGeneral appearance: alert, awake, oriented, no acute distressHead/Eyes: atraumatic, EOMI, normocephalic, PERRLENT: moist mucosal membranes , normal noseNeck: supple/no meningismus, no bruit/NL carotids, no JVDCardiovascular: CV assessment: regular rate and rhythm, BP pulses = bilaterally Murmur assessment:III/ SEMRespiratory: clear to auscultation, no distressAbdomen: soft, non-tender, normal bowel sounds, no distentionUpper extremity: UE assessment: no edema, 2+ radial pulseLower extremity: LE assessment: no clubbing, no cyanosis, no edemaMusculoskeletal: normal inspectionNeuro/COSMETOLOGY PROFESSOR: alert, oriented X 3, CN II-XII intactSkin: dry, intactPsychiatry: normal affect, normal mood ResultsFindings/Data:Laboratory Tests 11/15 0700 1621 1621 Chemistry Sodium (137 - 14 5 mmol/L) 139 139 Potassium (3.4 - 5.0 mmol/L) 3. 8 3.9 Chloride (98 - 107 mmol/L) 105 102 Carbon Dioxide (22 - 30 mmol/L) 27 29 BUN (9 - 20 mg/dL ) 15 15 Creatinine (0.7 - 1.3 mg/dL) 0.6 L 0.8 Glomerular Filtr Rate (>60) 167 120 Glucose (74 - 106 mg/dL) 103 117 H Calcium (8.4 - 10.2 mg/dL) 9.1 9.1 Phosphorus (2.5 - 4.5 mg/dL) 2.6 Magnesium (1.6 - 2.3 mg/dL) 2.3 2.2 Total Bilirubin (0.2 - 1.3 mg/dL) 1.3 Conjugated Bilirubin (0 - 0.3 mg/dL) 0 Unconjugated Bilirubin (0 - 1.1 mg/dL) 1.2 H AST (15 - 46 U/L ) 78 H ALT (0 - 34 U/L) 25 Total Alk Phosphatase (38 - 126 U/L) 87 Total Protein (6.3 - 8.2 g/dL ) 8.0 Albumin (3.5 - 5.0 g/dL) 4.6 Triglycerides (mg/dL) 120 Cholesterol (mg/dL) 173 LDL Cholesterol Measurd (32 - 99 mg/dL) 61.54 HDL Cholesterol (40 - 59 mg/dL) 82 H Coronary Risk Interp 2.11 TSH (0.465 - 4.68 MIU/L) 1.050 Laboratory Tests 11/15 11/14 0700 1621 Hematology WBC (5.0 - 12.0 x10 3/uL) 5.8 8.2 RBC (4.70 - 6.10 x10 6/uL) 5.55 5.06 Hgb (14.0 - 18.0 g/dL) 16.1 14.7 Hct (37.0 - 49.0 %) 49.5 H 45.0 MCV (80 - 94 fL) 89 89 MCH (27 - 31 pg) 29.0 29.1 MCHC (33 - 37 g/dL) 32.5 L 32.7 L RDW (11.5 - 15.5 %) 13.2 13.5 Plt Count (130 - 400 x10 3/uL) 229 217 MPV (9.4 - 16.4 fL) 9.9 9.9 Neut % (Auto) (43 - 65 %) 73.4 H 82.1 H Lymph % (Auto) (20.5 - 45.5 %) 16.1 L 9.8 L Otero % (Auto ) (5.5 - 11.7 %) 8.5 7.6 Eos % (Auto) (0.9 - 2.9 % ) 1.4 0.2 L Baso % (Auto) (0.2 - 1.0 %) 0.3 0.2 Neut # (Auto) (2.2 - 4.8 x10 3/uL) 4.24 6.73 H Lymph # (Auto) (1.3 - 2.9 x10 3/uL) 0.93 L 0.80 L Otero # (Auto) (0.3 - 0.8 x10 3/uL) 0.49 0.62 Eo s # (Auto) (0.0 - 0.2 x10 3/uL) 0.08 0.02 Baso # (Auto) (0.0 - 0.1 x10 3/uL) 0.02 0.02 Immature Gran % (0.0 - 2.0 %) 0.3 0.1 Nucleated RBC % (0 - 1.0 %) 0.0 0.0 Laboratory Tests 11/15 11/14 0700 1621 Chemistry Magnesium (1.6 - 2.3 mg/dL) 2.3 2.2 Radiology data:Recent Impressions:RADIOLOGY - XR CHEST 1 V 11/14 0937 Report Impression - Status: SIGNED Entered: 11/14/2020 0949 IMPRESSION: Right-sided chest tube is unchanged. No pneumothorax. Lungs are clear.Impression By: [email or web address] - De Deleon MD Diagnosis, Assessment Plan Free Text DxA P NotesFree Text DxA P Notes:Impression: #S/p fall with right 10t h rib fracture and right PTX -s/p right CT placement. CXR shows PTX resolved. CT removal soon per trauma team.#5 cm ascending aortic aneurysm -no dissection on CT. Follow-up echo. Likely old and related to previous congenital heart disease.#Congenital aortic stenosis s/p balloon valvuloplasty at followed by Ross procedure (pulmonic valve placed in the aortic position with pulmonary homograftreplacement) at 14 years old. -Murmur on tbip-Oelvjc-as echo.-Requested records from Dr. Spear at [facility] but not received yet. #Sinus bradycardia -benign. No pauses or high-grade AV block. Normal TSH. Echo pending. We will continu e to follow along.Follow-up with primary energy economist at [facility] on discharge. at 0913 RPT #:[id number] OF REPORTPRProgress [id number]:08:00C.[id number] l [facility] for patient tllpAUKOASQUPTGPQQ2435-69-97Z10:13:51 2020-11-14 13:09:00 [id number]:09:00 [facility])Trauma Progress NoteREPORT#:[id number] REPORT STATUS: SignedDATE:11/14/20 TIME: 1309 PATIENT: JEREMY FERNANDEZ UNIT #: [id number]#: [id number] [address]-EAMT: 89 AGE: 30 SEX: M ATTEND: Marie Gomez AUTHOR: Aletha Toscano PA-C * ALL edits or amendments must be made on the electronic/computer document * SubjectiveChief Complaint:right side rib painHPI:Yesterday chest tube was placed for concern of evolving tension PTX. Overnight pt became agitated and unplugged his chest tube from suction. Today he is more amenable to keeping chest tube in place and understands importance of chest tubefor PTX. Family reports that pt takes Ativan 1mg outpatient and that it may helpwith his agitation. No other complaints at this time. Objective Physical ExamVS/I O:Vital Signs: Date Time Temp Pulse Resp B/P B/P Pulse O2 O2 Flow FiO2 Mean Ox Delivery Rate 11/14 08 98.8 48 16 145/79 101.3 100 Room air 11/14 040 98.2 50 17 140/86 103.7 100 Nasal cannula 11/15 251 97.9 7 7 18 151/81 104.3 96 11/13 2348 98.1 42 17 165/73 103.8 100 CPAP 11/14 2235 99 Non 10 100 rebreather mask 11/13 2042 97.9 52 16 155/81 105.2 100 CPAP 11/13 2024 Non 15 rebreather mas k 11/13 1630 61 19 131/77 95.3 100 11/13 1536 98. 6 63 12 134/93 106.2 100 Room air 24 hour I O ending at 0700: 11/14 0700 11/13 1900 Intake Total Output Total 100 Balance -100 Output, Urin e 100 PATIENT WEIGHT: Weight (lb): Weight (oz): Weight (kg): 75.000 Medications:Active Meds + DC'd Last 24 HrsLisinopril 10 MG DAILY PO Amlodipine Besylate 5 MG BEDTIME PO Lisinopril 1 0 MG Q12H PO (DC) Perflutren Lipid Microsphere DIRECTED ONCE PRN IV Sodium Chloride DIRECTED ONCE PRN IV Sodium Chloride 5 ML ONCE PRN IV Enoxaparin Sodium 30 MG Q12HR SUBQ Lorazepam 1 M G BID PO Lisinopril 10 MG DAILY PO (DC) Ketorolac Tromethamine 30 MG Q6H PRN PRN IV Lidocaine HCl 30 ML ONCE ONE INJ (DC) Lidocaine 1 PATCH DAILY@1700 TOPICAL Ibuprofen 600 MG Q8HR PO Aspirin 81 MG DAILY PO Gabapentin 300 MG BID PO Polyethylene Glycol 1 PKT DAILY PO (CKD) Acetaminophen 650 MG Q6HR PO Morphine Sulfate 4 MG Q3H PRN PRN IV (DC) Oxycodone HCl 5 MG Q6H OH N PRN PO Ondansetron HCl 4 MG Q4H PRN PRN IV Tramadol HCl 50 MG Q6H PRN PRN PO ResultsFindings/Data:Laboratory Tests 11/14 249 Chemistry POC Glucose (74 - 106 MG/DL) 140 H Radiology data:Recent Impressions:RADIOLOGY - XR CHEST 1 V 11/13 1823 Report Impression - Status: SIGNED Entered: 11/13/2020 1851 IMPRESSION:Large right pneumothorax which is significantly enlarged compared tothe prior examination. There is minimal leftward shift of themediastinum concerning for tension component. The above findings were discussed with Dr. Lanedros with the trauma teamat 6:47 PM via telephone. Impression By: [email or web address] - Jenna Botello MDRADIOLOGY - XR CHEST 1 V 11/14 1999 Report Impression - Status: SIGNED Entered: 11/13/2020 2030 Impression:1. Placement of right-sided ches t tube with resolution of right-sidedpneumothorax.Impression By: [email or web address] - Krzysztof Jett MDRADIOLOGY - XR CHEST 1 V 11/14 0349 Report Impression - Status: SIGNED Entered: 11/14/2020 0416 IMPRESSION: Stable ches t radiograph without appreciable pneumothorax.Impression By: [email or web address] - Vandana Radford MDRADIOLOGY - XR CHEST 1 V 11/14 0937 Report Impression - Status: SIGNED Entered: 11/14/2020 0944 IMPRESSION: Right-sided chest tube is unchanged. No pneumothorax. Lungs are clear.Impression By: [email or web address] - De Mcginnis Results: vital signs stable, x-ray personally reviewed, current med profile rev'd Free Text Ob j NotesFree Text Obj Notes:Constitutional: Patient appears comfortable, no acute distress, bradycardia has been consistent during stay. asymptomatic and chronicEyes: pupils equal, round, reactive to light, no icterusHENT: normal cephalic, 2 small abrassions to forehead, no facial tenderness or crepitus, normal external inspection of ears/nose, no septal hematomaNeck: trachea midline, no crepitus, thyroid without massCV: sinus bradycardia, bilateral radial pulses 2+, no cyanosis, no edema, no pulsatile abdominal massRespiratory: R chest tube in place , dressing clean and dry, suction on, 10ccs output . decreased breath sounds R lung improved from yesterday, clear brath sounds L heart ttp on right ribsAbdomen: soft, non-tender, no massesRectal: deferredGU: pelvis stableLymph nodes: no cervical or supraclavicular masses notedMusculoskeletal:-ttp on right sided ribsSkin: no lacerations, abrasions to forehead, skin warm to palpationPsychiatric: normal mood and affect, memory intact.Neurologic: bilateral upper and lower extremity sensation intact, strength intact, GCS 15 (5M, 6V, 4E) Diagnosis, Assessment PlanFree Text A P:ASSESSMENT:30 year old man presents with trauma related right sided pneumothorax Injuries/Acute Problems:- R PTX - R Lateral 10th and 11th Rib fx Chronic Medical Problems- Congenital Heart Disease- Aortic Aneurysm- Anxiety Consultants- Cardiology - Dr. Rodríguez PLAN Pneumothorax:- R chest tube to suction , CXR today improved, poss water seal tomorrow- continue NRB 10L- Pt to ambulate with PT/OT with CT hooked up to suction - discussed today- 2V CX R non-portable tomorrow - Encouraged IS - PT/OT evaluated pt - they recommend pt is stable and i s okay for dispo home when ready for discharge R10th/11th Rib fracture- Started Tordol - RT orders: IS and flutter- Daily 2 CXR Aortic AneurysmCongenital Heart Disease- Plan to restar t Metoprolol Tartrate 25mg PO q daily- Pt has bradycardia at baseline with HR in 50s documente d this hospital stay. Had a thorough discussion with patient about alerting nursing staff if he begins to feel light-headed, dizzy, drowsy, SOB or having chest pain - Cardiology consulted - appreciate recs, will order TSH- ECHO pending Anxiety- Home dose of Ativan 1mg started L/D/A: peripheral IV x2 DVT prophylaxis: SCDs, LovenoxG I prophylaxis: not indicatedDiet: regularActivity: PT/OT - ambulate pt Dispo: admit to surgical floorCode Status: FULL at 1931 RPT #:[id number] OF REPORTPRProgress [id number]:09:00C.[id number] l able for patient wjpyQYFCLCKKFDJGOS2636-27-82D03:31:43 2020-11-14 13:09:00 [id number]:09:00 [facility] ([facility])Trauma Progress NoteREPORT#:[id number] REPORT STATUS: SignedDATE:11/14/20 TIME: 1309 PATIENT: JEREMY FERNANDEZ UNIT #: [id number]#: [id number] [address]XB: 89 AGE: 30 SEX: M ATTEND: Marie Gomez MDADM AUTHOR: Aletha Toscano PA-C * ALL edits or amendments must be made on the electronic/computer document * Aletha Toscano 11/14/20 1309:SubjectiveChief Complaint:right side rib painHPI:Yesterday chest tube was placed for concern of evolving tension PTX. Overnight p t became agitated and unplugged his chest tube fro m suction. Today he is more amenable to keeping chest tube in place and understands importance o f chest tubefor PTX. Family reports that pt takes Ativan 1mg outpatient and that it may helpwith his agitation. No other complaints at this time. Objective Physical ExamVS/I O:Vital Signs: Date Time Temp Pulse Resp B/P B/P Pulse O2 O2 Flow FiO2 Mean Ox Delivery Rate 11/14 0801 98.8 48 16 145/79 101.3 100 Room air 11/14 040 98.2 50 17 140/86 103.7 100 Nasal cannula 11/14 025 97.9 7 7 18 151/81 104.3 96 11/13 2348 98.1 42 17 165/73 103.8 100 CPAP 11/136 99 Non 10 100 rebreather mask 11/13 2042 97.9 52 16 155/81 105.2 100 CPAP 11/13 2024 Non 15 rebreather mas k 11/13 1630 61 19 131/77 95.3 100 11/13 1536 98.6 63 12 134/93 106.2 100 Room air 24 hour I O ending at 0700: 11/14 0700 11/13 1900 Intake Total Output Total 100 Balance -100 Output, Urine 100 PATIENT WEIGHT: Weight (lb): Weight (oz): Weight (kg): 75.000 Medications:Active Med s + DC'd Last 24 HrsLisinopril 10 MG DAILY PO Amlodipine Besylate 5 MG BEDTIME PO Lisinopril 1 0 MG Q12H PO (DC) Perflutren Lipid Microsphere DIRECTED ONCE PRN IV Sodium Chloride DIRECTED ONCE PRN IV Sodium Chloride 5 ML ONCE PRN IV Enoxaparin Sodium 30 MG Q12HR SUBQ Lorazepam 1 M G BID PO Lisinopril 10 MG DAILY PO (DC) Ketorolac Tromethamine 30 MG Q6H PRN PRN IV Lidocaine HCl 30 ML ONCE ONE INJ (DC) Lidocaine 1 PATCH DAILY@1700 TOPICAL Ibuprofen 600 MG Q8HR PO Aspirin 81 MG DAILY PO Gabapentin 300 MG BID PO Polyethylene Glycol 1 PKT DAILY PO (CKD) Acetaminophen 650 MG Q6HR PO Morphine Sulfate 4 MG Q3H PRN PRN IV (DC) Oxycodone HCl 5 MG Q6H PRN PRN PO Ondansetron HCl 4 MG Q4H PRN PRN IV Tramadol HCl 50 MG Q6H PRN PRN PO ResultsFindings/Data:Laboratory Tests 11/14 025 0 Chemistry POC Glucose (74 - 106 MG/DL) 140 H Radiology data:Recent Impressions:RADIOLOGY - XR CHEST 1 V 11/13 1823 Report Impression - Status: SIGNED Entered: 11/13/2020 1851 IMPRESSION:Large right pneumothorax which is significantly enlarged compared tothe prior examination. There is minimal leftward shift of themediastinum concerning for tension component. The above findings were discussed with Dr. Landeros with the trauma teamat 6:47 PM via telephone. Impression By: 16 Yossi Botello MDRADIOLOGY - XR CHEST 1 V 11/14 1999 Report Impression - Status: SIGNED Entered: 11/13/20202029 Impression:1. Placement of right-sided ches t tube with resolution of right-sidedpneumothorax.Impression By: [email or web address] - Krzysztof Frausto MDRADIOLOGY - XR CHEST 1 V 11/14 0349 Report Impression - Status: SIGNED Entered: 11/14/2020 0416 IMPRESSION: Stable ches t radiograph without appreciable pneumothorax.Impression By: [email or web address] Yossi Radford MDRADIOLOGY - XR CHEST 1 V 11/14 0937 Report Impression - Status: SIGNED Entered: 11/14/2020 0944 IMPRESSION: Right-sided chest tube is unchanged. No pneumothorax. Lungs are clear.Impression By: [email or web address] - De Mcginnis Results: vital signs stable, x-ray personally reviewed, current med profile rev'd Free Text Ob j NotesFree Text Obj Notes:Constitutional: Patient appears comfortable, no acute distress, bradycardia has been consistent during stay. asymptomatic and chronicEyes: pupils equal, round, reactive to light, no icterusHENT: normal cephalic, 2 small abrassions to forehead, no facial tenderness or crepitus, normal external inspection of ears/nose, no septal hematomaNeck: trachea midline, no crepitus, thyroid without massCV: sinus bradycardia, bilateral radial pulses 2+, no cyanosis, no edema, no pulsatile abdominal massRespiratory: R chest tube in place , dressing clean and dry, suction on, 10ccs output . decreased breath sounds R lung improved from yesterday, clear brath sounds L heart ttp on right ribsAbdomen: soft, non-tender, no massesRectal: deferredGU: pelvis stableLymph nodes: no cervical or supraclavicular masses notedMusculoskeletal:-ttp on right sided ribsSkin: no lacerations, abrasions to forehead, skin warm to palpationPsychiatric: normal mood and affect, memory intact.Neurologic: bilateral upper and lower extremity sensation intact, strength intact, GCS 15 (5M, 6V, 4E) Diagnosis, Assessment PlanFree Text A P:ASSESSMENT:30 year old man presents with trauma related right sided pneumothorax Injuries/Acute Problems:- R PTX - R Lateral 10th and 11th Rib fx Chronic Medical Problems- Congenital Heart Disease- Aortic Aneurysm- Anxiety Consultants- Cardiology - Dr. Rodríguez PLAN Pneumothorax:- R chest tube to suction , CXR today improved, poss water seal tomorrow- continue NRB 10L- Pt to ambulate with PT/OT with CT hooked up to suction - discussed today- 2V CX R non-portable tomorrow - Encouraged IS - PT/OT evaluated pt - they recommend pt is stable and i s okay for dispo home when ready for discharge R10th/11th Rib fracture- Started Tordol - RT orders: IS and flutter- Daily 2 CXR Aortic AneurysmCongenital Heart Disease- Plan to restar t Metoprolol Tartrate 25mg PO q daily- Pt has bradycardia at baseline with HR in 50s documente d this hospital stay. Had a thorough discussion with patient about alerting nursing staff if he begins to feel light-headed, dizzy, drowsy, SOB or having chest pain - Cardiology consulted - appreciate recs, will order TSH- ECHO pending Anxiety- Home dose of Ativan 1mg started L/D/A: peripheral IV x2 DVT prophylaxis: SCDs, LovenoxG I prophylaxis: not indicatedDiet: regularActivity: PT/OT - ambulate pt Dispo: admit to surgical floorCode Status: FULL Marie Gomez 1 1857:Attestations Physician AttestationAgree w/findings plan:Agree with the findings and plan as documented by [place]). at 1931 RPT #:[id number] OF REPORTPRProgress [id number]:09:00C.[id number] l [facility] for patient niqlFCOYNPXGKMQROB0192-15-11R44:57:49 2020-11-14 13:09:00 [id number]:09:00 [facility])Trauma Progress NoteREPORT#:[id number] REPORT STATUS: SignedDATE:11/14/20 TIME: 1309 PATIENT: JEREMY FERNANDEZ UNIT #: [id number]#: [id number] ROOM/BED: [place] [id number]: 89 AGE: 30 SEX: M ATTEND: Marie Gomez [facility] AUTHOR: Aletha Toscano PA-C * ALL edits or amendments must be made on the electronic/computer document * Aletha Toscano 11/14/20 1309:SubjectiveChief Complaint:right side rib painHPI:Yesterday chest tube was placed for concern of evolving tension PTX. Overnight p t became agitated and unplugged his chest tube fro m suction. Today he is more amenable to keeping chest tube in place and understands importance o f chest tubefor PTX. Family reports that pt takes Ativan 1mg outpatient and that it may helpwith his agitation. No other complaints at this time. Objective Physical ExamVS/I O:Vital Signs: Date Time Temp Pulse Resp B/P B/P Pulse O2 O2 Flow FiO2 Mean Ox Delivery Rate 11/14 0801 98.8 48 16 145/79 101.3 100 Room air 11/14 0402 98.2 50 17 140/86 103.7 100 Nasal cannula 11/14 0252 97.9 7 7 18 151/81 104.3 96 11/13 2348 98.1 42 17 165/73 103.8 100 CPAP 11/13 2236 99 Non 10 100 rebreather mask 11/13 2042 97.9 52 16 155/81 105.2 100 CPAP 11/13 2024 Non 15 rebreather mas k 11/13 1630 61 19 131/77 95.3 100 11/13 1536 98. 6 63 12 134/93 106.2 100 Room air 24 hour I O ending at 0700: 11/14 0700 11/13 1900 Intake Total Output Total 100 Balance -100 Output, Urin e 100 PATIENT WEIGHT: Weight (lb): Weight (oz): Weight (kg): 75.000 Medications:Active Meds + DC'd Last 24 HrsLisinopril 10 MG DAILY PO Amlodipine Besylate 5 MG BEDTIME PO Lisinopril 1 0 MG Q12H PO (DC) Perflutren Lipid Microsphere DIRECTED ONCE PRN IV Sodium Chloride DIRECTED ONCE PRN IV Sodium Chloride 5 ML ONCE PRN IV Enoxaparin Sodium 30 MG Q12HR SUBQ Lorazepam 1 MG BID PO Lisinopril 10 MG DAILY PO (DC) Ketorolac Tromethamine 30 MG Q6H PRN PRN IV Lidocaine HCl 30 ML ONCE ONE INJ (DC) Lidocaine 1 PATCH DAILY@1700 TOPICAL Ibuprofen 600 MG Q8HR PO Aspirin 81 MG DAILY PO Gabapentin 300 MG BID PO Polyethylene Glycol 1 PKT DAILY PO (CKD) Acetaminophen 650 MG Q6HR PO Morphine Sulfate 4 MG Q3H PRN PRN IV (DC) Oxycodone HCl 5 MG Q6H OH N PRN PO Ondansetron HCl 4 MG Q4H PRN PRN IV Tramadol HCl 50 MG Q6H PRN PRN PO ResultsFindings/Data:Laboratory Tests 11/14 025 0 Chemistry POC Glucose (74 - 106 MG/DL) 140 H Radiology data:Recent Impressions:RADIOLOGY - XR CHEST 1 V 11/13 1823 Report Impression - Status: SIGNED Entered: 11/13/2020 1851 IMPRESSION:Large right pneumothorax which is significantly enlarged compared tothe prior examination. There is minimal leftward shift of themediastinum concerning for tension component. The above findings were discussed with Dr. Landeros with the trauma teamat 6:47 PM via telephone. Impression By: [email or web address] - Jenna Botello MDRADIOLOGY - XR CHEST 1 V 11/14 1999 Report Impression - Status: SIGNED Entered: 11/13/20202029 Impression:1. Placement of right-sided ches t tube with resolution of right-sidedpneumothorax.Impression By: [email or web address] - Krzysztof Jett MDRADIOLOGY - XR CHEST 1 V 11/14 0349 Report Impression - Status: SIGNED Entered: 11/14/2020 0416 IMPRESSION: Stable ches t radiograph without appreciable pneumothorax.Impression By: [email or web address] - Vandana Radford MDRADIOLOGY - XR CHEST 1 V 11/14 0937 Report Impression - Status: SIGNED Entered: 11/14/2020 0944 IMPRESSION: Right-sided chest tube is unchanged. No pneumothorax. Lungs are clear.Impression By: [email or web address] - De Mcginnis Results: vital signs stable, x-ray personally reviewed, current med profile rev'd Free Text Ob j NotesFree Text Obj Notes:Constitutional: Patient appears comfortable, no acute distress, bradycardia has been consistent during stay. asymptomatic and chronicEyes: pupils equal, round, reactive to light, no icterusHENT: normal cephalic, 2 small abrassions to forehead, no facial tenderness or crepitus, normal external inspection of ears/nose, no septal hematomaNeck: trachea midline, no crepitus, thyroid without massCV: sinus bradycardia, bilateral radial pulses 2+, no cyanosis, no edema, no pulsatile abdominal massRespiratory: R chest tube in place , dressing clean and dry, suction on, 10ccs output . decreased breath sounds R lung improved from yesterday, clear brath sounds L heart ttp on right ribsAbdomen: soft, non-tender, no massesRectal: deferredGU: pelvis stableLymph nodes: no cervical or supraclavicular masses notedMusculoskeletal:-ttp on right sided ribsSkin: no lacerations, abrasions to forehead, skin warm to palpationPsychiatric: normal mood and affect, memory intact.Neurologic: bilateral upper and lower extremity sensation intact, strength intact, GCS 15 (5M, 6V, 4E) Diagnosis, Assessment PlanFree Text A P:ASSESSMENT:30 year old man presents with trauma related right sided pneumothorax Injuries/Acute Problems:- R PTX - R Lateral 10th and 11th Rib fx Chronic Medical Problems- Congenital Heart Disease- Aortic Aneurysm- An[facility]- Cardiology - Dr. Rodríguez PLAN Pneumothorax:- R chest tube to suction , CXR today improved, poss water seal tomorrow- continue NRB 10L- Pt to ambulate with PT/OT with CT hooked up to suction - discussed today- 2V CX R non-portable tomorrow - Encouraged IS - PT/OT evaluated pt - they recommend pt is stable and i s okay for dispo home when ready for discharge R10th/11th Rib fracture- Started Tordol - RT orders: IS and flutter- Daily 2 CXR Aortic AneurysmCongenital Heart Disease- Plan to restar t Metoprolol Tartrate 25mg PO q daily- Pt has bradycardia at baseline with HR in 50s documente d this hospital stay. Had a thorough discussion with patient about alerting nursing staff if he begins to feel light-headed, dizzy, drowsy, SOB or having chest pain - Cardiology consulted - appreciate recs, will order TSH- ECHO pending Anxiety- Home dose of Ativan 1mg started L/D/A: peripheral IV x2 DVT prophylaxis: SCDs, LovenoxG I prophylaxis: not indicatedDiet: regularActivity: PT/OT - ambulate pt Dispo: admit to surgical floorCode Status: FULL Marie Gomez 1856:Attestations Physician AttestationAgree w/findings plan:Agree with the findings and plan as documented by Everton HILLS). at 1931 at 1857 RPT #:[id number] OF REPORTPRProgress Wcgl3831-72-80D97:09:00C.[id number] aimee able for patient bgybBTEGVMGNDOJYEH7380-12-49I16:57:59 2020-11-14 12:42:00 BCnfolzcnhu693741288987-15-07A56:42:00 [facility])Cardiology ConsultationREPORT#:[id number] REPORT STATUS: SignedDATE:11/14/20 TIME: 1242 PATIENT: JEREMY FERNANDEZ UNIT #: [id number]#: [id number] [address]UYQ: 89 AGE: 30 SEX: M ATTEND: Marie Gomez MDA AUTHOR: Kenroy Rodríguez MD * ALL edits or amendments must be made on the electronic/computer document * History of Presen t Illness HPIChief complaint:Bradycardia, ascendin g aortic aneurysmHPI:Mr. Fernandez is a pleasant 30 y/o M with PMH of congenital aortic stenois s/p balloon angioplasty soon after followed by Ross procedure at 14 years old. He follows up with a energy economist, Dr. Spear, at [facility]. Lastseen about a year and a half ago. Presented to the [facility] ED s/p fall from appro x 5 feet onto cement stairs. Apparently the railin kehinde broke. Developed acute right-sided chest pain. 4 hours later he began to have worsening right sided pain and dyspnea. Presented to outside facility and was found to have a pneumothorax an d right 10th rib fracture. Subsequently transferre d to [facility] for higher level of care. He is now status post right chest tube placement.CT imagin g of his chest/abdomen/pelvis incidentally found him to have a 5 cm ascending aortic aneurysm without evidence of dissection thus prompting cardiology consultation. Denies any palpitations , chest pain, dizziness, lightheadedness, or loss of consciousness at the time of his fall. Histor y - Adult longitudinalPast medical history:Reports : Congenital anomalies. Denies: Alcoholism/subst abuse, Diabetes mellitus. Additional medical history:Congenital aortic stenosisAdditional surgical history:Congenital aortic stenosis s/p balloon valvuloplasty after followed by Ross procedure 14 years oldAdditional family history:No early onset CAD or sudden cardiac . 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 Objective GeneralVS/I O:Vital Signs: Date Time Temp Pulse Resp B/P B/P Pulse O2 O2 Flow FiO2 Mean Ox Delivery Rate 11/14 0801 98.8 48 16 145/79 101.3 100 Room air 11/14 0402 98.2 50 17 140/86 103.7 100 Nasal cannula 11/14 0252 97.9 7 7 18 151/81 104.3 96 11/13 2348 98.1 42 17 165/73 103.8 100 CPAP 11/136 99 Non 10 100 rebreather mask 11/13 2042 97.9 52 16 155/81 105.2 100 CPAP 11/13 2024 Non 15 rebreather mask 11/13 1630 61 19 131/77 95.3 100 11/13 1536 98.6 63 12 134/93 106.2 100 Room air 24 hour I O ending at 0700: 11/14 0700 11/13 1900 Intake Total Output Total 100 Balance -100 Output, Urine 100 PATIENT WEIGHT: Weight (lb): Weight (oz): Weight (kg): 75.000 Medications:Active Med s + DC'd Last 24 HrsLisinopril 10 MG Q12H PO Perflutren Lipid Microsphere DIRECTED ONCE OH N IV Sodium Chloride DIRECTED ONCE PRN IV Sodiu m Chloride 5 ML ONCE PRN IV Enoxaparin Sodium 30 M G Q12HR SUBQ Lorazepam 1 MG BID PO Lisinopril 10 M G DAILY PO (DC) Ketorolac Tromethamine 30 MG Q6H PRN PRN IV Lidocaine HCl 30 ML ONCE ONE INJ (DC) Lidocaine 1 PATCH DAILY@1700 TOPICAL Ibuprofen 600 MG Q8HR PO Aspirin 81 MG DAILY PO Gabapentin 300 MG BID PO Polyethylene Glycol 1 PKT DAILY PO (CKD) Acetaminophen 650 MG Q6HR PO Morphine Sulfate 4 MG Q3H PRN PRN IV (DC) Oxycodone HCl 5 MG Q6H PRN PRN PO Ondansetron HCl 4 MG Q4H PRN PRN IV Tramadol HCl 50 MG Q6H PRN PRN PO Physica l ExamGeneral appearance: alert, awake, oriented, no acute distress, pleasant, conversational, mental status normalHead/Eyes: atraumatic, EOMI, normocephalic, PERRLENT: moist mucosal membranes , normal noseNeck: supple/no meningismus, no bruit/NL carotids, no JVDCardiovascular: CV assessment: regular rate and rhythm, pedal pulse s present Murmur assessment:III- / SABINA throughout precordiumRespiratory: clear to auscultation, no distress, R chest tube in placeAbdomen: soft, non-tender, normal bowel sounds, no distentionGenitourinary: no foleyUppe r extremity: UE assessment: no edema, 2+ radial pulseLower extremity: LE assessment: no edema, 2 + peripheral pulsesMusculoskeletal: normal inspectionNeuro/COSMETOLOGY PROFESSOR: alert, oriented X 3, CN II-XII intactSkin: dry, intactPsychiatry: normal mood ResultsFindings/Data:Laboratory Tests 11/14 0250 Chemistry POC Glucose (74 - 106 MG/DL) 140 H Radiology Data:Recent Impressions:RADIOLOGY - XR CHEST 1 V 11/13 1823 Report Impression - Status: SIGNED Entered: 11/13/2020 1851 IMPRESSION:Large right pneumothorax which is significantly enlarged compared tothe prior examination. There is minimal leftward shift of themediastinum concerning for tension component. The above findings were discussed with Dr. Landeros with the trauma teamat 6:47 PM via telephone. Impression By: [email or web address] - Jenna Botello MDRADIOLOGY - XR CHEST 1 V 11/14 1999 Report Impression - Status: SIGNED Entered: 11/13/20202029 Impression:1. Placement of right-sided ches t tube with resolution of right-sidedpneumothorax.Impression By: [email or web address] - Krzysztof Frausto MDRADIOLOGY - XR CHEST 1 V 11/14 0349 Report Impression - Status: SIGNED Entered: 11/14/2020 0416 IMPRESSION: Stable ches t radiograph without appreciable pneumothorax.Impression By: [email or web address] - Vandana Radford MDRADIOLOGY - XR CHEST 1 V 11/14 0937 Report Impression - Status: SIGNED Entered: 11/14/2020 0944 IMPRESSION: Right-sided chest tube is unchanged. No pneumothorax. Lungs are clear.Impression By: [email or web address] - De Mcginnis Diagnosis, Assessment Plan Free Text DxA P NotesFree Text DxA P Notes:Impression: #S/p fall with right 10th rib fracture and right PTX -s/p right CT placement#5 cm ascending aortic aneurys m -no dissection on CT. Follow-up echo. Likely old and related to previous congenital heart disease.#Congenital aortic stenosis s/p balloon valvuloplasty at followed by Ross procedur e (pulmonic valve placed in the aortic position with pulmonary homograftreplacement) at 14 years old. -Significant murmurs on exam Follow-up echo . Will request records from Dr. Spear at [facility].Further recommendations to follow. Thank very much for this consultation,[facility]. at 1254 RPT #:[id number] OF REPORTXRRllixderprrf0853-69-80A89:42:00C.PDOC 2 [id number] for patient wzyvYHMZIZJLOJRVMQ7147-93-65M71:55:11 2020-11-14 12:42:00 CJmjpfxzcys843215813515-65-93T85:42:00 [facility]Cardiology ConsultationREPORT#:[id number] REPORT STATUS: SignedDATE:11/14/20 TIME: 1242 PATIENT: JEREMY FERNANDEZ UNIT #: [id number]#: [id number] ROOM/BED: [place] [id number]-JXKY: 89 AGE: 30 SEX: M ATTEND: Marie Gomez [facility] AUTHOR: Kenroy Rodríguez MD * ALL edits or amendments must be made on the electronic/computer document * See AddendumHistory of Present Illness HPIChief complaint:Bradycardia, ascending aortic aneurysmHPI:Mr. Fernandez is a pleasant 30 y/o M with PMH of congenital aortic stenois s/p balloo n angioplasty soon after followed by Ross procedure at 14 years old. He follows up with a energy economist, Dr. Spear, at [facility]. Lastseen about a year and a half ago. Presented to the [facility] ED s/p fall from appro x 5 feet onto cement stairs. Apparently the railin g broke. Developed acute right-sided chest pain. 4 hours later he began to have worsening right sided pain and dyspnea. Presented to outside facility and was found to have a pneumothorax an d right 10th rib fracture. Subsequently transferre d to [facility] for higher level of care. He is now status post right chest tube placement.CT imagin g of his chest/abdomen/pelvis incidentally found him to have a 5 cm ascending aortic aneurysm without evidence of dissection thus prompting cardiology consultation. Denies any palpitations , chest pain, dizziness, lightheadedness, or loss of consciousness at the time of his fall. Histor y - Adult longitudinalPast medical history:Reports : Congenital anomalies. Denies: Alcoholism/subst abuse, Diabetes mellitus. Additional medical history:Congenital aortic stenosisAdditional surgical history:Congenital aortic stenosis s/p balloon valvuloplasty after followed by Ross procedure 14 years oldAdditional family history:No early onset CAD or sudden cardiac . 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 Objective GeneralVS/I O:Vital Signs: Date Time Temp Pulse Resp B/P B/P Pulse O2 O2 Flow FiO2 Mean Ox Delivery Rate 11/14 0801 98.8 48 16 145/79 101.3 100 Room air 11/14 0402 98.2 50 17 140/86 103.7 100 Nasal cannula 11/14 0252 97.9 77 18 151/81 104.3 96 11/13 2348 98.1 42 17 165/73 103.8 100 CPAP 11/13 2236 99 Non 10 100 rebreather mask 11/13 2043 97.9 52 16 155/81 105.2 100 CPAP 11/13 2024 Non 15 rebreather mas k 11/13 1630 61 19 131/77 95.3 100 11/13 1536 98.6 63 12 134/93 106.2 100 Room air 24 hour I O ending at 0700: 11/14 0700 11/13 1900 Intake Total Output Total 100 Balance -100 Output, Urin e 100 PATIENT WEIGHT: Weight (lb): Weight (oz): Weight (kg): 75.000 Medications:Active Meds + DC'd Last 24 HrsLisinopril 10 MG Q12H PO Perflutren Lipid Microsphere DIRECTED ONCE OH N IV Sodium Chloride DIRECTED ONCE PRN IV Sodiu m Chloride 5 ML ONCE PRN IV Enoxaparin Sodium 30 M G Q12HR SUBQ Lorazepam 1 MG BID PO Lisinopril 10 MG DAILY PO (DC) Ketorolac Tromethamine 30 MG Q6 H PRN PRN IV Lidocaine HCl 30 ML ONCE ONE INJ (DC) Lidocaine 1 PATCH DAILY@1700 TOPICAL Ibuprofen 600 MG Q8HR PO Aspirin 81 MG DAILY PO Gabapentin 300 MG BID PO Polyethylene Glycol 1 PKT DAILY PO (CKD) Acetaminophen 650 MG Q6HR PO Morphine Sulfate 4 MG Q3H PRN PRN IV (DC) Oxycodone HCl 5 MG Q6H PRN PRN PO Ondansetron HCl 4 MG Q4H PRN PRN IV Tramadol HCl 50 MG Q6H PRN PRN PO Physica l ExamGeneral appearance: alert, awake, oriented, no acute distress, pleasant, conversational, mental status normalHead/Eyes: atraumatic, EOMI, normocephalic, PERRLENT: moist mucosal membranes , normal noseNeck: supple/no meningismus, no bruit/NL carotids, no JVDCardiovascular: CV assessment: regular rate and rhythm, pedal pulse s present Murmur assessment:III- / SABINA throughout precordiumRespiratory: clear to auscultation, no distress, R chest tube in placeAbdomen: soft, non-tender, normal bowel sounds, no distentionGenitourinary: no foleyUppe r extremity: UE assessment: no edema, 2+ radial pulseLower extremity: LE assessment: no edema, 2 + peripheral pulsesMusculoskeletal: normal inspectionNeuro/COSMETOLOGY PROFESSOR: alert, oriented X 3, CN II-XII intactSkin: dry, intactPsychiatry: normal mood ResultsFindings/Data:Laboratory Tests 11/14 0250 Chemistry POC Glucose (74 - 106 MG/DL) 140 H Radiology Data:Recent Impressions:RADIOLOGY - XR CHEST 1 V 11/13 1823 Report Impression - Status: SIGNED Entered: 11/13/2020 1851 IMPRESSION:Large right pneumothorax which is significantly enlarged compared tothe prior examination. There is minimal leftward shift of themediastinum concerning for tension component. The above findings were discussed with Dr. Landeros with the trauma teamat 6:47 PM via telephone. Impression By: 16 Yossi Botello MDRADIOLOGY - XR CHEST 1 V 11/14 1999 Report Impression - Status: SIGNED Entered: 11/13/20202029 Impression:1. Placement of right-sided ches t tube with resolution of right-sidedpneumothorax.Impression By: Octavia5 - Krzysztof Frausto MDRADIOLOGY - XR CHEST 1 V 11/14 0349 Report Impression - Status: SIGNED Entered: 11/14/2020 0416 IMPRESSION: Stable ches t radiograph without appreciable pneumothorax.Impression By: [email or web address] - Vandana Radford MDRADIOLOGY - XR CHEST 1 V 11/14 0937 Report Impression - Status: SIGNED Entered: 11/14/2020 0944 IMPRESSION: Right-sided chest tube is unchanged. No pneumothorax. Lungs are clear.Impression By: [email or web address] - De Mcginnis Diagnosis, Assessment Plan Free Text DxA P NotesFree Text DxA P Notes:Impression: #S/p fall with right 10th rib fracture and right PTX -s/p right CT placement#5 cm ascending aortic aneurys m -no dissection on CT. Follow-up echo. Likely old and related to previous congenital heart disease.#Congenital aortic stenosis s/p balloon valvuloplasty at followed by Ross procedur e (pulmonic valve placed in the aortic position with pulmonary homograftreplacement) at 14 years old. -Significant murmurs on exam Follow-up echo . Will request records from Dr. Spear at [facility].Further recommendations to follow. Thank very much for this consultation,[facility]. at 1254 Addendum 1: 11/14/20 1256 by Kenroy Rodríguez MD #Sinus bradycardia. Benign. No pauses or high-grade AV block. Was on low-dosemetoprolol at home. Check TSH. Continue monitoring only. at 1256 RPT #:[id number] OF REPORTCJOsfnbavsbucs2455-68-59B75:42:00C.PDOC 2 [id number] for patient vturWKAJGWOBPYHEYJ4964-72-66U25:57:01 2020-11-14 05:40:00 [id number]:40:00 [facility] ([facility])Bedside Post Proc - FullREPORT#:[id number] REPORT STATUS: SignedDATE:11/14/20 TIME: 0540 PATIENT: JEREMY FERNANDEZ UNIT #: [id number]#: [id number] [address]TK[address]-XHXQ: 89 AGE: 30 SEX: M ATTEND: Marie Gomez [facility] AUTHOR: Marie Gomez MD * ALL edits or amendments must be made on the electronic/computer document * Bedside Procedure Note Bedside Procedure NoteStart date: 11/13/20art time: 1899Pre-procedure diagnosis:Right pneumothoraxPost-procedure diagnosis:Right pneumothoraxEmergency procedure: yesProcedure performed: chest tube placementPerformed by:Dr. Tigre LojaAssistant(s) : Aletha HILLS)Indications:Right expanding pneumothoraxAnesthesia: local - lidocaine, IV morphineTechnique/Procedure:Consent was taken. Patient was being observed for a right pneumothorax and treated with non-rebreather wit h CXRs showing reduction of apical component of pneumothorax. IR had declined percutaneous drain earlier during the same day. On6 pm CXR his pneumothorax increased, therefore, we explained risks vs benefits and he agreed for bedside ches t tube placement. Right chest was prepped and draped. Under local and IV morphine. Incision made along the 4-5th ICS anteriormid axillary line. Blunt dissection done aling the superior aspect of the rib until pleural space was entere d and 28Fr chest tube was placed and secuted to skin at 12 cm with adequate tidaling on Pleurova c which was connected to suction. U stitch and single stitch used to secure chest tube. Sterile dressing placed. CXR ordered.Specimens removed/altered: noneImplant(s): noneComplications: noneEstimated blood loss in ml's: 2 mLFindings:PneumothoraxGood hemostasis at 0549 [facility] #:[id number] OF REPORTPNProcedure bjcx4642-37-75M93:40:00C.[id number] aimee [facility] for patient xbjrUILEZLKACZVPQN1428-42-74J13:49:17 2020-11-14 05:35:00 [id number]:35:00 [facility] CenterBrief Op NoteREPORT#:[id number] REPORT STATUS: SignedDATE:11/14/20 TIME: 05 PATIENT: JEREMY FERNANDEZ UNIT #: [id number]#: [id number] [address]-XDGA: 89 AGE: 30 SEX: M ATTEND: Marie Gomez AUTHOR: Marie Gomez MD * ALL edits or amendments must be made on the electronic/computer document * Op/Inv Proc Note - BriefPre-procedure diagnosis:Right pneumothoraxPost-procedure diagnosis: Right pneumothoraxProcedures performed:Right tube thoracostomyPrimary Surgeon:Dr Tigre LojaAssistant(s): Aletha HILLS)Anesthesia: local: lidocaine 1% 15 mL sedation: morphine 4mg IV x 2Findings:Right pneumothoraxComplications: noneEstimated blood loss in ml's: 2 mLSpecimens removed/altered: noneDrain(s): 28 Fr chest tubeTube(s): 28 Fr chest tubeWound class: clean at 0539 RPT #:[id number] OF REPORTOPOperative tvnmdg7396-02-07P87:35:00C.DTDE52525715-1271OZNf a ilable for patient pgafCLCXRRRAFHCUAW9388-02-98O04:40:06 2020-11-13 15:54:00 QDcmwkazfje109520976180-07-29N32:54:00 [facility])Radiology Progress NoteREPORT#:[id number] REPORT STATUS: SignedDATE:11/13/20 TIME: 1554 PATIENT: JEREMY FERNANDEZ UNIT #: [id number]#: [id number] ROOM[address]BED: [address]: 89 AGE: 30 SEX: M ATTEND: Marie Gomez [facility] AUTHOR: Rocael Valdes MD * ALL edit s or amendments must be made on the electronic/computer document * Assessment/PlanFree Text A P:30-year-old male with trauma to the chest and right rib fracture. Further workup revealed presence of a small righ t apical pneumothorax. Chest x-ray alyce busby at 6:00 AM followed by one at 11:00 AM reveal a stable right apicalpneumothorax. No need for intervention at this point. Recommend continuation of follow-up chest xray and for further evaluation. at 1555 RPT #:[id number] OF REPORTPRProgress Rpso6116-35-55E79:54:00C.[id number] l able for patient bjmxWCMOYHAWNLMOVX9808-40-31A91:55:50 2020-11-13 11:10:00 [id number]:10:00 [facility])Trauma Progress NoteREPORT#:[id number] REPORT STATUS: SignedDATE:11/13/20 TIME: 1110 PATIENT: JEREMY FERNANDEZ UNIT #: [id number]#: [id number] [address]: [address]KK[address]-PNWA: 89 AGE: 30 SEX: M ATTEND: Marie Gomez [facility] AUTHOR: Johana Mcwilliams MD R1 * ALL edit s or amendments must be made on the electronic/computer document * Johana Mcwilliams 11/13/20 1110:SubjectiveChief Complaint:right side rib painHPI:monitoring right sided apical and anterior pneumothorax Patient reports:Yes: pain, tolerating diet. No: abdominal pain, bowel movement, fever, nausea. Review of SystemsAll systems rev neg: except as markedROS comments:ROS:ROS negative unless noted in above HPI of the following systems: constitutional,eyes, HENT, neck, neuro, CV, resp , GI, , msk, skin Objective Physical ExamHead/Eyes: PERRL, EOMIL pupil: reactivityR pupil: reactivityNeck: C-Spine precautions, full range of motion, non-tenderCardiovascular: (normal cap refill), pulses all extremities Free Text Obj NotesFree Text Obj Notes:Constitutional: Patient appears comfortable, no acute distress, bradycardia has been consistent during stay. asymptomatic and chronicEyes: pupils equal, round, reactive to light, no icterusHENT: normal cephalic, 2 small abrassions to forehead, no facial tenderness or crepitus, normal external inspection of ears/nose, no septal hematomaNeck: trachea midline, no crepitus, thyroid without massCV: sinus bradycardia, bilateral radial pulses 2+, n o cyanosis, no edema, no pulsatile abdominal massRespiratory: right lung mild inspiratory crackles, left lung clear to auscultation, sternal scar from previous open heart surgery, ttp on right ribsAbdomen: soft, non-tender, no massesRectal: deferredGU: pelvis stableLymph nodes: no cervical or supraclavicular masses notedMusculoskeletal:-ttp on right sided ribsSkin: no lacerations, abrasions to forehead, skin warm to palpationPsychiatric: normal mood and affect, memory intact.Neurologic: bilateral upper and lower extremity sensation intact, strength intact, GCS 15 (5M, 6V, 4E) Diagnosis, Assessment PlanProblem List/A P: 1. Pneumothorax Free Text A P:ASSESSMENT:30 year old man present s with trauma related right sided pneumothorax Injuries/Acute Problems: Pneumothorax:- RT order : non-rebreather - pt remains on non-rebreather @10L- monitoring with 2 view- pneumothorax sligh t improvement on cxr from yesterday and today- IR consulted, Dr. Valdes consulted this morning. Per Dr. Valdes: would like to monitor the pt for continuing resolution on pneumothorax based on the size of the pneumo and the clinical picture. Rib fracture- multimodal pain control includes scheduled toradol, tylenol, ice, and lidocaine, - RT orders: IS and flutter Chronic Medical Problems/Comorbidities:- hypertension: pt on bet a alexia at home however given the pts bradycardi a we will hold this medication.- congenital heart disease: aortic stenosis. pt takes daily ASA. will continue while in the hospital. Lisinopril 10mg started 11/13 PLAN: control pain, monitor pneumothorax and intervene with chest tube if necessary L/D/A: peripheral IV x2 DVT prophylaxis: SCDsGI prophylaxis: not indicatedDiet: regularActivity: as toleratedDispo: admit to surgical floorCode Status: FULL Other:1158 called [id number] IR returne d call. does not recommend a pig tail or conventional chest tube at this time. instructed to order repeat cxr in 6 hoursif the pneumo worsens on imaging or clinically then he will interveneformal consult placed for IR Marie Gomez 11/14/20 1352:Attestations Physician AttestationAgree w/findings plan:The patient was admitted due to right pneumothorax, howeever, it was found to beanterior, therefore a plain AP CXR is insufficient to determine stability. The patient went for a walk and felt short of breath and had to be brought back to [facility] room. A repeat CXR showed a large right pneumothorax. I placed a right 28Fr chest tube bedside. Please see separate procedure note for details. Patient's lung re-expanded. at 1530 RPT #:[id number] OF REPORTPRProgress [id number]:10:00C.[id number] aimee able for patient mgjkXPQACQOSJAOBIA7510-25-13N72:55:58 2020-11-13 11:10:00 [id number]:10:00 [facility] ([facility])Trauma Progress NoteREPORT#:[id number] REPORT STATUS: SignedDATE:11/13/20 TIME: 1110 PATIENT: JEREMY FERNANDEZ UNIT #: [id number]#: [id number] ROOM/BED: [place] [id number]-HJDV: 89 AGE: 30 SEX: M ATTEND: Marie Gomez [facility] AUTHOR: Johana Mcwilliams MD R1 * ALL edit s or amendments must be made on the electronic/computer document * Johana Mcwilliams 11/13/20 1110:SubjectiveChief Complaint:right side rib painHPI:monitoring right sided apical and anterior pneumothorax Patient reports:Yes: pain, tolerating diet. No: abdominal pain, bowel movement, fever, nausea. Review of SystemsAll systems rev neg: except as markedROS comments:ROS:ROS negative unless noted in above HPI of the following systems: constitutional,eyes, HENT, neck, neuro, CV, resp , GI, , msk, skin Objective Physical ExamHead/Eyes: PERRL, EOMIL pupil: reactivityR pupil: reactivityNeck: C-Spine precautions, full range of motion, non-tenderCardiovascular: (normal cap refill), pulses all extremities Free Text Obj NotesFree Text Obj Notes:Constitutional: Patient appears comfortable, no acute distress, bradycardia has been consistent during stay. asymptomatic and chronicEyes: pupils equal, round, reactive to light, no icterusHENT: normal cephalic, 2 small abrassions to forehead, no facial tenderness or crepitus, normal external inspection of ears/nose, no septal hematomaNeck: trachea midline, no crepitus, thyroid without massCV: sinus bradycardia, bilateral radial pulses 2+, n o cyanosis, no edema, no pulsatile abdominal massRespiratory: right lung mild inspiratory crackles, left lung clear to auscultation, sternal scar from previous open heart surgery, ttp on right ribsAbdomen: soft, non-tender, no massesRectal: deferredGU: pelvis stableLymph nodes: no cervical or supraclavicular masses notedMusculoskeletal:-ttp on right sided ribsSkin: no lacerations, abrasions to forehead, skin warm to palpationPsychiatric: normal mood and affect, memory intact.Neurologic: bilateral upper and lower extremity sensation intact, strength intact, GCS 15 (5M, 6V, 4E) Diagnosis, Assessment PlanProblem List/A P: 1. Pneumothorax Free Text A P:ASSESSMENT:30 year old man present s with trauma related right sided pneumothorax Injuries/Acute Problems: Pneumothorax:- RT order : non-rebreather - pt remains on non-rebreather @10L- monitoring with 2 view- pneumothorax sligh t improvement on cxr from yesterday and today- IR consulted, Dr. Valdes consulted this morning. Per Dr. Valdes: would like to monitor the pt for continuing resolution on pneumothorax based on the size of the pneumo and the clinical picture. Rib fracture- multimodal pain control includes scheduled toradol, tylenol, ice, and lidocaine, - RT orders: IS and flutter Chronic Medical Problems/Comorbidities:- hypertension: pt on bet a alexia at home however given the pts bradycardi a we will hold this medication.- congenital heart disease: aortic stenosis. pt takes daily ASA. will continue while in the hospital. Lisinopril 10mg started 11/13 PLAN: control pain, monitor pneumothorax and intervene with chest tube if necessary L/D/A: peripheral IV x2 DVT prophylaxis: SCDsGI prophylaxis: not indicatedDiet: regularActivity: as toleratedDispo: admit to surgical floorCode Status: FULL Other:1158 called [id number] IR returne d call. does not recommend a pig tail or conventional chest tube at this time. instructed to order repeat cxr in 6 hoursif the pneumo worsens on imaging or clinically then he will interveneformal consult placed for IR Marie Gomez 11/14/20 1352:Attestations Physician AttestationAgree w/findings plan:The patient was admitted due to right pneumothorax, howeever, it was found to beanterior, therefore a plain AP CXR is insufficient to determine stability. The patient went for a walk and felt short of breath and had to be brought back to e room. A repeat CXR showed a large right pneumothorax. I placed a right 28Fr chest tube bedside. Please see separate procedure note for details. Patient's lung re-expanded. at 1530 at 1355 RPT #:[id number] OF REPORTPRProgress [id number]:10:00C.[id number] l able for patient [id number]:56:08 2020-11-13 11:10:00 [id number]:10:00 [facility] ([facility])Trauma Progress NoteREPORT#:[id number] REPORT STATUS: SignedDATE:11/13/20 TIME: 1110 PATIENT: JEREMY FERNANDEZ UNIT #: [id number]#: [id number] [address]XKQQ: [address] AGE: 30 SEX: M ATTEND: Marie Gomez [facility] AUTHOR: Johana Mcwilliams MD R1 * ALL edit s or amendments must be made on the electronic/computer document * SubjectiveChief Complaint:right side rib painHPI:monitoring righ t sided apical and anterior pneumothorax Patient reports:Yes: pain, tolerating diet. No: abdomina l pain, bowel movement, fever, nausea. Review of SystemsAll systems rev neg: except as markedROS comments:ROS:ROS negative unless noted in above HPI of the following systems: constitutional,eyes, HENT, neck, neuro, CV, resp , GI, , msk, skin Objective Physical ExamHead/Eyes: PERRL, EOMIL pupil: reactivityR pupil: reactivityNeck: C-Spine precautions, full range of motion, non-tenderCardiovascular: (normal cap refill), pulses all extremities Free Text Obj NotesFree Text Obj Notes:Constitutional: Patient appears comfortable, no acute distress, bradycardia has been consistent during stay. asymptomatic and chronicEyes: pupils equal, round, reactive to light, no icterusHENT: normal cephalic, 2 small abrassions to forehead, no facial tenderness or crepitus, normal external inspection of ears/nose, no septal hematomaNeck: trachea midline, no crepitus, thyroid without massCV: sinus bradycardia, bilateral radial pulses 2+, n o cyanosis, no edema, no pulsatile abdominal massRespiratory: right lung mild inspiratory crackles, left lung clear to auscultation, sternal scar from previous open heart surgery, ttp on right ribsAbdomen: soft, non-tender, no massesRectal: deferredGU: pelvis stableLymph nodes: no cervical or supraclavicular masses notedMusculoskeletal:-ttp on right sided ribsSkin: no lacerations, abrasions to forehead, skin warm to palpationPsychiatric: normal mood and affect, memory intact.Neurologic: bilateral upper and lower extremity sensation intact, strength intact, GCS 15 (5M, 6V, 4E) Diagnosis, Assessment PlanProblem List/A P: 1. Pneumothorax Free Text A P:ASSESSMENT:30 year old man present s with trauma related right sided pneumothorax Injuries/Acute Problems: Pneumothorax:- RT order : non-rebreather - pt remains on non-rebreather @10L- monitoring with 2 view- pneumothorax sligh t improvement on cxr from yesterday and today- IR consulted, Dr. Valdes consulted this morning. Per Dr. Valdes: would like to monitor the pt for continuing resolution on pneumothorax based on the size of the pneumo and the clinical picture. Rib fracture- multimodal pain control includes scheduled toradol, tylenol, ice, and lidocaine, - RT orders: IS and flutter Chronic Medical Problems/Comorbidities:- hypertension: pt on bet a alexia at home however given the pts bradycardi a we will hold this medication.- congenital heart disease: aortic stenosis. pt takes daily ASA. will continue while in the hospital. Lisinopril 10mg started 11/13 PLAN: control pain, monitor pneumothorax and intervene with chest tube if necessary L/D/A: peripheral IV x2 DVT prophylaxis: SCDsGI prophylaxis: not indicatedDiet: regularActivity: as toleratedDispo: admit to surgical floorCode Status: FULL Other:1158 called [id number] IR returne d call. does not recommend a pig tail or conventional chest tube at this time. instructed to order repeat cxr in 6 hoursif the pneumo worsens on imaging or clinically then he will interveneformal consult placed for IR at 1530 RPT #:[id number] OF REPORTPRProgress [id number]:10:00C.[id number] aimee able for patient [id number]:30:26 2020-11-12 14:46:00 [id number]:46:00 [facility])Trauma - History PhysicalREPORT#:[id number] REPORT STATUS: SignedDATE:11/12/20 TIME: 1446 PATIENT: JEREMY FERNANDEZ UNIT #: [id number]#: [id number] [address] AGE: 30 SEX: M ATTEND: Marie Gomez [facility] AUTHOR: Johana Mcwilliams MD R1 * ALL edit s or amendments must be made on the electronic/computer document * History of Presen t Illness Time At Bedside)( Time at bedside: 1350 Pre-hospitalActivation level: consultArrival mode: EMS, groundMechanism of injury: Fall: on/from stairs and stepsComplaints/injuries:righ t side pain of chest, small (1.0 cm x 1CM) abrasio n HPIChief complaint:pain on right chestPCP:PCP: noneHPI:CC:right side chest pain HPI:30 y/o M with PMH of aortic stenois and prior heart surgery presents to the ED following a fall from approx 5 feet onto cement stairs- causing pain t o right side. He arrived by ambulancept states he fell this morning while working at his home. he had minimal pain atthe time of injury and went t o sleep. roughly 4 hours later he began to have worsening right sided pain. pt presented to outside facility and was found to have a pneumothorax and was sent to [facility] denies any other complaints ROS:ROS negative unless noted i n above HPI of the following systems: constitutional,eyes, HENT, neck, neuro, CV, resp , GI, , msk, skin HistoryPast medical history:Reports: Congenital anomalies. Denies: Alcoholism/subst abuse, Diabetes mellitus. 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 Skin:Reports: abrasion, contusion. Eyes:Denies: visual loss/blurred, diplopia. Respiratory:Denies: hemoptysis, SOB. Cardiovascular:Denies: edema, palpitations. Musculoskeletal: Other musculoskeletal: Reports: thoracic pain (right side). Heme:Reports: bruising. Denies: bleeding. Neuro:Denies: change in LOC, confusion, focal weakness, gait problem, headache, lightheaded, numbness, syncope, vision change. Psych:Denies: change in mental status, confusion. All systems rev neg: except as marked Free Text ROS NotesFree Text ROS Notes:ROS negative unless noted in above HPI of the following systems: constitutional,eyes, HENT, neck, neuro, CV, resp, GI, , msk, skin Physica l ExamVS/I OLast Documented: Result Date Time Puls e Ox 100 11/12 1345 B/P 123/80 11/12 1345 B/P Michaelle n 94 11/12 1345 O2 Delivery Nasal cannula 11/12 1345 O2 Flow Rate 6 11/12 1345 Temp 36.7 11/12 1345 Pulse 45 11/12 1345 Resp 18 11/12 1345 PATIENT WEIGHT: Weight (lb): Weight (oz): Weight (kg): 75.000 General appearance: alert, awake, oriented, no acute distress, pleasantHead/Eyes: PERRL, EOMIL pupil: reactivityR pupil: reactivityNeck: C-Spine precautions, full range of motion, non-tenderCardiovascular: irregular rhythm, pulses all extremities Free Text Obj NotesFree Text Obj Notes:Constitutional: Patient appears comfortable, no acute distress, HR, BP, Saturation reviewed in recordsEyes: pupils equal , round, reactive to light, no icterusHENT: normal cephalic, 2 small abrassions to forehead, no facial tenderness or crepitus, normal external inspection of ears/nose, no septal hematomaNeck: trachea midline, no crepitus, thyroid without massCV: sinus bradycardia, bilateral radial pulses 2+, no cyanosis, no edema, no pulsatile abdominal massRespiratory: right lung mild crackles, left lung clear to auscultation, no tenderness to palpation, sternal scar from previous open heart surgery, pectus excavatumAbdomen: soft, non-tender, no massesRectal: deferredGU: pelvis stableLymph nodes: no cervical or supraclavicular masses notedMusculoskeletal:-right upper extremity w/ou t focal tenderness, without deformity, with ROM intact-left upper extremity without focal tenderness, without deformity, with ROM intact-right lower extremity without focal tenderness, without deformity, with ROM intact-left lower extremity without focal tenderness, without deformity, with ROM intact-n o cervical spine tenderness with full ROM, c-colla r in place-no thoracic spine tenderness or step-off-no lumbar spine tenderness or step-offVascular: radial, DP, PT pulses equal to palpation bilaterallySkin: no lacerations, abrasions to forehead, skin warm to palpationPsychiatric: normal mood and affect, memory intact.Neurologic: bilateral upper and lower extremity sensation intact, strength intact, GCS 15 (5M, 6V, 4E) Treatment Prophylaxi s Treatment ProphylaxisFoley status: none Diagnosis, Assessment PlanProblem List/A P: 1. Pneumothorax Orders: Procedure Date/time Status CT HEAD/BRAIN W/O CONT 11/12 1516 Active XR PELVIS 1/2 VIEWS 11/12 1445 Active Plan discusse d with: patient Free Text DxA P NotesFree Text DxA P Notes:ASSESSMENT:30 year old man presents with trauma related right sided pneumothorax Injuries/Acute Problems: Pneumothorax:- RT order : non-rebreather - monitoring with 2 view CXR at 6:45PM and tomorrow at 3AM- if pt declines or if pneumo does not resolve with oxygen therapy, consider chest tube for decompression Rib fracture- multimodal pain control includes scheduled toradol, tylenol, ice, and lidocaine, - RT orders: IS and flutter Chronic Medical Problems/Comorbidities:- hypertension: pt on bet a alexia at home however given the pts bradycardi a we will hold this medication.- congenital heart disease: aortic stenosis. pt takes daily ASA. will continue while in the hospital.- pending EK G PLAN: control pain, monitor pneumothorax and intervene with chest tube if necessary L/D/A: peripheral IV x2 DVT prophylaxis: SCDsGI prophylaxis: not indicatedDiet: regularActivity: as toleratedDispo: admit to surgical floorCode Status: FULL AttestationsAttestation needed: supervising physician at 1818 RPT #:[id number] OF REPORTHPHistory and physical gjqhfvitkyv5118-68-47B91:46:00C.[id number] AVAvailable for patient [id number]:18:28 2020-11-12 14:46:00 [id number]:46:00 [facility])Trauma - History PhysicalREPORT#:[id number] REPORT STATUS: SignedDATE:11/12/20 TIME: 1446 PATIENT: JEREMY FERNANDEZ UNIT #: [id number]#: [id number] [address] AGE: 30 SEX: M ATTEND: Marie Gomez [facility] AUTHOR: Johana Mcwilliams MD R1 * ALL edit s or amendments must be made on the electronic/computer document * Johana Mcwilliams 11/12/20 1446:History of Present Illness Time At Bedside)( Time at bedside: 1350 Pre-hospitalActivation level: consultArrival mode: EMS, groundMechanism of injury: Fall: on/from stairs and stepsComplaints/injuries:righ t side pain of chest, small (1.0 cm x 1CM) abrasio n HPIChief complaint:pain on right chestPCP:PCP: noneHPI:CC:right side chest pain HPI:30 y/o M with PMH of aortic stenois and prior heart surgery presents to the ED following a fall from approx 5 feet onto cement stairs- causing pain t o right side. He arrived by ambulancept states he fell this morning while working at his home. he had minimal pain atthe time of injury and went t o sleep. roughly 4 hours later he began to have worsening right sided pain. pt presented to outside facility and was found to have a pneumothorax and was sent to [facility] denies any other complaints ROS:ROS negative unless noted i n above HPI of the following systems: constitutional,eyes, HENT, neck, neuro, CV, resp , GI, , msk, skin HistoryPast medical history:Reports: Congenital anomalies. Denies: Alcoholism/subst abuse, Diabetes mellitus. 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 Skin:Reports: abrasion, contusion. Eyes:Denies: visual loss/blurred, diplopia. Respiratory:Denies: hemoptysis, SOB. Cardiovascular:Denies: edema, palpitations. Musculoskeletal: Other musculoskeletal: Reports: thoracic pain (right side). Heme:Reports: bruising. Denies: bleeding. Neuro:Denies: change in LOC, confusion, focal weakness, gait problem, headache, lightheaded, numbness, syncope, vision change. Psych:Denies: change in mental status, confusion. All systems rev neg: except as marked Free Text ROS NotesFree Text ROS Notes:ROS negative unless noted in above HPI of the following systems: constitutional,eyes, HENT, neck, neuro, CV, resp, GI, , msk, skin Physica l ExamVS/I OLast Documented: Result Date Time Pulse Ox 100 11/12 1345 B/P 123/80 11/12 1345 B/ P Mean 94 11/12 1345 O2 Delivery Nasal cannula 11/12 1345 O2 Flow Rate 6 11/12 1345 Temp 36.7 11/12 1345 Pulse 45 11/12 1345 Resp 18 11/12 134 5 PATIENT WEIGHT: Weight (lb): Weight (oz): Weight (kg): 75.000 General appearance: alert, awake, oriented, no acute distress, pleasantHead/Eyes: PERRL, EOMIL pupil: reactivityR pupil: reactivityNeck: C-Spine precautions, full range of motion, non-tenderCardiovascular: irregular rhythm, pulses all extremities Free Text Obj NotesFree Text Obj Notes:Constitutional: Patient appears comfortable, no acute distress, HR, BP, Saturation reviewed in recordsEyes: pupils equal , round, reactive to light, no icterusHENT: normal cephalic, 2 small abrassions to forehead, no facial tenderness or crepitus, normal external inspection of ears/nose, no septal hematomaNeck: trachea midline, no crepitus, thyroid without massCV: sinus bradycardia, bilateral radial pulses 2+, no cyanosis, no edema, no pulsatile abdominal massRespiratory: right lung mild crackles, left lung clear to auscultation, no tenderness to palpation, sternal scar from previous open heart surgery, pectus excavatumAbdomen: soft, non-tender, no massesRectal: deferredGU: pelvis stableLymph nodes: no cervical or supraclavicular masses notedMusculoskeletal:-right upper extremity w/ou t focal tenderness, without deformity, with ROM intact-left upper extremity without focal tenderness, without deformity, with ROM intact-right lower extremity without focal tenderness, without deformity, with ROM intact-left lower extremity without focal tenderness, without deformity, with ROM intact-n o cervical spine tenderness with full ROM, c-colla r in place-no thoracic spine tenderness or step-off-no lumbar spine tenderness or step-offVascular: radial, DP, PT pulses equal to palpation bilaterallySkin: no lacerations, abrasions to forehead, skin warm to palpationPsychiatric: normal mood and affect, memory intact.Neurologic: bilateral upper and lower extremity sensation intact, strength intact, GCS 15 (5M, 6V, 4E) Treatment Prophylaxi s Treatment ProphylaxisFoley status: none Diagnosis, Assessment PlanProblem List/A P: 1. Pneumothorax Orders: Procedure Date/time Status CT HEAD/BRAIN W/O CONT 11/12 1516 Active XR PELVIS 1/2 VIEWS 11/12 1445 Active Plan discusse d with: patient Free Text DxA P NotesFree Text DxA P Notes:ASSESSMENT:30 year old man presents with trauma related right sided pneumothorax Injuries/Acute Problems: Pneumothorax:- RT order : non-rebreather - monitoring with 2 view CXR at 6:45PM and tomorrow at 3AM- if pt declines or if pneumo does not resolve with oxygen therapy, consider chest tube for decompression Rib fracture- multimodal pain control includes scheduled toradol, tylenol, ice, and lidocaine, - RT orders: IS and flutter Chronic Medical Problems/Comorbidities:- hypertension: pt on bet a alexia at home however given the pts bradycardi a we will hold this medication.- congenital heart disease: aortic stenosis. pt takes daily ASA. will continue while in the hospital.- pending EK G PLAN: control pain, monitor pneumothorax and intervene with chest tube if necessary L/D/A: peripheral IV x2 DVT prophylaxis: SCDsGI prophylaxis: not indicatedDiet: regularActivity: as toleratedDispo: admit to surgical floorCode Status: FULL AttestationsAttestation needed: supervising physician Marie Gomez 11/12/20 1851:Attestations Physician AttestationAgree w/findings plan:Agree with the findings and plan as documented by Dr. Mcwilliams. The patient had a 10% pneumothorax on outside studies now decreased to 5%. Will admit and repeat 2 views CXR in 2 hrs and in am. Will keep NRB for now to promote resorption of PTX. Patient will likely benefit from non op management. at 1818 RPT #:[id number] OF REPORTHPHistory and physical ahphnurfgwp7912-17-33I44:46:00C.[id number] AVAvailable for patient jktnFJOCMBBFGZAJHH7136-80-54F50:56:51 2020-11-12 14:46:00 [id number]:46:00 [facility] ([facility])Trauma - History PhysicalREPORT#:[id number] REPORT STATUS: SignedDATE:11/12/20 TIME: 1446 PATIENT: JEREMY FERNANDEZ UNIT #: [id number]#: [id number] [facility] [birth year] AGE: 30 SEX: M ATTEND: PatriciaDarlinraghav [facility] AUTHOR: Johana Mcwilliams MD R1 * ALL edit s or amendments must be made on the electronic/computer document * Johana Mcwilliams 11/12/20 1446:History of Present Illness Time At Bedside)( Time at bedside: 1350 Pre-hospitalActivation level: consultArrival mode: EMS, groundMechanism of injury: Fall: on/from stairs and stepsComplaints/injuries:righ t side pain of chest, small (1.0 cm x 1CM) abrasio n HPIChief complaint:pain on right chestPCP:PCP: noneHPI:CC:right side chest pain HPI:30 y/o M with PMH of aortic stenois and prior heart surgery presents to the ED following a fall from approx 5 feet onto cement stairs- causing pain t o right side. He arrived by ambulancept states he fell this morning while working at his home. he had minimal pain atthe time of injury and went t o sleep. roughly 4 hours later he began to have worsening right sided pain. pt presented to outside facility and was found to have [facility] Hospital denies any other complaints ROS:ROS negative unless noted i n above HPI of the following systems: constitutional,eyes, HENT, neck, neuro, CV, resp , GI, , msk, skin HistoryPast medical history:Reports: Congenital anomalies. Denies: Alcoholism/subst abuse, Diabetes mellitus. 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 Skin:Reports: abrasion, contusion. Eyes:Denies: visual loss/blurred, diplopia. Respiratory:Denies: hemoptysis, SOB. Cardiovascular:Denies: edema, palpitations. Musculoskeletal: Other musculoskeletal: Reports: thoracic pain (right side). Heme:Reports: bruising. Denies: bleeding. Neuro:Denies: change in LOC, confusion, focal weakness, gait problem, headache, lightheaded, numbness, syncope, vision change. Psych:Denies: change in mental status, confusion. All systems rev neg: except as marked Free Text ROS NotesFree Text ROS Notes:ROS negative unless noted in above HPI of the following systems: constitutional,eyes, HENT, neck, neuro, CV, resp, GI, , msk, skin Physica l ExamVS/I OLast Documented: Result Date Time Puls e Ox 100 11/12 1345 B/P 123/80 11/12 1345 B/P Mean 94 11/12 1345 O2 Delivery Nasal cannula 11/12 134 O2 Flow Rate 6 11/12 1345 Temp 36.7 11/12 1345 Pulse 45 11/12 1345 Resp 18 11/12 1345 PATIENT WEIGHT: Weight (lb): Weight (oz): Weight (kg): 75.000 General appearance: alert, awake, oriented, no acute distress, pleasantHead/Eyes: PERRL, EOMIL pupil: reactivityR pupil: reactivityNeck: C-Spine precautions, full range of motion, non-tenderCardiovascular: irregular rhythm, pulses all extremities Free Text Obj NotesFree Text Obj Notes:Constitutional: Patient appears comfortable, no acute distress, HR, BP, Saturation reviewed in recordsEyes: pupils equal , round, reactive to light, no icterusHENT: normal cephalic, 2 small abrassions to forehead, no facial tenderness or crepitus, normal external inspection of ears/nose, no septal hematomaNeck: trachea midline, no crepitus, thyroid without massCV: sinus bradycardia, bilateral radial pulses 2+, no cyanosis, no edema, no pulsatile abdominal massRespiratory: right lung mild crackles, left lung clear to auscultation, no tenderness to palpation, sternal scar from previous open heart surgery, pectus excavatumAbdomen: soft, non-tender, no massesRectal: deferredGU: pelvis stableLymph nodes: no cervical or supraclavicular masses notedMusculoskeletal:-right upper extremity w/ou t focal tenderness, without deformity, with ROM intact-left upper extremity without focal tenderness, without deformity, with ROM intact-right lower extremity without focal tenderness, without deformity, with ROM intact-left lower extremity without focal tenderness, without deformity, with ROM intact-n o cervical spine tenderness with full ROM, c-colla r in place-no thoracic spine tenderness or step-off-no lumbar spine tenderness or step-offVascular: radial, DP, PT pulses equal to palpation bilaterallySkin: no lacerations, abrasions to forehead, skin warm to palpationPsychiatric: normal mood and affect, memory intact.Neurologic: bilateral upper and lower extremity sensation intact, strength intact, GCS 15 (5M, 6V, 4E) Treatment Prophylaxi s Treatment ProphylaxisFoley status: none Diagnosis, Assessment PlanProblem List/A P: 1. Pneumothorax Orders: Procedure Date/time Status CT HEAD/BRAIN W/O CONT 11/12 1516 Active XR PELVIS 07/28 VIEWS 11/12 1445 Active Plan discusse d with: patient Free Text DxA P NotesFree Text DxA P Notes:ASSESSMENT:30 year old man presents with trauma related right sided pneumothorax Injuries/Acute Problems: Pneumothorax:- RT order : non-rebreather - monitoring with 2 view CXR at 6:45PM and tomorrow at 3AM- if pt declines or if pneumo does not resolve with oxygen therapy, consider chest tube for decompression Rib fracture- multimodal pain control includes scheduled toradol, tylenol, ice, and lidocaine, - RT orders: IS and flutter Chronic Medical Problems/Comorbidities:- hypertension: pt on bet a alexia at home however given the pts bradycardi a we will hold this medication.- congenital heart disease: aortic stenosis. pt takes daily ASA. will continue while in the hospital.- pending EK G PLAN: control pain, monitor pneumothorax and intervene with chest tube if necessary L/D/A: peripheral IV x2 DVT prophylaxis: SCDsGI prophylaxis: not indicatedDiet: regularActivity: as toleratedDispo: admit to surgical floorCode Status: FULL AttestationsAttestation needed: supervising physician Marie Gomez 11/12/ 1 1851:Attestations Physician AttestationAgree w/findings plan:Agree with the findings and plan as documented by Dr. Mcwilliams. The patient had a 10% pneumothorax on outside studies now decreased to 5%. Will admit and repeat 2 views CXR in 2 hrs and in am. Will keep NRB for now to promote resorption of PTX. Patient will likely benefit from non op management. at 1818 at 1856 RPT #:[id number] OF REPORTHPHistory and physical [id number]:46:00C.[id number] AVAvailable for patient [id number]:57:01 2020-11-12 13:44:00 [id number]:44:00 [facility] CenterEMERGENCY PROVIDER REPORTREPORT#:[id number] REPORT STATUS: SignedDATE:11/12/20 TIME: 1344 PATIENT: JEREMY FERNANDEZ UNIT #: [id number]#: [id number] [address] 30 SEX: M PCP PHYS: No Primary or Family PhysicianSERVICE AUTHOR: Maciel Ellis MD * ALL edits or amendments must be made on the electronic/computer document * HPI-General Illness Free Text HPI NotesFree Text HPI Notes30 year-old male presents as a transfer from [facility] for a traumatic pneumothorax. Fell 4 feet from the stairs onto a side rail. Patient sustained a 10% apical pneumothorax and 2-3 displaced rib fractures. Patient was transferred to [facility] for further evaluation. Past medical history significant for aortic stenosis not yet operated on. Follows with [facility]. Patient states he feels fine and has no complaints at this time GeneralInitial Greet Date/Time 11/12/20 1329 PresentationChief Complaint Chest pain Review of Systems ROS StatementsAll systems rev neg except as marked.Complete sys rev neg except as marked. Review of SystemsConstitutionalDenies: Chills, Fatigue. EyesDenies: Blurred R, Blurred L. Ears/Nose/ThroatDenies: Ear drainage R, Ear drainage L. RespiratoryDenies: Cough, non-productive, Cough, productive. CardiovascularReports: Chest pain. Denies: Dyspnea on exertion. GIDenies: Abdominal pain, Anorexia. MaleDenies: Dysuria, Flank pain. MusculoskeletalDenies: Back pain, Extremity pain . HematologicDenies: Adenopathy, Bleeding. EndocrineDenies: Cold intolerance, Heat intolerance. SkinDenies: Abrasion, Abscess. Allergy/ImmunDenies: Allergic reaction, Anaphylaxis. NeurologicDenies: Abnormal movement , Bladder dysfunction. Past Medical History - AdultStated Complaint PNEUMOTHORAXAllergiesCoded Allergies:No Known Allergies (04/19/16) Home MedicationsReported MedicationsMETOPROLOL TARTRATE (LOPRESSOR) 25 MG PO DAILY LORazepam (ATIVAN) 1 MG PO BID HYDROcodone/APAP (NORCO 10/325) 1 TAB PO Q12H PRN PRN BACK PAIN ASPIRIN 81 MG PO DAILY Additional Medical Historyreports noneAdditional Surgical Historyreports noneOther Social History Good social support Physical Exam Vital SignsVital SignsFirst Documented: Result Date Time Pulse Ox 100 11/12 1345 B/P 123/80 11/12 1345 B/P Mean 94 11/12 1345 O2 Delivery Nasal cannula 11/12 1345 O2 Flow Rate 6 11/12 1345 Temp 98.0 11/12 1345 Pulse 45 11/12 1345 Resp 18 11/12 1345 Last Documented: Result Date Time Pulse Ox 100 11/12 1345 B/P 123/80 11/12 1345 B/P Mean 94 11/12 1345 O2 Delivery Nasal cannula 11/12 1345 O2 Flow Rate 6 11/12 1345 Tem p 98.0 11/12 1345 Pulse 45 11/12 1345 Resp 18 04 9 1345 Review of Vital Signs Reviewed Physical ExamGeneral/Const General/Const Awake, Alert, N o acute distressMS Head Head Atraumatic, NormocephalicEyes Eyes Atraumatic, PERRL, EOMIEars/Nose/Throat Ears/Nose/Throat Atraumatic , Airway patent, Mucous membranes moistMS Neck Nec k Atraumatic, Supple, No meningismusResp/Chest Respiratory/Chest Atraumatic, Breath sounds NL, Breath sounds = bilatCardiovascular Cardiovascular Heart rate NL, Regular rhythm, Heart sounds NLAbdomen/GI Abdomen/GI Atraumatic, Soft, Non-tenderMS Upper Extrem Upper Extremity/MS Atraumatic, Inspection NLMS Lower Extrem Lower Ext/Pelvis/MS Atraumatic, Inspectio n NLSkin Skin Atraumatic, Color NL, No rashNeurologic Neurologic Oriented X3, Speech NL , No motor deficitsPsychiatric Psychiatric Affect NL, Mood NL Interpretation Diagnostics Lab Results InterpretationConsiderations Independ review imaging, Reviewed prior recordsResultsLaboratory Tests 11/12/20 1549:[Embedded Image Not Available]Laboratory Tests: 11/12 11/12 11/12 1607 1553 1549 Chemistry Sodium (137 - 145 mmol/L) 141 Potassium (3.4 - 5.0 mmol/L) 3.2 L Chloride (98 - 107 mmol/L) 114 H Carbon Dioxide (22 - 30 mmol/L ) 23 BUN (9 - 20 mg/dL) 11 Creatinine (0.7 - 1.3 mg/dL) 0.6 L POC Creatinine (0.51 - 1.19 mg/dL) 0.90 Glomerular Filtr Rate (>60) 167 Glucose (74 - 106 mg/dL) 88 Calcium (8.4 - 10.2 mg/dL) 6.7 L Total Bilirubin (0.2 - 1.3 mg/dL) 0.8 Conjugated Bilirubin (0 - 0.3 mg/dL) 0 Unconjugated Bilirubin (0 - 1.1 mg/dL) 0.7 AST (15 - 46 U/L) 43 ALT (0 - 34 U/L) 14 Total Alk Phosphatase (3 8 - 126 U/L) 66 Rapid Troponin I (0.00 - 0.079 ng/mL) 0.00 Total Protein (6.3 - 8.2 g/dL) 5.8 L Albumin (3.5 - 5.0 g/dL) 3.5 Coagulation INR 1. 1 PTT (Franki) (23.4 - 37.0 SECONDS) 25.0 PT Patient/Control Mix (9.2 - 12.1 SECONDS) 12.2 H Hematology WBC (5.0 - 12.0 x10 3/uL) 7.9 RBC (4.70 - 6.10 x10 6/uL) 4.46 L Hgb (14.0 - 18.0 g/dL) 12.9 L Hct (37.0 - 49.0 %) 41.5 MCV (80 - 94 fL) 93 MCH (27 - 31 pg) 28.9 MCHC (33 - 37 g/dL) 31.1 L RDW (11.5 - 15.5 %) 13.6 Plt Count (130 - 400 x10 3/uL) 204 MPV (9.4 - 16.4 fL) 10. 0 Neut % (Auto) (43 - 65 %) 82.0 H Lymph % (Auto) (20.5 - 45.5 %) 9.9 L Otero % (Auto) (5.5 - 11.7 %) 7.1 Eos % (Auto) (0.9 - 2.9 %) 0.4 L Baso % (Auto) (0.2 - 1.0 %) 0.3 Neut # (Auto) (2.2 - 4. 8 x10 3/uL) 6.52 H Lymph # (Auto) (1.3 - 2.9 x10 3/uL) 0.79 L Otero # (Auto) (0.3 - 0.8 x10 3/uL) 0.56 Eos # (Auto) (0.0 - 0.2 x10 3/uL) 0.03 Bas o # (Auto) (0.0 - 0.1 x10 3/uL) 0.02 Immature Gran % (0.0 - 2.0 %) 0.3 Nucleated RBC % (0 - 1.0 %) 0.0 Recent Impressions:RADIOLOGY - XR PELVIS 1/2 VIEWS 11/12 154 Report Impression - Status: SIGNED Entered: 11/12/20201616 Impression: 1. Normal one view chest x-ray.2. Normal one view pelvis.Impression By: Jamari Frausto MDRADIOLOGY - XR CHEST 1 V 11/12 154 Report Impression - Status: SIGNED Entered: 11/12/20201616 Impression: 1. Normal one view chest x-ray.2. Normal one view pelvis.Impression By: Jamari Frausto MDCAT SCAN - CT HEAD/BRAI N W/O CONT 11/12 1600 Report Impression - Status: SIGNED Entered: 11/12/2020 1634 IMPRESSION:No acute intracranial abnormality identified.Impression By: [email or web address] Yossi Berger M.D.CAT SCAN - CT C-SPINE W/O CONT 11/12 1600 Report Impression - Status: SIGNED Entered: 11/12/2020 1635 IMPRESSION: No CT evidence of acute displaced fracture involving the cervicalspine.Small right apical pneumothorax. Findings discussed with of the emergency room on 11/12/2020 at 4:31 PMImpression By: [email or web address] Yossi Mclain M.D.CAT SCAN - CT ABD PELVIS W/CONT 11/12 1600 Report Impressio n - Status: SIGNED Entered: 11/12/2020 1702 IMPRESSION: 1. Right lateral 10th rib fracture with associated right-sidedpneumothorax measurin g about 5%.2. No traumatic injury of the abdomen o r pelvis. Spleen is intact. Impression By: Smooth Deleon MDCAT SCAN - CT CHEST W/CONTRAST 11/12 1600 Report Impression - Status: SIGNED Entered: 11/12/2020 1702 IMPRESSION: 1. Right lateral 10th rib fracture with associated right-sidedpneumothorax measurin g about 5%.2. No traumatic injury of the abdomen o r pelvis. Spleen is intact. Impression By: [email or web address] Yossi Deleon MD Lab Imaging StatementLaboratory radiographic studies reviewe d and considered in the medical decision-making. Re-Evaluation MDM Free Text MDM NotesFree Text MDM NotesSeen on arrival. Discussed with trauma. Will repeat CTsCT is noted, 5% pneumothorax discussed with trauma will admit ED CourseMedication(s) OrderedMedication(s) Ordered:Electrolytic, Caloric, And Hamilton Sig/Nguyễn Start time Last Medication Dose Route Stop Time Status Admin Sodium Chloride 5 ML Q12HR 11/12 2100 DC IV 11/12 2317 Sodium Chloride 5 ML ASDIR PRN 11/12 1730 DC IV 11/128 Sodium Chloride 10 ML ASDIR PRN 11/12 1730 DC IV 11/12 2317 Sodium Chloride 250 ML ASDIR PRN 11/12 1730 DC I V 04/19 2318 Patient Discharge Departure Vital Signs/ConditionVital SignsFirst Documented: Result Date Time Pulse Ox 100 11/12 1345 B/P 123/80 11/12 1345 B/P Mean 94 11/12 1345 O2 Delivery Nasal cannula 11/12 1345 O2 Flow Rate 6 11/12 1345 Temp 98.0 11/12 1345 Pulse 45 11/12 1345 Resp 18 11/12 1345 Last Documented: Result Date Time Pulse Ox 100 11/12 1345 B/P 123/80 11/12 1345 B/P Mean 94 11/12 1345 O2 Delivery Nasal cannula 11/12 1345 O2 Flow Rate 6 11/12 1345 Temp 98.0 11/12 1345 Pulse 45 11/12 1345 Resp 18 11/12 1345 All vital signs available at the time of this entry have been reviewed. Clinical ImpressionClinical ImpressionPrimary Impression: Pneumothorax Disposition DecisionAdmit Admit Physician Name Marie Gomez MD Admit Physician Hospitalist Request Time 171 Request Date 11/12/20 )( Admission Accepts Yes )( Accepted Time 1715 )( Accepted Date 11/12/20 Call Information agrees with eval Critical CareTime Spent (minutes): 44Services Performed Patient management by me, Time spent at bedside, Reviewing test results, Reviewing imaging, Discussing patient care, Documentation in record, Time with fam/surrogateSeparately billable procedures excluded from time.Patient was critically ill du e to:ptxMy treatment and management were:o2 CC Not e 1Total critical care time [44] minutes. Total critical care time documented does not include time spent on separately billed procedures or th e services of residents, students, nurses or physician assistants. I personally saw and examined the patient. I have reviewed all diagnostic interpretations and treatment plans a s written. I was present for the fuentes portions of any proceduresperformed and the inclusive time noted in any critical care statement. Critical care time includes patient management by me, adolfo e spent at the patients bedside,time to review lab and imaging results, discussing patient care, documentation in the medical record, and time spent with the family or caregiver. CC Note 2The high probability of sudden, clinically significant deterioration in the patient's condition required the highest level of my preparedness to intervene urgently. The services I provided to this patient were to treat and/or prevent clinically significant deterioration riley t could result in severe disability or . Services included the following: chart data review, reviewing nursing notes and/or old charts, documentation time, interior design consultant collaboration regarding findings and treatment options, medication orders and management, direc t patient care, re-evaluations, vital sign assessments and ordering, interpreting and reviewing diagnostic studies/lab tests. Aggregat e critical care time was [44] minutes, which includes only time during which I was engaged in work directly related to the patient's care, as describedabove, whether at the bedside or elsewhere in the Emergency Department. It did no t include time spent performing other reported procedures or the services of residents, students, nurses or physician assistants. at 2053RPT #:[id number] OF REPORTSaint [facility]'s [facility] department [id number]:44:00C.[id number] a ilable for patient [id number]:54:24
--- NOTE | 2023-06-18 11:24 | EDPHYS ---
Physician Documentation [facility] Name: Jeremy Hernandez Age: 33 yrs Sex: Male : 1990 Arrival Date: 06/18/2023 Time: 11:03 Bed 3 Private MD: ED Physician Kam Dillon HPI: 06/18 11:23 This 33 yrs old Male presents to ER via EMS with complaints of Unresponsive. ms3 11:23 33-year-old male with past medical history of congenital heart disease presents via dc3 [facility] for CPR in progress. EMS notes on their arrival patient was in asystole. Patient remained in asystole throughout transport. Patient's glucose was found to be 10. D10 drip was started. EMS notes patient was last seen normal at 10 PM last night.. 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 - Social history:: Smoking status: unknown. ROS: 11:23 Unable to obtain ROS due to CPR in progress, ms3 Exam: 11:23 Constitutional: The patient appears listless, pale, ms3 11:23 Head/face: Cyanosis of face. 11:23 Eyes: Pupils: are fixed and dilated, 11:23 ENT: Jaw clenched. 11:23 Neck: Trachea: no acute changes, 11:23 Cardiovascular: Pulses: Absent, 11:23 Respiratory: Respirations: No respiratory effort present, 11:23 Abdomen/GI: Inspection: abdomen appears normal, Palpation: soft, in all quadrants, 11:23 Musculoskeletal/extremity: Upper extremities cyanotic, stiff. 11:23 Skin: cyanotic. Vital Signs: 10:57 Pulse Ox 89% on bagged with ambu by RT; kc6 MDM: 11:05 Patient medically screened. ms3 11:23 Differential diagnosis: arrythmia, cardiac arrest, overdose. Data reviewed: vital ms3 signs, nurses notes. I considered the following discharge prescriptions or medication management in the emergency department Medications were administered in the Emergency Department. See MAR. Independent interpretation of the following test(s) in the Emergency Department culinary instructor: rate is 0 beats/min, Rhythm is asystole, Interpretation:. Historians other than the Patient: EMS: [facility]. Care significantly affected by the following chronic conditions: Congenital Heart Disease. ED course: Discussed CPR and patient's with his mother. [employer] Weeds And Pest Inspector was called to be with patient's family. Time of 1102. Administered Medications: 10:59 Drug: EPINEPHrine 0.1mg/mL 1:10,000 1 mg IVP once {Note: IO.} Route: IVP; Site: Other; [facility] 11:02 Drug: EPINEPHrine 0.1mg/mL 1:10,000 1 mg IVP once {Note: [id number].} Route: IVP; Site: [facility] Other; Disposition: 11:39 Chart complete. ms3 Disposition Summary: 06/18/23 11:23 Patient Notes: Location: [facility] ms3 Pronouncing Physician: Kam Dillon Time of : 11:02 06/18/2023 ms3 Diagnosis - Cardiac arrest, cause unspecified ms3 Signatures: Mirian Fontana RN RN Kam Dillon DO DO ms3 Deena Luis RN RN kc6 Corrections: (The following items were deleted from the chart) 11:25 11:23 33-year-old male with past medical history of congenital heart disease presents ms3 via [facility] for CPR in progress. EMS notes on their arrival patient was in asystole. Patient remained in asystole throughout transport. Patient's glucose was found to be 10. D10 drip was started.. ms3
--- NOTE | 2023-06-18 11:24 | ER ---
Nurse's Notes [facility] Name: Jeremy Hernandez Age: 33 yrs Sex: Male : 1990 Arrival Date: 06/18/2023 Time: 11:03 Bed 3 Private MD: Diagnosis: Cardiac arrest, cause unspecified Presentation: 06/18 10:57 Chief complaint: EMS states: pt had a lkw of 10pm on 06/17/23. pt was found by ems kc6 supine in his bedroom, cyanotic with rigor to the upper extremities. BGL for EMS is 10. 250mL of d5W admin by EMS to IO LLE. code blue called with [employer] machine in place. 10:57 Coronavirus screen: At this time, the client does not indicate any symptoms associated kc6 with coronavirus-19. Ebola Screen: No symptoms or risks identified at this time. Initial Sepsis Screen: Does the patient meet any 2 criteria? No. Patient's initial sepsis screen is negative. Does the patient have a suspected source of infection? No. Patient's initial sepsis screen is negative. Risk Assessment: Do you want to hurt yourself or someone else? Unable to obtain. Onset of symptoms was June 17, 2023 at 22:00. 10:57 Method Of Arrival: EMS: [facility] 10:57 Acuity: ARACELY 1 [facility] 10:57 Care prior to arrival: CPR via thumper performed by EMS. Compressions began prior to kc6 arrival. Triage Assessment: 10:57 General: Appears distressed, Behavior is unresponsive. Pain: Unable to use pain scale. kc6 Patient is unresponsive. EENT: No signs and/or symptoms were reported regarding the EENT system. Neuro: Level of Consciousness is unresponsive, Oriented to none. Cardiovascular: Capillary refill is > 3 seconds. Respiratory: GI: No signs and/or symptoms were reported involving the gastrointestinal system. : No signs and/or symptoms were reported regarding the genitourinary system. Derm: Skin is dusky, cyanotic Skin temperature is cool. Musculoskeletal: No signs and/or symptoms reported regarding the musculoskeletal system. 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 - Social history:: Smoking status: unknown. Screenin:57 Abuse screen: Denies threats or abuse. Denies injuries from another. Nutritional kc6 screening: No deficits noted. Tuberculosis screening: No symptoms or risk factors identified. Assessment: 10:57 CPR assessment: unresponsive, no respiratory effort, Ambu ventilation, cyanotic, pale, kc6 pulses absent w/ compressions. Cardiac rhythm is asystole. 10:59 Reassessment: pt placed on monitor, compressions initiated. kc6 11:01 Reassessment: rhythm check. Asystole, CPR continued. kc6 11:02 Reassessment: TOD called by Dr. Dillon. kc6 Vital Signs: 10:57 Pulse Ox 89% on bagged with ambu by RT; kc6 ED Course: 10:57 Arm band placed on. kc6 10:57 Maintain EMS IV. Dressing intact. Good blood return noted. Site clean \T\ dry. Gauge \T\ maine 6 site: IO LLE. 10:57 Patient has correct armband on for positive identification. Bed in low position. Side kc6 rails up X2. 11:05 Patient arrived in ED. ms3 11:05 Kam Dillon DO is Attending Physician. ms3 11:09 Triage completed. kc6 11:22 Kam Dillon DO is Pronouncing Provider. ms3 13:34 Mirian Fontana, RN is Primary Nurse. ph Administered Medications: 10:59 Drug: EPINEPHrine 0.1mg/mL 1:10,000 1 mg IVP once {Note: IO.} Route: IVP; Site: Other; kc6 11:02 Drug: EPINEPHrine 0.1mg/mL 1:10,000 1 mg IVP once {Note: [id number].} Route: IVP; Site: [facility] Other; Outcome: 11:02 Outcome Patient kc6 11:02 Patient : Time of 11:02 Pronounced by Kam Dillon DO kc6 11:02 Condition: 14:14 Patient left the ED. ph Signatures: Mirian Fontana, RN RN ph Kam Dillon DO DO ms3 Deena Luis RN RN [facility]
== END 2023-06-18 14:14 ==
LOC: ER 11:03
PROC: 5A1221J Performance of Cardiac Output, Continuous, Automated (ICD-10-PCS; principal; 2023-06-18)
DX: I46.9 Cardiac arrest, cause unspecified (principal); Q24.9 Congenital malformation of heart, unspecified
CPT/HCPCS: 92950; 96374; 99285; J0171; J2310